=== PATIENT | female | born 1960 | race Caucasian/White ===

== ENCOUNTER 2017-06-19 22:16 | Emergency (ER) | payer BC, SELFPAY ==
[2017-06-19 22:18] VITALS: BP 140/75; PULSE 77; RESP 20; TEMP 36.8; O2SAT 96; BMI 37.8
--- NOTE | 2017-06-19 23:02 | RAD_ITS ---
XR Spine Lumbar 2 or 3 Views INDICATION: NKIC/O LBP STARTING TONIGHTRECENT BACK SURGERY COMPARISON: December 2016 TECHNIQUE: Frontal and lateral views of the lumbar spine and coned down lateral view of the lumbosacral junction FINDINGS: There are postsurgical changes from laminectomies and posterior fusion from L4-S1, new compared to December 2016. Hardware appears properly positioned. There is no evidence of scoliosis. Height of the vertebral bodies is preserved. RAD/Lumbar Spine 2 or 3 Views IMPRESSION: Postsurgical changes from L4-S1. Height of the vertebral bodies is preserved. Consider further evaluation with MRI if clinical symptoms persist. at [id number] Reported and signed by: Gwen Alegria MD Electronically Signed: Gwen Alegira MD at 22:55 EDT Tel , Service support ,
--- NOTE | 2017-06-19 23:03 | ED.VISSUMM ---
- ER Visit Summary Date of Service: 06/19/17 Chief Complaint: Back pain History of Present Illness: The patient is a 56 F postop day 29 L4-S1 fusion by Dr. Briseno, at [facility]. States sudden nontraumatic pain lower back approximately 2034 while standing in front and stove. She was not bending. States has pain down the leg when she moves. No loss of bowel or bladder control. Previously had pain down left leg, states initial surgery was May 21, however came out of surgery pain on the right leg, revision surgery with reversal screw on the with improved symptoms. Is doing doing well since surgery. Has not required any pain medicines, however with pain did take an oxycodone in her Flexeril at 9 PM this evening. Had a follow-up appointment 8 days ago an additional appointment on July 09. No fever, chills, sweats. Physical Examination: General: Alert and oriented ?3, uncomfortable HEENT: Normocephalic, atraumatic. Moist mucosa membranes Neck: supple, nontender. Cardiovascular: Regular rate and rhythm, no murmurs Respiratory: Normal breath sounds, symmetric, no distress Back: Healing lower lumbar incision, scabbing at L4, no erythema, no drainage. Clean, dry, intact. Straight leg test negative. 1+ patellar reflex bilaterally. Abdomen: Soft, nontender, nondistended Extremities: Nontender, no edema, pulses intact ?4 Neuro: no focal neurological deficits. Test Results: LS spine x-ray: Hardware intact Emergency Department Course and Treatment: Patient with no cauda equina symptoms. No signs of infection. Declined any additional pain medicines. X-ray obtained noting hardware to be intact and in appropriate position per radiologist. Patient continue her home medication she will call her surgeon tomorrow for outpatient reevaluation. Patient did state her surgeon did not want her on any NSAIDs due to wanting bone healing and formation. Return if any worsening symptoms. All questions were answered. Treatment Plan: [] Disposition: Discharge Impression: 1. Acute back pain 2. Post laminectomy with spinal fusion This note was generated with [employer] dictation software. It may contain incorrect words, spelling, and punctuation that were not noted in review of the chart prior to signing ED Disposition - Plan for ED Patient: Disposition: Home or Assisted Living Chief Complaint: Back Diagnosis: Acute back pain Referrals: [facility] Doctor,Out of [Primary Care Provider] - Additional Instructions: X-ray with hardware in appropriate position. Continue home medications. Call Dr. Briseno tomorrow for follow-up.
--- NOTE | 2017-06-19 23:06 | ED.DCSUM_ITS ---
- ER Visit Summary Date of Service: 06/19/17 Chief Complaint: Back pain History of Present Illness: The patient is a 56 F postop day 29 L4-S1 fusion by Dr. Briseno, at [facility]. States sudden nontraumatic pain lower back approximately 2034 while standing in front and stove. She was not bending. States has pain down the leg when she moves. No loss of bowel or bladder control. Previously had pain down left leg, states initial surgery was May 21, however came out of surgery pain on the right leg, revision surgery with reversal screw on the with improved symptoms. Is doing doing well since surgery. Has not required any pain medicines, however with pain did take an oxycodone in her Flexeril at 9 PM this evening. Had a follow-up appointment 8 days ago an additional appointment on July 09. No fever, chills, sweats. Physical Examination: General: Alert and oriented ?3, uncomfortable HEENT: Normocephalic, atraumatic. Moist mucosa membranes Neck: supple, nontender. Cardiovascular: Regular rate and rhythm, no murmurs Respiratory: Normal breath sounds, symmetric, no distress Back: Healing lower lumbar incision, scabbing at L4, no erythema, no drainage. Clean, dry, intact. Straight leg test negative. 1+ patellar reflex bilaterally. Abdomen: Soft, nontender, nondistended Extremities: Nontender, no edema, pulses intact ?4 Neuro: no focal neurological deficits. Test Results: LS spine x-ray: Hardware intact Emergency Department Course and Treatment: Patient with no cauda equina symptoms. No signs of infection. Declined any additional pain medicines. X- ray obtained noting hardware to be intact and in appropriate position per radiologist. Patient continue her home medication she will call her surgeon tomorrow for outpatient reevaluation. Patient did state her surgeon did not want her on any NSAIDs due to wanting bone healing and formation. Return if any worsening symptoms. All questions were answered. Treatment Plan: [] Disposition: Discharge Impression: 1. Acute back pain 2. Post laminectomy with spinal fusion This note was generated with [employer] dictation software. It may contain incorrect words, spelling, and punctuation that were not noted in review of the chart prior to signing ED Disposition - Plan for ED Patient: Disposition: Home or Assisted Living Chief Complaint: Back Diagnosis: Acute back pain Referrals: [facility] Doctor,Out of [Primary Care Provider] - Additional Instructions: X-ray with hardware in appropriate position. Continue home medications. Call Dr. Briseno tomorrow for follow-up.
[2017-06-20 00:44] VITALS: RESP 18
== END 2017-06-20 00:44 | disposition home or self-care (01) ==
PROVIDERS: Emergency Provider Emergency Medicine
DX: M54.9 Dorsalgia, unspecified (principal); Z98.890 Other specified postprocedural states; Z79.899 Other long term (current) drug therapy
CPT/HCPCS: 72100; 99282

== ENCOUNTER → 2017-07-09 12:44 | Outpatient (CLI) | payer BC, SELFPAY ==
--- NOTE | 2017-07-09 12:45 | RAD_ITS ---
STUDY: X-RAY - LUMBAR SPINE REASON FOR EXAM: Female, 56 years old. Low back pain TECHNIQUE: 2 view(s) of the lumbar spine were obtained. COMPARISON: Prior study of 06/19/2017 FINDINGS: Normal lumbar lordosis. There is no substantial scoliosis. There is a normal alignment of the vertebrae. There are status post posterior spinal fusion changes with interpeduncular screws from L4 to S1. Status post laminectomy changes are seen at L4 and L5. Normal disc space heights. The soft tissue structures are unremarkable. RAD/Lumbar Spine 2 or 3 Views IMPRESSION: Status post posterior spinal fusion changes with interpeduncular screws from L4 to S1. Status post L4 and L5 laminectomy. There is no evidence of fracture or spondylolisthesis. Findings are stable in the interval. Electronically Signed: Sin Jansen MD at 23:32 EDT , Service support ,
[2017-07-09 16:06] LABS: Erythrocyte Sedimentation Rate 24 mm/hr (0-30)
== END ==
PROVIDERS: Visit Provider Orthopaedic Surgery
DX: Z98.1 Arthrodesis status (principal)
CPT/HCPCS: 36415; 72100; 85652; 86140

== ENCOUNTER → 2017-08-20 14:04 | Outpatient (CLI) | payer BC, SELFPAY ==
--- NOTE | 2017-08-20 14:05 | RAD_ITS ---
STUDY: X-RAY - LUMBAR SPINE REASON FOR EXAM: Female, 56 years old. Follow-up after surgery TECHNIQUE: 2 view(s) of the lumbar spine were obtained. COMPARISON: None FINDINGS: Mild scoliosis. Generalized mild osteopenia. No acute intra-abdominal process. Lower ribs, upper medial pelvis intact. Mild SI joint degenerative changes. Posterior roger and pedicle screw fixation between L4 and S1, surgical construct intact, vertebral bodies aligned. Only minimal disc degenerative features of the low thoracic and upper lumbar spine otherwise. RAD/Lumbar Spine 2 or 3 Views IMPRESSION: Surgical construct intact. Mild scoliosis and mild spondylosis. Electronically Signed: Tyson Cummings, at 16:21 EDT Tel , Service support ,
== END ==
PROVIDERS: Visit Provider Orthopaedic Surgery
DX: Z98.1 Arthrodesis status (principal)
CPT/HCPCS: 72100

== ENCOUNTER 2017-08-21 17:30 | Outpatient (RCR) | payer BC, SELFPAY ==
--- NOTE | 2017-07-24 19:31 | HP.PTEVAL_ITS ---
Patient's Visit Information NATO GUERRIER is a 56 year old F referred to Physical Therapy by Terese Briseno with a diagnosis of s/p L4-S1 Fusion- R ankle weakness. Date of Evaluation: 07/24/17 Physical Therapist: Jessica Stark - Visit Plan Frequency: 2x /Week Duration: 4 Weeks Plan: 2X/ week for 4weeks for desensitization of the R foot and ankle and ankle strengthening of the R foot. NO BACK EXERCISES - Subjective Subjective: Pt had first surgery fusion may 23. Pt had back surgery again ( next day) (she went in twice cause they had to pull a screw out bw that was causing pain in her foot and they had to cut part of the bone). Before surgery she had no problems with R foot. Now after surgery now she has a burning sensation along the arch and acorss the top of the toes and anterior ankle. Her 3 toes went blue the other day and they are not blue any more. She has no control over the 3 smallest toes (she can now feel but she is very hyper- sensitive). She cant stand the sheet over her at night. Pt sees a new pain management Dr on the and will try and find new meds for her. Pt is tripping on her foot at times. Pt can not LAY ON HER BACK.....because she feels the rods are coming out of her spine. She sees Dr Gonzales August 23. She has been on gabapetin for years and can not take it and insurance co will not cover Lyrica and tylenol does not cover it. Dr does not want pt to sit or stand longer than 30 min. Pt reports that hurting taking a shower...ice packs make it hurt. - Pain R foot Pain Intensity (Out of 10): 3 Pain Intensity Range: 10 Comment: walking without a shoe on 10 - Objective Gait: walks with decrease stance time on the R and increase wobble with gait. R foot ARM: flex to neutral, PF 35 degrees, Inv 21 degrees and EV 9 degrees. Pt is extremely hypersensitive to touch along the top of the foot, medial arch of the R foot and anterior ankle on the R. She could not handle light touch so we started with using a tissue to lightly brush over the foot including lateral arch. Pt was able to tolerate gastroc towel stretchm sitting DF AROM, and towel scrunch although her big toe does not move enough to scrunch the towel. - Goals Goal 1:: I HEP Goal Time Frame: 4-6 Weeks Goal 2:: Increase gait to be able to walk with a normal gait pattern. Goal Time Frame: 4-6 Weeks Goal 3:: Decrease sensitivity so that pt is able to put on shoe and sock without screaming in pain Goal Time Frame: 4-6 Weeks - Rehabilitation Potential Rehabilitation Potential: Fair - Anticipated Interventions Patient/Client Instruction: Educate patient on: Condition, Plan of Care For the Purpose of:: To decrease pain, To decrease swelling/inflammation, To increase ROM, To improve nutrient delivery to tissue, To improve muscle performance and motor function, To improve ability to perform ADL's, To increase tolerance to activity/condition/position, To improve gait and locomotor functions, To improve health of tissue, To decrease soft tissue restriction, To increase flexibility/ROM Therapeutic Exercise to Include: Strength training, Balance training, Flexibilty training, Gait and locomotor training, Neuromotor development, Passive ROM, Active ROM For the Purpose of:: To decrease pain, To decrease swelling/inflammation, To increase ROM, To improve nutrient delivery to tissue, To improve muscle performance and motor function, To improve ability to perform ADL's, To increase tolerance to activity/condition/position, To improve health of tissue, To decrease soft tissue restriction, To increase flexibility/ROM, To improve balance Manual Therapy Techniques to Include: Massage, Passive ROM, Other Comment: desensitization For the Purpose of:: To decrease pain, To increase ROM, To improve muscle performance and motor function, To improve ability to perform ADL's, To increase tolerance to activity/condition/position, To improve gait and locomotor functions, To improve health of tissue, To decrease soft tissue restriction, To increase flexibility/ROM Thank you for the opportunity to evaluate your patient. For Medicare and Medicare HMO plans, please review the plan of care and approve it. It will need to be FAXED BACK to us at [phone] for Medicare purposes. Please let me know if there are questions or concerns regarding this plan of care. Physician Signature: Date:
--- NOTE | 2017-08-21 19:09 | HP.PTREVAL_ITS ---
Terese Briseno, It has been my pleasure to treat NATO GUERRIER over the last 6 visits for s/p L4-S1 Fusion- R ankle weakness. Please see the progress note below for an update on the physical therapy plan of care! Subjective: Tomm she has a new PCP appointment cause Dr does not think that the surgery is causing he leg swelling cause it is now in both legs and just the R foot. The Dr wants her to see a hemodialysis technician. said go ahead and start strengthening but to quit when she knows that she has done enough. No difference with the compression sleeve given last session. Objective/Function: Trunk flexion 25% with knees bent, SB B 50%, Ext to neutral , Rot B 75%. Pt is unable to heel or toe raise on the R. Plan Plan: Start with gentle core strengthening, gait training, light LE strength geared toward HEP. Goals Goal 1:: I HEP Goal Time Frame: 4-6 Weeks Goal 2:: Increase gait to be able to walk with a normal gait pattern. Goal Time Frame: 4-6 Weeks Goal 3:: Decrease sensitivity so that pt is able to put on shoe and sock without screaming in pain Goal Time Frame: 4-6 Weeks Goal Progress: Goal Met Goal 4:: Be able to complete I HEP core stability (light) program per order Goal Time Frame: 4-6 Weeks Anticipated Interventions Patient/Client Instruction: Educate patient on: Condition, Plan of Care For the Purpose of:: To decrease pain, To decrease swelling/inflammation, To increase ROM, To improve nutrient delivery to tissue, To improve muscle performance and motor function, To improve ability to perform ADL's, To increase tolerance to activity/condition/position, To improve gait and locomotor functions, To improve health of tissue, To decrease soft tissue restriction, To increase flexibility/ROM Therapeutic Exercise to Include: Strength training, Balance training, Flexibilty training, Gait and locomotor training, Neuromotor development, Passive ROM, Active ROM For the Purpose of:: To decrease pain, To decrease swelling/inflammation, To increase ROM, To improve nutrient delivery to tissue, To improve muscle performance and motor function, To improve ability to perform ADL's, To increase tolerance to activity/condition/position, To improve health of tissue, To decrease soft tissue restriction, To increase flexibility/ROM, To improve balance Manual Therapy Techniques to Include: Massage, Passive ROM, Other Comment: desensitization For the Purpose of:: To decrease pain, To increase ROM, To improve muscle performance and motor function, To improve ability to perform ADL's, To increase tolerance to activity/condition/position, To improve gait and locomotor functions, To improve health of tissue, To decrease soft tissue restriction, To increase flexibility/ROM Please do not hesitate to contact me at [phone] by phone or Fax: if you have questions or concerns regarding this new plan of care! Sincerely, Jessica Stark
--- NOTE | 2018-01-17 08:06 | HP.PT.NRP ---
HP - Discharge Summary (1) - Patient Information NATO GUERRIER was seen in my office for initial evaluation on 07/24/17. The following Plan of Care was established for this patient: Initial Frequency: 2x /Week Initial Duration: 4 Weeks - Anticipated Interventions Patient/Client Instruction: Educate patient on: Condition, Plan of Care For the Purpose of:: To decrease pain, To decrease swelling/inflammation, To increase ROM, To improve nutrient delivery to tissue, To improve muscle performance and motor function, To improve ability to perform ADL's, To increase tolerance to activity/condition/position, To improve gait and locomotor functions, To improve health of tissue, To decrease soft tissue restriction, To increase flexibility/ROM Therapeutic Exercise to Include: Strength training, Balance training, Flexibilty training, Gait and locomotor training, Neuromotor development, Passive ROM, Active ROM For the Purpose of:: To decrease pain, To decrease swelling/inflammation, To increase ROM, To improve nutrient delivery to tissue, To improve muscle performance and motor function, To improve ability to perform ADL's, To increase tolerance to activity/condition/position, To improve health of tissue, To decrease soft tissue restriction, To increase flexibility/ROM, To improve balance Manual Therapy Techniques to Include: Massage, Passive ROM, Other Comment: desensitization For the Purpose of:: To decrease pain, To increase ROM, To improve muscle performance and motor function, To improve ability to perform ADL's, To increase tolerance to activity/condition/position, To improve gait and locomotor functions, To improve health of tissue, To decrease soft tissue restriction, To increase flexibility/ROM This patient was last seen in our office 08/21/17. Pertinent comments regarding their Physical therapy will appear below: [facility] PT At this point I will be discontinuing this patient from physical therapy. I would be happy to see this patient again in the future if found appropriate by the physician. Thank you! Jessica Stark
== END 2017-08-21 19:00 | disposition home or self-care (01) ==
LOC: PT 17:30
PROVIDERS: Visit Provider Orthopaedic Surgery
DX: Z98.890 Other specified postprocedural states (principal); R29.898 Other symptoms and signs involving the musculoskeletal system
CPT/HCPCS: 97110; 97140; 97162

== ENCOUNTER → 2017-09-12 10:55 | Outpatient (CLI) | payer BC, SELFPAY ==
--- NOTE | 2017-09-12 10:56 | RAD_ITS ---
STUDY: X-RAY - RIGHT KNEE REASON FOR EXAM: Bilateral knee pain. TECHNIQUE: 4 view(s) of the knee. COMPARISON: None. FINDINGS: Normal visualized distal femur. Normal visualized proximal tibia and fibula. Normal proximal tibiofibular articulation. There are small marginal osteophytes and joint space narrowing of the medial femorotibial compartment. Normal lateral femorotibial compartment. There are small marginal osteophytes and joint space narrowing of the patellofemoral articulation. There is a small calcification in the proximal medial collateral ligament. RAD/Knee 4 or More Views IMPRESSION: Arthrosis of the medial femorotibial and patellofemoral compartments. Electronically Signed: Darius Ramos MD at 16:26 EDT Tel , Service support ,
--- NOTE | 2017-09-12 10:56 | RAD_ITS ---
STUDY: X-RAY - LEFT KNEE REASON FOR EXAM: Bilateral knee pain. TECHNIQUE: 4 view(s) of the knee. COMPARISON: None. FINDINGS: Normal visualized distal femur. Normal visualized proximal tibia and fibula. Normal proximal tibiofibular articulation. There are small marginal osteophytes and joint space loss of the medial femorotibial compartment. There is a small osteophyte of the lateral tibial plateau without joint space narrowing of the lateral femorotibial compartment. There are small marginal osteophytes and joint space narrowing of the patellofemoral articulation. There is a very small soft tissue calcification medial to the medial tibial plateau. RAD/Knee 4 or More Views IMPRESSION: Arthrosis of the medial femorotibial and patellofemoral compartments. Electronically Signed: Darius Ramos MD at 16:30 EDT Tel , Service support ,
== END ==
PROVIDERS: Visit Provider Orthopaedic Surgery
DX: M25.561 Pain in right knee (principal); M25.562 Pain in left knee
CPT/HCPCS: 73564

== ENCOUNTER → 2017-09-12 14:26 | Outpatient (CLI) | payer BC, SELFPAY ==
[2017-09-12 14:28] LABS: Pathologist Comment May follow
[2017-09-12 15:05] LABS: Source- Body Fluid SYNOVIAL
[2017-09-12 15:06] LABS: Appearance /Synovial Fluid Clear (CLEAR); Color / Synovial Fluid Yellow (Pale Yellow); Source / Synovial Fluid LEFT KNEE
[2017-09-12 15:13] LABS: Synovial Fld Polynuclear WBC # 0.098 10^3/ul
[2017-09-12 15:26] LABS: AUTO B FLUID DILUENT BKGD CT WBC <0.1 RBC <0.01 (W<.1,R<.01)
[2017-09-12 15:38] LABS: RBC /Synovial Fluid 31 /mm3 (0)
[2017-09-12 16:21] LABS: Lymph 15 %; Monocyte /Synovial Fluid 13 %; Neutrophil 7 % (0-25); Synovial Fld Mononuclear WBC # 0.153 10^3/ul
[2017-09-12 16:22] LABS: Body Fluid QC Type(s) BF1Q,BF2Q,BF3Q; Other Cell /Synovial Fluid 65 %
[2017-09-13 10:02] LABS: Pathologist Review Reviewed
== END ==
PROVIDERS: Visit Provider Orthopaedic Surgery
DX: M17.0 Bilateral primary osteoarthritis of knee (principal)
CPT/HCPCS: 87070; 87075; 87205; 89050; 89051; 89060

== ENCOUNTER 2017-11-05 15:04 | Outpatient (RCR) | payer BC, SELFPAY ==
--- NOTE | 2017-11-05 17:20 | HP.PTEVAL_ITS ---
Patient's Visit Information NATO GUERRIER is a 57 year old F referred to Physical Therapy by Selena Butler DO with a diagnosis of B Knee OA. Date of Evaluation: 11/05/17 Physical Therapist: Jessica Stark - Visit Plan Frequency: 2x /Week Duration: 4 Weeks Plan: 2X/ week for 4 weeks for L knee and hip strengthening being careful of R foot nerve damage from previous back surgery and back from back surgery, gait training, knee ROM, with HEP and modalities PRN. May try a trial of AT if pt can not handle land based thereapy. - Subjective Subjective: Pt saw Dr Gibson on 10-24-2017 injections in B knees and fluid was taken out of the L knee (that lasted a week). Had some brace fitting and no braces are working for her kene. It hurts when she moves or turns walking or any type of weight bearing on it. Cocks into a valgus position....she has to get up a certain way because of back surgery ( restrictions from surgery...can do almost everything she wants unless it reminds her not to). R foot still has swelling/nerve damage and just recent wearing a bunion protector/brace which helps with her R foot pain. Pt reports that the fluid has come back on the knee and doesnt see elan for 4-6 months. - Pain L knee pain Pain Intensity (Out of 10): 0 Pain Intensity Range: 8 Comment: Standing 8/10 pain back pain Pain Intensity (Out of 10): 0 R foot pain Pain Intensity (Out of 10): 0 - Objective 0 degrees knee extension and -133 R and 130 degrees L degrees knee flexion AROM. 38 cm, 41.5 cm , 43cm Left girth measurements. 37 cm , 40cm , 42.4cm Right girth measurements. LE MMT: R hip flex 4-/5 and L hip flex 4/5, R hip abd 4/5 and L 4-/5, R knee flex 4-/5 ( increase HS cramp) and L knee flex 4/5, B knee ext 4/5, able to do full ROM bridge. Gait: walks with straight L leg with increase hip hike. Trouble with stance time on the R at time due to swelling from damage from previous back surgery. - Goals Goal 1:: I HEP Goal Time Frame: 4-6 Weeks Goal 2:: Decrease L knee pain to 2/10 with ADL's Goal Time Frame: 4-6 Weeks Goal 3:: Increase L hip and knee strength by 1/2 muscle grade (at time of eval: LE MMT: R hip flex 4-/5 and L hip flex 4/5, R hip abd 4/5 and L 4-/5, R knee flex 4-/5 ( increase HS cramp) and L knee flex 4/5, B knee ext 4/5, able to do full ROM bridge). Goal Time Frame: 4-6 Weeks Goal 4:: Walk with a normal gait pattern Goal Time Frame: 4-6 Weeks - Rehabilitation Potential Rehabilitation Potential: Good - Anticipated Interventions Patient/Client Instruction: Educate patient on: Condition, Plan of Care For the Purpose of:: To decrease pain, To decrease swelling/inflammation, To increase ROM, To improve nutrient delivery to tissue, To improve muscle performance and motor function, To improve ability to perform ADL's, To increase tolerance to activity/condition/position, To improve performance and independence with ADL's, To improve ability of physical actions for home/ community/work/leisure, To improve gait and locomotor functions, To improve health of tissue, To decrease soft tissue restriction, To increase flexibility/ ROM Therapeutic Exercise to Include: Strength training, Balance training, Flexibilty training, Gait and locomotor training, Neuromotor development, In an aquatic setting, Active ROM For the Purpose of:: To decrease pain, To decrease swelling/inflammation, To increase ROM, To improve nutrient delivery to tissue, To improve muscle performance and motor function, To improve ability to perform ADL's, To increase tolerance to activity/condition/position, To improve performance and independence with ADL's, To decrease level of supervision to perform tasks, To improve ability of physical actions for home/community/work/leisure, To improve gait and locomotor functions, To improve health of tissue, To decrease soft tissue restriction, To increase flexibility/ROM Functional Training to Include: Gait training For the Purpose of:: To improve gait and locomotor functions IF ES: Yes Cryotherapy (ice pack, ice massage): Yes Ultrasound (thermal/non thermal): Yes For the Purpose of:: To decrease pain, To decrease swelling/inflammation, To increase ROM, To improve nutrient delivery to tissue Thank you for the opportunity to evaluate your patient. For Medicare and Medicare HMO plans, please review the plan of care and approve it. It will need to be FAXED BACK to us at [phone] for Medicare purposes. Please let me know if there are questions or concerns regarding this plan of care. Physician Signature: Date:
--- NOTE | 2018-05-02 08:36 | HP.PT.NRP ---
HP - Discharge Summary (1) - Patient Information NATO GUERRIER was seen in my office for initial evaluation on 11/05/17. The following Plan of Care was established for this patient: Initial Frequency: 2x /Week Initial Duration: 4 Weeks - Anticipated Interventions Patient/Client Instruction: Educate patient on: Condition, Plan of Care For the Purpose of:: To decrease pain, To decrease swelling/inflammation, To increase ROM, To improve nutrient delivery to tissue, To improve muscle performance and motor function, To improve ability to perform ADL's, To increase tolerance to activity/condition/position, To improve performance and independence with ADL's, To improve ability of physical actions for home/community/work/leisure, To improve gait and locomotor functions, To improve health of tissue, To decrease soft tissue restriction, To increase flexibility/ROM Therapeutic Exercise to Include: Strength training, Balance training, Flexibilty training, Gait and locomotor training, Neuromotor development, In an aquatic setting, Active ROM For the Purpose of:: To decrease pain, To decrease swelling/inflammation, To increase ROM, To improve nutrient delivery to tissue, To improve muscle performance and motor function, To improve ability to perform ADL's, To increase tolerance to activity/condition/position, To improve performance and independence with ADL's, To decrease level of supervision to perform tasks, To improve ability of physical actions for home/community/work/leisure, To improve gait and locomotor functions, To improve health of tissue, To decrease soft tissue restriction, To increase flexibility/ROM Functional Training to Include: Gait training For the Purpose of:: To improve gait and locomotor functions IF ES: Yes Cryotherapy (ice pack, ice massage): Yes Ultrasound (thermal/non thermal): Yes For the Purpose of:: To decrease pain, To decrease swelling/inflammation, To increase ROM, To improve nutrient delivery to tissue This patient was last seen in our office 11/19/17. Pertinent comments regarding their Physical therapy will appear below: DC PT At this point I will be discontinuing this patient from physical therapy. I would be happy to see this patient again in the future if found appropriate by the physician. Thank you! Jessica Stark, MPT
== END 2017-11-05 19:00 | disposition home or self-care (01) ==
LOC: PT 15:04
PROVIDERS: Visit Provider Orthopaedic Surgery
DX: M17.0 Bilateral primary osteoarthritis of knee (principal)
CPT/HCPCS: 97162

== ENCOUNTER → 2017-11-12 15:00 | Outpatient (CLI) | payer BC, SELFPAY | PROVIDERS: Visit Provider Orthopaedic Surgery | DX: M54.5 Low back pain (principal) | CPT/HCPCS: 72100 ==

== ENCOUNTER 2018-01-17 09:58 | Day surgery (SDC) | payer BC, SELFPAY ==
[2018-01-17] VITALS (8 sets, daily range): BP systolic 80–114; BP diastolic 57–76; PULSE 68–80; RESP 16–32; TEMP 36.2–37.1; O2SAT 90–98; BMI 36.3
--- NOTE | 2018-01-17 | BUN_PTH ---
PATIENT: NATO GUERRIER LOC: [facility] [place] U#:[id number] AGE/SX: 57/F ROOM: RE01/17/[address]: Dr. Deny Platt DPM : 1960 BED: DIS: 01/17/2018 SPEC #: [id number] RECD: 01/20/18 13:41 STATUS: YULIYA REQ #: [id number] DESTIN: 01/17/18 00:[address]: Deny Paltt DEPT: SURGICAL PATHOLOGY RECD BY: Pablo Birmingham ENTERED: 01/20/18 13:41 SP TYPE: BUNION OTHR DR: Dr. Deny Sauer MD Tissues: Bony tissue, NOS Procedures: Decalcification bone/plaque Surgery Specimen Level III HEADER OPERATION: First metatarsal osteotomy, bunionectomy with poss Ethan great toe PRE-OP DIAGNOSIS: Hallus valgus right great toe, hammertoe TISSUE SUBMITTED: Bunion first metatarsal right foot MICROSCOPIC DIAGNOSIS Bunion first metatarsal right foot: Pieces of bone with reactive changes, clinically bunion. MICHELLE:crispin 01/23/18 MICROSCOPIC DESCRIPTION Slides are reviewed. GROSS DESCRIPTION Received in fixative is one container labeled with the patient's name and designated bunion first metatarsal right foot. The specimen consists of multiple pieces of bone that in aggregate measure 3 x 3 x 0.1 cm. The entire specimen is submitted in one cassette after decalcification. / MICHELLE:crispin 01/20/18 TC:5 CPT: 29220, 13946
--- NOTE | 2018-01-17 10:30 | RAD_ITS ---
STUDY: Fluoroscopic RIGHT FOOT CLINICAL: Female, 57 years old. Osteotomy first TECHNIQUE: 2 view(s) of the foot. COMPARISON: None. FINDINGS: 2 fluoroscopic views of the distal foot are provided showing 2 cortical screws in the first metatarsal. Fluoroscopy time is recorded as 0.37 seconds RAD/Foot min 3 Views IMPRESSION: 2 views fluoroscopy of the right foot. Electronically Signed: Irma Patton MD at 16:03 EDT Tel , Service support ,
[2018-01-17 10:51] LABS: Prothrombin Time (Protime)PT. 13.1 SECONDS (11.7-14.9)
[2018-01-17 10:52] LABS: Partial Thromboplast Time 31.1 Seconds (24.1-36.2)
[2018-01-17] MEDS: MethylPREDNISolone Acetate 80 MG/ML Vial (12:47)
[2018-01-17] MEDS: Bupivacaine Mpf 0.5% 30 ML VIAL (12:50)
--- NOTE | 2018-01-17 12:52 | RAD_ITS ---
STUDY: X-RAY - RIGHT FOOT CLINICAL: Female, 57 years old. Postop right foot TECHNIQUE: 3 view(s) of the foot. COMPARISON: January 17, 2018 fluoroscopic imaging FINDINGS: There is an enthesophyte involving the posterior superior calcaneus at the site of insertion of the Achilles tendon. There is a plantar spur. The bones are osteopenic. There is degenerative change at the tarsotarsal joints. There is an os navicularis. There are cortical screws within the right first metatarsal. There is postoperative change. There is gas in the soft tissues. Normal metatarsophalangeal joint of the great toe. Normal tibial and fibular sesamoid bones. Normal interphalangeal joint of the great toe. Normal phalanges of the great toe. Normal second through fifth metatarsophalangeal joints. Normal interphalangeal joints and phalanges of the lesser toes. RAD/Foot min 3 Views IMPRESSION: Operative changes right foot first metatarsal. Plantar and Achilles spur. Bony osteopenia. Os naviculare. Electronically Signed: Irma Patton MD at 15:07 EDT Tel , Service support ,
--- NOTE | 2018-01-17 12:55 | DCINST_ITS ---
Discharge Diet: Light diet - advance as tolerated Discharge Activity: May Not Drive Weight Bearing Status: No weight bearing - No weightbearing right forefoot (ball of foot and toes) Keep extremity elevated above heart level: Right Leg - Keep right foot elevated for at least 50 minutes of every hour Call your doctor if your incision/area has: Continuous Slow Oozing, Sudden Increased Bleeding, Foul Smelling Discharge Call your doctor if you observe: Fever of 101 or Higher, Shortness of breath, Chest pain, Increased palpitations (irregular heartbeat), Calf discomfort, Uncontrolled pain Cleanse incision/area with: Do not get Incision Wet, Keep Dressing Clean & Dry Allergies/Adverse Reactions: Allergies atorvastatin [From Lipitor] Allergy (Verified 01/14/18 13:29) Upset Stomach cephalexin [From Keflex] Allergy (Verified 01/14/18 13:29) Swelling latex Allergy (Verified 01/14/18 13:30) Rash morphine Allergy (Verified 01/14/18 13:29) Vomiting nickel Allergy (Verified 01/14/18 13:30) Rash pork derived (porcine) Allergy (Verified 01/14/18 13:30) Food Allergy tramadol Allergy (Verified 01/14/18 13:29) Rash zinc Allergy (Verified 01/14/18 13:29) Rash gabapentin Adverse Reaction (Verified 01/14/18 13:59) Swelling Medications to take at Discharge Amlodipine [Norvasc] 10 mg PO DAILY 03/15/16 Diclofenac Potassium 50 mg PO DAILY 03/15/16 Propranolol HCl 60 mg PO BID 03/15/16 Betamethasone Sod Phosph-Water [Betamethasone 12 mg/2 ml-Water] 1 applic TOPICAL DAILY 06/19/17 Loteprednol Etabonate [Lotemax] 3.5 gm OP QHS 06/19/17 Omeprazole Magnesium [Prilosec Otc] 20 mg PO DAILY 06/19/17 Albuterol Sulfate [Proventil Hfa] 2 puff IH Q4H PRN PRN 01/14/18 Doxepin HCl [Sinequan] 10 mg PO QHS 01/14/18 Tizanidine HCl [Zanaflex] 2 mg PO Q8H PRN 01/14/18 Oxycodone HCl/Acetaminophen [Percocet 5/325] 1 - 2 tab PO Q6H PRN PRN 4 Days #30 tab 01/17/18 The following prescriptions were given: Oxycodone HCl/Acetaminophen [Percocet 5/325] 1 - 2 tab PO Q6H PRN PRN 4 Days #30 tab PRN Reason: Pain Primary Care Physician: Deny Sauer MD [Primary Care Provider] - Test Results: Test results from this visit will be discussed in further detail at your follow- up appointment, if applicable. Please Follow Up With: Deny Platt DPM When: within 1 week, sooner if needed
--- NOTE | 2018-01-17 12:55 | PCM.OPRPT ---
Report of Operation Date of Procedure: 01/17/18 Pre-Operative Diagnosis: Hallux valgus bunion, right foot. 2nd digit hammer toe, right foot Post-Operative Diagnosis: Same Surgery/Procedure Performed:: 1st metatarsal osteotomy bunionectomy, right. arthroplasty right 2nd toe Description of Surgical Findings:: Hallux valgus bunion, hallux limitus, 2nd digit hammer toe - right foot community organization director: Dr. Bose Type of Anesthesia:: General Specimen's removed: Bunion and bone from 2nd digit hammer toe all right foot- sent to pathology Estimated Blood Loss (mL): 5mL Description of Procedure: Indications: This is a 57 year-old female who has chronic right foot bunion pain and painful 2nd digit hammer toe deformity. She has a significant bunion and 2nd digit hammer toe deformity present. She also has chronic osteoarthritis to the tarsometatarsal midfoot joints which are painful as well. She has trouble with shoes and with activities. he bunion and hammer toe is bothering her the most for which she has tried nonsurgical care however her symptoms persist and are only getting worse. She was asking about surgical options. We discussed all of the options, and she elected to proceed with first metatarsal osteotomy bunionectomy with a possible great toe osteotomy, along with arthroplasty correction of 2nd digit hammer toe on the right foot, as well as corticosteroid injection to the tarsometatarsal/midfoot joints.This was discussed with her in great detail. We reviewed all the possible benefits, risks, goals and expectations. She expressed understanding and agreement. We also reviewed the typical postoperative and expected postoperative course. She expressed understanding and agreement and wanted to proceed forward with surgical intervention. All alternative options were discussed with her and all the possible benefits, risks of the alternative options were discussed with her as well in detail. She expressed understanding and agreement and again want to proceed for surgical intervention. The consent form was reviewed with her and she freely signed them. No guarantees were given or implied. She was cleared from a medical standpoint by her PCP. Operative Procedure: The patient was brought back into the operating room and was placed onto the operative table in the supine position. She was carefully secured to the operating room table with safety belt around her waist. The patient did receive 900 milligrams of intravenous Clindamycin for antibiotic prophylaxis. The patient received general LMA anesthesia per the anesthesiologist. A well-padded pneumatic tourniquet was applied around her right ankle. The right foot was scrubbed, prepped and draped in the usual aseptic fashion. Further attention was directed to the right foot, there was significant hallux valgus bunion and 2nd digit hammer toe deformity. There was a large medial eminence of the 1st metatarsal head, and prominent proximal phalanx head of the 2nd toe. There was significant limitation of the 1st metatarsal phalangeal joint range of motion, particularly significantly decreased dorsiflexion, resulting in significant hallux limitus. The foot was elevated for 3 minutes and the right ankle pneumatic tourniquet was inflated to 250 mmHg. Using a #15 scalpel blade, an incision was made just medial to the extensor hallucis longus tendon overlying the dorsal aspect of the first metatarsal and over the first metatarsophalangeal joint. Careful dissection was completed down to the first metatarsal and first metatarsophalangeal joint. The capsule of the first metatarsophalangeal joint was incised dorsally as well as the periosteum of the first metatarsal was incised dorsally using a #15 scalpel blade and these were carefully partially reflected exposing the distal first metatarsal and the first metatarsal. The first metatarsal head was visualized, there was noted to be chronic degenerative changes with thinning of the cartilage present. There was a large medial eminence of the first metatarsal head and using a powered sagittal saw, this was gently resected preserving the sagittal groove, this was sent to pathology. A scarf osteotomy was completed using a powered sagittal saw to the first metatarsal. This was done in standard fashion with a longitudinal arm, a dorsal distal arm and a plantar proximal arm. The capital fragment was gently and carefully shifted laterally reducing the first intermetatarsal angle to normal and making the 1st metatarsal phalangeal joint congruent. The osteotomy site was fixated using rigid open reduction and internal fixation technique using two 2.5 mm Arthrex Titanium Richie screws 14mm in length (Initially two Arthrex Titanium Richie screws measuring 12mm length screws were used but there was poor purchase of the screws to the plantar surface - so these were removed). It was also noted that the adductor hallucis longus tendon was very tight as well as the lateral capsule and the sesamoidal ligament of the fibular sesamoid. Careful dissection was completed to the distal 1st intermetatarsal space, and the adductor hallucis longus tendon, lateral capsule of the first metatarsal phalangeal joint, and the sesamoidal ligament of the fibular sesamoid were identified, these were gently released using a #15 scalpel blade. There was also noted to be a dorsal bunion to the 1st metatarsal head which was causing hallux limitus, there were degenerative changes to the dorsal 1st metatarsal head as well. The dorsal 1/3 of the 1st metatarsal head was resected, resecting the degenerative cartilage. There were noted to be adhesions of the sesamoid apparatus which were released using a McGlamry metatarsal elevator. At this time there was smooth range of motion to the 1st metatarsal phalangeal joint. The osteotomy was stable with good bone to bone contact and good alignment present, screws intact in good position. There was good compression across the osteotomy site. Intraoperative fluoroscopy confirmed this as well. The site was flushed out with copious amounts of normal saline solution. The periosteum and the first metatarsophalangeal joint capsule were carefully reapproximated using 3-0 Vicryl. The subcutaneous tissue layer was carefully reapproximated using 3-0 Vicryl. The skin was carefully reapproximated using 4-0 Monocryl. Attention was directed to the 2nd toe which was contracted consistent with hammer toe deformity. A longitudinal incision was made overlying the dorsal aspect of the proximal interphalangeal joint. Dissection was completed down to the extensor digitorum longus tendon and proximal interphalangeal joint capsule which were released using a 15 blade. The collateral ligaments of the proximal interphalangeal joint were released. The head of the proximal phalanx was resected and sent to pathology with the above specimen. A kwire was not placed due to her Nickel allergy. The site was flushed out with copious amounts of normal saline solution. The two toe was placed in rectus position and the extensor tendon was repaired using 3-0 Vicryl. The skin was reapproximated using 4-0 Monocryl. There was noted to be dorsal contracture of the 2nd metatarsal phalangeal joint. A small stab incision was made overlying the dorsal lateral 2nd metatarsal phalangeal joint. Dissection was completed down to the dorsal 2nd metatarsal phalangeal joint capsule and overlying extensor tendon which were significantly contracted at this level. They were released using a 15 blade. Now the 2nd digit was completely rectus, in good position, with the hammer toe corrected. Attention was directed to the tarsometatarsal midfoot joints. A total of 40mg Depo Medrol with 2mL of 0.5% Bupivacaine plain was given as a corticosteroid injection to the tarsometatarsal midfoot joints. The pneumatic tourniquet was deflated at 90 minutes. There was immediate return of warmth and perfusion to the foot and all five toes. CFT was less than 2 seconds to all toes. Temperature was normal. A total of 20mL of 0.5% Bupivacaine plain was given as a local nerve block around the surgical site. Cavilon was painted to the edges of the suture skin incisions and steristrips were applied across the sutured skin incisions. A dressing was applied which consisted of Betadine soaked adaptic, 4x4 gauze, Kerlix and tommy bandage. The patient tolerated the above procedure well and anesthesia well with no complications. The patient was transported from the operative room to the recovery room with vital signs stable and in good condition. Post operative orders were placed, and post operative instructions were reviewed with the patient and her who was with her today (verbal and written). No weightbearing right forefoot, keep the dressing clean, dry and intact. Keep foot elevated for at least 50 minutes of every hour. Post operative prescriptions for Percocet for pain control was dispensed. Patient to follow up this Saturday in office, sooner if needed. Also of note post operative xrays were obtained of the right foot in the recovery room, which were reviewed. These confirmed 1st metatarsal osteotomy bunionectomy and hallux osteotomy (karen) with good position present, congruent 1st metatarsal phalangeal joint, normal 1st IM angle and normal hallux abductus angle, screws intact and in good position. Also s/p arthroplasty of the 2nd digit with the 2nd digit in rectus position. Grafts/Implants Used: 2 x 2.5mm Arthrex screws (titanium) - Complications None
[2018-01-17] MEDS: Ipratropium/Albuterol Sulfate 3 ML AMPUL.NEB INHALATION (13:16)
== END 2018-01-17 14:45 | disposition home or self-care (01) ==
LOC: SDC 09:59 → AC 10:00
PROVIDERS: Family Provider Family Medicine; PCP Family Medicine; Referring Provider Podiatrist; Visit Provider Podiatrist
PROC: (CPT 28298; principal; 2018-01-17 11:15)
DX: M20.11 Hallux valgus (acquired), right foot (principal); M21.611 Bunion of right foot; M20.41 Other hammer toe(s) (acquired), right foot; M20.5X1 Other deformities of toe(s) (acquired), right foot; M19.071 Primary osteoarthritis, right ankle and foot; G89.4 Chronic pain syndrome; J43.9 Emphysema, unspecified; I10 Essential (primary) hypertension; E78.2 Mixed hyperlipidemia; G43.909 Migraine, unspecified, not intractable, without status migrainosus; K21.9 Gastro-esophageal reflux disease without esophagitis; Z78.0 Asymptomatic menopausal state; Z79.899 Other long term (current) drug therapy; Z87.891 Personal history of nicotine dependence
CPT/HCPCS: 01480; 20600; 28285; 28296; 64450; 36415; 73630; 76000; 85610; 85730; 88304; 88311; 94640; C1713; J7120; J2405

== ENCOUNTER 2018-01-27 18:10 | Emergency (ER) | payer BC, SELFPAY ==
[2018-01-27 18:11] VITALS: BP 145/93; PULSE 74; RESP 18; TEMP 36.7; O2SAT 99; BMI 36.3
--- NOTE | 2018-01-27 18:47 | ED.VISSUMM ---
- ER Visit Summary Date of Service: 01/27/18 Chief Complaint: Right foot pain and swelling History of Present Illness: The patient is a 57 F who presents with right foot pain and swelling, concern for infection, 10 days after foot surgery. Patient states she had surgery for a bunionectomy on her right foot 10 days ago. For the last 3 days she has noted redness and swelling of the foot. Pain is throbbing and severe. She had leftover amoxicillin from a prior procedure and has been taking it for the last 3 days. She states she has had a fever, but she is not measured her temperature. She states she would feel better after ibuprofen, and that is how she knew she had a fever. She denies any cough, congestion, abdominal pain, nausea or vomiting, urinary symptoms, or any other complaints other than the foot pain and swelling. Patient is not on any blood thinners. She is a former smoker. Physical Examination: Vital signs: afebrile, hemodynamically stable, no hypoxia on room air General: well nourished, well developed, in no distress Skin: warm, dry, no rash, no pallor HEENT: normocephalic and atraumatic; PERRL, EOMI, moist mucous membranes Cardiovascular: regular rate and rhythm, no peripheral edema, 2+ pulses all distal extremities Respiratory: No increased work of breathing MSK: Moves all extremities, no deformities, normal strength, right foot has a large well-healing surgical incision on the dorsum of the foot extending from the base of the first inter-webspace to the proximal foot dorsum. Steri-Strips in place, no induration, exudate. Patient has ecchymosis involving the toes and along the medial and lateral aspects of the foot. Mild diffuse swelling. No induration noted to the soft tissues of the foot. Diffuse tenderness. Neuro: Awake and alert, oriented ?4. No facial droop, sensation and motor function intact and symmetric Test Results: Abnormal Lab Results 01/27/18 01/27/18 01/27/18 18:43 18:43 18:43 WBC 12.4 H RBC 5.48 H Hgb 16.6 H Hct 47.5 H MCV 86.7 MCH 30.3 MCHC 34.9 RDW 13.2 RDW Differential 41.8 Plt Count 311 MPV 9.8 Immature Gran % (Auto) 0.200 Neut % (Auto) 60.4 Lymph % (Auto) 26.0 Wilkinson % (Auto) 10.5 H Eos % (Auto) 2.3 Baso % (Auto) 0.6 Absolute Neuts (auto) 7.5 Absolute Lymphs (auto) 3.23 Total Counted Not Reportable PT 12.5 INR 0.9 APTT 28.7 Sodium 138 Potassium 4.0 Chloride 106 Carbon Dioxide 27.0 Anion Gap 5 BUN 13 Creatinine 0.56 Estim Creat Clear Calc 79.61 Est GFR (MDRD) Af Amer 142 Est GFR (MDRD) Non-Af 118 BUN/Creatinine Ratio 23.1 H Glucose 85 Lactic Acid Calcium 8.9 Total Bilirubin 0.30 AST 9 L ALT 25 Alkaline Phosphatase 96 Total Protein 8.0 Albumin 3.9 Globulin 4.1 Albumin/Globulin Ratio 1.0 01/27/18 18:43 WBC RBC Hgb Hct MCV MCH MCHC RDW RDW Differential Plt Count MPV Immature Gran % (Auto) Neut % (Auto) Lymph % (Auto) Wilkinson % (Auto) Eos % (Auto) Baso % (Auto) Absolute Neuts (auto) Absolute Lymphs (auto) Total Counted PT INR APTT Sodium Potassium Chloride Carbon Dioxide Anion Gap BUN Creatinine Estim Creat Clear Calc Est GFR (MDRD) Af Amer Est GFR (MDRD) Non-Af BUN/Creatinine Ratio Glucose Lactic Acid 1.2 Calcium Total Bilirubin AST ALT Alkaline Phosphatase Total Protein Albumin Globulin Albumin/Globulin Ratio Clinical Impression(s) from Imaging Studies Foot X-Ray 01/27/18 18:53 IMPRESSION: Stable postsurgical changes of the first digit compatible bunionectomy surgery. Interval healing is noted. Increased disuse osteopenia. Medial soft tissue swelling. Electronically Signed: Mando Lynn DO at 19:08 EDT Tel , Service support , Medications Given Discontinued Medications Fentanyl Citrate (Sublimaze (100mcg Ampule)) 50 mcg IV X1 ONE Stop: 01/27/18 18:44 Last Admin: 01/27/18 19:12 Dose: Not Given Sodium Chloride () 1,000 mls @ 250 mls/hr IV .Q4H [facility] Last Admin: 01/27/18 19:13 Dose: Not Given Ondansetron HCl (Zofran) 4 mg IV X1 ONE Stop: 01/27/18 18:45 Last Admin: 01/27/18 19:13 Dose: Not Given Emergency Department Course and Treatment: Patient presents with 3 days of concern for infection of her right foot after noting swelling, increased pain and redness to the foot. Today the foot looks ecchymotic rather than erythematous and has no findings that overtly appear cellulitic. An x-ray was performed to look for any deep space gas that might indicate deep infection. X-ray showed no acute findings and showed the postop changes. Labs showed minimal leukocytosis. Otherwise no abnormalities. Patient received fentanyl and Zofran for symptomatic control. Patient was discussed with Dr. Brantley, evaluated the patient in the emergency department. She placed a compression dressing on the foot to help with the swelling but also did not think it looked cellulitic. Patient will take her pain medication at home as she was prescribed after surgery, and she was advised to stop taking antibiotics. She is to follow-up with Dr. Platt in 1 week. She was discharged home very well-appearing. Treatment Plan: [] Disposition: [] Impression: Postoperative pain in the right foot This note was generated with [employer] dictation software. It may contain incorrect words, spelling, and punctuation that were not noted in review of the chart prior to signing ED Disposition - Plan for ED Patient: Disposition: Home or Assisted Living Chief Complaint: Cellulitis Instructions: ED Post Op Pain Referrals: Deny Sauer MD [Primary Care Provider] - Deny Platt DPM [STAFF PHYSICIAN] - 1 Week Additional Instructions: Please continue taking pain medications as you were prescribed after your surgery. Do not take any further antibiotics unless they are prescribed to you by your doctor. Wear the compression wrap on your foot as you were shown by Dr. Brantley. Follow-up with Dr. Platt in one week. If you have any worsening of your condition or any new concerning symptoms, please return immediately to the emergency department for another evaluation.
--- NOTE | 2018-01-27 18:51 | ED.DCSUM_ITS ---
- ER Visit Summary Date of Service: 01/27/18 Chief Complaint: Right foot pain and swelling History of Present Illness: The patient is a 57 F who presents with right foot pain and swelling, concern for infection, 10 days after foot surgery. Patient states she had surgery for a bunionectomy on her right foot 10 days ago. For the last 3 days she has noted redness and swelling of the foot. Pain is throbbing and severe. She had leftover amoxicillin from a prior procedure and has been taking it for the last 3 days. She states she has had a fever, but she is not measured her temperature. She states she would feel better after ibuprofen, and that is how she knew she had a fever. She denies any cough, congestion, abdominal pain, nausea or vomiting, urinary symptoms, or any other complaints other than the foot pain and swelling. Patient is not on any blood thinners. She is a former smoker. Physical Examination: Vital signs: afebrile, hemodynamically stable, no hypoxia on room air General: well nourished, well developed, in no distress Skin: warm, dry, no rash, no pallor HEENT: normocephalic and atraumatic; PERRL, EOMI, moist mucous membranes Cardiovascular: regular rate and rhythm, no peripheral edema, 2+ pulses all distal extremities Respiratory: No increased work of breathing MSK: Moves all extremities, no deformities, normal strength, right foot has a large well-healing surgical incision on the dorsum of the foot extending from the base of the first inter-webspace to the proximal foot dorsum. Steri-Strips in place, no induration, exudate. Patient has ecchymosis involving the toes and along the medial and lateral aspects of the foot. Mild diffuse swelling. No induration noted to the soft tissues of the foot. Diffuse tenderness. Neuro: Awake and alert, oriented ?4. No facial droop, sensation and motor function intact and symmetric Test Results: Abnormal Lab Results 01/27/18 01/27/18 01/27/18 18:43 18:43 18:43 WBC 12.4 H RBC 5.48 H Hgb 16.6 H Hct 47.5 H MCV 86.7 MCH 30.3 MCHC 34.9 RDW 13.2 RDW Differential 41.8 Plt Count 311 MPV 9.8 Immature Gran % (Auto) 0.200 Neut % (Auto) 60.4 Lymph % (Auto) 26.0 [place] % (Auto) 10.5 H Eos % (Auto) 2.3 Baso % (Auto) 0.6 Absolute Neuts (auto) 7.5 Absolute Lymphs (auto) 3.23 Total Counted Not Reportable PT 12.5 INR 0.9 APTT 28.7 Sodium 138 Potassium 4.0 Chloride 106 Carbon Dioxide 27.0 Anion Gap 5 BUN 13 Creatinine 0.56 Estim Creat Clear Calc 79.61 Est GFR (MDRD) Af Amer 142 Est GFR (MDRD) Non-Af 118 BUN/Creatinine Ratio 23.1 H Glucose 85 Lactic Acid Calcium 8.9 Total Bilirubin 0.30 AST 9 L ALT 25 Alkaline Phosphatase 96 Total Protein 8.0 Albumin 3.9 Globulin 4.1 Albumin/Globulin Ratio 1.0 01/27/18 18:43 WBC RBC Hgb Hct MCV MCH MCHC RDW RDW Differential Plt Count MPV Immature Gran % (Auto) Neut % (Auto) Lymph % (Auto) [place] % (Auto) Eos % (Auto) Baso % (Auto) Absolute Neuts (auto) Absolute Lymphs (auto) Total Counted PT INR APTT Sodium Potassium Chloride Carbon Dioxide Anion Gap BUN Creatinine Estim Creat Clear Calc Est GFR (MDRD) Af Amer Est GFR (MDRD) Non-Af BUN/Creatinine Ratio Glucose Lactic Acid 1.2 Calcium Total Bilirubin AST ALT Alkaline Phosphatase Total Protein Albumin Globulin Albumin/Globulin Ratio Clinical Impression(s) from Imaging Studies Foot X-Ray 01/27/18 18:53 IMPRESSION: Stable postsurgical changes of the first digit compatible bunionectomy surgery. Interval healing is noted. Increased disuse osteopenia. Medial soft tissue swelling. Electronically Signed: Mando Lynn DO at 19:08 EDT Tel , Service support , Medications Given Discontinued Medications Fentanyl Citrate (Sublimaze (100mcg Ampule)) 50 mcg IV X1 ONE Stop: 01/27/18 18:44 Last Admin: 01/27/18 19:12 Dose: Not Given Sodium Chloride () 1,000 mls @ 250 mls/hr IV .Q4H [facility] Last Admin: 01/27/18 19:13 Dose: Not Given Ondansetron HCl (Zofran) 4 mg IV X1 ONE Stop: 01/27/18 18:45 Last Admin: 01/27/18 19:13 Dose: Not Given Emergency Department Course and Treatment: Patient presents with 3 days of concern for infection of her right foot after noting swelling, increased pain and redness to the foot. Today the foot looks ecchymotic rather than erythematous and has no findings that overtly appear cellulitic. An x-ray was performed to look for any deep space gas that might indicate deep infection. X- ray showed no acute findings and showed the postop changes. Labs showed minimal leukocytosis. Otherwise no abnormalities. Patient received fentanyl and Zofran for symptomatic control. Patient was discussed with Dr. Brantley, evaluated the patient in the emergency department. She placed a compression dressing on the foot to help with the swelling but also did not think it looked cellulitic. Patient will take her pain medication at home as she was prescribed after surgery, and she was advised to stop taking antibiotics. She is to follow-up with Dr. Platt in 1 week. She was discharged home very well-appearing. Treatment Plan: [] Disposition: [] Impression: Postoperative pain in the right foot This note was generated with [employer] dictation software. It may contain incorrect words, spelling, and punctuation that were not noted in review of the chart prior to signing ED Disposition - Plan for ED Patient: Disposition: Home or Assisted Living Chief Complaint: Cellulitis Instructions: ED Post Op Pain Referrals: Deny Sauer MD [Primary Care Provider] - Deny Platt DPM [STAFF PHYSICIAN] - 1 Week Additional Instructions: Please continue taking pain medications as you were prescribed after your surgery. Do not take any further antibiotics unless they are prescribed to you by your doctor. Wear the compression wrap on your foot as you were shown by Dr. Brantley. Follow-up with Dr. Platt in one week. If you have any worsening of your condition or any new concerning symptoms, please return immediately to the emergency department for another evaluation.
--- NOTE | 2018-01-27 18:53 | RAD_ITS ---
STUDY: X-RAY - RIGHT FOOT CLINICAL: Female, 57 years old. Right foot bunion surgery one week ago, redness TECHNIQUE: 3 view(s) of the foot. COMPARISON: 01/17/2018 FINDINGS: Stable postsurgical changes compatible with first digit bunionectomy surgery. Interval healing is noted. There is been development of increased diffuse disuse osteopenia of the right foot. Stable postsurgical change of the head of the proximal talus of the second digit. All soft tissue swelling and edema is noted. Stable degenerative change of the midfoot. RAD/Foot min 3 Views IMPRESSION: Stable postsurgical changes of the first digit compatible bunionectomy surgery. Interval healing is noted. Increased disuse osteopenia. Medial soft tissue swelling. Electronically Signed: Mando Lynn DO at 19:08 EDT Tel , Service support ,
[2018-01-27 19:03] LABS: Absolute Lymphocyte Count 3.23 X10^3/ul (0.83-4.51); Absolute Neutrophil Count 7.5 X10^3/uL (2.0-7.7); Basophil# 0.07 X10^3/uL; Basophil% 0.6 % (0-1); Eosinophil# 0.28 X10^3/uL; Eosinophils% 2.3 % (0-5); Hematocrit 47.5 % (37-47); Hemoglobin 16.6 g/dl (12.0-15.0); Lymphocyte # 3.23 X10^3/ul (4.0); Mean Corp Hgb Conc 34.9 g/gl (32-36); Mean Corpuscular Hgb 30.3 pg (27.0-32.0); Mean Corpuscular Volume 86.7 fL (81-99); Mean Platelet Vol. 9.8 fl (6.2-12.0); Monocyte% 10.5 % (0-10); Neutrophil # 7.51 X10^3/uL (2.7-7.7); Neutrophil % 60.4 % (47-70); Platelet Count 311 K/mm3 (150-450); RBC Distribution Width CV 13.2 % (11.6-14.6); RBC Distribution Width SD 41.8 fl (35.1-43.9); Red Blood Count 5.48 M/mm3 (4.2-5.4); White Blood Count 12.4 K/mm3 (4.4-11.0)
[2018-01-27 19:05] LABS: International Normalized Ratio 0.9; POSITIVE COUNT NO; POSITIVE DIFFERENTIAL NO; POSITIVE MORPHOLOGY NO; Prothrombin Time (Protime)PT. 12.5 SECONDS (11.7-14.9)
[2018-01-27 19:06] LABS: Partial Thromboplast Time 28.7 Seconds (24.1-36.2)
--- NOTE | 2018-01-27 19:21 | CON.PCM_ITS ---
Problem List (1) Right foot pain Status: Acute (2) Hallux valgus Status: Acute Reason for Consult Date of Consultation: 01/27/18 Reason for Consultation: Cellulitis right foot concern History of Present Illness: The patient is a 57 year old F had bunionectomy and hammertoe correction performed by Dr. Platt on January 17, 2018 and she presents to the emergency room today due to concern of infection. She reports increased swelling, discoloration including redness, and subjective fever with an onset of 3-1/2 days ago. She denies trauma or increased activity. She has been remaining nonweightbearing. She has been changing the dressing every other day and cleans it with Hibiclens as advised by her surgeon. She otherwise denies chills, nausea, vomiting. She took amoxicillin that she had left over at home for Saturday and this was not advised by any healthcare provider. She was not able to make it to clinic during daily hours. Past Medical History Medical History: Medical History (Last Updated 06/12/17 @ 08:45 by Sujatha Tomas) Hypertension I10 Allergies atorvastatin [From Lipitor] Allergy (Verified 01/27/18 18:12) Upset Stomach cephalexin [From Keflex] Allergy (Verified 01/27/18 18:12) Swelling latex Allergy (Verified 01/27/18 18:12) Rash morphine Allergy (Verified 01/27/18 18:12) Vomiting nickel Allergy (Verified 01/27/18 18:12) Rash pork derived (porcine) Allergy (Verified 01/27/18 18:12) Food Allergy tramadol Allergy (Verified 01/27/18 18:12) Rash zinc Allergy (Verified 01/27/18 18:12) Rash gabapentin Adverse Reaction (Verified 01/27/18 18:12) Swelling Home Medications: Ambulatory Orders Medication Instructions Recorded Amlodipine [Norvasc] 10 mg PO DAILY 03/15/16 Diclofenac Potassium 50 mg PO DAILY 03/15/16 Propranolol HCl 60 mg PO BID 03/15/16 Betamethasone Sod Phosph-Water 1 applic TOPICAL DAILY 06/19/17 [Betamethasone 12 mg/2 ml-Water] Loteprednol Etabonate [Lotemax] 3.5 gm OP QHS 06/19/17 Omeprazole Magnesium [Prilosec Otc] 20 mg PO DAILY 06/19/17 Albuterol Sulfate [Proventil Hfa] 2 puff IH Q4H PRN PRN 01/14/18 Doxepin HCl [Sinequan] 10 mg PO QHS 01/14/18 Tizanidine HCl [Zanaflex] 2 mg PO Q8H PRN 01/14/18 Surgical History: Surgical History (Last Updated 06/12/17 @ 08:45 by Sujatha Tomas) H/O: Z98.891 Smoking Status: Former smoker Review of Systems Constitutional: Reports: Fever. Denies: Chills, Fatigue Cardiovascular: Denies: Chest Pain, Claudication Respiratory: Denies: Shortness of Breath Gastrointestinal: Denies: Nausea, Vomiting Musculoskeletal: Reports: Back Pain, Foot Pain - Right foot, Leg Pain - Left knee Skin: Reports: Skin Changes, Wounds Neurological: Reports: Balance problems, Tingling - Chronic Hematologic/ Lymphatic: Reports: Easy Bruising - Physical Exam General: Alert, Oriented x3, Cooperative HEENT: Atraumatic Extremities: No cyanosis, Capillary Refill Less than 3 Seconds - All toes right foot, No Calf Tenderness - Negative Chelle and Mendez, Peripheral Pulses Normal - Palpable PT and DP pulse right foot, Tenderness - Tenderness on palpation to both surgical sites including the first metatarsal and the second toe of the right foot. Rectus hallux and second toe right foot. No crepitus on palpation to the right foot. Active range of motion of all toes right foot Skin: Incision - Well aligned and coapted with Steri-Strips intact. There is no purulence, erythema, streaking, odor, or necrosis or maceration. There is some faint ecchymosis adjacent to the surgical site and also to the plantar foot which seems consistent in a recent postoperative timeframe. There is no open wound or drainage available to culture. Musculoskeletal: No Tenderness to Palpation of Joints or Extremities, Muscle Wasting Neurological: Sensory exam intact to light touch and pain Psych/Mental Status: Normal Affect, Appropriate, Anxious Vital Signs Temp Pulse Resp BP Pulse Ox 98.0 F 74 18 145/93 H 99 01/27/18 18:11 01/27/18 18:11 01/27/18 18:11 01/27/18 18:11 01/27/18 18:11 Oxygen Delivery Method Room Air Weight: 84.368 kg Body Mass Index (BMI) 36.3 Laboratory Tests Past 24 Hrs 01/27/18 01/27/18 01/27/18 18:43 18:43 18:43 WBC 12.4 H RBC 5.48 H Hgb 16.6 H Hct 47.5 H MCV 86.7 MCH 30.3 MCHC 34.9 RDW 13.2 RDW Differential 41.8 Plt Count 311 MPV 9.8 Immature Gran % (Auto) 0.200 Neut % (Auto) 60.4 Lymph % (Auto) 26.0 [place] % (Auto) 10.5 H Eos % (Auto) 2.3 Baso % (Auto) 0.6 Absolute Neuts (auto) 7.5 Absolute Lymphs (auto) 3.23 Total Counted Not Reportable PT 12.5 INR 0.9 APTT 28.7 Sodium Pending Potassium Pending Chloride Pending Carbon Dioxide Pending Anion Gap Pending BUN Pending Creatinine Pending Est GFR (MDRD) Af Amer Pending Est GFR (MDRD) Non-Af Pending BUN/Creatinine Ratio Pending Glucose Pending Lactic Acid Calcium Pending Total Bilirubin Pending AST Pending ALT Pending Alkaline Phosphatase Pending Total Protein Pending Albumin Pending 01/27/18 18:43 WBC RBC Hgb Hct MCV MCH MCHC RDW RDW Differential Plt Count MPV Immature Gran % (Auto) Neut % (Auto) Lymph % (Auto) [place] % (Auto) Eos % (Auto) Baso % (Auto) Absolute Neuts (auto) Absolute Lymphs (auto) Total Counted PT INR APTT Sodium Potassium Chloride Carbon Dioxide Anion Gap BUN Creatinine Est GFR (MDRD) Af Amer Est GFR (MDRD) Non-Af BUN/Creatinine Ratio Glucose Lactic Acid Pending Calcium Total Bilirubin AST ALT Alkaline Phosphatase Total Protein Albumin Assessment/Plan All Active Problems (Last Updated 06/12/17 @ 08:45 by Sujatha Tomas) Right foot pain (Acute) Hallux valgus (Acute) Cellulitis (Resolved) Right foot status post scarf bunionectomy and hammertoe correction, date of surgery 01/17/2018 Right foot pain within normal range and postoperative. No cellulitis I reviewed and discussed her case including her x-ray results and labs. The x- rays demonstrate maintained surgical correction without soft tissue emphysema, foreign body, or acute fracture dislocation. The first and second toes remain in a rectus position. The hardware remains in the desired position and trajectory. She does have some mild leukocytosis and this consistent with her previous laboratory values; 12.4. I do not recommend additional antibiotics. She was educated on how to apply a compression dressing. To continue non weightbearing to surgical foot; follow up with Dr. Platt within a week. It is ok to change the dressing every other day as previously advised. She still has pain medication from her immediate post operative period and was advised to only take as needed in a safe manner. This case was discussed with Dr. Tilley. Please not hesitate to call if you have any questions. Barbie Brantley DPM, F[facility] [phone]
[2018-01-27 19:27] LABS: Lactic Acid 1.2 mmol/L (0.4-2.0)
[2018-01-27 19:46] LABS: AST(SGOT) 9 U/L (15-37); Alanine Aminotransfer ALT/SGPT 25 U/L (13-56); Albumin, Serum 3.9 g/dL (3.2-5.0); Alkaline Phosphatase 96 U/L (45-117); Anion Gap 5 (5-15); BUN 13 mg/dL (7-18); BUN/Creat Ratio 23.1 RATIO (10-20); Calcium,Total 8.9 mg/dL (8.5-10.1); Chloride 106 mmol/L (98-107); Creatinine, Serum 0.56 mg/dL (0.55-1.02); EST Glomerular Filtration Rate 118 mL/min (>60); Est Glom Filt Rate - Afr Amer 142 mL/min (>60); Estimated Creatinine Clearance 79.61 ml/min; Globulin 4.1 g/dL (2.2-4.2); Glucose 85 mg/dL (74-106); Sodium Level 138 mmol/L (136-145)
[2018-01-27 20:07] VITALS: BP 129/72; PULSE 72; RESP 14; O2SAT 97
--- NOTE | 2018-01-27 20:08 | ED.DEP ---
ED Disposition - Plan for ED Patient: Disposition: Home or Assisted Living Chief Complaint: Cellulitis Instructions: ED Post Op Pain Referrals: Deny Sauer MD [Primary Care Provider] - Deny Platt DPM [STAFF PHYSICIAN] - 1 Week Additional Instructions: Please continue taking pain medications as you were prescribed after your surgery. Do not take any further antibiotics unless they are prescribed to you by your doctor. Wear the compression wrap on your foot as you were shown by Dr. Brantley. Follow-up with Dr. Platt in one week. If you have any worsening of your condition or any new concerning symptoms, please return immediately to the emergency department for another evaluation.
--- NOTE | 2018-01-27 20:19 | ED.RN ---
PT GIVEN WRITTEN AND VERBAL DISCHARGE INSTRUCTIONS AND HOME GOING PRESCRIPTIONS. PT VERBALIZES UNDERSTANDING. IV D/C AND COVERED WITH 2X2 GAUZE DRESSING AND PAPER TAPE. PT WHEELS PT OUT OF DEPT IN WHEEL CHAIR FROM HOME.
== END 2018-01-27 20:23 | disposition home or self-care (01) ==
PROVIDERS: Emergency Provider Emergency Medicine; Family Provider Family Medicine; PCP Family Medicine
DX: G89.18 Other acute postprocedural pain (principal); M79.671 Pain in right foot; M79.89 Other specified soft tissue disorders; I10 Essential (primary) hypertension; Z98.890 Other specified postprocedural states; Z87.891 Personal history of nicotine dependence; Z79.899 Other long term (current) drug therapy
CPT/HCPCS: 73630; 80053; 83605; 85025; 85610; 85730; 99283; A4216; J2405

== ENCOUNTER → 2018-04-17 17:26 | Outpatient (CLI) | payer BC, SELFPAY ==
--- NOTE | 2018-04-17 17:33 | CT_ITS ---
HISTORY: PT STATED SWELLING OF RT FOOT, SUSPECTED 2ND METATARSAL FX EXAM/TECHNIQUE: CT right foot without contrast. COMPARISON: Radiographs 01/17 and 01/27/2018. FINDINGS: # of images incl. paperwork: 278 There is nonunion of the fracture of the shaft and neck of the first metatarsal. The fracture has somewhat sclerotic borders and a small amount of fragmentation. The patient is status post bunionectomy. 2 orthopedic screws extend through the distal shaft of the first metatarsal, traversing the fracture line. The fracture line extends through the base of the first metatarsal. There is only minimal displacement. There is underlying diffuse osteopenia. Marked degenerative changes of the second, third, fourth and fifth tarsal metatarsal articulations. Bidirectional calcaneal spurs. No other fracture is evident. There is moderate soft tissue swelling most prominent along the dorsum of the foot. No soft tissue air or drainable fluid collection is evident. 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 Individualized dose optimization techniques were used for this CT. at 0012 Reported and signed by: Sin Luna MD Electronically Signed: Sin Luna, at 0:11 EST Tel , Service support ,
--- OUTSIDE RECORDS SUMMARY | 2018-06-22 12:22 | XMS RPT_ITS ---
:1960 Author Organization [facility] Support Name Relationship Address Phone R Unavailable Unavailable Unavailable RUPANOVIC, DON Unavailable [address] + [place] [address] R Unavailable Unavailable Unavailable RUPANOVIC, DON Unavailable [address] + [place] [address] R Unavailable Unavailable Unavailable RUPANOVIC, DON Unavailable [address] + [place] [address] R Unavailable Unavailable Unavailable RUPANOVIC, DON Unavailable [address] + [place] [address] R Unavailable Unavailable Unavailable RUPANOVIC, DON Unavailable [address] + [place] [address] R Unavailable Unavailable Unavailable RUPANOVIC, DON Unavailable [address] + [place] [address] R Unavailable Unavailable Unavailable RUPANOVIC, DON Unavailable [address] + [place] [address] R Unavailable Unavailable Unavailable RUPANOVIC, DON Unavailable [address] + [place] [address] R Unavailable Unavailable Unavailable RUPANOVIC, DON Unavailable [address] + [place] [address] RUPANOVIC, DON Unavailable [address] + [place] [address] R Unavailable Unavailable Unavailable RUPANOVIC, DON Unavailable [address] + [place] [address] R Unavailable Unavailable Unavailable RUPANOVIC, DON Unavailable [address] + [place] [address] R Unavailable Unavailable Unavailable RUPANOVIC, DON Unavailable [address] + [place] [address] R Unavailable Unavailable Unavailable RUPANOVIC, DON Unavailable [address] [facility] + [place] [address] R Unavailable Unavailable Unavailable RUPANOVIC, DON Unavailable [address] [facility] + [place] [address] R Unavailable Unavailable Unavailable RUPANOVIC, DON Unavailable [address] [facility] + [place] [address] R Unavailable Unavailable Unavailable RUPANOVIC, DON Unavailable [address] [facility] + [place] [address] R Unavailable Unavailable Unavailable RUPANOVIC, DON Unavailable [address] [facility] + [place] [address] RUPANOVIC, DON Unavailable Unavailable Unavailable RUPANOVIC, NATO Unavailable Unavailable Unavailable RUPANOVIC, DON Unavailable Unavailable Unavailable RUPANOVIC, NATO Unavailable Unavailable Unavailable RUPANOVIC, DON Unavailable Unavailable Unavailable RUPANOVIC, NATO Unavailable Unavailable Unavailable RUPANOVIC, DON Unavailable Unavailable Unavailable RUPANOVIC, NATO Unavailable Unavailable Unavailable RUPANOVIC, DON Unavailable Unavailable Unavailable RUPANOVIC, NTAO Unavailable Unavailable Unavailable RUPANOVIC, DON Unavailable Unavailable Unavailable RUPANOVIC, NATO Unavailable Unavailable Unavailable RUPANOVIC, DON Unavailable Unavailable Unavailable RUPANOVIC, NATO Unavailable Unavailable Unavailable Care Team Providers Name Role Phone DENY RENTERIA Attending Unavailable DENY RENTERIA Referring Unavailable DENY RENTERIA Attending Unavailable DENY RENTERIA Referring Unavailable DENY RENTERIA Attending Unavailable DENY RENTERIA Referring Unavailable YELENA RIVERA (ROSALIO) Attending Unavailable DENY PLATT Referring Unavailable YELENA RIVERA (ROSALIO) Referring Unavailable DENY RENTERIA Referring Unavailable TERESE BRISENO Admitting Unavailable TERESE BRISENO Attending Unavailable TERESE BRISENO Referring Unavailable GAVIN HOPPER Attending Unavailable DAPHNEY MEYERS Referring Unavailable GISELLE CONNER Primary Care Unavailable DAPHNEY MEYERS Attending Unavailable DAPHNEY MEYERS Referring Unavailable GISELLE CONNER Primary Care Unavailable DAPHNEY MEYERS Attending Unavailable DAPHNEY MEYERS Referring Unavailable GISELLE CONNER Primary Care Unavailable TERESE BRISENO Attending Unavailable [facility] Referring Unavailable GISELLE CONNER Primary Care Unavailable DAPHNEY MEYERS Attending Unavailable DAPHNEY MEYERS Referring Unavailable GISELLE CONNER Primary Care Unavailable BRISENO, TERESE Attending Unavailable BRISENO, TERESE Referring Unavailable GISELLE CONNER Primary Care Unavailable PROVIDER, UNKNOWN Admitting Unavailable PROVIDER, UNKNOWN Attending Unavailable GISELLE CONNER. Referring Unavailable GISELLE CONNER. Primary Care Unavailable Deny Platt Attending Unavailable Wunning, Deny Referring Unavailable Myra, Deny Primary Care Unavailable Briseno, Terese Attending Unavailable DOCTOR, OUT OF TOWN Referring Unavailable SUJATHA BHAKTA Primary Care Unavailable SUJATHA BHAKTA Primary Care Unavailable August Garza Attending Unavailable Briseno, Terese Attending Unavailable Briseno, Terese Referring Unavailable SUJATHA BHAKTA Primary Care Unavailable Briseno, Terese Attending Unavailable DOCTOR, OUT OF TOWN Referring Unavailable SUJATHA BHAKTA Primary Care Unavailable Briseno, Terese Attending Unavailable Briseno, Terese Referring Unavailable SUJATHA BHAKTA Primary Care Unavailable Chicoliverio, Selena Attending Unavailable DOCTOR, OUT OF TOWN Referring Unavailable Briseno, Terese Attending Unavailable DOCTOR, OUT OF TOWN Referring Unavailable SUJATHA BHAKTA Primary Care Unavailable Briseno, Terese Attending Unavailable Briseno, Terese Referring Unavailable SUJATHA BHAKTA Primary Care Unavailable Chicoliverio, Selena Attending Unavailable DOCTOR, OUT OF TOWN Referring Unavailable SUJATHA BHAKTA Primary Care Unavailable ChicSelena duron Attending Unavailable Chicorelli, Selena Referring Unavailable SUJATHA BHAKTA Primary Care Unavailable Chicorelgrant, Selena Attending Unavailable SUJATHA BHAKTA Primary Care Unavailable Selena Butler Attending Unavailable SUJATHA BHAKTA Primary Care Unavailable Chicorelgrant, Selena Referring Unavailable Briseno, Terese Attending Unavailable DOCTOR, OUT OF TOWN Referring Unavailable SUJATHA BHAKTA Primary Care Unavailable Briseno, Terese Attending Unavailable Briseno, Terese Referring Unavailable SUJATHA BHAKTA Primary Care Unavailable Deny Platt Attending Unavailable Deny Platt Referring Unavailable Myra, Deny Primary Care Unavailable Myra, Deny Primary Care Unavailable Evelyn Tilley Attending Unavailable PROBLEMS PROBLEMS DATE TYPE CONDITION / CODE ATTENDING STATUS SOURCE 01/17/2018 Unknown M20.11 - [facility], Active [place] valgus (acquired), [facility] right foot / Hospital M20.11(ICD-10) Repository 01/13/2018 Active Elevated white blood NA Active [facility] cell count, Clinic Main unspecified / [place] D72.829(ICD-10) Repository 01/07/2018 Active Encounter for other NA Active [place] preprocedural Clinic Main examination / [place] Z01.818(ICD-10) Repository 11/22/2017 Unknown M54.5 - Low back Terese Briseno Active [place] pain / M54.5(ICD-10) [facility] Repository 11/12/2017 Unknown 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, Active [place]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 Counts Include [facility] osteoarthritis of Hospital knee / M17.0(ICD-10) Repository 10/15/2017 Active Unknown / MYRA, Active [facility] UNK(Unknown) DENY A Clinic Main [place] Repository 09/12/2017 Unknown M25.561 - Pain in [place], [facility] 09/12/2017 Unknown M25.562 - Pain in [place], Active [place] left knee / Counts Include [facility] M25.562(ICD-10) Hospital Repository 08/22/2017 Active Encounter for NA Active [place] screening for Clinic Main diabetes mellitus / [place] Z13.1(ICD-10) Repository 08/22/2017 Active Encounter for NA Active [place] general adult [facility] Main medical examination [place] without abnormal Repository findings / Z00.00(ICD-10) 08/22/2017 Active Mixed hyperlipidemia NA Active [place] / E78.2(ICD-10) Clinic Main [place] Repository 08/22/2017 Active Essential (primary) NA Active [place] hypertension / Clinic Main I10(ICD-10) [place] Repository 08/22/2017 Active Other forms of NA Active [place] dyspnea / Clinic Main R06.09(ICD-10) [place] Repository 08/22/2017 Active Other specified soft NA Active [place] tissue disorders / Clinic Main M79.89(ICD-10) [place] Repository 08/22/2017 Active Other injury of NA Active [place] unspecified body Clinic Main region, initial [place] encounter / Repository T14.8XXA(ICD-10) 01/20/2018 Unknown Z98.890 - Other Terese Briseno Active [facility] specified Community postprocedural Hospital states / Repository Z98.890(ICD-10) 08/20/2017 Unknown Z98.1 - Arthrodesis Terese Briseon Active [place] status / Community Z98.1(ICD-10) Hospital Repository 05/22/2017 Admitting Radiculopathy, site TERESE BRISENO Active [facility] diagnosis unspecified / University M54.10(ICD-10) [facility] Repository 05/21/2017 Admitting Other specified TERESE BRISENO Active [facility] diagnosis postprocedural University states / [facility] Z98.890(ICD-10) Center Repository 05/21/2017 Admitting Spinal stenosis, ERICK BRISENOBETH Active [facility] diagnosis lumbar region [facility] without neurogenic [facility] claudication / Center M48.061(ICD-10) Repository 05/14/2017 Admitting Cervical disc ERICK BRISENOBETH Active [facility] diagnosis disorder, University unspecified, [facility] unspecified cervical Center region / Repository M50.90(ICD-10) 05/09/2017 Admitting Personal history of TERESE BRISENO [facility] diagnosis nicotine dependence [place] / Z87.891(ICD-10) [facility] Repository 05/09/2017 Admitting Encounter for other DAPHNEY MEYERS Active [facility] diagnosis preprocedural University examination / [facility] Z01.818(ICD-10) Center Repository 05/09/2017 Admitting Spinal stenosis, DAPHNEY MEYERS Active [facility] diagnosis lumbar region with University neurogenic [facility] claudication / Center M48.062(ICD-10) Repository 05/09/2017 Admitting Spondylolisthesis, DAPHNEY MEYERS Active [facility] diagnosis lumbar region / University M43.16(ICD-10) [facility] Rep[facility] 05/09/2017 Admitting Essential (primary) HOPPERGAVIN HUSSEIN Active [facility] diagnosis hypertension / University I10(ICD-10) [facility] Repository 05/09/2017 Admitting Hyperlipidemia, HOPPERSHARDA HUSSEINUTI Active [facility] diagnosis unspecified / University E78.5(ICD-10) [facility] Repository 05/09/2017 Admitting Gastro-esophageal HOPPERGAVIN HUSSEIN Active [facility] diagnosis reflux disease [place] without esophagitis [facility] / K21.9(ICD-10) Center Repository PROCEDURES PROCEDURES No Procedure Records FoundRESULTS RESULTS EXTREMITY LOWER Observed: 04/17/2018 Status: F Source: [place] WITHOUT CONTRA 5:33 PM [facility] Imaging Services [address] [place] [address] Extremity Lower without Contra MR#: [id number] Acct: [id number] Name: NATO GUERRIER Rep #: [id number] : 1960 F 57 From: Sin Luna MD PCP: Deny Renteria MD Status: REG CLI Study: Extremity Lower without Contra Date of Exam: 04/17/18 Exam# [id number] Ordering Dr: Deny Platt DPM HISTORY: PT STATED SWELLING OF RT FOOT, SUSPECTED 2ND METATARSAL FX EXAM/TECHNIQUE: CT right foot without contrast. COMPARISON: Radiographs 01/17 and 01/27/2018. FINDINGS: # of images incl. paperwork: 278 There is nonunion of the fracture of the shaft and neck of the first metatarsal. The fracture has somewhat sclerotic borders and a small amount of fragmentation. The patient is status post bunionectomy. 2 orthopedic screws extend through the distal shaft of the first metatarsal, traversing the fracture line. The fracture line extends through the base of the first metatarsal. There is only minimal displacement. There is underlying diffuse osteopenia. Marked degenerative changes of the second, third, fourth and fifth tarsal metatarsal articulations. Bidirectional calcaneal spurs. No other fracture is evident. There is moderate soft tissue swelling most prominent along the dorsum of the foot. No soft tissue air or drainable fluid collection is evident. 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 Individualized dose optimization techniques were used for this CT. at 0012 Reported and signed by: Sin Luna MD Electronically Signed: Sin Luna, at 0:11 EST Tel , Service support , CC: Deny Renteria MD; Deny Platt DPM Animal Care Worker: Signed CNPN Observed: 02/03/2018 Status: COMPLETED Source: [place] 12:00 AM CLINIC [facility]IN [facility] REPOSITORY Telephone (ASWSTR) FAREEDNATO ([id number]) 1960 F Date Time Provider Department 02/03/18 DENY RENTERIA ASWSTR During your visit today, we recorded the following information about you: Dahiana Allen RN, RN 02/03/2018 7:56 AM Signed Patient is overdue for screening colonoscopy. Patient may proceed as open access. Please offer and schedule. WALTER Mendez 02/03/2018 10:47 AM Signed 1st failed attempt to contact patient, left voice message Mikaela Doherty Psr 02/03/2018 3:45 PM Signed Spoke with patient, just had foot surgery and does not want to schedule at this time, will call us back when she is ready to schedule. Rosalee Doherty Psr Mikaela Clemente 02/04/2018 8:43 AM Signed Sending patient a reminder letter for when she is ready to call to schedule Mikaela Clemente Allergies As of Date: 02/03/2018 Noted Allergy Reaction CHANTIX (VARENICLINE) 08/22/2017 2 - Rash CYMBALTA (DULOXETINE) 10/15/2017 14 - Other: See Comments Comments: Bad headache's and nausea LATEX 08/22/2017 2 - Rash ULTRAM (TRAMADOL HCL) 08/22/2017 2 - Rash CEPHALEXIN 08/22/2017 7 - Swelling CEPHALOSPORINS 06/19/2000 7 - Swelling COLYTE (PEG 3350-ELECTROLYTES) 08/22/2017 11 - Vomiting GABAPENTIN 08/22/2017 7 - Swelling LIPITOR (ATORVASTATIN CALCIUM) 08/22/2017 14 - Other: See Comments Comments: Flu like symptoms MORPHINE 08/22/2017 11 - Vomiting NORTRIPTYLINE 10/25/2017 14 - Other: See Comments Comments: insomnia ZINC OXIDE 06/19/2000 16 - Unknown Date Reviewed: 01/07/2018 Reviewed by: Shanice Brown Ma - Fully Assessed Reason for Visit: OA Outpatient Colonoscopy [Other] Prescriptions as of 02/03/2018 Sig: AMLODIPINE 10 MG TABLET Take 1 tablet by mouth once d* DOXEPIN 10 MG CAPSULE Take 1 capsule by mouth daily* PROPRANOLOL 60 MG TABLET Take 1 tablet by mouth twice * TIZANIDINE 2 MG CAPSULE Take 1 capsule by mouth three* BETAMETHASONE, AUGMENTED 0.05* Apply to affected area twice * LOTEPREDNOL ETABONATE 0.5 % E* 1 Drop four times daily. OMEGA-3 2100 ORAL Take by mouth. OMEPRAZOLE 20 MG CAPSULE,KRISTYN* Take 20 mg by mouth once aurelio* ALBUTEROL SULFATE HFA 90 MCG/* Inhale 2 Puffs as instructed. CHOLECALCIFEROL (VITAMIN D3) * Take by mouth. CALCIUM ORAL Take by mouth. Problem List As Of Date 02/03/2018 Noted Resolved Essential hypertension [I10] INVALID FOR* Priority: A Hyperlipidemia, mixed [E78.2] INVALID FOR* Priority: A Eczema [L30.9] INVALID FOR* Priority: D More... Seasonal allergies [J30.2] INVALID FOR* Priority: B Dry eyes [H04.123] INVALID FOR* Priority: G GERD without esophagitis [K21.9] INVALID FOR* Priority: A Generalized OA [M15.9] INVALID FOR* Priority: M More... Arthritis of lumbar spine (HCC) [M47.816] INVALID FOR* Priority: M More... Arthritis of both knees [M17.0] INVALID FOR* Priority: M Chronic pain syndrome [G89.4] INVALID FOR* Priority: M More... Ex-smoker [Z87.891] INVALID FOR* Priority: B More... Migraine without aura and without status migrai*INVALID FOR* Priority: A Well adult exam [Z00.00] INVALID FOR* Priority: E More... Encounter for screening for diabetes mellitus [*INVALID FOR* Nerve damage [T14.8XXA] INVALID FOR* Priority: B More... Lower extremity pain, right [M79.604] INVALID FOR* Priority: M Situational depression [F43.21] INVALID FOR* Priority: A More... Primary insomnia [F51.01] INVALID FOR* Priority: B Muscle spasm [M62.838] INVALID FOR* Priority: M More... Smoker [F17.200] INVALID FOR* More... Letter Text [address] [place] [address] 02/04/2018 Nato Guerrier [id number] Dear Nato , As your healthcare provider, our records indicate that you are due for colorectal cancer screening. This is extremely important if you have any family history of colon cancer as well as to the general population over the age of 50. A colonoscopy is a preventative test that we offer to complete this screening. Most insurances will pay for this test without any out of pocket expense to the patient. We have been unsuccessful in reaching you by phone to discuss this procedure. Please contact our schedulers at [phone] schedule an appointment or contact your primary care physician if you have any questions regarding colon cancer screening. As always, your health is of primary concern to our practice. We look forward to hearing from you. Sincerely, [facility] Encounter Status:Closed by ROSALEE MOROCHO on 02/03/18 CONSULTATION Observed: 01/27/2018 Status: F Source: [place] 10:23 PM [facility] REPOSITORY [facility] Medical Records Department [address] [place] [address] Consultation 01/27/181918 MR#: [id number] Acct: [id number] Name: NATO GUERRIER Rep #: [id number] : 1960 57 From: Barbie Brantley DPM PCP: Deny Renteria MD Status: DEP ER Y Location: ED Problem List (1) Right foot pain Status: Acute (2) Hallux valgus Status: Acute Reason for Consult Date of Consultation: 01/27/18 Reason for Consultation: Cellulitis right foot concern History of Present Illness: The patient is a 57 year old F had bunionectomy and hammertoe correction performed by Dr. Platt on January 17, 2018 and she presents to the emergency room today due to concern of infection. She reports increased swelling, discoloration including redness, and subjective fever with an onset of 3-1/2 days ago. She denies trauma or increased activity. She has been remaining nonweightbearing. She has been changing the dressing every other day and cleans it with Hibiclens as advised by her surgeon. She otherwise denies chills, nausea, vomiting. She took amoxicillin that she had left over at home for Saturday and this was not advised by any healthcare provider. She was not able to make it to clinic during daily hours. Past Medical History Medical History: Medical History (Last Updated 06/12/17 @ 08:45 by Sujatha Tomas) Hypertension I10 Allergies atorvastatin [From Lipitor] Allergy (Verified 01/27/18 18:12) Upset Stomach cephalexin [From Keflex] Allergy (Verified 01/27/18 18:12) Swelling latex Allergy (Verified 01/27/18 18:12) Rash morphine Allergy (Verified 01/27/18 18:12) Vomiting nickel Allergy (Verified 01/27/18 18:12) Rash pork derived (porcine) Allergy (Verified 01/27/18 18:12) Food Allergy tramadol Allergy (Verified 01/27/18 18:12) Rash zinc Allergy (Verified 01/27/18 18:12) Rash gabapentin Adverse Reaction (Verified 01/27/18 18:12) Swelling Home Medications: Ambulatory Orders Medication Instructions Recorded Amlodipine [Norvasc] 10 mg PO DAILY 03/15/16 Diclofenac Potassium 50 mg PO DAILY 03/15/16 Propranolol HCl 60 mg PO BID 03/15/16 Surgical History: Surgical History (Last Updated 06/12/17 @ 08:45 by Sujatha Tomas) H/O: Z98.891 Smoking Status: Former smoker Review of Systems Constitutional: Reports: Fever. Denies: Chills, Fatigue Cardiovascular: Denies: Chest Pain, Claudication Respiratory: Denies: Shortness of Breath Gastrointestinal: Denies: Nausea, Vomiting Musculoskeletal: Reports: Back Pain, Foot Pain - Right foot, Leg Pain - Left knee Skin: Reports: Skin Changes, Wounds Neurological: Reports: Balance problems, Tingling - Chronic Hematologic/ Lymphatic: Reports: Easy Bruising - Physical Exam General: Alert, Oriented x3, Cooperative HEENT: Atraumatic Extremities: No cyanosis, Capillary Refill Less than 3 Seconds - All toes right foot, No Calf Tenderness - Negative Chelle and Mendez, Peripheral Pulses Normal - Palpable PT and DP pulse right foot, Tenderness - Tenderness on palpation to both surgical sites including the first metatarsal and the second toe of the right foot. Rectus hallux and second toe right foot. No crepitus on palpation to the right foot. Active range of motion of all toes right foot Skin: Incision - Well aligned and coapted with Steri-Strips intact. There is no purulence, erythema, streaking, odor, or necrosis or maceration. There is some faint ecchymosis adjacent to the surgical site and also to the plantar foot which seems consistent in a recent postoperative timeframe. There is no open wound or drainage available to culture. Musculoskeletal: No Tenderness to Palpation of Joints or Extremities, Muscle Wasting Neurological: Sensory exam intact to light touch and pain Psych/Mental Status: Normal Affect, Appropriate, Anxious Vital Signs Temp Pulse Resp BP Pulse Ox 98.0 F 74 18 145/93 H 99 01/27/18 18:11 01/27/18 18:11 01/27/18 18:11 01/27/18 18:11 01/27/18 18:11 Oxygen Delivery Method Room Air Weight: 84.368 kg Body Mass Index (BMI) 36.3 Laboratory Tests Past 24 Hrs WBC 12.4 H RBC 5.48 H Hgb 16.6 H Hct 47.5 H MCV 86.7 MCH 30.3 MCHC 34.9 RDW 13.2 RDW Differential 41.8 Assessment/Plan All Active Problems (Last Updated 06/12/17 @ 08:45 by Sujatha Tomas) Right foot pain (Acute) Hallux valgus (Acute) Cellulitis (Resolved) Right foot status post scarf bunionectomy and hammertoe correction, date of surgery 01/17/2018 Right foot pain within normal range and postoperative. No cellulitis I reviewed and discussed her case including her x-ray results and labs. The x-rays demonstrate maintained surgical correction without soft tissue emphysema, foreign body, or acute fracture dislocation. The first and second toes remain in a rectus position. The hardware remains in the desired position and trajectory. She does have some mild leukocytosis and this consistent with her previous laboratory values; 12.4. I do not recommend additional antibiotics. She was educated on how to apply a compression dressing. To continue non weightbearing to surgical foot; follow up with Dr. Platt within a week. It is ok to change the dressing every other day as previously advised. She still has pain medication from her immediate post operative period and was advised to only take as needed in a safe manner. This case was discussed with Dr. Tilley. Please not hesitate to call if you have any questions. Barbie Brantley DPM, [facility] [phone] 01/27/18 2223 <Electronically signed by Barbie Brantley DPM> Date Barbie Brantley DPM Cosigner Signature (if applicable): Date CC: Deny Renteria MD Signed EMERGENCY DEPARTMENT Observed: 01/27/2018 Status: F Source: [place] SUMMARY 9:57 PM [facility] REPOSITORY [facility] Medical Records Department [address] [place] [address] Emergency Department Summary 01/27/18 1847 MR#: [id number] Acct: [id number] Name: NATO GUERRIER Rep #: [id number] : 1960 57 From: Evelyn Tilley MD PCP: Deny Renteria MD Status: DEP ER - ER Visit Summary Date of Service: 01/27/18 Chief Complaint: Right foot pain and swelling History of Present Illness: The patient is a 57 F who presents with right foot pain and swelling, concern for infection, 10 days after foot surgery. Patient states she had surgery for a bunionectomy on her right foot 10 days ago. For the last 3 days she has noted redness and swelling of the foot. Pain is throbbing and severe. She had leftover amoxicillin from a prior procedure and has been taking it for the last 3 days. She states she has had a fever, but she is not measured her temperature. She states she would feel better after ibuprofen, and that is how she knew she had a fever. She denies any cough, congestion, abdominal pain, nausea or vomiting, urinary symptoms, or any other complaints other than the foot pain and swelling. Patient is not on any blood thinners. She is a former smoker. Physical Examination: Vital signs: afebrile, hemodynamically stable, no hypoxia on room air General: well nourished, well developed, in no distress Skin: warm, dry, no rash, no pallor HEENT: normocephalic and atraumatic; PERRL, EOMI, moist mucous membranes Cardiovascular: regular rate and rhythm, no peripheral edema, 2+ pulses all distal extremities Respiratory: No increased work of breathing MSK: Moves all extremities, no deformities, normal strength, right foot has a large well-healing surgical incision on the dorsum of the foot extending from the base of the first inter-webspace to the proximal foot dorsum. Steri-Strips in place, no induration, exudate. Patient has ecchymosis involving the toes and along the medial and lateral aspects of the foot. Mild diffuse swelling. No induration noted to the soft tissues of the foot. Diffuse tenderness. Neuro: Awake and alert, oriented 4. No facial droop, sensation and motor function intact and symmetric Test Results: Abnormal Lab Results WBC RBC Hgb Hct MCV MCH MCHC Clinical Impression(s) from Imaging Studies Foot X-Ray 01/27/18 18:53 IMPRESSION: Stable postsurgical changes of the first digit compatible bunionectomy surgery. Interval healing is noted. Increased disuse osteopenia. Medial soft tissue swelling. Electronically Signed: Mando Lynn DO at 19:08 EDT Tel , Service support , Medications Given Discontinued Medications Fentanyl Citrate (Sublimaze (100mcg Ampule)) 50 mcg IV X1 ONE Stop: 01/27/18 18:44 Last Admin: 01/27/18 19:12 Dose: Not Given Sodium Chloride () 1,000 mls @ 250 mls/hr IV .Q4H JANESSA Last Admin: 01/27/18 19:13 Dose: Not Given Ondansetron HCl (Zofran) 4 mg IV X1 ONE Stop: 01/27/18 18:45 Last Admin: 01/27/18 19:13 Dose: Not Given Emergency Department Course and Treatment: Patient presents with 3 days of concern for infection of her right foot after noting swelling, increased pain and redness to the foot. Today the foot looks ecchymotic rather than erythematous and has no findings that overtly appear cellulitic. An x-ray was performed to look for any deep space gas that might indicate deep infection. X-ray showed no acute findings and showed the postop changes. Labs showed minimal leukocytosis. Otherwise no abnormalities. Patient received fentanyl and Zofran for symptomatic control. Patient was discussed with Dr. Brantley, evaluated the patient in the emergency department. She placed a compression dressing on the foot to help with the swelling but also did not think it looked cellulitic. Patient will take her pain medication at home as she was prescribed after surgery, and she was advised to stop taking antibiotics. She is to follow-up with Dr. Platt in 1 week. She was discharged home very well-appearing. Treatment Plan: [] Disposition: [] Impression: Postoperative pain in the right foot This note was generated with [employer] dictation software. It may contain incorrect words, spelling, and punctuation that were not noted in review of the chart prior to signing ED Disposition - Plan for ED Patient: Disposition: Home or Assisted Living Chief Complaint: Cellulitis Instructions: ED Post Op Pain Referrals: Deny Renteria MD [Primary Care Provider] - Deny Platt DPM [STAFF PHYSICIAN] - 1 Week Additional Instructions: Please continue taking pain medications as you were prescribed after your surgery. Do not take any further antibiotics unless they are prescribed to you by your doctor. Wear the compression wrap on your foot as you were shown by Dr. Brantley. Follow- up with Dr. Platt in one week. If you have any worsening of your condition or any new concerning symptoms, please return immediately to the emergency department for another evaluation. What to do if you have Problems For any increased pain, shortness of breath, bleeding, nausea or vomiting, chest pain, or any unexpected problems, contact your Primary Care Provider. Call [facility] ([phone]) or report to the closest Emergency Room. Call 911 if necessary. 01/27/18 1719 <Electronically signed by Evelyn Tilley MD> Date Evelyn Tilley MD Cosigner Signature (If Indicated): Date CC: Deny Renteria MD DISCHARGE INSTRUCTION Observed: 01/27/2018 Status: F Source: ROSAL[place]DA 9:42 PM [facility] REPOSITORY [facility] Medical Records Department [address] [place] [address] Discharge Instruction 01/27/182007 MR#: [id number] Acct: [id number] Name: NATO GUERRIER Rep #: [id number] : 1960 57 From: Evelyn Tilley MD PCP: Deny Renteria MD Status: DEP ER ED Disposition - Plan for ED Patient: Disposition: Home or Assisted Living Chief Complaint: Cellulitis Instructions: ED Post Op Pain Referrals: Deny Renteria MD [Primary Care Provider] - Deny Platt DPM [STAFF PHYSICIAN] - 1 Week Additional Instructions: Please continue taking pain medications as you were prescribed after your surgery. Do not take any further antibiotics unless they are prescribed to you by your doctor. Wear the compression wrap on your foot as you were shown by Dr. Brantley. Follow- up with Dr. Platt in one week. If you have any worsening of your condition or any new concerning symptoms, please return immediately to the emergency department for another evaluation. What to do if you have Problems For any increased pain, shortness of breath, bleeding, nausea or vomiting, chest pain, or any unexpected problems, contact your Primary Care Provider. Call [facility] ([phone]) or report to the closest Emergency Room. Call 911 if necessary. 01/27/182141 <Electronically signed by Evelyn Tilley MD> Date Evelyn Tilley MD Cosigner Signature (If Indicated): Date CC: Deny Renteria MD FOOT MIN 3 VIEWS Observed: 01/27/2018 Status: F Source: MELVIN 6:44 PM [facility] REPOSITORY [facility] [place] [address] Foot min 3 Views MR#: [id number] Acct: [id number] Name: NATO GUERRIER Rep #: [id number] : 1960 F 57 From: Mando Lynn DO PCP: Deny Renteria MD Status: REG ER Study: Foot min 3 Views Date of Exam: 01/27/18 Exam# [id number] Ordering Dr: Evelyn Tilley MD STUDY: X-RAY - RIGHT FOOT CLINICAL: Female, 57 years old. Right foot bunion surgery one week ago, redness TECHNIQUE: 3 view(s) of the foot. COMPARISON: 01/17/2018 FINDINGS: Stable postsurgical changes compatible with first digit bunionectomy surgery. Interval healing is noted. There is been development of increased diffuse disuse osteopenia of the right foot. Stable postsurgical change of the head of the proximal talus of the second digit. All soft tissue swelling and edema is noted. Stable degenerative change of the midfoot. RAD/Foot min 3 Views IMPRESSION: Stable postsurgical changes of the first digit compatible bunionectomy surgery. Interval healing is noted. Increased disuse osteopenia. Medial soft tissue swelling. Electronically Signed: Mando Lynn DO at 19:08 EDT Tel , Service support , CC: Deny Renteria MD; Evelyn Tilley MD Animal Care Worker: Signed CBC W/DIFF, AUTOMATED Collected: 01/27/2018 Status: F Source: MELVIN 6:43 PM [facility] REPOSITORY TYPE CODE TESTS RESULT OUT OF RANGE REFERENCE UNITS LAB L100.1000 4.4-11.0 K/mm3 High WBC 12.4 LAB L100.1200 4.2-5.4 M/mm3 High RBC 5.48 LAB L100.1300 12.0-15.0 g/dl High HGB 16.6 LAB L100.1400 37-47 % High HCT 47.5 LAB L100.1500 81-99 fL Normal MCV 86.7 LAB L100.1600 27.0-32.0 pg Normal MCH 30.3 LAB L100.1700 32-36 g/gl Normal MCHC 34.9 LAB L100.1810 11.6-14.6 % Normal RDW CV 13.2 LAB L100.1820 35.1-43.9 fl Normal RDW SD 41.8 LAB L100.1900 150-450 K/mm3 Normal PLT 311 LAB L100.2000 6.2-12.0 fl Normal MPV 9.8 LAB L100.2100 47-70 % Normal NEUT% 60.4 LAB L100.2200 19-41 % Normal LY% 26.0 LAB L100.2300 0-10 % High MONO% 10.5 LAB L100.2400 0-5 % Normal EO% 2.3 LAB L100.2500 0-1 % Normal BASO% 0.6 LAB L100.2550 0.0-0.9 % Normal IM GRAN % 0.200 Result Comment: IG% - Immature Granulocytes (promyelocytes, myelocytes and metamyelocytes) > 1% indicates that a LEFT SHIFT is Present. LAB L100.2620 2.0-7.7 X10 3/uL Normal Absolute Neut 7.5 LAB L100.2720 0.83-4.51 X10 3/ul Normal Absolute Lymph 3.23 Performed By: #### L100.0100 #### [facility] [address] [facility] [place], [address] PROTHROMBIN TIME W/INR Collected: 01/27/2018 Status: F Source: MELVIN 6:43 PM [facility] REPOSITORY TYPE CODE TESTS RESULT OUT OF RANGE REFERENCE UNITS LAB L300.4150 11.7-14.9 SECONDS Normal PROTIME 12.5 LAB L300.4200 Normal INR 0.9 Performed By: #### L300.3900, L300.4310 #### [facility] [address] [place], [place], [address] PARTIAL THROMBOPLAST Collected: 01/27/2018 Status: F Source: [facility] 6:43 PM [facility] REPOSITORY TYPE CODE TESTS RESULT OUT OF RANGE REFERENCE UNITS LAB L300.4310 24.1-36.2 Seconds Normal PTT 28.7 Performed By: #### L300.3900, L300.4310 #### [facility] [address] [place], [address] LACTIC ACID Collected: 01/27/2018 Status: F Source: MELV[place] 6:43 PM [facility] REPOSITORY Order Comment: Yes/No query for Sepsis Lactate Rule Y TYPE CODE TESTS RESULT OUT OF RANGE REFERENCE UNITS LAB L503.6005 0.4-2.0 mmol/L Normal LACTIC ACID 1.2 Performed By: #### L503.6005 #### [facility] [address] [place], [place], [address] COMPREHENSIVE METABOLIC Collected: 01/27/2018 Status: F Source: MELV[place] PROFIL 6:43 PM [facility] REPOSITORY TYPE CODE TESTS RESULT OUT OF RANGE REFERENCE UNITS LAB L501.0100 74-106 mg/dL Normal GLU 85 Result Comment: Please note revised GLUCOSE reference range effective 2017. LAB L501.1000 7-18 mg/dL Normal BUN 13 LAB L501.1100 0.55-1.02 mg/dL Normal CREAT,SERUM 0.56 Result Comment: The validity of the calculated GFR AND GFRAA in patients over 70 years has not been determined. Clinical correlation is essential. LAB L501.1110 >60 mL/min Normal EST GFR 118 Result Comment: Non- GFR Calc LAB L501.1115 >60 mL/min Normal EST GFR - AA 142 Result Comment: GFR Calc LAB L501.1255 ml/min Normal Estimated CRCL 79.61 LAB L501.1300 10-20 RATIO High BUN/CRE 23.1 LAB L501.1500 6.4-8. g/dL Normal 2 T PROT 8.0 LAB L501.1800 3.2-5. g/dL Normal 0 ALB 3.9 LAB L501.1950 2.2-4. g/dL Normal 2 GLOB 4.1 LAB L501.2000 0.9-2. RATIO Normal 4 A/G 1.0 LAB L501.2200 8.5-10 mg/dL Normal .1 CA 8.9 LAB L501.4100 15-37 U/L Low AST 9 LAB L501.4305 45-117 U/L Normal ALK P 96 LAB L501.4405 13-56 U/L Normal ALT 25 LAB L501.4600 0.20-1 mg/dL Normal .00 T BILI 0.30 LAB L501.5300 136-14 mmol/L Normal 5 NA 138 LAB L501.5600 3.5-5. mmol/L Normal 1 K 4.0 LAB L501.5900 98-107 mmol/L Normal CL 106 LAB L501.6100 21.0-3 mmol/L Normal 2.0 CO2 27.0 LAB L501.6200 5-15 Normal GAP 5 Performed By: #### L500.4050 #### [facility] [address] [facility] [place], [address] OPERATIVE REPORT Observed: 01/18/2018 Status: F Source: MELV[place] 6:30 AM [facility] REPOSITORY [facility] Medical Records Department [address] [place] [address] Operative Report 01/17/18 1255 MR#: [id number] Acct: [id number] Name: NATO GUERRIER Rep #: [id number] : 1960 57 From: Deny Platt DPM PCP: Deny Renteria MD Status: [facility] Location: [facility] [place] Report of Operation Date of Procedure: 01/17/18 Pre-Operative Diagnosis: Hallux valgus bunion, right foot. 2nd digit hammer toe, right foot Post-Operative Diagnosis: Same Surgery/Procedure Performed:: 1st metatarsal osteotomy bunionectomy, right. arthroplasty right 2nd toe Description of Surgical Findings:: Hallux valgus bunion, hallux limitus, 2nd digit hammer toe - right foot bed and breakfast operator: Dr. Bose Type of Anesthesia:: General Specimen's removed: Bunion and bone from 2nd digit hammer toe all right foot- sent to pathology Estimated Blood Loss (mL): 5mL Description of Procedure: Indications: This is a 57 year-old female who has chronic right foot bunion pain and painful 2nd digit hammer toe deformity. She has a significant bunion and 2nd digit hammer toe deformity present. She also has chronic osteoarthritis to the tarsometatarsal midfoot joints which are painful as well. She has trouble with shoes and with activities. he bunion and hammer toe is bothering her the most for which she has tried nonsurgical care however her symptoms persist and are only getting worse. She was asking about surgical options. We discussed all of the options, and she elected to proceed with first metatarsal osteotomy bunionectomy with a possible great toe osteotomy, along with arthroplasty correction of 2nd digit hammer toe on the right foot, as well as corticosteroid injection to the tarsometatarsal/midfoot joints.This was discussed with her in great detail. We reviewed all the possible benefits, risks, goals and expectations. She expressed understanding and agreement. We also reviewed the typical postoperative and expected postoperative course. She expressed understanding and agreement and wanted to proceed forward with surgical intervention. All alternative options were discussed with her and all the possible benefits, risks of the alternative options were discussed with her as well in detail. She expressed understanding and agreement and again want to proceed for surgical intervention. The consent form was reviewed with her and she freely signed them. No guarantees were given or implied. She was cleared from a medical standpoint by her PCP. Operative Procedure: The patient was brought back into the operating room and was placed onto the operative table in the supine position. She was carefully secured to the operating room table with safety belt around her waist. The patient did receive 900 milligrams of intravenous Clindamycin for antibiotic prophylaxis. The patient received general LMA anesthesia per the anesthesiologist. A well-padded pneumatic tourniquet was applied around her right ankle. The right foot was scrubbed, prepped and draped in the usual aseptic fashion. Further attention was directed to the right foot, there was significant hallux valgus bunion and 2nd digit hammer toe deformity. There was a large medial eminence of the 1st metatarsal head, and prominent proximal phalanx head of the 2nd toe. There was significant limitation of the 1st metatarsal phalangeal joint range of motion, particularly significantly decreased dorsiflexion, resulting in significant hallux limitus. The foot was elevated for 3 minutes and the right ankle pneumatic tourniquet was inflated to 250 mmHg. Using a #15 scalpel blade, an incision was made just medial to the extensor hallucis longus tendon overlying the dorsal aspect of the first metatarsal and over the first metatarsophalangeal joint. Careful dissection was completed down to the first metatarsal and first metatarsophalangeal joint. The capsule of the first metatarsophalangeal joint was incised dorsally as well as the periosteum of the first metatarsal was incised dorsally using a #15 scalpel blade and these were carefully partially reflected exposing the distal first metatarsal and the first metatarsal. The first metatarsal head was visualized, there was noted to be chronic degenerative changes with thinning of the cartilage present. There was a large medial eminence of the first metatarsal head and using a powered sagittal saw, this was gently resected preserving the sagittal groove, this was sent to pathology. A scarf osteotomy was completed using a powered sagittal saw to the first metatarsal. This was done in standard fashion with a longitudinal arm, a dorsal distal arm and a plantar proximal arm. The capital fragment was gently and carefully shifted laterally reducing the first intermetatarsal angle to normal and making the 1st metatarsal phalangeal joint congruent. The osteotomy site was fixated using rigid open reduction and internal fixation technique using two 2.5 mm Arthrex Titanium Richie screws 14mm in length (Initially two Arthrex Titanium Richie screws measuring 12mm length screws were used but there was poor purchase of the screws to the plantar surface - so these were removed). It was also noted that the adductor hallucis longus tendon was very tight as well as the lateral capsule and the sesamoidal ligament of the fibular sesamoid. Careful dissection was completed to the distal 1st intermetatarsal space, and the adductor hallucis longus tendon, lateral capsule of the first metatarsal phalangeal joint, and the sesamoidal ligament of the fibular sesamoid were identified, these were gently released using a #15 scalpel blade. There was also noted to be a dorsal bunion to the 1st metatarsal head which was causing hallux limitus, there were degenerative changes to the dorsal 1st metatarsal head as well. The dorsal 1/3 of the 1st metatarsal head was resected, resecting the degenerative cartilage. There were noted to be adhesions of the sesamoid apparatus which were released using a McGlamry metatarsal elevator. At this time there was smooth range of motion to the 1st metatarsal phalangeal joint. The osteotomy was stable with good bone to bone contact and good alignment present, screws intact in good position. There was good compression across the osteotomy site. Intraoperative fluoroscopy confirmed this as well. The site was flushed out with copious amounts of normal saline solution. The periosteum and the first metatarsophalangeal joint capsule were carefully reapproximated using 3-0 Vicryl. The subcutaneous tissue layer was carefully reapproximated using 3-0 Vicryl. The skin was carefully reapproximated using 4-0 Monocryl. Attention was directed to the 2nd toe which was contracted consistent with hammer toe deformity. A longitudinal incision was made overlying the dorsal aspect of the proximal interphalangeal joint. Dissection was completed down to the extensor digitorum longus tendon and proximal interphalangeal joint capsule which were released using a 15 blade. The collateral ligaments of the proximal interphalangeal joint were released. The head of the proximal phalanx was resected and sent to pathology with the above specimen. A kwire was not placed due to her Nickel allergy. The site was flushed out with copious amounts of normal saline solution. The two toe was placed in rectus position and the extensor tendon was repaired using 3-0 Vicryl. The skin was reapproximated using 4-0 Monocryl. There was noted to be dorsal contracture of the 2nd metatarsal phalangeal joint. A small stab incision was made overlying the dorsal lateral 2nd metatarsal phalangeal joint. Dissection was completed down to the dorsal 2nd metatarsal phalangeal joint capsule and overlying extensor tendon which were significantly contracted at this level. They were released using a 15 blade. Now the 2nd digit was completely rectus, in good position, with the hammer toe corrected. Attention was directed to the tarsometatarsal midfoot joints. A total of 40mg Depo Medrol with 2mL of 0.5% Bupivacaine plain was given as a corticosteroid injection to the tarsometatarsal midfoot joints. The pneumatic tourniquet was deflated at 90 minutes. There was immediate return of warmth and perfusion to the foot and all five toes. CFT was less than 2 seconds to all toes. Temperature was normal. A total of 20mL of 0.5% Bupivacaine plain was given as a local nerve block around the surgical site. Cavilon was painted to the edges of the suture skin incisions and steristrips were applied across the sutured skin incisions. A dressing was applied which consisted of Betadine soaked adaptic, 4x4 gauze, Kerlix and tommy bandage. The patient tolerated the above procedure well and anesthesia well with no complications. The patient was transported from the operative room to the recovery room with vital signs stable and in good condition. Post operative orders were placed, and post operative instructions were reviewed with the patient and her who was with her today (verbal and written). No weightbearing right forefoot, keep the dressing clean, dry and intact. Keep foot elevated for at least 50 minutes of every hour. Post operative prescriptions for Percocet for pain control was dispensed. Patient to follow up this Saturday in office, sooner if needed. Also of note post operative xrays were obtained of the right foot in the recovery room, which were reviewed. These confirmed 1st metatarsal osteotomy bunionectomy and hallux osteotomy (ethan) with good position present, congruent 1st metatarsal phalangeal joint, normal 1st IM angle and normal hallux abductus angle, screws intact and in good position. Also s/p arthroplasty of the 2nd digit with the 2nd digit in rectus position. Grafts/Implants Used: 2 x 2.5mm Arthrex screws (titanium) - Complications None 01/18/18 0630 <Electronically signed by Deny Platt DPM> Date Deny Platt DPM CC: Deny Renteria MD; Deny Platt DPM Signed DISCHARGE INSTRUCTION Observed: 01/17/2018 Status: F Source: [place]DA 12:55 PM [facility] REPOSITORY [facility] Medical Records Department [address] [place] [address] Instructions for Home/Discharge Instructions 01/17/18 1253 MR#: [id number] Acct: [id number] Name: NATO GUERRIER Rep #: [id number] : 1960 57 From: Deny Platt DPM PCP: Deny Renteria MD Status: REG SDC Discharge Diet: Light diet - advance as tolerated Discharge Activity: May Not Drive Weight Bearing Status: No weight bearing - No weightbearing right forefoot (ball of foot and toes) Keep extremity elevated above heart level: Right Leg - Keep right foot elevated for at least 50 minutes of every hour Call your doctor if your incision/area has: Continuous Slow Oozing, Sudden Increased Bleeding, Foul Smelling Discharge Call your doctor if you observe: Fever of 101 or Higher, Shortness of breath, Chest pain, Increased palpitations (irregular heartbeat), Calf discomfort, Uncontrolled pain Cleanse incision/area with: Do not get Incision Wet, Keep Dressing Clean AND Dry Allergies/Adverse Reactions: Allergies atorvastatin [From Lipitor] Allergy (Verified 01/14/18 13:29) Upset Stomach cephalexin [From Keflex] Allergy (Verified 01/14/18 13:29) Swelling latex Allergy (Verified 01/14/18 13:30) Rash morphine Allergy (Verified 01/14/18 13:29) Vomiting nickel Allergy (Verified 01/14/18 13:30) Rash pork derived (porcine) Allergy (Verified 01/14/18 13:30) Food Allergy tramadol Allergy (Verified 01/14/18 13:29) Rash zinc Allergy (Verified 01/14/18 13:29) Rash gabapentin Adverse Reaction (Verified 01/14/18 13:59) Swelling Medications to take at Discharge Amlodipine [Norvasc] 10 mg PO DAILY 03/15/16 Diclofenac Potassium 50 mg PO DAILY 03/15/16 Propranolol HCl 60 mg PO BID 03/15/16 Betamethasone Sod Phosph-Water [Betamethasone 12 mg/2 ml-Water] 1 applic TOPICAL DAILY 06/19/17 Loteprednol Etabonate [Lotemax] 3.5 gm OP QHS 06/19/17 Omeprazole Magnesium [Prilosec Otc] 20 mg PO DAILY 06/19/17 Albuterol Sulfate [Proventil Hfa] 2 puff IH Q4H PRN PRN 01/14/18 Doxepin HCl [Sinequan] 10 mg PO QHS 01/14/18 Tizanidine HCl [Zanaflex] 2 mg PO Q8H PRN 01/14/18 Oxycodone HCl/Acetaminophen [Percocet 5/325] 1 - 2 tab PO Q6H PRN PRN 4 Days #30 tab 01/17/18 The following prescriptions were given: Oxycodone HCl/Acetaminophen [Percocet 5/325] 1 - 2 tab PO Q6H PRN PRN 4 Days #30 tab PRN Reason: Pain Primary Care Physician: Deny Renteria MD [Primary Care Provider] - Test Results: Test results from this visit will be discussed in further detail at your follow-up appointment, if applicable. Please Follow Up With: Deny Platt DPM When: within 1 week, sooner if needed 01/17/18 1255 <Electronically signed by Deny Platt DPM> Date Deny Platt DPM CC: Deny Renteria MD FOOT MIN 3 VIEWS Observed: 01/17/2018 Status: F Source: MELVIN 12:52 PM [facility] REPOSITORY [facility] Imaging Services [address] [place] [address] Foot min 3 Views MR#: [id number] Acct: [id number] Name: NATO GUERRIER Rep #: [id number] : 1960 F 57 From: Irma Patton MD PCP: Deny Renteria MD Status: [facility] Study: Foot min 3 Views Date of Exam: 01/17/18 Exam# [id number] Ordering Dr: Deny Platt DPM STUDY: X-RAY - RIGHT FOOT CLINICAL: Female, 57 years old. Postop right foot TECHNIQUE: 3 view(s) of the foot. COMPARISON: January 17, 2018 fluoroscopic imaging FINDINGS: There is an enthesophyte involving the posterior superior calcaneus at the site of insertion of the Achilles tendon. There is a plantar spur. The bones are osteopenic. There is degenerative change at the tarsotarsal joints. There is an os navicularis. There are cortical screws within the right first metatarsal. There is postoperative change. There is gas in the soft tissues. Normal metatarsophalangeal joint of the great toe. Normal tibial and fibular sesamoid bones. Normal interphalangeal joint of the great toe. Normal phalanges of the great toe. Normal second through fifth metatarsophalangeal joints. Normal interphalangeal joints and phalanges of the lesser toes. RAD/Foot min 3 Views IMPRESSION: Operative changes right foot first metatarsal. Plantar and Achilles spur. Bony osteopenia. Os naviculare. Electronically Signed: Irma Patton MD at 15:07 EDT Tel , Service support , CC: Deny Renteria MD; Deny Platt DPM Animal Care Worker: Signed PROTHROMBIN TIME W/INR Collected: 01/17/2018 Status: F Source: ROSALINDA 10:23 AM [facility] REPOSITORY TYPE CODE TESTS RESULT OUT OF RANGE REFERENCE UNITS LAB L300.4150 11.7-14.9 SECONDS Normal PROTIME 13.1 LAB L300.4200 Normal INR 1.0 Performed By: #### L300.3900, L300.4310 #### [facility] [address] [place], [address] PARTIAL THROMBOPLAST Collected: 01/17/2018 Status: F Source: ROSALINDA TIME 10:23 AM [facility] REPOSITORY TYPE CODE TESTS RESULT OUT OF RANGE REFERENCE UNITS LAB L300.4310 24.1-36.2 Seconds Normal PTT 31.1 Performed By: #### L300.3900, L300.4310 #### [facility] [address] [place], [address] FOOT MIN 3 VIEWS Observed: 01/17/2018 Status: F Source: ROSALINDA 12:14 AM [facility] REPOSITORY [facility] Imaging Services [address] [place] [address] Foot min 3 Views MR#: [id number] Acct: [id number] Name: NATO GUERRIER Rep #: [id number] : 1960 F 57 From: Irma Patton MD PCP: Deny Renteria MD Status: [facility] Study: Foot min 3 Views Date of Exam: 01/17/18 Exam# [id number] Ordering Dr: Deny Platt DPM STUDY: Fluoroscopic RIGHT FOOT CLINICAL: Female, 57 years old. Osteotomy first TECHNIQUE: 2 view(s) of the foot. COMPARISON: None. FINDINGS: 2 fluoroscopic views of the distal foot are provided showing 2 cortical screws in the first metatarsal. Fluoroscopy time is recorded as 0.37 seconds RAD/Foot min 3 Views IMPRESSION: 2 views fluoroscopy of the right foot. Electronically Signed: Irma Patton MD at 16:03 EDT Tel , Service support , CC: Deny Renteria MD; Deny Platt DPM Animal Care Worker: Diego TONEYOZ Observed: 01/17/2018 Status: F Source: MELVIN 12:00 AM [facility] REPOSITORY Patient: NATO GUERRIER : 1960 (57/F) Acct Num: [id number] Phys: Deny Platt DPM Unit Num: [id number] Loc: [facility] Specimen: [id number] Received: 01/20/181340 Spec Type: BUNION TISSUES 1 TISSUES: Bony tissue, NOS GROSS DESCRIPTION Received in fixative is one container labeled with the patient's name and designated bunion first metatarsal right foot. The specimen consists of multiple pieces of bone that in aggregate measure 3 x 3 x 0.1 cm. The entire specimen is submitted in one cassette after decalcification. / SJ:crispin 01/20/18 TC:5 CPT: 22606, 28657 HEADER OPERATION: First metatarsal osteotomy, bunionectomy with poss Ethan great toe PRE-OP DIAGNOSIS: Hallus valgus right great toe, hammertoe TISSUE SUBMITTED: Bunion first metatarsal right foot MICROSCOPIC DESCRIPTION Slides are reviewed. MICROSCOPIC DIAGNOSIS Bunion first metatarsal right foot: Pieces of bone with reactive changes, clinically bunion. SJ:crispin 01/23/18 Signed Ronald Monk 01/23/18 <signature on file> Performed By: #### PBUN #### [facility] [address] [place], [address] CBC AND DIFFERENTIAL Collected: 01/13/2018 Status: F Source: EGAN 10:18 AM [facility] REPOSITORY TYPE CODE TESTS RESULT OUT OF REFERENCE UNITS RANGE LAB WBC 3.70-11.00 k/uL WBC High 11.27 LAB RBC 3.90-5.20 m/uL RBC High 5.26 LAB HGB 11.5-15.5 g/dL High Hemoglobin 15.7 LAB HCT 36.0-46.0 % High Hematocrit 47.6 LAB MCV 80.0-100.0 fL MCV 90.5 LAB MCH 26.0-34.0 pG MCH 29.8 LAB MCHC 30.5-36.0 g/dL MCHC 33.0 LAB RDWCV 11.5-15.0 % RDW-CV 13.0 LAB PLTCT 150-400 k/uL Platelet Count 272 LAB MPV 9.0-12.7 fL MPV 10.2 LAB ANEUT % Neut% 56.9 LAB AANEUT 1.45-7.50 k/uL Abs Neut 6.42 LAB ALYMP % Lymph% 30.1 LAB AALYMP 1.00-4.00 k/uL Abs Lymph 3.39 LAB AMONO % Zapata% 7.3 LAB AAMONO <0.87 k/uL Abs Zapata 0.82 LAB AEOS % Eosin% 4.8 LAB AAEOS <0.46 k/uL Abs High Eosin 0.54 LAB ABASO % Baso% 0.9 LAB AABASO <0.11 k/uL Abs Baso 0.10 LAB AUNRBC 0 /100 WBC NRBCs 0.0 LAB ABNRBC <0.01 k/uL Absolute nRBC <0.01 LAB DTYP DTYPE Auto Diff Performed By: #### CBCDIF, LIPB #### [facility] [address] [place], [place] [address] LIPID PANEL, BASIC Collected: 01/13/2018 Status: F Source: EGAN 10:18 AM [facility] REPOSITORY TYPE CODE TESTS RESULT OUT OF REFERENCE UNITS RANGE LAB CHOL <200 mg/dL Cholesterol High 218 Result Comment: <200 mg/dL, Desirable 200-239 mg/dL, Borderline high >239 mg/dL, High LAB TRIGLY <150 mg/dL Triglyceride High 217 Result Comment: <150 mg/dL, Normal 150-199 mg/dL, Borderline high 200-499 mg/dL, High >499 mg/dL, Very high LAB HDL >39 mg/dL HDL-Cholesterol Low 36 Result Comment: 40-59 mg/dL, Acceptable >59 mg/dL, High: Negative risk factor for coronary heart disease <40 mg/dL, Low: Positive risk factor for coronary heart disease LAB LDL <100 mg/dL LDL-Cholesterol High 139 Result Comment: <100 mg/dL, Optimal 100-129 mg/dL, Near optimal/above optimal 130-159 mg/dL, Borderline high 160-189 mg/dL, High >189 mg/dL, Very high Secondary prevention optimal LDL Cholesterol levels are recommended to be < 70 mg/dL LAB NONHDL <130 mg/dL Non HDL High Cholesterol 182 Result Comment: <130 mg/dL, Optimal 130-159 mg/dL, Near optimal/above optimal 160-189 mg/dL, Borderline high 190-219 mg/dL, High >219 mg/dL, Very high Secondary prevention optimal non HDL Cholesterol levels are recommended to be < 100 mg/dL LAB FT hrs Fasting Time 12 LAB VLDL <30 mg/dL High VLDL Cholesterol 43 LAB TCHDL <5.10 High TC:HDL Ratio 6.06 LAB LDLHDL <2.54 High LDL:HDL Ratio 3.86 Result Comment: Reference: 1. National Cholesterol Education Program ATP III Guideline At-A-Glance Quick Desk Reference: National Heart, Lung, and Blood [place]. National Institutes of Health. 2001: NIH Publication No. 01-3305. 2. An International Atherosclerosis Society position paper: global recommendations for the management of dyslipidemia: executive summary, Atherosclerosis. 2014: 232(2):410-413. Performed By: #### CBCDIF, LIPB #### [facility] [address] [place] [id number] CBC AND DIFFERENTIAL Collected: 01/07/2018 Status: F Source: EGAN 11:08 AM [facility] REPOSITORY TYPE CODE TESTS RESULT OUT OF REFERENCE UNITS RANGE LAB WBC 3.70-11.00 k/uL WBC High 13.39 LAB RBC 3.90-5.20 m/uL RBC High 5.24 LAB HGB 11.5-15.5 g/dL Hemoglobin 15.4 LAB HCT 36.0-46.0 % High Hematocrit 47.7 LAB MCV 80.0-100.0 fL MCV 91.0 LAB MCH 26.0-34.0 pG MCH 29.4 LAB MCHC 30.5-36.0 g/dL MCHC 32.3 LAB RDWCV 11.5-15.0 % RDW-CV 13.4 LAB PLTCT 150-400 k/uL Platelet Count 270 LAB MPV 9.0-12.7 fL MPV 9.9 LAB ANEUT % Neut% 64.8 LAB AANEUT 1.45-7.50 k/uL Abs Neut High 8.67 LAB ALYMP % Lymph% 21.9 LAB AALYMP 1.00-4.00 k/uL Abs Lymph 2.93 LAB AMONO % Zapata% 8.4 LAB AAMONO <0.87 k/uL Abs Zapata High 1.13 LAB AEOS % Eosin% 4.0 LAB AAEOS <0.46 k/uL Abs High Eosin 0.54 LAB ABASO % Baso% 0.9 LAB AABASO <0.11 k/uL Abs Baso High 0.12 LAB AUNRBC 0 /100 WBC NRBCs 0.0 LAB ABNRBC <0.01 k/uL Absolute nRBC <0.01 LAB DTYP DTYPE Auto Diff Performed By: #### CBCDIF, CMP #### [facility] [address] [place] [id number] COMP METABOLIC PANEL Collected: 01/07/2018 Status: F Source: EGAN 11:08 AM [facility] REPOSITORY TYPE CODE TESTS RESULT OUT OF REFERENCE UNITS RANGE LAB TP 6.3-8.0 g/dL Protein, Total 6.9 LAB ALB 3.9-4.9 g/dL Albumin 4.4 LAB CA 8.5-10.2 mg/dL Calcium, Total 9.6 LAB TBIL 0.2-1.3 mg/dL Bilirubin, Total 0.3 LAB ALKP 34-123 U/L Alkaline Phosphatase 87 LAB AST 13-35 U/L AST 18 LAB GLU 74-99 mg/dL Glucose 84 Result Comment: The [place] Diabetes Association (ADA) provides guidance for cutoff values for fasting glucose and random glucose. The ADA defines fasting as no caloric intake for at least 8 hours. Fas ting plasma glucose results between 100 to 125 mg/dL indicate increased risk for diabetes (prediabetes). Fasting plasma glucose results greater than or equal to 126 mg/dL meet the criteria for diagnosis of diabetes. In the absence of unequivocal hyperglycemia, results should be confirmed by repeat testing. In a patient with classic symptoms of hyperglycemia or hyperglycemic crisis, random plasma glucose results greater than or equal to 200 mg/dL meet the criteria for diagnosis of diabetes. Reference: Standards of Medical Care in Diabetes 2016, [place] Diabetes Association. Diabetes Care. 2016.39(Suppl 1). LAB BUN 7-21 mg/dL BUN 8 LAB CRET 0.58-0.96 mg/dL Creatinine 0.63 LAB NA 136-144 mmol/L Sodium 139 LAB K 3.7-5.1 mmol/L Potassium 4.2 LAB CL 97-105 mmol/L Chloride 102 LAB CO2 22-30 mmol/L CO2 Low 20 LAB AGAP 9-18 mmol/L Anion Gap 17 LAB ALT 7-38 U/L ALT 18 LAB GFRAA eGFR- Amer. >60 LAB GFRNAA . eGFR-All Other Races >60 Result Comment: eGFR (Estimated GFR) Units of measure: mL/min/1.73 meters squared eGFR is derived from the reexpressed MDRD Study equation using the following parameters: serum creatinine, age, gender and race. The creatinine assay has been calibrated to be traceable to IDMS. An eGFR <60 mL/min/1.73m2 for >3 months is consistent with chronic kidney disease. Refer to KDOQI guidelines for clinical interpretation. In patients with unstable renal function, e.g. those with acute kidney injury, the eGFR may not accurately reflect actual GFR. Performed By: #### CBCDIF, CMP #### [facility] [address] [place], [place] [address] PROGRESS Observed: 01/07/2018 Status: COMPLETED Source: EGAN 10:27 AM [facility] REPOSITORY HNO ID: [id number] Author: Rafi Rivera Service: (none) Author Type: Physician Dispatcher Maintenance Service Type: Progress Notes Filed: 01/14/2018 7:18 AM Note Text: Chief Complaint Patient presents with: Pre-Op Exam Imm/Inj: Flu Vaccine HPI Nato Guerrier is a 57 year old female who presents here today for Surgical clearance. Patient has surgery scheduled for Jan 17 for 1st metatarsal osteotomy bunionectomy with hammer toe (of 2nd toe) correction. This is [facility] No complications with previous surgeries. EKG earlier this year- normal No personal hx of CAD, ND, CVA or TIA. Denies chest pain, shortness of breath, h/a Smoking about 1/2 ppd- is trying to quit. At last appointment was to try decreasing norvasc to 5mg. Patient states that when she did this bp increased so she is back on 10mg daily. Past medical history, appointments, medications, allergies reviewed. Previous Medical History PAST MEDICAL HISTORY Diagnosis Date - Arthritis of both knees 08/22/2017 - Arthritis of lumbar spine 08/22/2017 - Chronic pain syndrome 08/22/[address] Gray at [facility] - Dry eyes 08/22/2017 - Eczema 08/22/2017 hands - Essential hypertension 08/22/2017 - Ex-smoker 08/22/2017 - GERD without esophagitis 08/22/2017 - Hyperlipidemia, mixed 08/22/2017 - Migraine without aura and without status migrainosus, not intractable 08/22/2017 - Muscle spasm 12/25/2017 thigh region from knee arthritis. - Primary insomnia 12/25/2017 - Seasonal allergies 08/22/2017 Previous Surgical History PAST SURGICAL HISTORY Procedure Laterality Date - PAST SURGICAL HISTORY OF 05/2017 lumbar spinal fussion, Dr. BRISENO, decompression and fusion L4-S1 - PAST SURGICAL HISTORY OF C-sections x 3 Family History FAMILY HISTORY Problem Relation Age of Onset - Heart disease Father - Hypertension Father - other (skin CA) Maternal Grandmother - other (bone cancer) Maternal Grandfather - Colon Cancer Maternal Aunt Patient Allergies ALLERGIES Allergen Reactions - Chantix [Vareniclin* Rash - Cymbalta [Duloxetin* Other: See Comments Bad headache's and nausea - Latex Rash - Ultram [Tramadol Hc* Rash - Cephalexin Swelling - Cephalosporins Swelling - Colyte [Peg 3350-El* Vomiting - Gabapentin Swelling - Lipitor [Atorvastat* Other: See Comments Flu like symptoms - Morphine Vomiting - Nortriptyline Other: See Comments insomnia - Zinc Oxide Unknown Current Medications Current Outpatient Prescriptions on File Prior to Visit: doxepin capsule 10 mg Take 1 capsule by mouth daily at bedtime. propranolol (INDERAL) 60 mg tablet Take 1 tablet by mouth twice daily. tiZANidine HCl 2 mg capsule Take 1 capsule by mouth three times daily. amLODIPine (NORVASC) 10 mg tablet Take 10 mg by mouth once daily. augmented betamethasone 0.05 % lotion Apply to affected area twice daily. loteprednol etabonate (LOTEMAX) 0.5 % ophthalmic suspension 1 Drop four times daily. omega-3/dha/epa/dpa/fish oil (OMEGA-3 2100 ORAL) Take by mouth. omeprazole (PRILOSEC) 20 mg capsule Take 20 mg by mouth once daily. albuterol HFA (PROVENTIL HFA) 90 mcg/actuation inhaler Inhale 2 Puffs as instructed. Cholecalciferol, Vitamin D3, (VITAMIN D-3) 2,000 unit cap Take by mouth. CALCIUM ORAL Take by mouth. No current facility-administered medications on file prior to visit. Social History Social History Marital status: Spouse name: Years of education: Number of children: Social History Main Topics Smoking status: Former Smoker Packs/day: 0.00 Years: 0.00 Smokeless tobacco: Never Used Alcohol use: Yes Comment: on rare occasions Drug use: No Review of Symptoms REVIEW OF SYSTEMS GENERAL: No weight loss, malaise or fevers HEENT: Negative for frequent or significant headaches, No changes in hearing or vision, no nose bleeds or other nasal problems NECK: Negative for lumps, goiter, pain and significant neck swelling RESPIRATORY: Negative for cough, hemoptysis, wheezing, COPD, dyspnea or shortness of breath CARDIOVASCULAR: Negative for chest pain, leg swelling, hypertension, CHF or palpitations GI: No nausea, vomiting, or diarrhea : No history of dysuria, frequency or incontinence WARDROBE CONSULTANT: Negative for abnormal vaginal bleeding, abnormal vaginal discharge MUSCULOSKELETAL: Negative for joint pain or swelling, back pain or muscle pain PSYCH: Negative for sleep disturbance, mood disorder and recent psychosocial stressors HEMATOLOGY/LYMPHOLOGY: Negative for prolonged bleeding, bruising easily or swollen nodes ENDOCRINE: Negative for cold or heat intolerance, polyuria, polydipsia and goiter NEURO: No history of headaches, syncope, paralysis, seizures or tremors EXAM: BP 122/74 (BP Site: Left Arm, BP Position: Sitting, BP Cuff Size: Regular Adult) Pulse 64 Temp 36.4 ?C (97.6 ?F) (Tympanic) Resp 14 Wt 84.4 kg (186 lb) BMI 36.33 kg/m? General Appearance: Well appearing, alert, in no acute distress, well-hydrated, well nourished. and Obese. Head: Normocephalic, no masses, lesions, tenderness or abnormalities. Eyes: Anicteric sclera. Pupils are equally round and reactive to light. Extraocular movements are intact. . Ears: External ears normal, canals clear, TMs retracted b/l no erythema or fluid noted Nose/Sinuses: Nares normal, septum midline, mucosa normal, no drainage or sinus tenderness. Oropharynx: Lips, mucosa, and tongue normal, teeth and gums normal, oropharynx normal. Neck: Supple, no adenopathy; thyroid symmetric, normal size, no bruits. Lungs: Lungs clear to auscultation. No wheezing, rhonchi, rales. Heart: RRR without murmur, gallop, or rubs. No ectopy. Abdomen: Normal abdominal exam, Abdomen soft, non-tender. Bowel sounds normal. No masses, organomegaly, Negative CVA tenderness. Extremities: mild peripheral edema b/l. r foot deformities. No skin discoloration. Capillary refill <3sec Peripheral Pulses: Normal. Neurologic: Gait normal. Reflexes normal and symmetric. Sensation intact. CN 2-12 grossly intact Health Maintenance List PAP EVERY 5 YEARS due on 1990 HPV EVERY 5 YEARS due on 1990 HEPATITIS C SCREENING due on 2004 COLORECTAL CANCER SCREENING,SEE MODIFIER due on 2010 INFLUENZA(1) due on 11/30/2017 MAMMOGRAM due on 12/25/2018 ANNUAL PCP TEAM CHRONIC DISEASE VISIT due on 12/25/2018 BP CONTROLLED (<130/80) due on 12/25/2018 DIABETES SCREEN due on 08/22/2020 LIPID SCREEN due on 08/22/2022 DTAP,TDAP,TD(2 - Td) due on 07/11/2025 Data reviewed ECG Procedure Date : Aug 22 2017 09:42:08 Edit Date : Aug 24 2017 08:38:42 Diagnosis:NORMAL SINUS RHYTHM NORMAL ECG Confirmed by PHILLIP BAXTER D.O. ([id number]) on 08/24/2017 8:38:35 AM Labs Component Latest Ref Rng AND Units 01/07/2018 WBC 3.70 - 11.00 k/uL 13.39 (H) RBC 3.90 - 5.20 m/uL 5.24 (H) Hemoglobin 11.5 - 15.5 g/dL 15.4 Hematocrit 36.0 - 46.0 % 47.7 (H) MCV 80.0 - 100.0 fL 91.0 MCH 26.0 - 34.0 pG 29.4 MCHC 30.5 - 36.0 g/dL 32.3 RDW-CV 11.5 - 15.0 % 13.4 Platelet Count 150 - 400 k/uL 270 MPV 9.0 - 12.7 fL 9.9 Neut% % 64.8 Abs Neut (ANC) 1.45 - 7.50 k/uL 8.67 (H) Lymph% % 21.9 Abs Lymph 1.00 - 4.00 k/uL 2.93 Zapata% % 8.4 Abs Zapata <0.87 k/uL 1.13 (H) Eosin% % 4.0 Abs Eosin <0.46 k/uL 0.54 (H) Baso% % 0.9 Abs Baso <0.11 k/uL 0.12 (H) Nucleated Reds 0 /100 WBC 0.0 Absolute nRBC <0.01 k/uL <0.01 Diff Type Auto Diff Protein, Total 6.3 - 8.0 g/dL 6.9 Albumin 3.9 - 4.9 g/dL 4.4 Calcium 8.5 - 10.2 mg/dL 9.6 Bilirubin, Total 0.2 - 1.3 mg/dL 0.3 Alkaline Phosphatase 34 - 123 U/L 87 AST 13 - 35 U/L 18 Glucose 74 - 99 mg/dL 84 BUN 7 - 21 mg/dL 8 Creatinine 0.58 - 0.96 mg/dL 0.63 Sodium 136 - 144 mmol/L 139 Potassium 3.7 - 5.1 mmol/L 4.2 Chloride 97 - 105 mmol/L 102 CO2 22 - 30 mmol/L 20 (L) Anion Gap 9 - 18 mmol/L 17 ALT 7 - 38 U/L 18 eGFR- >60 eGFR-All Other Races . >60 ASSESSMENT/PLAN: 1. Preop examination - ICD9: V72.84, ICD10: Z01.818 (primary diagnosis) Cleared for surgery pending repeat CBC Low cardiac risk Monitor blood pressure. - CBC + DIFF - COMP METABOLIC PANEL 2. Bunion of great toe of right foot - ICD9: 727.1, ICD10: M21.611 As above 3. Hammer toe of right foot - ICD9: 735.4, ICD10: M20.41 As above 4. Smoker - ICD9: 305.1, ICD10: F17.200 - Cessation encouraged. - Physiologic and physical aspects of tobacco addiction as well as strategies for quitting were discussed. - Counseling was given focusing on the harmful effects of this addiction especially given the patient's medical condition(s) which will be worsened because of the chemicals in tobacco. 5. Need for vaccination - ICD9: V05.9, ICD10: Z23 - INFLUENZA VACCINE QUADRIVALENT AGE 3 YRS PLUS + IM 6. Chronic pain syndrome - ICD9: 338.4, ICD10: G89.4 Continue with pain specialist - TRAMADOL 50 MG TABLET 7. Essential hypertension - ICD9: 401.9, ICD10: I10 - good control - Continue current medication(s) - Recommended regular aerobic exercise. - Goal of BP <130/80 YELENA RIVERA PA-C Addendum: Cleared for Surgery. Yelena Rivera PA-C 01/14/18 CNOV Observed: 01/07/2018 Status: COMPLETED Source: EGAN 10:20 AM [facility] REPOSITORY Office Visit (FAMPWS) NATO GUERRIER ([id number]) 1960 F Date Time Provider Department 01/07/18 10:20 AM RAFI RIVERA During your visit today, we recorded the following information about you: Temperature Pulse Respiration Blood pressure 97.6 degrees 64/minute 14/minute 122/74 Weight 84.4 kg Shanice Brown Ma 01/08/2018 7:21 AM Signed 57 year old female here for INACTIVATED INFLUENZA VACCINE. 0638-7349 Season Patient is identified by name and date of : Yes [] CONTRAINDICATIONS color enhanced section Age less than 6 months? No Allergy to eggs, chicken, chicken feathers, or chicken dander? No Allergy to thimerosal (a preservative) or formaldehyde, gelatin? No History of severe reaction to any vaccine component or a previous dose of influenza vaccination? No History of Guillain-[place] Syndrome within 6 weeks after a previous influenza vaccine? No Patient is not moderately or severely ill? No Current temperature greater or equal to 100.4F? No History of Bone Marrow Transplant prior 6 months or solid organ transplant in the past 3 months ? No History of fainting after a prior injection or medical procedure? No- ? If patient has fainted in the past, the CDC recommends sitting or lying down for 15 minutes after the vaccination. [] VERIFICATION color enhanced section Was the answer Yes for any of the above contraindications? No contraindications present. Acceptable to proceed with vaccine. Patient/guardian agrees the above answers are true to the best of their knowledge? Yes Flu vaccine information sheet given? Yes See immunization activity in [facility] for details of immunizations adminstered today. Patient age: [age] year old For The 1256-9404 Flu Season 6-35 months old: Fluzone 0.25 ml - IM (Preservative Free) 3 years of age: Fluzone 0.5 ml - IM (Preservative Free) 3 years and older: Fluzone 0.5 ml- IM-(with Preservatives) 65+ years old: 2-49 years old Fluzone High-Dose 0.5 ml - IM (Preservative Free) FLUMIST- intranasal REMEMBER: If patient is less than 9 years of age and this is the first vaccine of Influenza to be received in any flu season, they should receive a second dose in one months time. YELENA RIVERA PA-C 01/14/2018 7:18 AM Addendum Chief Complaint Patient presents with: Pre-Op Exam Imm/Inj: Flu Vaccine HPI Nato Guerrier is a 57 year old female who presents here today for Surgical clearance. Patient has surgery scheduled for Jan 17 for 1st metatarsal osteotomy bunionectomy with hammer toe (of 2nd toe) correction. This is scheduled with [facility]. No complications with previous surgeries. EKG earlier this year- normal No personal hx of CAD, ND, CVA or TIA. Denies chest pain, shortness of breath, h/a Smoking about 1/2 ppd- is trying to quit. At last appointment was to try decreasing norvasc to 5mg. Patient states that when she did this bp increased so she is back on 10mg daily. Past medical history, appointments, medications, allergies reviewed. Previous Medical History PAST MEDICAL HISTORY Diagnosis Date - Arthritis of both knees 08/22/2017 - Arthritis of lumbar spine 08/22/2017 - Chronic pain syndrome 08/22/[address] Gray at [facility] - Dry eyes 08/22/2017 - Eczema 08/22/2017 hands - Essential hypertension 08/22/2017 - Ex-smoker 08/22/2017 - GERD without esophagitis 08/22/2017 - Hyperlipidemia, mixed 08/22/2017 - Migraine without aura and without status migrainosus, not intractable 08/22/2017 - Muscle spasm 12/25/2017 thigh region from knee arthritis. - Primary insomnia 12/25/2017 - Seasonal allergies 08/22/2017 Previous Surgical History PAST SURGICAL HISTORY Procedure Laterality Date - PAST SURGICAL HISTORY OF 05/2017 lumbar spinal fussion, Dr. BRISENO, decompression and fusion L4-S1 - PAST SURGICAL HISTORY OF C-sections x 3 Family History FAMILY HISTORY Problem Relation Age of Onset - Heart disease Father - Hypertension Father - other (skin CA) Maternal Grandmother - other (bone cancer) Maternal Grandfather - Colon Cancer Maternal Aunt Patient Allergies ALLERGIES Allergen Reactions - Chantix [Vareniclin* Rash - Cymbalta [Duloxetin* Other: See Comments Bad headache's and nausea - Latex Rash - Ultram [Tramadol Hc* Rash - Cephalexin Swelling - Cephalosporins Swelling - Colyte [Peg 3350-El* Vomiting - Gabapentin Swelling - Lipitor [Atorvastat* Other: See Comments Flu like symptoms - Morphine Vomiting - Nortriptyline Other: See Comments insomnia - Zinc Oxide Unknown Current Medications Current Outpatient Prescriptions on File Prior to Visit: doxepin capsule 10 mg Take 1 capsule by mouth daily at bedtime. propranolol (INDERAL) 60 mg tablet Take 1 tablet by mouth twice daily. tiZANidine HCl 2 mg capsule Take 1 capsule by mouth three times daily. amLODIPine (NORVASC) 10 mg tablet Take 10 mg by mouth once daily. augmented betamethasone 0.05 % lotion Apply to affected area twice daily. loteprednol etabonate (LOTEMAX) 0.5 % ophthalmic suspension 1 Drop four times daily. omega-3/dha/epa/dpa/fish oil (OMEGA-3 2100 ORAL) Take by mouth. omeprazole (PRILOSEC) 20 mg capsule Take 20 mg by mouth once daily. albuterol HFA (PROVENTIL HFA) 90 mcg/actuation inhaler Inhale 2 Puffs as instructed. Cholecalciferol, Vitamin D3, (VITAMIN D-3) 2,000 unit cap Take by mouth. CALCIUM ORAL Take by mouth. No current facility-administered medications on file prior to visit. Social History Social History Marital status: Spouse name: Years of education: Number of children: Social History Main Topics Smoking status: Former Smoker Packs/day: 0.00 Years: 0.00 Smokeless tobacco: Never Used Alcohol use: Yes Comment: on rare occasions Drug use: No Review of Symptoms REVIEW OF SYSTEMS GENERAL: No weight loss, malaise or fevers HEENT: Negative for frequent or significant headaches, No changes in hearing or vision, no nose bleeds or other nasal problems NECK: Negative for lumps, goiter, pain and significant neck swelling RESPIRATORY: Negative for cough, hemoptysis, wheezing, COPD, dyspnea or shortness of breath CARDIOVASCULAR: Negative for chest pain, leg swelling, hypertension, CHF or palpitations GI: No nausea, vomiting, or diarrhea : No history of dysuria, frequency or incontinence WARDROBE CONSULTANT: Negative for abnormal vaginal bleeding, abnormal vaginal discharge MUSCULOSKELETAL: Negative for joint pain or swelling, back pain or muscle pain PSYCH: Negative for sleep disturbance, mood disorder and recent psychosocial stressors HEMATOLOGY/LYMPHOLOGY: Negative for prolonged bleeding, bruising easily or swollen nodes ENDOCRINE: Negative for cold or heat intolerance, polyuria, polydipsia and goiter NEURO: No history of headaches, syncope, paralysis, seizures or tremors EXAM: BP 122/74 (BP Site: Left Arm, BP Position: Sitting, BP Cuff Size: Regular Adult) Pulse 64 Temp 36.4 ?C (97.6 ?F) (Tympanic) Resp 14 Wt 84.4 kg (186 lb) BMI 36.33 kg/m? General Appearance: Well appearing, alert, in no acute distress, well-hydrated, well nourished. and Obese. Head: Normocephalic, no masses, lesions, tenderness or abnormalities. Eyes: Anicteric sclera. Pupils are equally round and reactive to light. Extraocular movements are intact. . Ears: External ears normal, canals clear, TMs retracted b/l no erythema or fluid noted Nose/Sinuses: Nares normal, septum midline, mucosa normal, no drainage or sinus tenderness. Oropharynx: Lips, mucosa, and tongue normal, teeth and gums normal, oropharynx normal. Neck: Supple, no adenopathy; thyroid symmetric, normal size, no bruits. Lungs: Lungs clear to auscultation. No wheezing, rhonchi, rales. Heart: RRR without murmur, gallop, or rubs. No ectopy. Abdomen: Normal abdominal exam, Abdomen soft, non-tender. Bowel sounds normal. No masses, organomegaly, Negative CVA tenderness. Extremities: mild peripheral edema b/l. r foot deformities. No skin discoloration. Capillary refill <3sec Peripheral Pulses: Normal. Neurologic: Gait normal. Reflexes normal and symmetric. Sensation intact. CN 2-12 grossly intact Health Maintenance List PAP EVERY 5 YEARS due on 1990 HPV EVERY 5 YEARS due on 1990 HEPATITIS C SCREENING due on 2004 COLORECTAL CANCER SCREENING,SEE MODIFIER due on 2010 INFLUENZA(1) due on 11/30/2017 MAMMOGRAM due on 12/25/2018 ANNUAL PCP TEAM CHRONIC DISEASE VISIT due on 12/25/2018 BP CONTROLLED (<130/80) due on 12/25/2018 DIABETES SCREEN due on 08/22/2020 LIPID SCREEN due on 08/22/2022 DTAP,TDAP,TD(2 - Td) due on 07/11/2025 Data reviewed ECG Procedure Date : Aug 22 2017 09:42:08 Edit Date : Aug 24 2017 08:38:42 Diagnosis:NORMAL SINUS RHYTHM NORMAL ECG Confirmed by PHILLIP BAXTER D.O. ([id number]) on 08/24/2017 8:38:35 AM Labs Component Latest Ref Rng AND Units 01/07/2018 WBC 3.70 - 11.00 k/uL 13.39 (H) RBC 3.90 - 5.20 m/uL 5.24 (H) Hemoglobin 11.5 - 15.5 g/dL 15.4 Hematocrit 36.0 - 46.0 % 47.7 (H) MCV 80.0 - 100.0 fL 91.0 MCH 26.0 - 34.0 pG 29.4 MCHC 30.5 - 36.0 g/dL 32.3 RDW-CV 11.5 - 15.0 % 13.4 Platelet Count 150 - 400 k/uL 270 MPV 9.0 - 12.7 fL 9.9 Neut% % 64.8 Abs Neut (ANC) 1.45 - 7.50 k/uL 8.67 (H) Lymph% % 21.9 Abs Lymph 1.00 - 4.00 k/uL 2.93 Z[place]ata% % 8.4 Abs [place]ata <0.87 k/uL 1.13 (H) Eosin% % 4.0 Abs Eosin <0.46 k/uL 0.54 (H) Baso% % 0.9 Abs Baso <0.11 k/uL 0.12 (H) Nucleated Reds 0 /100 WBC 0.0 Absolute nRBC <0.01 k/uL <0.01 Diff Type Auto Diff Protein, Total 6.3 - 8.0 g/dL 6.9 Albumin 3.9 - 4.9 g/dL 4.4 Calcium 8.5 - 10.2 mg/dL 9.6 Bilirubin, Total 0.2 - 1.3 mg/dL 0.3 Alkaline Phosphatase 34 - 123 U/L 87 AST 13 - 35 U/L 18 Glucose 74 - 99 mg/dL 84 BUN 7 - 21 mg/dL 8 Creatinine 0.58 - 0.96 mg/dL 0.63 Sodium 136 - 144 mmol/L 139 Potassium 3.7 - 5.1 mmol/L 4.2 Chloride 97 - 105 mmol/L 102 CO2 22 - 30 mmol/L 20 (L) Anion Gap 9 - 18 mmol/L 17 ALT 7 - 38 U/L 18 eGFR- >60 eGFR-All Other Races . >60 ASSESSMENT/PLAN: 1. Preop examination - ICD9: V72.84, ICD10: Z01.818 (primary diagnosis) Cleared for surgery pending repeat CBC Low cardiac risk Monitor blood pressure. - CBC + DIFF - COMP METABOLIC PANEL 2. Bunion of great toe of right foot - ICD9: 727.1, ICD10: M21.611 As above 3. Hammer toe of right foot - ICD9: 735.4, ICD10: M20.41 As above 4. Smoker - ICD9: 305.1, ICD10: F17.200 - Cessation encouraged. - Physiologic and physical aspects of tobacco addiction as well as strategies for quitting were discussed. - Counseling was given focusing on the harmful effects of this addiction especially given the patient's medical condition(s) which will be worsened because of the chemicals in tobacco. 5. Need for vaccination - ICD9: V05.9, ICD10: Z23 - INFLUENZA VACCINE QUADRIVALENT AGE 3 YRS PLUS + IM 6. Chronic pain syndrome - ICD9: 338.4, ICD10: G89.4 Continue with pain specialist - TRAMADOL 50 MG TABLET 7. Essential hypertension - ICD9: 401.9, ICD10: I10 - good control - Continue current medication(s) - Recommended regular aerobic exercise. - Goal of BP <130/80 YELENA RIVERA,PA-C Addendum: Cleared for Surgery. Yelena Rivera PA-C 01/14/18 Referring Provider: DENY PLATT [[id number]] Allergies As of Date: 01/07/2018 Noted Allergy Reaction CHANTIX (VARENICLINE) 08/22/2017 2 - Rash CYMBALTA (DULOXETINE) 10/15/2017 14 - Other: See Comments Comments: Bad headache's and nausea LATEX 08/22/2017 2 - Rash ULTRAM (TRAMADOL HCL) 08/22/2017 2 - Rash CEPHALEXIN 08/22/2017 7 - Swelling CEPHALOSPORINS 06/19/2000 7 - Swelling COLYTE (PEG 3350-ELECTROLYTES) 08/22/2017 11 - Vomiting GABAPENTIN 08/22/2017 7 - Swelling LIPITOR (ATORVASTATIN CALCIUM) 08/22/2017 14 - Other: See Comments Comments: Flu like symptoms MORPHINE 08/22/2017 11 - Vomiting NORTRIPTYLINE 10/25/2017 14 - Other: See Comments Comments: insomnia ZINC OXIDE 06/19/2000 16 - Unknown Date Reviewed: 01/07/2018 Reviewed by: Shanice Brown Ma - Fully Assessed Reason for Visit: Pre-Op Exam [87] Imm/Inj [58] Cmt: Flu Vaccine Reason For Visit History Recorded Primary Visit Diagnosis:Preop examination [Z01.818] Other Visit Diagnoses:Bunion of great toe of right foot [M21.611] Hammer toe of right foot [M20.41] Smoker [F17.200] Need for vaccination [Z23] Chronic pain syndrome [G89.4] Essential hypertension [I10] Order(s):INFLUENZA VACCINE QUADRIVALENT AGE 3 YRS PLUS + IM [[id number]] Order #: [id number] [] traMADol (ULTRAM) 50 mg tabletTake 1 tablet by mouth twice daily for [address] Lopezp: Rfl: CBC + DIFF [SQCBCDIF] Order #: [id number] FUTURE COMP METABOLIC PANEL [SQCMP] Order #: [id number] FUTURE amLODIPine (NORVASC) 10 mg tabletTake 1 tablet by mouth once daily.Disp: 90 tabletRfl: 1 Prescriptions as of 01/07/2018 Sig: AMLODIPINE 10 MG TABLET Take 1 tablet by mouth once d* DOXEPIN 10 MG CAPSULE Take 1 capsule by mouth daily* PROPRANOLOL 60 MG TABLET Take 1 tablet by mouth twice * TIZANIDINE 2 MG CAPSULE Take 1 capsule by mouth three* BETAMETHASONE, AUGMENTED 0.05* Apply to affected area twice * LOTEPREDNOL ETABONATE 0.5 % E* 1 Drop four times daily. OMEGA-3 2100 ORAL Take by mouth. OMEPRAZOLE 20 MG CAPSULE,KRISTYN* Take 20 mg by mouth once aurelio* ALBUTEROL SULFATE HFA 90 MCG/* Inhale 2 Puffs as instructed. CHOLECALCIFEROL (VITAMIN D3) * Take by mouth. CALCIUM ORAL Take by mouth. TRAMADOL 50 MG TABLET Take 1 tablet by mouth twice * Problem List As Of Date 01/07/2018 Noted Resolved Essential hypertension [I10] INVALID FOR* Priority: A Hyperlipidemia, mixed [E78.2] INVALID FOR* Priority: A Eczema [L30.9] INVALID FOR* Priority: D More... Seasonal allergies [J30.2] INVALID FOR* Priority: B Dry eyes [H04.123] INVALID FOR* Priority: G GERD without esophagitis [K21.9] INVALID FOR* Priority: A Generalized OA [M15.9] INVALID FOR* Priority: M More... Arthritis of lumbar spine (HCC) [M47.816] INVALID FOR* Priority: M More... Arthritis of both knees [M17.0] INVALID FOR* Priority: M Chronic pain syndrome [G89.4] INVALID FOR* Priority: M More... Ex-smoker [Z87.891] INVALID FOR* Priority: B More... Migraine without aura and without status migrai*INVALID FOR* Priority: A Well adult exam [Z00.00] INVALID FOR* Priority: E More... Encounter for screening for diabetes mellitus [*INVALID FOR* Nerve damage [T14.8XXA] INVALID FOR* Priority: B More... Lower extremity pain, right [M79.604] INVALID FOR* Priority: M Situational depression [F43.21] INVALID FOR* Priority: A More... Primary insomnia [F51.01] INVALID FOR* Priority: B Muscle spasm [M62.838] INVALID FOR* Priority: M More... Smoker [F17.200] INVALID FOR* More... Prescriptions ordered this encounter Disp Refills Start End TRAMADOL 50 MG TABLET 01/07/2018 01/10/2018 Class: Med Update Route: ORAL Sig: Take 1 tablet by mouth twice daily for [address] cherry AMLODIPINE 10 MG TABLET 90 t* 1 01/07/2018 Route: ORAL Sig: Take 1 tablet by mouth once daily. Medications Discontinued During This Encounter amLODIPine (NORVASC) 10 mg tablet 01/07/2018 Class: Historical Med Route: ORAL Sig: Take 10 mg by mouth once daily. Disc: Reason for discontinue is not on file. Encounter Status:Closed by YELENA GAN on 01/08/18 PROGRESS Observed: 01/07/2018 Status: COMPLETED Source: [place] 10:16 AM [facility] REPOSITORY O ID: [id number] Author: Shanice Brown Ma Service: (none) Author Type: (none) Type: Progress Notes Filed: 01/08/2018 7:21 AM Note Text: 57 year old female here for INACTIVATED INFLUENZA VACCINE. [id number] Season Patient is identified by name and date of : Yes [] CONTRAINDICATIONS color enhanced section Age less than 6 months? No Allergy to eggs, chicken, chicken feathers, or chicken dander? No Allergy to thimerosal (a preservative) or formaldehyde, gelatin? No History of severe reaction to any vaccine component or a previous dose of influenza vaccination? No History of Guillain-[place] Syndrome within 6 weeks after a previous influenza vaccine? No Patient is not moderately or severely ill? No Current temperature greater or equal to 100.4F? No History of Bone Marrow Transplant prior 6 months or solid organ transplant in the past 3 months ? No History of fainting after a prior injection or medical procedure? No- ? If patient has fainted in the past, the CDC recommends sitting or lying down for 15 minutes after the vaccination. [] VERIFICATION color enhanced section Was the answer Yes for any of the above contraindications? No contraindications present. Acceptable to proceed with vaccine. Patient/guardian agrees the above answers are true to the best of their knowledge? Yes Flu vaccine information sheet given? Yes See immunization activity in [facility] for details of immunizations adminstered today. Patient age: [age] year old For The 3244-4877 Flu Season 6-35 months old: Fluzone 0.25 ml - IM (Preservative Free) 3 years of age: Fluzone 0.5 ml - IM (Preservative Free) 3 years and older: Fluzone 0.5 ml- IM-(with Preservatives) 65+ years old: 2-49 years old Fluzone High-Dose 0.5 ml - IM (Preservative Free) FLUMIST- intranasal REMEMBER: If patient is less than 9 years of age and this is the first vaccine of Influenza to be received in any flu season, they should receive a second dose in one months time. PROGRESS Observed: 12/25/2017 Status: COMPLETED Source: [place] 7:26 PM [facility] [place] REPOSITORY O ID: [id number] Author: Deny Renteria Service: (none) Author Type: Physician Type: Progress Notes Filed: 12/25/2017 9:37 PM Note Text: Chief Complaint Patient presents with: Recheck HPI Nato Guerrier is a 57 year old female who presents here today for f/u on the right foot pain and insomnia, needs refill on propranolol for HTN and migraines which works well for her and wants to see if her Norvasc dose can be decreased.. - Patient tried to take the amitriptyline but saw no benefit and was not helping her sleep so she discontinued it. She saw Dr. Briseno the back surgeon and felt the pain in the right foot maybe related to a bunion. Patient did go see a senior tax specialist Dr. Briseno recommended and he agreed that she needs the bunion corrected and hammer toe in the 2nd digit but also needs the proximal part of the foot fused and this is what's causing the pain across the top of the foot. The nerve pain from the back surgery has diminished a lot to where it's no longer a bother. senior tax specialist wants to do the hammer toe and bunion then have her get the left knee addressed and after that fuse the bones in the right proximal foot. The biggest issue is trying to get the pain controlled. She is now seeing Dr. Cherry and he keeps running into denial for meds he wants to try to get approved. Gets muscle spasms on the inner side of the left thigh from the knee pain she has been getting. Has used Zanaflex with good results in the past. Still having problems falling asleep. Since now she knows whats going on with the foot the emotional issues she was having are no longer a problem. Past medical history, appointments, medications, allergies reviewed. Previous Medical History PAST MEDICAL HISTORY Diagnosis Date - Arthritis of both knees 08/22/2017 - Arthritis of lumbar spine 08/22/2017 - Chronic pain syndrome 08/22/[address] Gray at [facility] - Dry eyes 08/22/2017 - Eczema 08/22/2017 hands - Essential hypertension 08/22/2017 - Ex-smoker 08/22/2017 - GERD without esophagitis 08/22/2017 - Hyperlipidemia, mixed 08/22/2017 - Migraine without aura and without status migrainosus, not intractable 08/22/2017 - Seasonal allergies 08/22/2017 Previous Surgical History PAST SURGICAL HISTORY Procedure Laterality Date - PAST SURGICAL HISTORY OF 05/2017 lumbar spinal fussion, Dr. BRISENO, decompression and fusion L4-S1 - PAST SURGICAL HISTORY OF C-sections x 3 Family History FAMILY HISTORY Problem Relation Age of Onset - Heart disease Father - Hypertension Father - other (skin CA) Maternal Grandmother - other (bone cancer) Maternal Grandfather - Colon Cancer Maternal Aunt Patient Allergies ALLERGIES Allergen Reactions - Chantix [Vareniclin* Rash - Cymbalta [Duloxetin* Other: See Comments Bad headache's and nausea - Latex Rash - Ultram [Tramadol Hc* Rash - Cephalexin Swelling - Cephalosporins Swelling - Colyte [Peg 3350-El* Vomiting - Gabapentin Swelling - Lipitor [Atorvastat* Other: See Comments Flu like symptoms - Morphine Vomiting - Nortriptyline Other: See Comments insomnia - Zinc Oxide Unknown Current Medications Current Outpatient Prescriptions on File Prior to Visit: amLODIPine (NORVASC) 10 mg tablet Take 10 mg by mouth once daily. augmented betamethasone 0.05 % lotion Apply to affected area twice daily. loteprednol etabonate (LOTEMAX) 0.5 % ophthalmic suspension 1 Drop four times daily. omega-3/dha/epa/dpa/fish oil (OMEGA-3 2100 ORAL) Take by mouth. omeprazole (PRILOSEC) 20 mg capsule Take 20 mg by mouth once daily. albuterol HFA (PROVENTIL HFA) 90 mcg/actuation inhaler Inhale 2 Puffs as instructed. Cholecalciferol, Vitamin D3, (VITAMIN D-3) 2,000 unit cap Take by mouth. CALCIUM ORAL Take by mouth. propranolol (INDERAL) 60 mg tablet Take 1 tablet by mouth twice daily. No current facility-administered medications on file prior to visit. Social History Social History Marital status: Spouse name: Years of education: Number of children: Social History Main Topics Smoking status: Former Smoker Packs/day: 0.00 Years: 0.00 Smokeless tobacco: Never Used Alcohol use: Yes Comment: on rare occasions Drug use: No Review of Symptoms REVIEW OF SYSTEMS See HPI EXAM: BP 122/68 Pulse 74 Resp 14 Wt 84.8 kg (187 lb) BMI 36.52 kg/m? General Appearance: Well appearing, alert, in no acute distress, well-hydrated, well nourished.. Lungs: Lungs clear to auscultation. No wheezing, rhonchi, rales. Heart: RRR without murmur, gallop, or rubs. No ectopy. Health Maintenance List PAP EVERY 5 YEARS due on 1990 HPV EVERY 5 YEARS due on 1990 HEPATITIS C SCREENING due on 2004 COLORECTAL CANCER SCREENING,SEE MODIFIER due on 2010 INFLUENZA(1) due on 11/30/2017 ANNUAL PCP TEAM CHRONIC DISEASE VISIT due on 10/15/2018 MAMMOGRAM due on 12/25/2018 BP CONTROLLED (<130/80) due on 12/25/2018 DIABETES SCREEN due on 08/22/2020 LIPID SCREEN due on 08/22/2022 DTAP,TDAP,TD(2 - Td) due on 07/11/2025 Data reviewed A/p ASSESSMENT/PLAN: 1. Primary insomnia - ICD9: 307.42, ICD10: F51.01 (primary diagnosis) WILL TRY - DOXEPIN 10 MG CAPSULE 2. Muscle spasm - ICD9: 728.85, ICD10: M62.838 - TIZANIDINE 2 MG CAPSULE up to TID prn 3. Migraine without aura and without status migrainosus, not intractable - ICD9: 346.10, ICD10: G43.009 cont - PROPRANOLOL 60 MG TABLET twice a day. 4. Essential hypertension - ICD9: 401.9, ICD10: I10 - good control - Decrease amlodipine (Norvasc) down to 5 mg a day with office f/u with Yelena on 01/07/2018 and can see if ok. Is still ok will see if can be stopped. Patient will check BP at home and if goes up will go back to 10 mg a day. - Recommended regular aerobic exercise. - Recommend home blood pressure monitoring, to bring results in on next visit - Goal of BP <130/80 Signed Prescriptions Disp Refills propranolol (INDERAL) 60 mg tablet 180 tablet 1 Sig: Take 1 tablet by mouth twice daily. MAX: No tiZANidine HCl 2 mg capsule 90 capsule 2 Sig: Take 1 capsule by mouth three times daily. doxepin capsule 10 mg 3 capsule 5 Sig: Take 1 capsule by mouth daily at bedtime. Time entering room was 7:24 PM and time leaving was 7:53 PM (total face to face time was 29 min) Deny Renteria MD CNOV Observed: 12/25/2017 Status: COMPLETED Source: [place] 6:40 PM [facility] REPOSITORY Office Visit (FAMPWS) NATO GUERRIER ([id number]) 1960 F Date Time Provider Department 12/25/17 6:40 PM [facility] During your visit today, we recorded the following information about you: Pulse Respiration Blood pressure Weight 74/minute 14/minute 122/68 84.8 kg Deny Renteria MD 12/25/2017 9:37 PM Signed Chief Complaint Patient presents with: Recheck HPI Natodeena Guerrier is a 57 year old female who presents here today for f/u on the right foot pain and insomnia, needs refill on propranolol for HTN and migraines which works well for her and wants to see if her Norvasc dose can be decreased.. - Patient tried to take the amitriptyline but saw no benefit and was not helping her sleep so she discontinued it. She saw Dr. Briseno the back surgeon and felt the pain in the right foot maybe related to a bunion. Patient did go see a senior tax specialist Dr. Briseno recommended and he agreed that she needs the bunion corrected and hammer toe in the 2nd digit but also needs the proximal part of the foot fused and this is what's causing the pain across the top of the foot. The nerve pain from the back surgery has diminished a lot to where it's no longer a bother. senior tax specialist wants to do the hammer toe and bunion then have her get the left knee addressed and after that fuse the bones in the right proximal foot. The biggest issue is trying to get the pain controlled. She is now seeing Dr. Cherry and he keeps running into denial for meds he wants to try to get approved. Gets muscle spasms on the inner side of the left thigh from the knee pain she has been getting. Has used Zanaflex with good results in the past. Still having problems falling asleep. Since now she knows whats going on with the foot the emotional issues she was having are no longer a problem. Past medical history, appointments, medications, allergies reviewed. Previous Medical History PAST MEDICAL HISTORY Diagnosis Date - Arthritis of both knees 08/22/2017 - Arthritis of lumbar spine 08/22/2017 - Chronic pain syndrome 08/22/[address] Gray at [facility] - Dry eyes 08/22/2017 - Eczema 08/22/2017 hands - Essential hypertension 08/22/2017 - Ex-smoker 08/22/2017 - GERD without esophagitis 08/22/2017 - Hyperlipidemia, mixed 08/22/2017 - Migraine without aura and without status migrainosus, not intractable 08/22/2017 - Seasonal allergies 08/22/2017 Previous Surgical History PAST SURGICAL HISTORY Procedure Laterality Date - PAST SURGICAL HISTORY OF 05/2017 lumbar spinal fussion, Dr. BRISENO, decompression and fusion L4-S1 - PAST SURGICAL HISTORY OF C-sections x 3 Family History FAMILY HISTORY Problem Relation Age of Onset - Heart disease Father - Hypertension Father - other (skin CA) Maternal Grandmother - other (bone cancer) Maternal Grandfather - Colon Cancer Maternal Aunt Patient Allergies ALLERGIES Allergen Reactions - Chantix [Vareniclin* Rash - Cymbalta [Duloxetin* Other: See Comments Bad headache's and nausea - Latex Rash - Ultram [Tramadol Hc* Rash - Cephalexin Swelling - Cephalosporins Swelling - Colyte [Peg 3350-El* Vomiting - Gabapentin Swelling - Lipitor [Atorvastat* Other: See Comments Flu like symptoms - Morphine Vomiting - Nortriptyline Other: See Comments insomnia - Zinc Oxide Unknown Current Medications Current Outpatient Prescriptions on File Prior to Visit: amLODIPine (NORVASC) 10 mg tablet Take 10 mg by mouth once daily. augmented betamethasone 0.05 % lotion Apply to affected area twice daily. loteprednol etabonate (LOTEMAX) 0.5 % ophthalmic suspension 1 Drop four times daily. omega-3/dha/epa/dpa/fish oil (OMEGA-3 2100 ORAL) Take by mouth. omeprazole (PRILOSEC) 20 mg capsule Take 20 mg by mouth once daily. albuterol HFA (PROVENTIL HFA) 90 mcg/actuation inhaler Inhale 2 Puffs as instructed. Cholecalciferol, Vitamin D3, (VITAMIN D-3) 2,000 unit cap Take by mouth. CALCIUM ORAL Take by mouth. propranolol (INDERAL) 60 mg tablet Take 1 tablet by mouth twice daily. No current facility-administered medications on file prior to visit. Social History Social History Marital status: Spouse name: Years of education: Number of children: Social History Main Topics Smoking status: Former Smoker Packs/day: 0.00 Years: 0.00 Smokeless tobacco: Never Used Alcohol use: Yes Comment: on rare occasions Drug use: No Review of Symptoms REVIEW OF SYSTEMS See HPI EXAM: BP 122/68 Pulse 74 Resp 14 Wt 84.8 kg (187 lb) BMI 36.52 kg/m? General Appearance: Well appearing, alert, in no acute distress, well-hydrated, well nourished.. Lungs: Lungs clear to auscultation. No wheezing, rhonchi, rales. Heart: RRR without murmur, gallop, or rubs. No ectopy. Health Maintenance List PAP EVERY 5 YEARS due on 1990 HPV EVERY 5 YEARS due on 1990 HEPATITIS C SCREENING due on 2004 COLORECTAL CANCER SCREENING,SEE MODIFIER due on 2010 INFLUENZA(1) due on 11/30/2017 ANNUAL PCP TEAM CHRONIC DISEASE VISIT due on 10/15/2018 MAMMOGRAM due on 12/25/2018 BP CONTROLLED (<130/80) due on 12/25/2018 DIABETES SCREEN due on 08/22/2020 LIPID SCREEN due on 08/22/2022 DTAP,TDAP,TD(2 - Td) due on 07/11/2025 Data reviewed A/p ASSESSMENT/PLAN: 1. Primary insomnia - ICD9: 307.42, ICD10: F51.01 (primary diagnosis) WILL TRY - DOXEPIN 10 MG CAPSULE 2. Muscle spasm - ICD9: 728.85, ICD10: M62.838 - TIZANIDINE 2 MG CAPSULE up to TID prn 3. Migraine without aura and without status migrainosus, not intractable - ICD9: 346.10, ICD10: G43.009 cont - PROPRANOLOL 60 MG TABLET twice a day. 4. Essential hypertension - ICD9: 401.9, ICD10: I10 - good control - Decrease amlodipine (Norvasc) down to 5 mg a day with office f/u with Yelena on 01/07/2018 and can see if ok. Is still ok will see if can be stopped. Patient will check BP at home and if goes up will go back to 10 mg a day. - Recommended regular aerobic exercise. - Recommend home blood pressure monitoring, to bring results in on next visit - Goal of BP <130/80 Signed Prescriptions Disp Refills propranolol (INDERAL) 60 mg tablet 180 tablet 1 Sig: Take 1 tablet by mouth twice daily. MAX: No tiZANidine HCl 2 mg capsule 90 capsule 2 Sig: Take 1 capsule by mouth three times daily. doxepin capsule 10 mg 3 capsule 5 Sig: Take 1 capsule by mouth daily at bedtime. Time entering room was 7:24 PM and time leaving was 7:53 PM (total face to face time was 29 min) Deny Renteria MD Referring Provider: DENY RENTERIA [[id number]] Allergies As of Date: 12/25/2017 Noted Allergy Reaction CHANTIX (VARENICLINE) 08/22/2017 2 - Rash CYMBALTA (DULOXETINE) 10/15/2017 14 - Other: See Comments Comments: Bad headache's and nausea LATEX 08/22/2017 2 - Rash ULTRAM (TRAMADOL HCL) 08/22/2017 2 - Rash CEPHALEXIN 08/22/2017 7 - Swelling CEPHALOSPORINS 06/19/2000 7 - Swelling COLYTE (PEG 3350-ELECTROLYTES) 08/22/2017 11 - Vomiting GABAPENTIN 08/22/2017 7 - Swelling LIPITOR (ATORVASTATIN CALCIUM) 08/22/2017 14 - Other: See Comments Comments: Flu like symptoms MORPHINE 08/22/2017 11 - Vomiting NORTRIPTYLINE 10/25/2017 14 - Other: See Comments Comments: insomnia ZINC OXIDE 06/19/2000 16 - Unknown Date Reviewed: 12/25/2017 Reviewed by: Deny Renteria - Fully Assessed Reason for Visit: Recheck [92] Primary Visit Diagnosis:Primary insomnia [F51.01] Other Visit Diagnoses:Muscle spasm [M62.838] Comment:thigh region from knee arthritis. Migraine without aura and without status migrainosus, not intractable [G43.009] Essential hypertension [I10] Order(s):propranolol (INDERAL) 60 mg tabletTake 1 tablet by mouth twice daily.Disp: 180 tabletRfl: 1 tiZANidine HCl 2 mg capsuleTake 1 capsule by mouth three times daily.Disp: 90 capsuleRfl: 2 doxepin capsule 10 mgTake 1 capsule by mouth daily at bedtime.Disp: 3 capsuleRfl: 5 Prescriptions as of 12/25/2017 Sig: PROPRANOLOL 60 MG TABLET Take 1 tablet by mouth twice * AMLODIPINE 10 MG TABLET Take 10 mg by mouth once aurelio* BETAMETHASONE, AUGMENTED 0.05* Apply to affected area twice * LOTEPREDNOL ETABONATE 0.5 % E* 1 Drop four times daily. OMEGA-3 2100 ORAL Take by mouth. OMEPRAZOLE 20 MG CAPSULE,KRISTYN* Take 20 mg by mouth once aurelio* ALBUTEROL SULFATE HFA 90 MCG/* Inhale 2 Puffs as instructed. CHOLECALCIFEROL (VITAMIN D3) * Take by mouth. CALCIUM ORAL Take by mouth. TIZANIDINE 2 MG CAPSULE Take 1 capsule by mouth three* DOXEPIN 10 MG CAPSULE Take 1 capsule by mouth daily* Medication notes this encounter AMITRIPTYLINE 25 MG TABLET >> Terese Renee Ma 12/25/2017 6:57 PM doesnt help Problem List As Of Date 12/25/2017 Noted Resolved Essential hypertension [I10] INVALID FOR* Priority: A Hyperlipidemia, mixed [E78.2] INVALID FOR* Priority: A Eczema [L30.9] INVALID FOR* Priority: D More... Seasonal allergies [J30.2] INVALID FOR* Priority: B Dry eyes [H04.123] INVALID FOR* Priority: G GERD without esophagitis [K21.9] INVALID FOR* Priority: A Generalized OA [M15.9] INVALID FOR* Priority: M More... Arthritis of lumbar spine (HCC) [M47.816] INVALID FOR* Priority: M More... Arthritis of both knees [M17.0] INVALID FOR* Priority: M Chronic pain syndrome [G89.4] INVALID FOR* Priority: M More... Ex-smoker [Z87.891] INVALID FOR* Priority: B More... Migraine without aura and without status migrai*INVALID FOR* Priority: A Well adult exam [Z00.00] INVALID FOR* Priority: E More... Encounter for screening for diabetes mellitus [*INVALID FOR* Nerve damage [T14.8XXA] INVALID FOR* Priority: B More... Lower extremity pain, right [M79.604] INVALID FOR* Priority: M Situational depression [F43.21] INVALID FOR* Priority: A More... Primary insomnia [F51.01] INVALID FOR* Priority: B Muscle spasm [M62.838] INVALID FOR* Priority: M More... Prescriptions ordered this encounter Disp Refills Start End PROPRANOLOL 60 MG TABLET 180 * 1 12/25/2017 Class: [facility] Route: ORAL Sig: Take 1 tablet by mouth twice daily. TIZANIDINE 2 MG CAPSULE 90 c* 2 12/25/2017 Route: ORAL Sig: Take 1 capsule by mouth three times daily. DOXEPIN 10 MG CAPSULE 3 ca* 5 12/25/2017 Route: ORAL Sig: Take 1 capsule by mouth daily at bedtime. Medications Discontinued During This Encounter fluticasone (FLONASE) 50 mcg/actuati* 12/25/2017 Class: Historical Med Route: EACH NOSTRIL Sig: Use 1 [place] in each nostril once daily. Disc: Discontinued by Patient amitriptyline (ELAVIL) 25 mg tablet 30 t* 5 10/25/2017 12/25/2017 Route: ORAL Sig: Take 1 tablet by mouth daily at bedtime. Disc: Discontinued by Patient propranolol (INDERAL) 60 mg tablet 60 t* 5 08/22/2017 12/25/2017 Route: ORAL Sig: Take 1 tablet by mouth twice daily. Disc: Reason for discontinue is not on file. Disposition: Return if symptoms worsen or fail to improve. Follow-up and Disposition History Recorded Encounter Status:Closed by DENY RENTERIA on 12/25/17 ORTHOPEDIC VISIT Observed: 11/16/2017 Status: F Source: MELVIN REPORT 8:40 PM [facility] REPOSITORY [facility] Orthopaedics AND Sports Medicine [facility] [place] [address] OFFICE VISIT Date of Service: 11/12/17 MR#: [id number] Acct: [id number] Name: NATO GUERRIER Rep #: [id number] : 1960 Provider: Terese Briseno MD Age/Sex: 57/F Location: [facility] [place].S[facility] Status: Signed Intake Intake Visit Reasons: LOW BACK Is patient in pain?: Yes Pain scale (1-10): 1 Allergies atorvastatin [From Lipitor] Allergy (Verified 09/12/17 10:55) Upset Stomach cephalexin [From Keflex] Allergy (Verified 09/12/17 10:55) Swelling morphine Allergy (Verified 09/12/17 10:55) Vomiting tramadol Allergy (Verified 09/12/17 10:55) Rash zinc Allergy (Verified 09/12/17 10:55) Rash Medications Amlodipine [Norvasc] 10 mg PO DAILY 03/15/16 [History Confirmed 09/12/17] Diclofenac Potassium 50 mg PO DAILY 03/15/16 [History Confirmed 09/12/17] Propranolol HCl 60 mg PO BID 03/15/16 [History Confirmed 09/12/17] buPROPion SR [Wellbutrin Sr] 150 mg PO BID 03/15/16 [History Confirmed 09/12/17] Betamethasone Sod Phosph-Water [Betamethasone 12 mg/2 ml-Water] 1 applic TOPICAL DAILY 06/19/17 [History Confirmed 09/12/17] Loteprednol Etabonate [Lotemax] 3.5 gm OP QHS 06/19/17 [History Confirmed 09/12/17] Omeprazole Magnesium [Prilosec Otc] 20 mg PO DAILY 06/19/17 [History Confirmed 09/12/17] Propranolol HCl [Propranolol HCl ER] 60 mg PO BID 06/19/17 [History Confirmed 09/12/17] PFSH Medical History Hypertension (Chronic) Surgical History H/O: (Acute) Social History Smoking Status: Former smoker HPI LOW BACK: Details: NATO GUERRIER returns today in follow up 6 months status post L4-S1 laminectomy with instrumented fusion with revision decompression on 05/21/2017. She is overall doing well with improvement of her hyperesthesia of her right dorsal foot. pain. She does have a right bunion and this causes her significant pain. A bunion brace helps her pain. She has baseline left knee pain. She had bilateral knee injections by Dr. Butler. She is on antidepressants, which helps. This was started recently. She continues to smoke. She denies fevers or chills or bowel or bladder issues. She did not see a vascular medicine physician for the complaints of the swelling in her right leg. She no longer sees Dr. Potts and did not see him in 07/2017 as she had indicated in her last visit. Ortho Exam Spine Neuro: Yes Straight Leg Raise (negative bilaterally) General: alert, oriented x3 Skin: Yes healed Capillary Refill <2sec: Yes Gait: normal gait, other (able to stand on her heels and toes) Motor: other (sensation improved in her right dorsal foot, decreased hyperesthesia ) DTR's: Rt Patellar: 2+, Lt Patellar: 2+, Rt Ankle: 2+, Lt Ankle: 2+ Coordination: Romberg test normal Details: right great toe hallux valgus with tenderness over the MTP joint SPINE TESTING CERVICAL THORACIC LUMBAR SLR: Negative Musculoskeletal General: Yes normal posture Thoracic/Lumbar Spine: straight leg raise negative bilaterally, thoraco-lumbar ROM limited (due to fusion) Strength 0=absent - 5=normal R Hip Flexor (L1-3): 5, L Hip Flexor (L1-3): 5, R Quadriceps (L2-4): 5, L Quadriceps (L2-4): 5, R Anterior Tibialis (L4-5): 5, L Anterior Tibialis (L4-5): 5, R Hamstrings (L5-S1): 5, L Hamstrings (L5-S1): 5, GS (S1): 5, L GS (S1): 5, R Peroneals (S1): 5, L Peroneals (S1): 5 Assessment AND Plan Problems 1. S/P spinal fusion Z98.1 Plan Imaging XR lumbar spine 11/12/2017 stable instrumentation I/R/P: 1. s/p L4-S1 laminectomy with instrumented fusion with revision right L5-S1 facetectomy on 05/22/2017 2. right hallux valgus 3. bilateral gonarthrosis 4. nicotine use Ms. Guerrier's examination has improved significantly since her last visit. She is more so debilitated by her bilateral knee arthropathy and right hallux valgus. She does have residual right dorsal foot pain/subjective swelling. Recommend referral to Dr. Cherry, pain management, for consideration of SCS for residual nerve pain. Recommend evaluation for her right hallux valgus. She wishes to seek a foot and ankle surgeon. Counseled on nicotine cessation. Follow up in 6 months with lumbar radiographs or sooner if issues arise. Plan of care discussed. All questions answered. She and her are in understanding. Orders Orders: Coding Level of Care Code Off vis,est,level 4 Diagnoses S/P spinal fusion Z98.1 11/16/172039 <Electronically signed by Terese Briseno MD> Date Terese Briseno MD Cosigner Signature: Date (if applicable) CC: Rich Cherry MD LUMBAR SPINE 2 OR 3 Observed: 11/12/2017 Status: F Source: ROSALINDA VIEWS 3:09 PM [facility] REPOSITORY [facility] Imaging Services [address] [place] [address] [place] [address] Lumbar Spine 2 or 3 Views MR#: [id number] Acct: [id number] Name: NATO GUERRIER Rep #: [id number] : 1960 F 57 From: Flaco Teixeira MD PCP: OUT OF TOWN DOCTOR Status: PRE CLI Study: Lumbar Spine 2 or 3 Views Date of Exam: 11/12/17 Exam# [id number] Ordering Dr: Terese Briseno MD STUDY: X-RAY - LUMBAR SPINE REASON FOR EXAM: Female, 57 years old. Low back pain TECHNIQUE: 2 view(s) of the lumbar spine were obtained. COMPARISON: 08/20/2017 FINDINGS: Stable surgical hardware at L4-L5 and S1. Normal lumbar lordosis. There is no substantial scoliosis. There is a normal alignment of the vertebrae. There is multilevel endplate spondylosis of the lumbar vertebrae. There is multi-level degenerative disc disease with multi-level disc space narrowing. There is atherosclerotic calcification of the abdominal aorta without a demonstrated aneurysm. RAD/Lumbar Spine 2 or 3 Views IMPRESSION: Degenerative and postsurgical changes of the spine, as detailed above. No demonstrated fracture or suspicious osseous lesion Electronically Signed: William Teixeira MD at 15:26 EDT , Service support , CC: Terese Briseno MD; OUT OF TOWN DOCTOR Animal Care Worker: Signed INITAL EVALUATION (1) Observed: 11/06/2017 Status: F Source: MELVIN - PT 10:00 AM [facility] REPOSITORY [facility] [address] [place] [address]. [address] [place], [place] [id number] Fax REHABILITATION SERVICES INITIAL EVALUATION MR#: [id number] Acct: [id number] Name: NATO GUERRIER Rep #: [id number] : 1960 57 From: Jessica ROONEY Referring Dr.: Selena Butler DO Status: REG RCR Insurance: [employer] SELF PAY INSURANCE Patient's Visit Information NATO GUERRIER is a 57 year old F referred to Physical Therapy by Selena Butler DO with a diagnosis of B Knee OA. Date of Evaluation: 11/05/17 Physical Therapist: Jessica Stark - Visit Plan Frequency: 2x /Week Duration: 4 Weeks Plan: 2X/ week for 4 weeks for L knee and hip strengthening being careful of R foot nerve damage from previous back surgery and back from back surgery, gait training, knee ROM, with HEP and modalities PRN. May try a trial of AT if pt can not handle land based thereapy. - Subjective Subjective: Pt saw Dr Gibson on 10-24-2017 injections in B knees and fluid was taken out of the L knee (that lasted a week). Had some brace fitting and no braces are working for her kene. It hurts when she moves or turns walking or any type of weight bearing on it. Cocks into a valgus position....she has to get up a certain way because of back surgery ( restrictions from surgery...can do almost everything she wants unless it reminds her not to). R foot still has swelling/nerve damage and just recent wearing a bunion protector/brace which helps with her R foot pain. Pt reports that the fluid has come back on the knee and doesnt see elan for 4-6 months. - Pain L knee pain Pain Intensity (Out of 10): 0 Pain Intensity Range: 8 Comment: Standing 8/10 pain back pain Pain Intensity (Out of 10): 0 R foot pain Pain Intensity (Out of 10): 0 - Objective 0 degrees knee extension and -133 R and 130 degrees L degrees knee flexion AROM. 38 cm, 41.5 cm , 43cm Left girth measurements. 37 cm , 40cm , 42.4cm Right girth measurements. LE MMT: R hip flex 4-/5 and L hip flex 4/5, R hip abd 4/5 and L 4-/5, R knee flex 4-/5 ( increase HS cramp) and L knee flex 4/5, B knee ext 4/5, able to do full ROM bridge. Gait: walks with straight L leg with increase hip hike. Trouble with stance time on the R at time due to swelling from damage from previous back surgery. - Goals Goal 1:: I HEP Goal Time Frame: 4-6 Weeks Goal 2:: Decrease L knee pain to 2/10 with ADL's Goal Time Frame: 4-6 Weeks Goal 3:: Increase L hip and knee strength by 1/2 muscle grade (at time of eval: LE MMT: R hip flex 4-/5 and L hip flex 4/5, R hip abd 4/5 and L 4-/5, R knee flex 4-/5 ( increase HS cramp) and L knee flex 4/5, B knee ext 4/5, able to do full ROM bridge). Goal Time Frame: 4-6 Weeks Goal 4:: Walk with a normal gait pattern Goal Time Frame: 4-6 Weeks - Rehabilitation Potential Rehabilitation Potential: Good - Anticipated Interventions Patient/Client Instruction: Educate patient on: Condition, Plan of Care For the Purpose of:: To decrease pain, To decrease swelling/inflammation, To increase ROM, To improve nutrient delivery to tissue, To improve muscle performance and motor function, To improve ability to perform ADL's, To increase tolerance to activity/condition/position, To improve performance and independence with ADL's, To improve ability of physical actions for home/community/work/leisure, To improve gait and locomotor functions, To improve health of tissue, To decrease soft tissue restriction, To increase flexibility/ROM Therapeutic Exercise to Include: Strength training, Balance training, Flexibilty training, Gait and locomotor training, Neuromotor development, In an aquatic setting, Active ROM For the Purpose of:: To decrease pain, To decrease swelling/inflammation, To increase ROM, To improve nutrient delivery to tissue, To improve muscle performance and motor function, To improve ability to perform ADL's, To increase tolerance to activity/condition/position, To improve performance and independence with ADL's, To decrease level of supervision to perform tasks, To improve ability of physical actions for home/community/work/leisure, To improve gait and locomotor functions, To improve health of tissue, To decrease soft tissue restriction, To increase flexibility/ROM Functional Training to Include: Gait training For the Purpose of:: To improve gait and locomotor functions IF ES: Yes Cryotherapy (ice pack, ice massage): Yes Ultrasound (thermal/non thermal): Yes For the Purpose of:: To decrease pain, To decrease swelling/inflammation, To increase ROM, To improve nutrient delivery to tissue Thank you for the opportunity to evaluate your patient. For Medicare and Medicare HMO plans, please review the plan of care and approve it. It will need to be FAXED BACK to us at [phone] for Medicare purposes. Please let me know if there are questions or concerns regarding this plan of care. Physician Signature: Date: <Electronically signed by Jessica Stark MPT> 11/06/17 1000 CC: Selena Butler DO; OUT OF TOWN DOCTOR Signed For Medicare only, by signing this I certify the plan of care. Physicians Signature Date PROGRESS Observed: 10/15/2017 Status: COMPLETED Source: EGAN 4:32 PM [facility] [place] REPOSITORY O ID: [id number] Author: Deny Renteria Service: (none) Author Type: Physician Type: Progress Notes Filed: 10/15/2017 6:02 PM Note Text: Chief Complaint Patient presents with: Recheck: patient is here for follow up on right foot; has seen foot doctor nothing resolved HPI Nato Guerrier is a 57 year old female who presents here today for Above Complaints.. Since last being in there has been no improvement in her right foot. Still with the swelling and pain on the top and sides of the right foot. 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 Has been tried with support socks but could not tolerate. Made the swelling worse and pain increase. Patient can no tolerate gabapentin due to increased bilateral leg swelling. Was put on cymbalta by her foot doctor and did help her pain but could not tolerate due to headaches and nausea. Was not sure if the swelling improved. This has depressed her significantly to were she has restarted to smoke and drinks three beers on the weekend to help. Migraines have been controlled with being back on the propranolol. Past medical history, appointments, medications, allergies reviewed. Previous Medical History PAST MEDICAL HISTORY Diagnosis Date - Arthritis of both knees 08/22/2017 - Arthritis of lumbar spine (HCC) 08/22/2017 - Chronic pain syndrome 08/22/[address] Gray at [facility] - Dry eyes 08/22/2017 - Eczema 08/22/2017 hands - Essential hypertension 08/22/2017 - Ex-smoker 08/22/2017 - GERD without esophagitis 08/22/2017 - Hyperlipidemia, mixed 08/22/2017 - Migraine without aura and without status migrainosus, not intractable 08/22/2017 - Seasonal allergies 08/22/2017 Previous Surgical History PAST SURGICAL HISTORY Procedure Laterality Date - PAST SURGICAL HISTORY OF 05/2017 lumbar spinal fussion, Dr. BRISENO, decompression and fusion L4-S1 - PAST SURGICAL HISTORY OF C-sections x 3 Family History FAMILY HISTORY Problem Relation Age of Onset - Heart disease Father - Hypertension Father - skin CA [OTHER] Maternal Grandmother - bone cancer [OTHER] Maternal Grandfather - Colon Cancer Maternal Aunt Patient Allergies ALLERGIES Allergen Reactions - Chantix [Vareniclin* Rash - Latex Rash - Ultram [Tramadol Hc* Rash - Cephalexin Swelling - Cephalosporins Swelling - Colyte [Peg 3350-El* Vomiting - Gabapentin Swelling - Lipitor [Atorvastat* Other: See Comments Flu like symptoms - Morphine Vomiting - Zinc Oxide Unknown Current Medications Current Outpatient Prescriptions on File Prior to Visit: amLODIPine (NORVASC) 10 mg tablet Take 10 mg by mouth once daily. augmented betamethasone 0.05 % lotion Apply to affected area twice daily. fluticasone (FLONASE) 50 mcg/actuation nasal spray Use 1 [place] in each nostril once daily. loteprednol etabonate (LOTEMAX) 0.5 % ophthalmic suspension 1 Drop four times daily. omega-3/dha/epa/dpa/fish oil (OMEGA-3 2100 ORAL) Take by mouth. omeprazole (PRILOSEC) 20 mg capsule Take 20 mg by mouth once daily. albuterol HFA (PROVENTIL HFA) 90 mcg/actuation inhaler Inhale 2 Puffs as instructed. Cholecalciferol, Vitamin D3, (VITAMIN D-3) 2,000 unit cap Take by mouth. CALCIUM ORAL Take by mouth. propranolol (INDERAL) 60 mg tablet Take 1 tablet by mouth twice daily. No current facility-administered medications on file prior to visit. Social History Social History Marital status: Spouse name: Years of education: Number of children: Social History Main Topics Smoking status: Former Smoker Packs/day: 0.00 Years: 0.00 Smokeless tobacco: Never Used Alcohol use: Yes Comment: on rare occasions Drug use: No Review of Symptoms REVIEW OF SYSTEMS See HPI EXAM: BP 138/88 (BP Site: Left Arm, BP Position: Sitting, BP Cuff Size: Regular Adult) Pulse 84 Resp 14 Wt 85.7 kg (189 lb) BMI 36.91 kg/m? General Appearance: Well appearing, alert, in no acute distress, well-hydrated, well nourished.. Lungs: Lungs clear to auscultation. No wheezing, rhonchi, rales. Heart: RRR without murmur, gallop, or rubs. No ectopy. Extremities: No deformities or skin discoloration, has 1+ pitting edema in the right lower leg in the lower 1/3. Health Maintenance List BLOOD PRESSURE CONTROLLED due on 1978 PAP EVERY 5 YEARS due on 1990 HPV EVERY 5 YEARS due on 1990 MAMMOGRAM due on 2000 HEPATITIS C SCREENING due on 2004 COLORECTAL CANCER SCREENING,SEE MODIFIER due on 2010 INFLUENZA(1) due on 11/30/2017 ANNUAL PCP TEAM CHRONIC DISEASE VISIT due on 08/22/2018 DIABETES SCREEN due on 08/22/2020 LIPID SCREEN due on 08/22/2022 DTAP,TDAP,TD(2 - Td) due on 07/11/2025 Data reviewed Component Latest Ref Rng AND Units 08/22/2017 WBC 3.70 - 11.00 k/uL 11.15 (H) RBC 3.90 - 5.20 m/uL 4.96 Hemoglobin 11.5 - 15.5 g/dL 14.3 Hematocrit 36.0 - 46.0 % 45.5 MCV 80.0 - 100.0 fL 91.7 MCH 26.0 - 34.0 pG 28.8 MCHC 30.5 - 36.0 g/dL 31.4 RDW-CV 11.5 - 15.0 % 13.4 Platelet Count 150 - 400 k/uL 302 MPV 9.0 - 12.7 fL 10.7 Neut% % 61.6 Abs Neut (ANC) 1.45 - 7.50 k/uL 6.87 Lymph% % 26.0 Abs Lymph 1.00 - 4.00 k/uL 2.90 Zapata% % 8.1 Abs [place] <0.87 k/uL 0.90 (H) Eosin% % 3.7 Abs Eosin <0.46 k/uL 0.41 Baso% % 0.6 Abs Baso <0.11 k/uL 0.07 Nucleated Reds 0 /100 WBC 0.0 Absolute nRBC <0.01 k/uL <0.01 Diff Type Auto Diff Protein, Total 6.3 - 8.0 g/dL 7.4 Albumin 3.9 - 4.9 g/dL 4.2 Calcium 8.5 - 10.2 mg/dL 9.5 Bilirubin, Total 0.2 - 1.3 mg/dL 0.2 Alkaline Phosphatase 32 - 117 U/L 89 AST 13 - 35 U/L 22 Glucose 74 - 99 mg/dL 91 BUN 7 - 21 mg/dL 11 Creatinine 0.58 - 0.96 mg/dL 0.60 Sodium 136 - 144 mmol/L 141 Potassium 3.7 - 5.1 mmol/L 4.4 Chloride 97 - 105 mmol/L 102 CO2 22 - 30 mmol/L 22 Anion Gap 9 - 18 mmol/L 17 ALT 7 - 38 U/L 24 eGFR- >60 eGFR-All Other Races . >60 Color Yellow Yellow Clarity Clear Cloudy (A) Glucose, Urine Negative mg/dL Negative Bilirubin, Urine Negative Negative Ketones, Urine Negative Negative Specific [place], Ur 1.005 - 1.030 1.009 Hemoglobin/Blood,Ur Negative Negative pH, Urine 4.5 - 8.0 5.0 Protein, Urine Negative mg/dL Negative Urobilinogen Normal Normal Nitrites Negative Negative Leukest Negative Negative Comments SEE COMMENT Urine Ian Comment SEE COMMENT WBC, Urine 0 - 5 /HPF 0-5 RBC, Urine 0 - 3 /HPF 0-3 Epithelial Cells /HPF SEE COMMENT Cholesterol, Total <200 mg/dL 216 (H) Triglyceride <150 mg/dL 177 (H) HDL Cholesterol >39 mg/dL 45 LDL Cholesterol <100 mg/dL 136 (H) Non HDL Cholesterol <130 mg/dL 171 (H) Fasting Time hrs 12 VLDL Cholesterol <30 mg/dL 35 (H) TC:HDL Ratio <5.10 4.80 LDL:HDL Ratio <2.54 3.02 (H) Hemoglobin A1C 4.3 - 5.6 % 5.3 Estimated Average Glucose mg/dL 105 PT Sec 9.7 - 13.0 sec 9.8 PT INR 0.9 - 1.3 0.9 TSH 0.400 - 5.500 uU/mL 1.120 Free T4 0.9 - 1.7 ng/dL 1.4 APTT 23.0 - 32.4 sec 26.9 A/P ASSESSMENT/PLAN: 1. Lower extremity pain, right - ICD9: 729.5, ICD10: M79.604 (primary diagnosis) Her pain management tried to get lyrica approved but needs tried on a TCA first. - Will start NORTRIPTYLINE 10 MG CAPSULE. Patient to give me an update in 2 weeks and can titrate up. 2. Nerve damage - ICD9: 957.9, ICD10: T14.8XXA - As above - NORTRIPTYLINE 10 MG CAPSULE 3. Migraine without aura and without status migrainosus, not intractable - ICD9: 346.10, ICD10: G43.009 - Stable with propranolol 4. Encounter for gynecological examination - ICD9: V72.31, ICD10: Z01.419 - CONSULT TO SCALLOPER 5. Situational depression - ICD9: 309.0, ICD10: F43.21 Will treat nerve pain and if can get resolved this should resolve also. - NORTRIPTYLINE 10 MG CAPSULE Signed Prescriptions Disp Refills nortriptyline (PAMELOR) 10 mg capsule 30 capsule 2 Sig: Take 1 capsule by mouth daily at bedtime. f/u with me in 2 months Routine f/u in Nov check lipid panel prior. Time into room was 4:39 PM and time leaving room was 5:06 PM (total time face to face with patient was 27 min) Deny Renteria MD CNOV Observed: 10/15/2017 Status: COMPLETED Source: EGAN 4:00 PM [facility] REPOSITORY Office Visit (FAMPWS) NATO GUERRIER ([id number]) 1960 F Date Time Provider Department 10/15/17 4:00 PM DENY RENTERIA During your visit today, we recorded the following information about you: Pulse Respiration Blood pressure Weight 84/minute 14/minute 138/88 85.7 kg Deny Renteria MD 10/15/2017 6:02 PM Signed Chief Complaint Patient presents with: Recheck: patient is here for follow up on right foot; has seen foot doctor nothing resolved HPI Nato Guerrier is a 57 year old female who presents here today for Above Complaints.. Since last being in there has been no improvement in her right foot. Still with the swelling and pain on the top and sides of the right foot. 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 Has been tried with support socks but could not tolerate. Made the swelling worse and pain increase. Patient can no tolerate gabapentin due to increased bilateral leg swelling. Was put on cymbalta by her foot doctor and did help her pain but could not tolerate due to headaches and nausea. Was not sure if the swelling improved. This has depressed her significantly to were she has restarted to smoke and drinks three beers on the weekend to help. Migraines have been controlled with being back on the propranolol. Past medical history, appointments, medications, allergies reviewed. Previous Medical History PAST MEDICAL HISTORY Diagnosis Date - Arthritis of both knees 08/22/2017 - Arthritis of lumbar spine (HCC) 08/22/2017 - Chronic pain syndrome 08/22/[address] Gray at [facility] - Dry eyes 08/22/2017 - Eczema 08/22/2017 hands - Essential hypertension 08/22/2017 - Ex-smoker 08/22/2017 - GERD without esophagitis 08/22/2017 - Hyperlipidemia, mixed 08/22/2017 - Migraine without aura and without status migrainosus, not intractable 08/22/2017 - Seasonal allergies 08/22/2017 Previous Surgical History PAST SURGICAL HISTORY Procedure Laterality Date - PAST SURGICAL HISTORY OF 05/2017 lumbar spinal fussion, Dr. BRISENO, decompression and fusion L4-S1 - PAST SURGICAL HISTORY OF C-sections x 3 Family History FAMILY HISTORY Problem Relation Age of Onset - Heart disease Father - Hypertension Father - skin CA [OTHER] Maternal Grandmother - bone cancer [OTHER] Maternal Grandfather - Colon Cancer Maternal Aunt Patient Allergies ALLERGIES Allergen Reactions - Chantix [Vareniclin* Rash - Latex Rash - Ultram [Tramadol Hc* Rash - Cephalexin Swelling - Cephalosporins Swelling - Colyte [Peg 3350-El* Vomiting - Gabapentin Swelling - Lipitor [Atorvastat* Other: See Comments Flu like symptoms - Morphine Vomiting - Zinc Oxide Unknown Current Medications Current Outpatient Prescriptions on File Prior to Visit: amLODIPine (NORVASC) 10 mg tablet Take 10 mg by mouth once daily. augmented betamethasone 0.05 % lotion Apply to affected area twice daily. fluticasone (FLONASE) 50 mcg/actuation nasal spray Use 1 [place] in each nostril once daily. loteprednol etabonate (LOTEMAX) 0.5 % ophthalmic suspension 1 Drop four times daily. omega-3/dha/epa/dpa/fish oil (OMEGA-3 2100 ORAL) Take by mouth. omeprazole (PRILOSEC) 20 mg capsule Take 20 mg by mouth once daily. albuterol HFA (PROVENTIL HFA) 90 mcg/actuation inhaler Inhale 2 Puffs as instructed. Cholecalciferol, Vitamin D3, (VITAMIN D-3) 2,000 unit cap Take by mouth. CALCIUM ORAL Take by mouth. propranolol (INDERAL) 60 mg tablet Take 1 tablet by mouth twice daily. No current facility-administered medications on file prior to visit. Social History Social History Marital status: Spouse name: Years of education: Number of children: Social History Main Topics Smoking status: Former Smoker Packs/day: 0.00 Years: 0.00 Smokeless tobacco: Never Used Alcohol use: Yes Comment: on rare occasions Drug use: No Review of Symptoms REVIEW OF SYSTEMS See HPI EXAM: BP 138/88 (BP Site: Left Arm, BP Position: Sitting, BP Cuff Size: Regular Adult) Pulse 84 Resp 14 Wt 85.7 kg (189 lb) BMI 36.91 kg/m? General Appearance: Well appearing, alert, in no acute distress, well-hydrated, well nourished.. Lungs: Lungs clear to auscultation. No wheezing, rhonchi, rales. Heart: RRR without murmur, gallop, or rubs. No ectopy. Extremities: No deformities or skin discoloration, has 1+ pitting edema in the right lower leg in the lower 1/3. Health Maintenance List BLOOD PRESSURE CONTROLLED due on 1978 PAP EVERY 5 YEARS due on 1990 HPV EVERY 5 YEARS due on 1990 MAMMOGRAM due on 2000 HEPATITIS C SCREENING due on 2004 COLORECTAL CANCER SCREENING,SEE MODIFIER due on 2010 INFLUENZA(1) due on 11/30/2017 ANNUAL PCP TEAM CHRONIC DISEASE VISIT due on 08/22/2018 DIABETES SCREEN due on 08/22/2020 LIPID SCREEN due on 08/22/2022 DTAP,TDAP,TD(2 - Td) due on 07/11/2025 Data reviewed Component Latest Ref Rng AND Units 08/22/2017 WBC 3.70 - 11.00 k/uL 11.15 (H) RBC 3.90 - 5.20 m/uL 4.96 Hemoglobin 11.5 - 15.5 g/dL 14.3 Hematocrit 36.0 - 46.0 % 45.5 MCV 80.0 - 100.0 fL 91.7 MCH 26.0 - 34.0 pG 28.8 MCHC 30.5 - 36.0 g/dL 31.4 RDW-CV 11.5 - 15.0 % 13.4 Platelet Count 150 - 400 k/uL 302 MPV 9.0 - 12.7 fL 10.7 Neut% % 61.6 Abs Neut (ANC) 1.45 - 7.50 k/uL 6.87 Lymph% % 26.0 Abs Lymph 1.00 - 4.00 k/uL 2.90 Zapata% % 8.1 Abs [place]ata <0.87 k/uL 0.90 (H) Eosin% % 3.7 Abs Eosin <0.46 k/uL 0.41 Baso% % 0.6 Abs Baso <0.11 k/uL 0.07 Nucleated Reds 0 /100 WBC 0.0 Absolute nRBC <0.01 k/uL <0.01 Diff Type Auto Diff Protein, Total 6.3 - 8.0 g/dL 7.4 Albumin 3.9 - 4.9 g/dL 4.2 Calcium 8.5 - 10.2 mg/dL 9.5 Bilirubin, Total 0.2 - 1.3 mg/dL 0.2 Alkaline Phosphatase 32 - 117 U/L 89 AST 13 - 35 U/L 22 Glucose 74 - 99 mg/dL 91 BUN 7 - 21 mg/dL 11 Creatinine 0.58 - 0.96 mg/dL 0.60 Sodium 136 - 144 mmol/L 141 Potassium 3.7 - 5.1 mmol/L 4.4 Chloride 97 - 105 mmol/L 102 CO2 22 - 30 mmol/L 22 Anion Gap 9 - 18 mmol/L 17 ALT 7 - 38 U/L 24 eGFR- >60 eGFR-All Other Races . >60 Color Yellow Yellow Clarity Clear Cloudy (A) Glucose, Urine Negative mg/dL Negative Bilirubin, Urine Negative Negative Ketones, Urine Negative Negative Specific [place], Ur 1.005 - 1.030 1.009 Hemoglobin/Blood,Ur Negative Negative pH, Urine 4.5 - 8.0 5.0 Protein, Urine Negative mg/dL Negative Urobilinogen Normal Normal Nitrites Negative Negative Leukest Negative Negative Comments SEE COMMENT Urine Ian Comment SEE COMMENT WBC, Urine 0 - 5 /HPF 0-5 RBC, Urine 0 - 3 /HPF 0-3 Epithelial Cells /HPF SEE COMMENT Cholesterol, Total <200 mg/dL 216 (H) Triglyceride <150 mg/dL 177 (H) HDL Cholesterol >39 mg/dL 45 LDL Cholesterol <100 mg/dL 136 (H) Non HDL Cholesterol <130 mg/dL 171 (H) Fasting Time hrs 12 VLDL Cholesterol <30 mg/dL 35 (H) TC:HDL Ratio <5.10 4.80 LDL:HDL Ratio <2.54 3.02 (H) Hemoglobin A1C 4.3 - 5.6 % 5.3 Estimated Average Glucose mg/dL 105 PT Sec 9.7 - 13.0 sec 9.8 PT INR 0.9 - 1.3 0.9 TSH 0.400 - 5.500 uU/mL 1.120 Free T4 0.9 - 1.7 ng/dL 1.4 APTT 23.0 - 32.4 sec 26.9 A/P ASSESSMENT/PLAN: 1. Lower extremity pain, right - ICD9: 729.5, ICD10: M79.604 (primary diagnosis) Her pain management tried to get lyrica approved but needs tried on a TCA first. - Will start NORTRIPTYLINE 10 MG CAPSULE. Patient to give me an update in 2 weeks and can titrate up. 2. Nerve damage - ICD9: 957.9, ICD10: T14.8XXA - As above - NORTRIPTYLINE 10 MG CAPSULE 3. Migraine without aura and without status migrainosus, not intractable - ICD9: 346.10, ICD10: G43.009 - Stable with propranolol 4. Encounter for gynecological examination - ICD9: V72.31, ICD10: Z01.419 - CONSULT TO SCALLOPER 5. Situational depression - ICD9: 309.0, ICD10: F43.21 Will treat nerve pain and if can get resolved this should resolve also. - NORTRIPTYLINE 10 MG CAPSULE Signed Prescriptions Disp Refills nortriptyline (PAMELOR) 10 mg capsule 30 capsule 2 Sig: Take 1 capsule by mouth daily at bedtime. f/u with me in 2 months Routine f/u in Nov check lipid panel prior. Time into room was 4:39 PM and time leaving room was 5:06 PM (total time face to face with patient was 27 min) Deny Renteria MD Referring Provider: DENY RENTERIA [[id number]] Allergies As of Date: 10/15/2017 Noted Allergy Reaction CHANTIX (VARENICLINE) 08/22/2017 2 - Rash CYMBALTA (DULOXETINE) 10/15/2017 14 - Other: See Comments Comments: Bad headache's and nausea LATEX 08/22/2017 2 - Rash ULTRAM (TRAMADOL HCL) 08/22/2017 2 - Rash CEPHALEXIN 08/22/2017 7 - Swelling CEPHALOSPORINS 06/19/2000 7 - Swelling COLYTE (PEG 3350-ELECTROLYTES) 08/22/2017 11 - Vomiting GABAPENTIN 08/22/2017 7 - Swelling LIPITOR (ATORVASTATIN CALCIUM) 08/22/2017 14 - Other: See Comments Comments: Flu like symptoms MORPHINE 08/22/2017 11 - Vomiting ZINC OXIDE 06/19/2000 16 - Unknown Date Reviewed: 10/15/2017 Reviewed by: Deny Renteria - Fully Assessed Reason for Visit: Recheck [92] Cmt: patient is here for follow up on right foot; has seen foot doctor nothing resolved Primary Visit Diagnosis:Lower extremity pain, right [M79.604] Other Visit Diagnoses:Nerve damage [T14.8XXA] Comment:L4-L5 after low back surgery Migraine without aura and without status migrainosus, not intractable [G43.009] Encounter for gynecological examination [Z01.419] Situational depression [F43.21] Hyperlipidemia, mixed [E78.2] Essential hypertension [I10] Order(s):nortriptyline (PAMELOR) 10 mg capsuleTake 1 capsule by mouth daily at bedtime.Disp: 30 capsuleRfl: 2 CONSULT TO SCALLOPER [3219] Order #: [id number]: 1 LIPID PANEL BASIC [SQLIPB] Order #: [id number] FUTURE Prescriptions as of 10/15/2017 Sig: AMLODIPINE 10 MG TABLET Take 10 mg by mouth once aurelio* BETAMETHASONE, AUGMENTED 0.05* Apply to affected area twice * FLUTICASONE 50 MCG/ACTUATION * Use 1 [place] in each nostril o* LOTEPREDNOL ETABONATE 0.5 % E* 1 Drop four times daily. OMEGA-3 2100 ORAL Take by mouth. OMEPRAZOLE 20 MG CAPSULE,KRISTYN* Take 20 mg by mouth once aurelio* ALBUTEROL SULFATE HFA 90 MCG/* Inhale 2 Puffs as instructed. CHOLECALCIFEROL (VITAMIN D3) * Take by mouth. CALCIUM ORAL Take by mouth. PROPRANOLOL 60 MG TABLET Take 1 tablet by mouth twice * NORTRIPTYLINE 10 MG CAPSULE Take 1 capsule by mouth daily* Problem List As Of Date 10/15/2017 Noted Resolved Essential hypertension [I10] INVALID FOR* Priority: A Hyperlipidemia, mixed [E78.2] INVALID FOR* Priority: A Eczema [L30.9] INVALID FOR* Priority: D More... Seasonal allergies [J30.2] INVALID FOR* Priority: B Dry eyes [H04.123] INVALID FOR* Priority: G GERD without esophagitis [K21.9] INVALID FOR* Priority: A Generalized OA [M15.9] INVALID FOR* Priority: M More... 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 Arthritis of both knees [M17.0] INVALID FOR* Priority: M Chronic pain syndrome [G89.4] INVALID FOR* Priority: M More... Ex-smoker [Z87.891] INVALID FOR* Priority: B More... Migraine without aura and without status migrai*INVALID FOR* Priority: A Well adult exam [Z00.00] INVALID FOR* Priority: E More... Encounter for screening for diabetes mellitus [*INVALID FOR* Nerve damage [T14.8XXA] INVALID FOR* Priority: B More... Lower extremity pain, right [M79.604] INVALID FOR* Priority: M Situational depression [F43.21] INVALID FOR* Priority: A More... Prescriptions ordered this encounter Disp Refills Start End NORTRIPTYLINE 10 MG CAPSULE 30 c* 2 10/15/2017 Route: ORAL Sig: Take 1 capsule by mouth daily at bedtime. Disposition: Return in about 2 months (around 12/16/2017) for f/u depression and nerve pain. Follow-up and Disposition History Recorded Letter Text Dear Nato Guerrier: How to activate your [facility] [employer] Account 1. Visit the [employer] Signup page at [email or web address] 2. Identify yourself using your one-time use activation code: [email or web address] 3. Follow the on-screen prompts to choose your own secure username and password The following information will be necessary to access your account for the first time: Information needed for sign-up: Your custom activation code used one-time only for the initial account set-up. Your date of The last 4 digits of your social security number What to do next: Fill in the requested information on the Identify Yourself Form at [email or web address] , click Next. Create your login and password, choose a [employer] ID and password that will be easy for you to use, but impossible for anyone else to guess. Pick a security question that will assist you in the event you forget your password the next time you log-on. If you have difficulty activating your account, please call our [employer] helpline at [phone] or toll free at . We hope you enjoy using [employer]! Kindest Regards, [facility] [employer] Team Encounter Status:Closed by DENY RENTERIA on 10/15/17 ORTHOPEDIC VISIT Observed: 09/17/2017 Status: F Source: ROSALINDA REPORT 11:18 AM [facility] REPOSITORY [facility] Orthopaedics AND Sports Medicine [address] [place] [address] [address] [place] [address] OFFICE VISIT Date of Service: 09/12/17 MR#: [id number] Acct: [id number] Name: NATO GUERRIER Rep #: [id number] : 1960 Provider: Selena Butler DO Age/Sex: 57/F Location: [facility] [place].SMO Status: Signed Intake Intake Visit Reasons: LEFT KNEE Is patient in pain?: Yes Pain scale (1-10): 8 Allergies atorvastatin [From Lipitor] Allergy (Verified 09/12/17 10:55) Upset Stomach cephalexin [From Keflex] Allergy (Verified 09/12/17 10:55) Swelling morphine Allergy (Verified 09/12/17 10:55) Vomiting tramadol Allergy (Verified 09/12/17 10:55) Rash zinc Allergy (Verified 09/12/17 10:55) Rash Medications Amlodipine [Norvasc] 10 mg PO DAILY 03/15/16 [History Confirmed 09/12/17] Diclofenac Potassium 50 mg PO DAILY 03/15/16 [History Confirmed 09/12/17] Propranolol HCl 60 mg PO BID 03/15/16 [History Confirmed 09/12/17] buPROPion SR [Wellbutrin Sr] 150 mg PO BID 03/15/16 [History Confirmed 09/12/17] Betamethasone Sod Phosph-Water [Betamethasone 12 mg/2 ml-Water] 1 applic TOPICAL DAILY 06/19/17 [History Confirmed 09/12/17] Loteprednol Etabonate [Lotemax] 3.5 gm OP QHS 06/19/17 [History Confirmed 09/12/17] Omeprazole Magnesium [Prilosec Otc] 20 mg PO DAILY 06/19/17 [History Confirmed 09/12/17] Propranolol HCl [Propranolol HCl ER] 60 mg PO BID 06/19/17 [History Confirmed 09/12/17] PFSH Medical History Hypertension (Chronic) Surgical History H/O: (Acute) Social History Smoking Status: Former smoker HPI LEFT KNEE: Details: NATO GUERRIER is a 57 year old F here today referred by Dr Briseno for bilateral knee pain, left greater than right. Patient notes that she has had knee pain for many years with her pain progressively worsening. Her pain is over her anterior knee. Patient has swelling. She used to have popping but no longer has that symptom. She notes that she has increased pain with stairs and ambulation. Patient feels like she has knee instability. Patient is unable to have anti-inflammatories. She denies any physical therapy due to limited visits approved with insurance. She denies any steroid injections. Patient denies any recent xrays or MRI. She notes that she sees Dr Briseno and had L3-S1 laminectomy with instrumented fusion. ROS Const Reports system reviewed and no additional complaints, except as docu Eyes Reports system reviewed and no additional complaints, except as docu ENT Reports system reviewed and no additional complaints, except as docu Card Reports system reviewed and no additional complaints, except as docu Resp Reports system reviewed and no additional complaints, except as docu GI Reports system reviewed and no additional complaints, except as docu Reports system reviewed and no additional complaints, except as docu Musc Reports joint pain, Reports joint swelling, Reports stiffness Skin/Breast Reports system reviewed and no additional complaints, except as docu Neuro Yes system reviewed and no additional complaints, except as docu Psych Reports system reviewed and no additional complaints, except as docu Endo Reports system reviewed and no additional complaints, except as docu Office Procedures Ortho Injections Injections Yes Knee Bilateral Details: Obtained consent for injection. Under sterile conditions, aspirated 12cc from the left and injected the patients right and left knee with a 10cc cocktail of 8cc bupivacaine and 2cc kenalog. The patient tolerated the injection well without any noted complication. Patient should call our office if redness develops, pain worsens or if they have any concerns. Office Meds Kenalog Performing Provider: Selena Butler DO Administered by: Selena Butler DO on 09/12/17 11:22 Dose Route Admin Location Lot Number Expiration DateNDC [place] 4 mg Intra-Articularbilat knees [id number] 07/30/18 1290-2595-20 [employer] Assessment AND Plan 1. Primary osteoarthritis of both knees M17.0 Plan Personally reviewed the patient's medical history, medications, surgeries and recent exams if available. X-rays were reviewed. There is no obvious fracture, dislocation, or lucency noted, but bone on bone OA in left and OA in the right not as far progressed as the left. Educated on the anatomy of the knees and osteoarthritis. Her treatment options are do nothing, injections, PT or bracing. If conservative treatment fails refer for consult for TKA. Follow up in 3-4 months or sooner if pain, swelling, numbness or associated symptoms, or concerns develop. All questions answered. Patient in agreement of plan. Orders Orders: Medications Discontinued: Kenalog (triamcinolone acetonide) Disc4 mg (0.4 mL) Intra- Articular ONCE NS Sonu Dennis ontinued Reason: Office Medication has b een Documented as given Plan Detail Other Orders Orders: Coding Level of Care Code Off vis,est,level 4 Diagnoses Primary osteoarthritis of both knees M17.0 Osteoarthritis type: primary Additional Codes aviation neuropsychologist.knee ([id number]) 09/17/17 1118 <Electronically signed by Selena Butler DO> Date Selena Butler DO Cosigner Signature: Date (if applicable) CC: SYNOVIAL FLUID RBC, Collected: 09/12/2017 Status: F Source: ROSALINDA WBC AND DIFF 2:28 PM [facility] REPOSITORY TYPE CODE TESTS RESULT OUT OF RANGE REFERENCE UNITS LAB L200.4600 Normal SYNOVIAL LEFT KNEE SOURCE LAB L200.4900 Pale Yellow Normal SYNOVIAL COLOR Yellow LAB L200.5000 CLEAR Normal SYNOVIAL BARI. Clear LAB L200.5050 0.000-0.000 10 3 uL High SYN Tot Cell 0.2690 Ct Result Comment: This is the Total Number of Nucleated Cell Types in the Body Fluid. LAB L200.5200 0.000-0.002 10 3uL High SYNOVIAL WBC 0.2510 LAB L200.5260 % SYBF Normal PMN WBC% 39.0 LAB L200.5270 10 3/ul SYBF Normal PMN WBC# 0.098 LAB L200.5280 % SYBF Normal MN WBC% 61.0 LAB L200.5800 PATH Normal COM/SYFL May follow LAB L200.5100 0 /mm3 High SYNOVIAL RBC 31 LAB L200.5290 10 3/ul SYBF Normal MN WBC# 0.153 LAB L200.5300 0-25 % Normal NEUTROPHIL 7 LAB L200.5400 % LYMPH Normal 15 LAB L200.5500 % MONO Normal 13 LAB L200.5700 % OTHER Normal CELL /SYN 65 Result Comment: SYNOVIAL CELLS Performed By: #### L200.0400, L200.4175, M100.1300 #### [facility] [address] [place], [address] CRYSTALS, BODY FLUID Collected: 09/12/2017 Status: C Source: MELVIN 2:28 PM [facility] REPOSITORY TYPE CODE TESTS RESULT OUT OF RANGE REFERENCE UNITS LAB L200.4200 Normal SEE PATH REV CRYSTALS/BF LAB L200.4225 Normal SYNOVIAL SOURCE/BF LAB L200.6020 Normal PATH Reviewed REV Result Comment: Negative for malignant cells and crystals. Ronald Monk M.D. 09/13/17 AMENDED REPORT 09/13/17 1001 PATH REV previously reported as: Will follow Performed By: #### L200.0400, L200.4175, M100.1300 #### [facility] [address] [place], [address] Observed: 09/12/2017 Status: F Source: ROSALINDA CULTURE, BODY FLUID 2:28 PM [facility] REPOSITORY List Antibiotics Last 48 Hours? . List Antibiotics to be Started? . Gram Stain Centrifuged Specimen? Culture performed on centrifuged specimen Gram Stain No organisms seen No cells seen Body Fluid Cult NO GROWTH IN 14 DAYS Cult, Anaerobic No growth in 5 days. Performed By: #### L200.0400, L200.4175, M100.1300 #### [facility] [address] [place], [address] KNEE 4 OR MORE Observed: 09/12/2017 Status: F Source: ROSALINDA VIEWS 10:56 AM [facility] REPOSITORY [facility] Imaging Services [address] [place] [address] Knee 4 or More Views MR#: [id number] Acct: [id number] Name: NATO GUERRIER Rep #: [id number] : 1960 F 57 From: Darius Ramos MD PCP: OUT OF TOWN DOCTOR Status: REG CLI Study: Knee 4 or More Views Date of Exam: 09/12/17 Exam# [id number] Ordering Dr: Selena Butler DO STUDY: X-RAY - RIGHT KNEE REASON FOR EXAM: Bilateral knee pain. TECHNIQUE: 4 view(s) of the knee. COMPARISON: None. FINDINGS: Normal visualized distal femur. Normal visualized proximal tibia and fibula. Normal proximal tibiofibular articulation. There are small marginal osteophytes and joint space narrowing of the medial femorotibial compartment. Normal lateral femorotibial compartment. There are small marginal osteophytes and joint space narrowing of the patellofemoral articulation. There is a small calcification in the proximal medial collateral ligament. RAD/Knee 4 or More Views IMPRESSION: Arthrosis of the medial femorotibial and patellofemoral compartments. Electronically Signed: Darius Ramos MD at 16:26 EDT Tel , Service support , CC: Selena Butler DO; OUT OF TOWN DOCTOR Animal Care Worker: Signed KNEE 4 OR MORE Observed: 09/12/2017 Status: F Source: ROSALINDA VIEWS 10:56 AM [facility] REPOSITORY [facility] Imaging Services [address] [place] [id number] Knee 4 or More Views MR#: [id number] Acct: [id number] Name: NATO GUERRIER Rep #: [id number] : 1960 F 57 From: Darius Ramos MD PCP: OUT OF TOWN DOCTOR Status: REG CLI Study: Knee 4 or More Views Date of Exam: 09/12/17 Exam# [id number] Ordering Dr: Selena Butler DO STUDY: X-RAY - LEFT KNEE REASON FOR EXAM: Bilateral knee pain. TECHNIQUE: 4 view(s) of the knee. COMPARISON: None. FINDINGS: Normal visualized distal femur. Normal visualized proximal tibia and fibula. Normal proximal tibiofibular articulation. There are small marginal osteophytes and joint space loss of the medial femorotibial compartment. There is a small osteophyte of the lateral tibial plateau without joint space narrowing of the lateral femorotibial compartment. There are small marginal osteophytes and joint space narrowing of the patellofemoral articulation. There is a very small soft tissue calcification medial to the medial tibial plateau. RAD/Knee 4 or More Views IMPRESSION: Arthrosis of the medial femorotibial and patellofemoral compartments. Electronically Signed: Darius Ramos MD at 16:30 EDT Tel , Service support , CC: Selena Butler DO; OUT OF TOWN DOCTOR Animal Care Worker: Signed PROTIME Collected: 08/22/2017 Status: F Source: EGAN 10:51 AM [facility] REPOSITORY TYPE CODE TESTS RESULT OUT OF RANGE REFERENCE UNITS LAB PSEC 9.7-13.0 sec PT Sec 9.8 LAB INR 0.9-1.3 PT INR 0.9 Result Comment: Vitamin K Antagonist (VKA) Therapeutic Range: INR 2 to 3 (Target INR of 2.5) Note: For patients treated with VKA drugs, such as warfarin, the [place] [employer] 2012 Guideline recommends a therapeutic INR range of 2 to 3 (target INR of 2.5). This recommendation includes high-risk patients with antiphospholipid syndrome with previous arterial or venous thromboembolism, current-generation mechanical or bioprosthetic aortic heart valve replacement. Note: Patients with mechanical aortic valve replacement and additional risk factors for thromboembolic events (atrial fibrillation, previous thromboembolism, LV dysfunction, hypercoagulable conditions) or an older generation mechanical AVR (i.e., ball in-Cage) or any mechanical MVR should have a INR therapeutic range of 2.5 to 3.5 (target INR of 3). Jaun NORIEGA, et al. Chest 2012, 141:7S-47S Clark BROWN, et al. [facility] 2017, 70: 252-289 Performed By: #### PT, PTT, CBCDIF, CMP, LIPB, FT4, TSH, HBA1C #### [facility] [address], [place] [address] APTT Collected: 08/22/2017 Status: F Source: EGAN 10:51 AM [facility] REPOSITORY TYPE CODE TESTS RESULT OUT OF RANGE REFERENCE UNITS LAB APTT 23.0-32.4 sec APTT 26.9 Result Comment: Unfractionated Heparin Therapeutic Ranges: Standard Heparin Nomogram: 53 to 78 seconds (anti-Xa level of 0.3 to 0.7 U/ml) Low Dose/ACS Nomogram: 49 to 67 seconds (anti-Xa level of 0.2 to 0.5 U/ml) Stroke Treatment Nomogram: 49 to 67 seconds (anti-Xa level of 0.2 to 0.5 U/ml) Note: The APTT therapeutic range has been determined for the current lot of laboratory APTT reagent in use throughout the [facility]. Performed By: #### PT, PTT, CBCDIF, CMP, LIPB, FT4, TSH, HBA1C #### [facility] [address], [place] [address] CBC AND DIFFERENTIAL Collected: 08/22/2017 Status: F Source: EGAN 10:51 [facility] REPOSITORY TYPE CODE TESTS RESULT OUT OF REFERENCE UNITS RANGE LAB WBC 3.70-11.00 k/uL WBC High 11.15 LAB RBC 3.90-5.20 m/uL RBC 4.96 LAB HGB 11.5-15.5 g/dL Hemoglobin 14.3 LAB HCT 36.0-46.0 % Hematocrit 45.5 LAB MCV 80.0-100.0 fL MCV 91.7 LAB MCH 26.0-34.0 pG MCH 28.8 LAB MCHC 30.5-36.0 g/dL MCHC 31.4 LAB RDWCV 11.5-15.0 % RDW-CV 13.4 LAB PLTCT 150-400 k/uL Platelet Count 302 LAB MPV 9.0-12.7 fL MPV 10.7 LAB ANEUT % Neut% 61.6 LAB AANEUT 1.45-7.50 k/uL Abs Neut 6.87 LAB ALYMP % Lymph% 26.0 LAB AALYMP 1.00-4.00 k/uL Abs Lymph 2.90 LAB AMONO % Zapata% 8.1 LAB AAMONO <0.87 k/uL Abs [place] High 0.90 LAB AEOS % Eosin% 3.7 LAB AAEOS <0.46 k/uL Abs Eosin 0.41 LAB ABASO % Baso% 0.6 LAB AABASO <0.11 k/uL Abs Baso 0.07 LAB AUNRBC 0 /100 WBC NRBCs 0.0 LAB ABNRBC <0.01 k/uL Absolute nRBC <0.01 LAB DTYP DTYPE Auto Diff Performed By: #### PT, PTT, CBCDIF, CMP, LIPB, FT4, TSH, HBA1C #### [facility] [address] [place] [address] COMP METABOLIC PANEL Collected: 08/22/2017 Status: F Source: EGAN 10:51 AM [facility] REPOSITORY TYPE CODE TESTS RESULT OUT OF REFERENCE UNITS RANGE LAB TP 6.3-8.0 g/dL Protein, Total 7.4 LAB ALB 3.9-4.9 g/dL Albumin 4.2 LAB CA 8.5-10.2 mg/dL Calcium, Total 9.5 LAB TBIL 0.2-1.3 mg/dL Bilirubin, Total 0.2 LAB ALKP 32-117 U/L Alkaline Phosphatase 89 LAB AST 13-35 U/L AST 22 LAB GLU 74-99 mg/dL Glucose 91 Result Comment: The [place] Diabetes Association (ADA) provides guidance for cutoff values for fasting glucose and random glucose. The ADA defines fasting as no caloric intake for at least 8 hours. Fas ting plasma glucose results between 100 to 125 mg/dL indicate increased risk for diabetes (prediabetes). Fasting plasma glucose results greater than or equal to 126 mg/dL meet the criteria for diagnosis of diabetes. In the absence of unequivocal hyperglycemia, results should be confirmed by repeat testing. In a patient with classic symptoms of hyperglycemia or hyperglycemic crisis, random plasma glucose results greater than or equal to 200 mg/dL meet the criteria for diagnosis of diabetes. Reference: Standards of Medical Care in Diabetes 2016, [place] Diabetes Association. Diabetes Care. 2016.39(Suppl 1). LAB BUN 7-21 mg/dL BUN 11 LAB CRET 0.58-0.96 mg/dL Creatinine 0.60 LAB NA 136-144 mmol/L Sodium 141 LAB K 3.7-5.1 mmol/L Potassium 4.4 LAB CL 97-105 mmol/L Chloride 102 LAB CO2 22-30 mmol/L CO2 22 LAB AGAP 9-18 mmol/L Anion Gap 17 LAB ALT 7-38 U/L ALT 24 LAB GFRAA eGFR- Amer. >60 LAB GFRNAA . eGFR-All Other Races >60 Result Comment: eGFR (Estimated GFR) Units of measure: mL/min/1.73 meters squared eGFR is derived from the reexpressed MDRD Study equation using the following parameters: serum creatinine, age, gender and race. The creatinine assay has been calibrated to be traceable to IDMS. An eGFR <60 mL/min/1.73m2 for >3 months is consistent with chronic kidney disease. Refer to KDOQI guidelines for clinical interpretation. In patients with unstable renal function, e.g. those with acute kidney injury, the eGFR may not accurately reflect actual GFR. Performed By: #### PT, PTT, CBCDIF, CMP, LIPB, FT4, TSH, HBA1C #### [facility] [address] [place], [place] [address] LIPID PANEL, BASIC Collected: 08/22/2017 Status: F Source: EGAN 10:51 AM [facility] REPOSITORY TYPE CODE TESTS RESULT OUT OF REFERENCE UNITS RANGE LAB CHOL <200 mg/dL Cholesterol High 216 Result Comment: <200 mg/dL, Desirable 200-239 mg/dL, Borderline high >239 mg/dL, High LAB TRIGLY <150 mg/dL Triglyceride High 177 Result Comment: <150 mg/dL, Normal 150-199 mg/dL, Borderline high 200-499 mg/dL, High >499 mg/dL, Very high LAB HDL >39 mg/dL HDL-Cholesterol 45 Result Comment: 40-59 mg/dL, Acceptable >59 mg/dL, High: Negative risk factor for coronary heart disease <40 mg/dL, Low: Positive risk factor for coronary heart disease LAB LDL <100 mg/dL LDL-Cholesterol High 136 Result Comment: <100 mg/dL, Optimal 100-129 mg/dL, Near optimal/above optimal 130-159 mg/dL, Borderline high 160-189 mg/dL, High >189 mg/dL, Very high Secondary prevention optimal LDL Cholesterol levels are recommended to be < 70 mg/dL LAB NONHDL <130 mg/dL Non HDL High Cholesterol 171 Result Comment: <130 mg/dL, Optimal 130-159 mg/dL, Near optimal/above optimal 160-189 mg/dL, Borderline high 190-219 mg/dL, High >219 mg/dL, Very high Secondary prevention optimal non HDL Cholesterol levels are recommended to be < 100 mg/dL LAB FT hrs Fasting Time 12 LAB VLDL <30 mg/dL High VLDL Cholesterol 35 LAB TCHDL <5.10 TC:HDL Ratio 4.80 LAB LDLHDL <2.54 High LDL:HDL Ratio 3.02 Result Comment: Reference: 1. National Cholesterol Education Program ATP III Guideline At-A-Glance Quick Desk Reference: National Heart, Lung, and Blood [place]. National Institutes of Health. 2001: NIH Publication No. 01-3305. 2. An International Atherosclerosis Society position paper: global recommendations for the management of dyslipidemia: executive summary, Atherosclerosis. 2014: 232(2):410-413. Performed By: #### PT, PTT, CBCDIF, CMP, LIPB, FT4, TSH, HBA1C #### [facility] [address] [place], [place] [address] FREE T4 Collected: 08/22/2017 Status: F Source: EGAN 10:51 AM [facility] REPOSITORY TYPE CODE TESTS RESULT OUT OF RANGE REFERENCE UNITS LAB FT4 0.9-1.7 ng/dL Free T4 1.4 Performed By: #### PT, PTT, CBCDIF, CMP, LIPB, FT4, TSH, HBA1C #### [facility] [address], [place] [address] TSH Collected: 08/22/2017 Status: F Source: EGAN 10:51 AM [facility] REPOSITORY TYPE CODE TESTS RESULT OUT OF RANGE REFERENCE UNITS LAB TSH 0.400-5.500 uU/mL TSH 1.120 Performed By: #### PT, PTT, CBCDIF, CMP, LIPB, FT4, TSH, HBA1C #### [facility] [address] [place] [id number] HEMOGLOBIN A1C Collected: 08/22/2017 Status: F Source: EGAN 10:51 AM [facility] REPOSITORY TYPE CODE TESTS RESULT OUT OF REFERENCE UNITS RANGE LAB HGBA1C 4.3-5.6 % Hemoglobin A1c 5.3 LAB HBA0 mg/dL Est. Average Glucose 105 Result Comment: eAG: (Estimated average glucose) is a calculated value from HgbA1c and is uniforms sales representative of the average blood glucose level in the last 2-3 month period. Performed By: #### PT, PTT, CBCDIF, CMP, LIPB, FT4, TSH, HBA1C #### [place] [address] URINALYSIS WITH Collected: 08/22/2017 Status: F Source: [facility] 10:51 AM [facility] REPOSITORY TYPE CODE TESTS RESULT OUT OF RANGE REFERENCE UNITS LAB UCOL Yellow Color Yellow LAB [facility] Clear Clarity Abnormal Cloudy Alert LAB UGLUC Negative mg/dL Glucose, Urine Negative LAB UBIL Negative Bilirubin, Urine Negative LAB UKET Negative Ketones, Urine Negative LAB USPG 1.005-1.030 Specific [place], Ur 1.009 LAB UHGB Negative Hemoglobin/Blood, Negative Ur LAB UPH 4.5-8.0 pH 5.0 LAB UPROT Negative mg/dL Protein, Urine Negative LAB UUROB Normal Urobilinogen Normal LAB UNITR Negative Nitrites Negative LAB ULKEST Negative Leukest Negative LAB UCOM Comments SEE COMMENT Result Comment: N/A LAB UMCOM Urine SEE Ian Comment COMMENT Result Comment: N/A LAB UWBC 0-5 /HPF WBC 0-5 LAB URBC 0-3 /HPF RBC 0-3 LAB UEPI /HPF Epithelial SEE Cells COMMENT Result Comment: Few Squamous Epithelial Cells Performed By: #### UAWMIC #### [place] [address] PROGRESS Observed: 08/22/2017 Status: COMPLETED Source: EGAN 8:59 AM [facility] [place] REPOSITORY HNO ID: [id number] Author: Deny Renteria Service: (none) Author Type: Physician Type: Progress Notes Filed: 08/22/2017 11:45 AM Note Text: Chief Complaint Patient presents with: Physical HPI Nato Guerrier is a 56 year old female who presents here today for establishment of care. patient with Hx as reviewed, updated and documented below. Went through Lumbar spinal fusion in May 2017 and on the next day due to not being able to move the right leg and having no sensation to pin prick in the anterior lower right leg she was taken back to the OR and a screw was moved back and was able to move the leg and had return of sensation. Since this time has been having swelling in her right foot up to the ankle. When the foot is not swollen will not have numbness but has increased nerve pain especial light touch. When the foot is swollen the pain decreases except for some occasional sharp pains on the top of the foot but the foot and lower 1/3 of right leg will be numb, but only on the top of the foot and front lower 1/3 of the leg. Past medical history, appointments, medications, allergies reviewed. Previous Medical History PAST MEDICAL HISTORY Diagnosis Date - Arthritis of both knees 08/22/2017 - Arthritis of lumbar spine (HCC) 08/22/2017 - Chronic pain syndrome 08/22/[address] Gray at [facility] - Dry eyes 08/22/2017 - Eczema 08/22/2017 hands - Essential hypertension 08/22/2017 - Ex-smoker 08/22/2017 - GERD without esophagitis 08/22/2017 - Hyperlipidemia, mixed 08/22/2017 - Migraine without aura and without status migrainosus, not intractable 08/22/2017 - Seasonal allergies 08/22/2017 Previous Surgical History PAST SURGICAL HISTORY Procedure Laterality Date - PAST SURGICAL HISTORY OF 05/2017 lumbar spinal fussion, Dr. BRISENO - PAST SURGICAL HISTORY OF C-sections x 3 Family History FAMILY HISTORY Problem Relation Age of Onset - Heart disease Father - Hypertension Father - skin CA [OTHER] Maternal Grandmother - bone cancer [OTHER] Maternal Grandfather - Colon Cancer Maternal Aunt Patient Allergies ALLERGIES Allergen Reactions - Chantix [Vareniclin* Rash - Latex Rash - Ultram [Tramadol Hc* Rash - Cephalexin Swelling - Cephalosporins Swelling - Colyte [Peg 3350-El* Vomiting - Gabapentin Swelling - Lipitor [Atorvastat* Other: See Comments Flu like symptoms - Morphine Vomiting - Zinc Oxide Unknown Current Medications No current outpatient prescriptions on file prior to visit. No current facility-administered medications on file prior to visit. Social History Social History Marital status: Spouse name: Years of education: Number of children: Social History Main Topics Smoking status: Former Smoker Packs/day: 0.00 Years: 0.00 Smokeless tobacco: Never Used Alcohol use: Yes Comment: on rare occasions Drug use: No Review of Symptoms REVIEW OF SYSTEMS GENERAL: No weight loss, malaise or fevers HEENT: No changes in hearing or vision, no nose bleeds or other nasal problems NECK: Negative for lumps, goiter, pain and significant neck swelling RESPIRATORY: Negative for cough, hemoptysis. Has been having FIGUERAO but no wheezing. Will have to stop walking to catch her breath. CARDIOVASCULAR: Negative for chest pain,hypertension, CHF or palpitations. See HPI for swelling GI: No nausea, vomiting, or diarrhea, No heartburn or reflux symptoms and no blood : No history of dysuria or blood MUSCULOSKELETAL: has the pain in the right lower leg and foot. SKIN: Negative for lesions, rash, and itching PSYCH: has anxiety from time to time. Most of the time controlled HEMATOLOGY/LYMPHOLOGY: has been noting easier bruising. ENDOCRINE: Negative for cold or heat intolerance, polyuria, polydipsia and goiter NEURO: No history of syncope, paralysis, seizures or tremors. without being able to get her propranolol refilled her migraines have increased. EXAM: BP 122/86 Pulse 82 Temp 36.4 ?C (97.5 ?F) (Left Tympanic) Resp 12 Ht 152.4 cm (5') Wt 88.4 kg (194 lb 12.8 oz) BMI 38.04 kg/m? General Appearance: Well appearing, alert, in no acute distress, well-hydrated, well nourished., Obese. Skin: deferred. Patient was not able to get into a gown Head: Normocephalic, no masses, lesions, tenderness or abnormalities. Eyes: Anicteric sclera. Pupils are equally round and reactive to light. Extraocular movements are intact. . Ears: External ears normal, canals clear. Nose/Sinuses: Nares normal, septum midline, mucosa normal, no drainage or sinus tenderness. Oropharynx: Lips, mucosa, and tongue normal, teeth and gums normal, oropharynx normal. Neck: Supple, no adenopathy; thyroid symmetric, normal size, no bruits. Lungs: Lungs clear to auscultation. No wheezing, rhonchi, rales. Heart: RRR without murmur, gallop, or rubs. No ectopy. Abdomen: Normal abdominal exam, Abdomen soft, non-tender. Bowel sounds normal. No masses, organomegaly. Extremities: No deformities or skin discoloration. Has mild pitting edema in the right foot up into lower 1/3 of leg. Musculoskeletal: Muscular strength intact. Peripheral Pulses: Normal. Neurologic: Gait normal. Reflexes normal and symmetric. Sensation to light touch and crainal nerves 2-12 intact.. Health Maintenance List PAP EVERY 5 YEARS due on 1990 HPV EVERY 5 YEARS due on 1990 MAMMOGRAM due on 2000 HEPATITIS C SCREENING due on 2004 LIPID SCREEN due on 2005 DIABETES SCREEN due on 2005 COLORECTAL CANCER SCREENING,SEE MODIFIER due on 2010 INFLUENZA(Season Ended) due on 11/30/2017 DTAP,TDAP,TD(2 - Td) due on 07/11/2025 Data reviewed In Office EKG: NSR with non-specific T wave inversion lead III. No other acute changes and no old EKG to compare with. A/P ASSESSMENT/PLAN: 1. Encounter to establish care - ICD9: V65.8, ICD10: Z76.89 (primary diagnosis) - Encouraged monthly Breast Self Exam - Follow up for annual exam in one year. - HGB A1C 2. FIGUEROA (dyspnea on exertion) - ICD9: 786.09, ICD10: R06.09 Check - ECHO - ECG COMPLETE W INTERPRETATION - TSH BLD - URINALYSIS WITH MICROSCOPIC - T4 FREE/FREE THYROX - NM CARDIAC PERF STRESS/PHARM 3. Right leg swelling - ICD9: 729.81, ICD10: M79.89 Check - TSH BLD - T4 FREE/FREE THYROX 4. Bruising - ICD9: 924.9, ICD10: T14.8XXA Check - ACTIVATED PTT - PROTHROMBIN TIME/PT - CBC + DIFF 5. Essential hypertension - ICD9: 401.9, ICD10: I10 - good control - Continue current medication(s) - Recommended regular aerobic exercise. - Recommend home blood pressure monitoring, to bring results in on next visit - Goal of BP <140/90 - ECG COMPLETE W INTERPRETATION - COMP METABOLIC PANEL - LIPID PANEL BASIC - UA 6. Hyperlipidemia, mixed - ICD9: 272.2, ICD10: E78.2 - to be determined upon return of lab results - Encouraged following a low fat, low cholesterol diet. - Discussed the benefits of regular aerobic exercise and weight loss. - Encouraged following a low carbohydrate, healthy oil intake diet. - COMP METABOLIC PANEL - LIPID PANEL BASIC - UA 7. Eczema, unspecified type - ICD9: 692.9, ICD10: L30.9 - Cont topical steroid lotion prn. 8. Seasonal allergic rhinitis, unspecified trigger - ICD9: 477.9, ICD10: J30.2 - Clinically stable with Tx. 9. GERD without esophagitis - ICD9: 530.81, ICD10: K21.9 - Continue treatment with Prilosec 20 mg QD 10. Migraine without aura and without status migrainosus, not intractable - ICD9: 346.10, ICD10: G43.009 - Stable when on the propranolol. Will restart. 11. Generalized OA - ICD9: 715.00, ICD10: M15.9 - Cont f/u with other physicians. 12. Arthritis of lumbar spine (HCC) - ICD9: 721.3, ICD10: M46.96 - Cont f/u with spine and pain management 13. Arthritis of both knees - ICD9: 716.96, ICD10: M17.0 - Stable 14. Chronic pain syndrome - ICD9: 338.4, ICD10: G89.4 - Cont f/u with pain management 15. Encounter for screening for diabetes mellitus - ICD9: V77.1, ICD10: Z13.1 Check - HGB A1C 16. Abnormal finding on EKG - ICD9: 794.31, ICD10: R94.31 - With pre-existing EKG changes will need nuclear stress test to be diagnostic. - NM CARDIAC PERF STRESS/PHARM - REGADENOSON 0.4 MG/5 ML INTRAVENOUS SYRINGE - IV START - SPECIFY - IV DISCONTINUE Signed Prescriptions Disp Refills regadenoson (LEXISCAN) 0.4 mg/5 mL syrg 5 mL 0 Sig: Inject 5 mL intravenously one time only for 1 dose. Give IV push over 10 seconds and follow with 5 ml of normal saline propranolol (INDERAL) 60 mg tablet 60 tablet 5 Sig: Take 1 tablet by mouth twice daily. MAX: No f/u in 6-8 weeks Time with patient face to face was 90 min Deny Renteria MD CNOV Observed: 08/22/2017 Status: COMPLETED Source: EGAN 8:20 AM [facility] REPOSITORY Office Visit (FAMPWS) FAREEDNATO ([id number]) 1960 F Date Time Provider Department 08/22/17 8:20 [facility] During your visit today, we recorded the following information about you: Temperature Pulse Respiration Blood pressure 97.5 degrees 82/minute 12/minute 122/86 Weight Height 88.4 kg 1.524 m Deny Renteria MD 08/22/2017 11:45 AM Signed Chief Complaint Patient presents with: Physical HPI Natodeena Guerrier is a 56 year old female who presents here today for establishment of care. patient with Hx as reviewed, updated and documented below. Went through Lumbar spinal fusion in May 2017 and on the next day due to not being able to move the right leg and having no sensation to pin prick in the anterior lower right leg she was taken back to the OR and a screw was moved back and was able to move the leg and had return of sensation. Since this time has been having swelling in her right foot up to the ankle. When the foot is not swollen will not have numbness but has increased nerve pain especial light touch. When the foot is swollen the pain decreases except for some occasional sharp pains on the top of the foot but the foot and lower 1/3 of right leg will be numb, but only on the top of the foot and front lower 1/3 of the leg. Past medical history, appointments, medications, allergies reviewed. Previous Medical History PAST MEDICAL HISTORY Diagnosis Date - Arthritis of both knees 08/22/2017 - Arthritis of lumbar spine (HCC) 08/22/2017 - Chronic pain syndrome 08/22/[address] Gray at [facility] - Dry eyes 08/22/2017 - Eczema 08/22/2017 hands - Essential hypertension 08/22/2017 - Ex-smoker 08/22/2017 - GERD without esophagitis 08/22/2017 - Hyperlipidemia, mixed 08/22/2017 - Migraine without aura and without status migrainosus, not intractable 08/22/2017 - Seasonal allergies 08/22/2017 Previous Surgical History PAST SURGICAL HISTORY Procedure Laterality Date - PAST SURGICAL HISTORY OF 05/2017 lumbar spinal fussion, Dr. BRISENO - PAST SURGICAL HISTORY OF C-sections x 3 Family History FAMILY HISTORY Problem Relation Age of Onset - Heart disease Father - Hypertension Father - skin CA [OTHER] Maternal Grandmother - bone cancer [OTHER] Maternal Grandfather - Colon Cancer Maternal Aunt Patient Allergies ALLERGIES Allergen Reactions - Chantix [Vareniclin* Rash - Latex Rash - Ultram [Tramadol Hc* Rash - Cephalexin Swelling - Cephalosporins Swelling - Colyte [Peg 3350-El* Vomiting - Gabapentin Swelling - Lipitor [Atorvastat* Other: See Comments Flu like symptoms - Morphine Vomiting - Zinc Oxide Unknown Current Medications No current outpatient prescriptions on file prior to visit. No current facility-administered medications on file prior to visit. Social History Social History Marital status: Spouse name: Years of education: Number of children: Social History Main Topics Smoking status: Former Smoker Packs/day: 0.00 Years: 0.00 Smokeless tobacco: Never Used Alcohol use: Yes Comment: on rare occasions Drug use: No Review of Symptoms REVIEW OF SYSTEMS GENERAL: No weight loss, malaise or fevers HEENT: No changes in hearing or vision, no nose bleeds or other nasal problems NECK: Negative for lumps, goiter, pain and significant neck swelling RESPIRATORY: Negative for cough, hemoptysis. Has been having FIGUEROA but no wheezing. Will have to stop walking to catch her breath. CARDIOVASCULAR: Negative for chest pain,hypertension, CHF or palpitations. See HPI for swelling GI: No nausea, vomiting, or diarrhea, No heartburn or reflux symptoms and no blood : No history of dysuria or blood MUSCULOSKELETAL: has the pain in the right lower leg and foot. SKIN: Negative for lesions, rash, and itching PSYCH: has anxiety from time to time. Most of the time controlled HEMATOLOGY/LYMPHOLOGY: has been noting easier bruising. ENDOCRINE: Negative for cold or heat intolerance, polyuria, polydipsia and goiter NEURO: No history of syncope, paralysis, seizures or tremors. without being able to get her propranolol refilled her migraines have increased. EXAM: BP 122/86 Pulse 82 Temp 36.4 ?C (97.5 ?F) (Left Tympanic) Resp 12 Ht 152.4 cm (5') Wt 88.4 kg (194 lb 12.8 oz) BMI 38.04 kg/m? General Appearance: Well appearing, alert, in no acute distress, well-hydrated, well nourished., Obese. Skin: deferred. Patient was not able to get into a gown Head: Normocephalic, no masses, lesions, tenderness or abnormalities. Eyes: Anicteric sclera. Pupils are equally round and reactive to light. Extraocular movements are intact. . Ears: External ears normal, canals clear. Nose/Sinuses: Nares normal, septum midline, mucosa normal, no drainage or sinus tenderness. Oropharynx: Lips, mucosa, and tongue normal, teeth and gums normal, oropharynx normal. Neck: Supple, no adenopathy; thyroid symmetric, normal size, no bruits. Lungs: Lungs clear to auscultation. No wheezing, rhonchi, rales. Heart: RRR without murmur, gallop, or rubs. No ectopy. Abdomen: Normal abdominal exam, Abdomen soft, non-tender. Bowel sounds normal. No masses, organomegaly. Extremities: No deformities or skin discoloration. Has mild pitting edema in the right foot up into lower 1/3 of leg. Musculoskeletal: Muscular strength intact. Peripheral Pulses: Normal. Neurologic: Gait normal. Reflexes normal and symmetric. Sensation to light touch and crainal nerves 2-12 intact.. Health Maintenance List PAP EVERY 5 YEARS due on 1990 HPV EVERY 5 YEARS due on 1990 MAMMOGRAM due on 2000 HEPATITIS C SCREENING due on 2004 LIPID SCREEN due on 2005 DIABETES SCREEN due on 2005 COLORECTAL CANCER SCREENING,SEE MODIFIER due on 2010 INFLUENZA(Season Ended) due on 11/30/2017 DTAP,TDAP,TD(2 - Td) due on 07/11/2025 Data reviewed In Office EKG: NSR with non-specific T wave inversion lead III. No other acute changes and no old EKG to compare with. A/P ASSESSMENT/PLAN: 1. Encounter to establish care - ICD9: V65.8, ICD10: Z76.89 (primary diagnosis) - Encouraged monthly Breast Self Exam - Follow up for annual exam in one year. - HGB A1C 2. FIGUEROA (dyspnea on exertion) - ICD9: 786.09, ICD10: R06.09 Check - ECHO - ECG COMPLETE W INTERPRETATION - TSH BLD - URINALYSIS WITH MICROSCOPIC - T4 FREE/FREE THYROX - NM CARDIAC PERF STRESS/PHARM 3. Right leg swelling - ICD9: 729.81, ICD10: M79.89 Check - TSH BLD - T4 FREE/FREE THYROX 4. Bruising - ICD9: 924.9, ICD10: T14.8XXA Check - ACTIVATED PTT - PROTHROMBIN TIME/PT - CBC + DIFF 5. Essential hypertension - ICD9: 401.9, ICD10: I10 - good control - Continue current medication(s) - Recommended regular aerobic exercise. - Recommend home blood pressure monitoring, to bring results in on next visit - Goal of BP <140/90 - ECG COMPLETE W INTERPRETATION - COMP METABOLIC PANEL - LIPID PANEL BASIC - UA 6. Hyperlipidemia, mixed - ICD9: 272.2, ICD10: E78.2 - to be determined upon return of lab results - Encouraged following a low fat, low cholesterol diet. - Discussed the benefits of regular aerobic exercise and weight loss. - Encouraged following a low carbohydrate, healthy oil intake diet. - COMP METABOLIC PANEL - LIPID PANEL BASIC - UA 7. Eczema, unspecified type - ICD9: 692.9, ICD10: L30.9 - Cont topical steroid lotion prn. 8. Seasonal allergic rhinitis, unspecified trigger - ICD9: 477.9, ICD10: J30.2 - Clinically stable with Tx. 9. GERD without esophagitis - ICD9: 530.81, ICD10: K21.9 - Continue treatment with Prilosec 20 mg QD 10. Migraine without aura and without status migrainosus, not intractable - ICD9: 346.10, ICD10: G43.009 - Stable when on the propranolol. Will restart. 11. Generalized OA - ICD9: 715.00, ICD10: M15.9 - Cont f/u with other physicians. 12. Arthritis of lumbar spine (HCC) - ICD9: 721.3, ICD10: M46.96 - Cont f/u with spine and pain management 13. Arthritis of both knees - ICD9: 716.96, ICD10: M17.0 - Stable 14. Chronic pain syndrome - ICD9: 338.4, ICD10: G89.4 - Cont f/u with pain management 15. Encounter for screening for diabetes mellitus - ICD9: V77.1, ICD10: Z13.1 Check - HGB A1C 16. Abnormal finding on EKG - ICD9: 794.31, ICD10: R94.31 - With pre-existing EKG changes will need nuclear stress test to be diagnostic. - NM CARDIAC PERF STRESS/PHARM - REGADENOSON 0.4 MG/5 ML INTRAVENOUS SYRINGE - IV START - SPECIFY - IV DISCONTINUE Signed Prescriptions Disp Refills regadenoson (LEXISCAN) 0.4 mg/5 mL syrg 5 mL 0 Sig: Inject 5 mL intravenously one time only for 1 dose. Give IV push over 10 seconds and follow with 5 ml of normal saline propranolol (INDERAL) 60 mg tablet 60 tablet 5 Sig: Take 1 tablet by mouth twice daily. MAX: No f/u in 6-8 weeks Time with patient face to face was 90 min Deny Renteria MD Referring Provider: SELF [200] Allergies As of Date: 08/22/2017 Noted Allergy Reaction CHANTIX (VARENICLINE) 08/22/2017 2 - Rash LATEX 08/22/2017 2 - Rash ULTRAM (TRAMADOL HCL) 08/22/2017 2 - Rash CEPHALEXIN 08/22/2017 7 - Swelling CEPHALOSPORINS 06/19/2000 7 - Swelling COLYTE (PEG 3350-ELECTROLYTES) 08/22/2017 11 - Vomiting GABAPENTIN 08/22/2017 7 - Swelling LIPITOR (ATORVASTATIN CALCIUM) 08/22/2017 14 - Other: See Comments Comments: Flu like symptoms MORPHINE 08/22/2017 11 - Vomiting ZINC OXIDE 06/19/2000 16 - Unknown Date Reviewed: 08/22/2017 Reviewed by: Deny Renteria - Fully Assessed Reason for Visit: Physical [83] Primary Visit Diagnosis:Encounter to establish care [Z76.89] Other Visit Diagnoses:FIGUEROA (dyspnea on exertion) [R06.09] Right leg swelling [M79.89] Bruising [T14.8XXA] Essential hypertension [I10] Hyperlipidemia, mixed [E78.2] Eczema, unspecified type [L30.9] Seasonal allergic rhinitis, unspecified trigger [J30.2] GERD without esophagitis [K21.9] Migraine without aura and without status migrainosus, not intractable [G43.009] Generalized OA [M15.9] Arthritis of lumbar spine (HCC) [M46.96] Arthritis of both knees [M17.0] Chronic pain syndrome [G89.4] Encounter for screening for diabetes mellitus [Z13.1] Abnormal finding on EKG [R94.31] Order(s):ECHO [772763] Order #: [id number]: 1 FUTURE ECG COMPLETE W INTERPRETATION [ECG01] Order #: [id number] FUTURE COMP METABOLIC PANEL [SQCMP] Order #: [id number] FUTURE LIPID PANEL BASIC [SQLIPB] Order #: [id number] FUTURE TSH BLD [SQTSH] Order #: [id number] FUTURE URINALYSIS WITH MICROSCOPIC [SQUAWMIC] Order #: [id number] FUTURE T4 FREE/FREE THYROX [SQFT4] Order #: [id number] FUTURE HGB A1C [DBROA1A] Order #: [id number] FUTURE NM CARDIAC PERF STRESS/PHARM [8189005] Order #: [id number] FUTURE regadenoson (LEXISCAN) 0.4 mg/5 mL syrgInject 5 mL intravenously one time only for 1 dose. Give IV push over 10 seconds and follow with 5 ml of normal salineDisp: 5 mLRfl: 0 IV START - SPECIFY [1488800] Order #: [id number]: 1 IV DISCONTINUE [4528881] Order #: [id number]: 1 ACTIVATED PTT [SQPTT] Order #: [id number] FUTURE PROTHROMBIN TIME/PT [SQPT] Order #: [id number] FUTURE CBC + DIFF [SQCBCDIF] Order #: [id number] FUTURE propranolol (INDERAL) 60 mg tabletTake 1 tablet by mouth twice daily.Disp: 60 tabletRfl: 5 Prescriptions as of 08/22/2017 Sig: AMLODIPINE 10 MG TABLET Take 10 mg by mouth once aurelio* BETAMETHASONE, AUGMENTED 0.05* Apply to affected area twice * FLUTICASONE 50 MCG/ACTUATION * Use 1 [place] in each nostril o* LOTEPREDNOL ETABONATE 0.5 % E* 1 Drop four times daily. OMEGA-3 2100 ORAL Take by mouth. OMEPRAZOLE 20 MG CAPSULE,KRISTYN* Take 20 mg by mouth once aurelio* ALBUTEROL SULFATE HFA 90 MCG/* Inhale 2 Puffs as instructed. CHOLECALCIFEROL (VITAMIN D3) * Take by mouth. CALCIUM ORAL Take by mouth. PROPRANOLOL 60 MG TABLET Take 1 tablet by mouth twice * REGADENOSON 0.4 MG/5 ML INTRA* Inject 5 mL intravenously one* Problem List As Of Date 08/22/2017 Noted Resolved Essential hypertension [I10] INVALID FOR* Priority: A Hyperlipidemia, mixed [E78.2] INVALID FOR* Priority: A Eczema [L30.9] INVALID FOR* Priority: D More... Seasonal allergies [J30.2] INVALID FOR* Priority: B Dry eyes [H04.123] INVALID FOR* Priority: G GERD without esophagitis [K21.9] INVALID FOR* Priority: A Generalized OA [M15.9] INVALID FOR* Priority: M More... 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 Arthritis of both knees [M17.0] INVALID FOR* Priority: M Chronic pain syndrome [G89.4] INVALID FOR* Priority: M More... Ex-smoker [Z87.891] INVALID FOR* Priority: B More... Migraine without aura and without status migrai*INVALID FOR* Priority: A Well adult exam [Z00.00] INVALID FOR* Priority: E More... Encounter for screening for diabetes mellitus [*INVALID FOR* Prescriptions ordered this encounter Disp Refills Start End REGADENOSON 0.4 MG/5 ML INTRAVENOUS * 5 mL 0 08/22/2017 08/22/2017 Class: In Office Route: INTRAVENOUS Sig: Inject 5 mL intravenously one time only for 1 dose. Give IV push over 10 seconds and follow with 5 ml of normal saline PROPRANOLOL 60 MG TABLET 60 t* 5 08/22/2017 Route: ORAL Sig: Take 1 tablet by mouth twice daily. Medications Discontinued During This Encounter ZOLOFT TABLET 100MG PO 0 07/30/2000 08/22/2017 Class: Historical Med Sig: Take one(1) tablet daily. Patient not taking: Reported on 08/22/2017 Disc: Course of therapy completed DARVOCET-N 100 TABLET 100-650MG PO 90 0 06/28/2000 08/22/2017 Class: Print RX Sig: take one T.I.D./Prn Patient not taking: Reported on 08/22/2017 Disc: Course of therapy completed SINEQUAN CAPSULE 10MG PO 0 06/19/2000 08/22/2017 Class: Historical Med Sig: take 23 at hs. Patient not taking: Reported on 08/22/2017 Disc: Course of therapy completed PRILOSEC CAPSULE DR 20MG PO 0 06/19/2000 08/22/2017 Class: Historical Med Sig: Take one(1) capsule twice daily. Patient not taking: Reported on 08/22/2017 Disc: Reason for discontinue is not on file. CLARITIN-D 24 HOUR TAB.SR 24H 240-10* 0 06/19/2000 08/22/2017 Class: Historical Med Sig: Take one(1) tablet daily. Patient not taking: Reported on 08/22/2017 Disc: Reason for discontinue is not on file. propranolol (INDERAL) 20 mg tablet 08/22/2017 Class: Historical Med Route: ORAL Sig: Take 20 mg by mouth three times daily. Disc: Reason for discontinue is not on file. Disposition: Return 6-8 weeks, for f/u FIGUEROA and right leg edema. Follow-up and Disposition History Recorded Encounter Status:Closed by DENY RENTERIA on 08/22/17 RE-EVALUATION - PT (1) Observed: 08/21/2017 Status: F Source: ROSALINDA 7:13 PM [facility] REPOSITORY [facility] [address] [place] [address]. [address] [place] [address] Fax REEVALUATION / MEDICARE RECERTIFICATION PHYSICAL THERAPY MR#: [id number] Acct: [id number] Name: NATO GUERRIER Rep #: [id number] : 1960 56 From: Jessica Stark MPT Referring DrSd: Terese Briseno MD Status: REG RCR Insurance: [employer] SELF PAY INSURANCE Terese Briseno, It has been my pleasure to treat NATO GUERRIER over the last 6 visits for s/p L4-S1 Fusion- R ankle weakness. Please see the progress note below for an update on the physical therapy plan of care! Subjective: Tomm she has a new PCP appointment cause Dr does not think that the surgery is causing he leg swelling cause it is now in both legs and just the R foot. The Dr wants her to see a organisation and methods analyst. Dr said go ahead and start strengthening but to quit when she knows that she has done enough. No difference with the compression sleeve given last session. Objective/Function: Trunk flexion 25% with knees bent, SB B 50%, Ext to neutral, Rot B 75%. Pt is unable to heel or toe raise on the R. Plan Plan: Start with gentle core strengthening, gait training, light LE strength geared toward HEP. Goals Goal 1:: I HEP Goal Time Frame: 4-6 Weeks Goal 2:: Increase gait to be able to walk with a normal gait pattern. Goal Time Frame: 4-6 Weeks Goal 3:: Decrease sensitivity so that pt is able to put on shoe and sock without screaming in pain Goal Time Frame: 4-6 Weeks Goal Progress: Goal Met Goal 4:: Be able to complete I HEP core stability (light) program per order Goal Time Frame: 4-6 Weeks Anticipated Interventions Patient/Client Instruction: Educate patient on: Condition, Plan of Care For the Purpose of:: To decrease pain, To decrease swelling/inflammation, To increase ROM, To improve nutrient delivery to tissue, To improve muscle performance and motor function, To improve ability to perform ADL's, To increase tolerance to activity/condition/position, To improve gait and locomotor functions, To improve health of tissue, To decrease soft tissue restriction, To increase flexibility/ROM Therapeutic Exercise to Include: Strength training, Balance training, Flexibilty training, Gait and locomotor training, Neuromotor development, Passive ROM, Active ROM For the Purpose of:: To decrease pain, To decrease swelling/inflammation, To increase ROM, To improve nutrient delivery to tissue, To improve muscle performance and motor function, To improve ability to perform ADL's, To increase tolerance to activity/condition/position, To improve health of tissue, To decrease soft tissue restriction, To increase flexibility/ROM, To improve balance Manual Therapy Techniques to Include: Massage, Passive ROM, Other Comment: desensitization For the Purpose of:: To decrease pain, To increase ROM, To improve muscle performance and motor function, To improve ability to perform ADL's, To increase tolerance to activity/condition/position, To improve gait and locomotor functions, To improve health of tissue, To decrease soft tissue restriction, To increase flexibility/ROM Please do not hesitate to contact me at [phone] by phone or if you have questions or concerns regarding this new plan of care! Sincerely, Jessica Stark <Electronically signed by Jessica Stark MPT> 08/21/17 719 CC: Terese Briseno MD; OUT OF TOWN DOCTOR Signed For Medicare only, by signing this I certify the plan of care. Physicians Signature Date ORTHOPEDIC VISIT Observed: 08/20/2017 Status: F Source: ROSALINDA REPORT 4:04 PM [facility] REPOSITORY [facility] Orthopaedics AND Sports Medicine [address] [place] [id number] OFFICE VISIT Date of Service: 08/20/17 MR#: [id number] Acct: [id number] Name: NATO GUERRIER Rep #: [id number] : 1960 Provider: Terese Briseno MD Age/Sex: 56/F Location: [facility] Status: Signed Intake Intake Visit Reasons: LOW BACK Is patient in pain?: Yes Allergies atorvastatin [From Lipitor] Allergy (Verified 07/09/17 13:45) Upset Stomach cephalexin [From Keflex] Allergy (Verified 07/09/17 13:45) Swelling morphine Allergy (Verified 07/09/17 13:45) Vomiting tramadol Allergy (Verified 07/09/17 13:45) Rash zinc Allergy (Verified 07/09/17 13:45) Rash Medications Amlodipine [Norvasc] 10 mg PO DAILY 03/15/16 [History Confirmed 06/19/17] Diclofenac Potassium 50 mg PO DAILY 03/15/16 [History Confirmed 06/19/17] Propranolol HCl 60 mg PO BID 03/15/16 [History Confirmed 06/19/17] buPROPion SR [Wellbutrin Sr] 150 mg PO BID 03/15/16 [History Confirmed 06/19/17] Betamethasone Sod Phosph-Water [Betamethasone 12 mg/2 ml-Water] 1 applic TOPICAL DAILY 06/19/17 [History Confirmed 06/19/17] Loteprednol Etabonate [Lotemax] 3.5 gm OP QHS 06/19/17 [History Confirmed 06/19/17] Omeprazole Magnesium [Prilosec Otc] 20 mg PO DAILY 06/19/17 [History Confirmed 06/19/17] Propranolol HCl [Propranolol HCl ER] 60 mg PO BID 06/19/17 [History Confirmed 06/19/17] PFSH Medical History Hypertension (Chronic) Surgical History H/O: (Acute) Social History Smoking Status: Former smoker HPI LOW BACK: Details: NATO GUERRIER returns today in follow up s/p L4-S1 laminectomy with instrumented fusion dos 05/21/17. Patient is doing well overall and not having any back pain or preoperative left leg pain. She complains of swelling into her right foot and numbness of her right foot. Her hyperesthesia and strength have improved. She has been doing physical therapy. She states her swelling is worse with standing. She sees her pain management doctor, Dr. Potts, on 08/27/17. She has stable left knee pain. ROS Const Reports system reviewed and no additional complaints, except as docu Eyes Reports system reviewed and no additional complaints, except as docu ENT Reports system reviewed and no additional complaints, except as docu Card Reports system reviewed and no additional complaints, except as docu Resp Reports system reviewed and no additional complaints, except as docu GI Reports system reviewed and no additional complaints, except as docu Reports system reviewed and no additional complaints, except as docu Musc Reports joint swelling, Reports numbness Skin/Breast Reports system reviewed and no additional complaints, except as docu Neuro Yes system reviewed and no additional complaints, except as docu, Yes numbness Psych Reports system reviewed and no additional complaints, except as docu Endo Reports system reviewed and no additional complaints, except as docu Ortho Exam Spine Neuro: Yes Straight Leg Raise (negative bilaterally) General: alert, oriented x3 Skin: Yes healed Capillary Refill <2sec: Yes Gait: normal gait, other (able to stand on heels and toes) Sensory Exam: other (hyperesthesia in right foot improved) DTR's: Rt Patellar: 2+, Lt Patellar: 2+, Rt Ankle: 2+, Lt Ankle: 2+ Coordination: Romberg test normal, tandem gait normal SPINE TESTING CERVICAL THORACIC LUMBAR SLR: Negative Musculoskeletal General: Yes normal gait (improved gait) Thoracic/Lumbar Spine: surgical scar(s) present, straight leg raise negative bilaterally, thoraco-lumbar ROM limited, other (no significant tenderness to palpation) Strength 0=absent - 5=normal R Hip Flexor (L1-3): 5, L Hip Flexor (L1-3): 5, R Quadriceps (L2-4): 5, L Quadriceps (L2-4): 5, R Anterior Tibialis (L4-5): 4, L Anterior Tibialis (L4-5): 5, R Hamstrings (L5-S1): 5, L Hamstrings (L5-S1): 5, GS (S1): 5, L GS (S1): 5, R Peroneals (S1): 5, L Peroneals (S1): 5 Assessment AND Plan Problems 1. S/P lumbar fusion Z98.1 Plan Imaging: XR lumbar spine reveals stable instrumentation I/R/P: 1. s/p L4-S1 laminectomy with instrumented fusion with revision right L5-S1 facetectomy 05/22/2017 2. right foot swelling Ms. Guerrier is much improved since her last visit. Recommend initiation of physical therapy for core strengthening. She will gradually increase her activities as tolerated. She will see her pain physician, Dr. Potts, and referral placed to vascular medicine for her right foot swelling. Follow up in 3 months with Xrays lumbar spine or sooner if issues arise. Plan of care discussed. All questions answered. She is in understanding. Orders Orders: Coding Level of Care Code Off vis,est,level 4 Diagnoses S/P lumbar fusion Z98.1 08/20/17 1604 <Electronically signed by Terese Briseno MD> Date Terese Briseno MD Cosigner Signature: Date (if applicable) CC: LUMBAR SPINE 2 OR 3 Observed: 08/20/2017 Status: F Source: MELVIN VIEWS 2:05 PM [facility] REPOSITORY [facility] Imaging Services [address] [place] [address] Lumbar Spine 2 or 3 Views MR#: [id number] Acct: [id number] Name: NATO GUERRIER Rep #: [id number] : 1960 F 56 From: Tyson Cummings MD PCP: OUT OF TOWN DOCTOR Status: REG CLI Study: Lumbar Spine 2 or 3 Views Date of Exam: 08/20/17 Exam# [id number] Ordering Dr: Terese Briseno MD STUDY: X-RAY - LUMBAR SPINE REASON FOR EXAM: Female, 56 years old. Follow-up after surgery TECHNIQUE: 2 view(s) of the lumbar spine were obtained. COMPARISON: None FINDINGS: Mild scoliosis. Generalized mild osteopenia. No acute intra-abdominal process. Lower ribs, upper medial pelvis intact. Mild SI joint degenerative changes. Posterior roger and pedicle screw fixation between L4 and S1, surgical construct intact, vertebral bodies aligned. Only minimal disc degenerative features of the low thoracic and upper lumbar spine otherwise. RAD/Lumbar Spine 2 or 3 Views IMPRESSION: Surgical construct intact. Mild scoliosis and mild spondylosis. Electronically Signed: Tyson Cummings, at 16:21 EDT Tel , Service support , CC: Terese Briseno MD; OUT OF TOWN DOCTOR Animal Care Worker: Signed INITAL EVALUATION (1) Observed: 07/26/2017 Status: F Source: ROSALINDA - PT 12:09 PM [facility] REPOSITORY [facility] Physical Therapy [facility] [address] [place], [place] [address] Fax REHABILITATION SERVICES INITIAL EVALUATION MR#: [id number] Acct: [id number] Name: NATO GUERRIER Rep #: [id number] : 1960 56 From: Jessica Stark MPT Referring Dr.: Terese Briseno MD Status: REG RCR Insurance: [employer] SELF PAY INSURANCE Patient's Visit Information NATO GUERRIER is a 56 year old F referred to Physical Therapy by Terese Briseno with a diagnosis of s/p L4-S1 Fusion- R ankle weakness. Date of Evaluation: 07/24/17 Physical Therapist: Jessica Stark - Visit Plan Frequency: 2x /Week Duration: 4 Weeks Plan: 2X/ week for 4weeks for desensitization of the R foot and ankle and ankle strengthening of the R foot. NO BACK EXERCISES - Subjective Subjective: Pt had first surgery fusion may 23. Pt had back surgery again (next day) (she went in twice cause they had to pull a screw out bw that was causing pain in her foot and they had to cut part of the bone). Before surgery she had no problems with R foot. Now after surgery now she has a burning sensation along the arch and acorss the top of the toes and anterior ankle. Her 3 toes went blue the other day and they are not blue any more. She has no control over the 3 smallest toes (she can now feel but she is very hyper-sensitive). She cant stand the sheet over her at night. Pt sees a new pain management Dr on the and will try and find new meds for her. Pt is tripping on her foot at times. Pt can not LAY ON HER BACK.....because she feels the rods are coming out of her spine. She sees Dr Gonzales August 23. She has been on gabapetin for years and can not take it and insurance co will not cover Lyrica and tylenol does not cover it. does not want pt to sit or stand longer than 30 min. Pt reports that hurting taking a shower...ice packs make it hurt. - Pain R foot Pain Intensity (Out of 10): 3 Pain Intensity Range: 10 Comment: walking without a shoe on 10 - Objective Gait: walks with decrease stance time on the R and increase wobble with gait. R foot ARM: flex to neutral, PF 35 degrees, Inv 21 degrees and EV 9 degrees. Pt is extremely hypersensitive to touch along the top of the foot, medial arch of the R foot and anterior ankle on the R. She could not handle light touch so we started with using a tissue to lightly brush over the foot including lateral arch. Pt was able to tolerate gastroc towel stretchm sitting DF AROM, and towel scrunch although her big toe does not move enough to scrunch the towel. - Goals Goal 1:: I HEP Goal Time Frame: 4-6 Weeks Goal 2:: Increase gait to be able to walk with a normal gait pattern. Goal Time Frame: 4-6 Weeks Goal 3:: Decrease sensitivity so that pt is able to put on shoe and sock without screaming in pain Goal Time Frame: 4-6 Weeks - Rehabilitation Potential Rehabilitation Potential: Fair - Anticipated Interventions Patient/Client Instruction: Educate patient on: Condition, Plan of Care For the Purpose of:: To decrease pain, To decrease swelling/inflammation, To increase ROM, To improve nutrient delivery to tissue, To improve muscle performance and motor function, To improve ability to perform ADL's, To increase tolerance to activity/condition/position, To improve gait and locomotor functions, To improve health of tissue, To decrease soft tissue restriction, To increase flexibility/ROM Therapeutic Exercise to Include: Strength training, Balance training, Flexibilty training, Gait and locomotor training, Neuromotor development, Passive ROM, Active ROM For the Purpose of:: To decrease pain, To decrease swelling/inflammation, To increase ROM, To improve nutrient delivery to tissue, To improve muscle performance and motor function, To improve ability to perform ADL's, To increase tolerance to activity/condition/position, To improve health of tissue, To decrease soft tissue restriction, To increase flexibility/ROM, To improve balance Manual Therapy Techniques to Include: Massage, Passive ROM, Other Comment: desensitization For the Purpose of:: To decrease pain, To increase ROM, To improve muscle performance and motor function, To improve ability to perform ADL's, To increase tolerance to activity/condition/position, To improve gait and locomotor functions, To improve health of tissue, To decrease soft tissue restriction, To increase flexibility/ROM Thank you for the opportunity to evaluate your patient. For Medicare and Medicare HMO plans, please review the plan of care and approve it. It will need to be FAXED BACK to us at [phone] for Medicare purposes. Please let me know if there are questions or concerns regarding this plan of care. Physician Signature: Date: <Electronically signed by Jessica Stark MPT> 07/26/17 1203 CC: Terese Briseno MD; OUT OF TOWN DOCTOR Signed For Medicare only, by signing this I certify the plan of care. Physicians Signature Date ORTHOPEDIC VISIT Observed: 07/14/2017 Status: F Source: ROSALINDA REPORT 12:21 PM [facility] REPOSITORY [facility] Orthopaedics AND Sports Medicine [address] [place] [address] OFFICE VISIT Date of Service: 07/09/17 MR#: [id number] Acct: [id number] Name: NATO GUERRIER Rep #: [id number] : 1960 Provider: Terese Briseno MD Age/Sex: 56/F [place] [facility] [place] [place]: Signed Intake Intake Visit Reasons: LOW BACK Is patient in pain?: Yes Allergies atorvastatin [From Lipitor] Allergy (Verified 07/09/17 13:45) Upset Stomach cephalexin [From Keflex] Allergy (Verified 07/09/17 13:45) Swelling morphine Allergy (Verified 07/09/17 13:45) Vomiting tramadol Allergy (Verified 07/09/17 13:45) Rash zinc Allergy (Verified 07/09/17 13:45) Rash Medications Amlodipine [Norvasc] 10 mg PO DAILY 03/15/16 [History Confirmed 06/19/17] Diclofenac Potassium 50 mg PO DAILY 03/15/16 [History Confirmed 06/19/17] Propranolol HCl 60 mg PO BID 03/15/16 [History Confirmed 06/19/17] buPROPion SR [Wellbutrin Sr] 150 mg PO BID 03/15/16 [History Confirmed 06/19/17] Betamethasone Sod Phosph-Water [Betamethasone 12 mg/2 ml-Water] 1 applic TOPICAL DAILY 06/19/17 [History Confirmed 06/19/17] Loteprednol Etabonate [Lotemax] 3.5 gm OP QHS 06/19/17 [History Confirmed 06/19/17] Omeprazole Magnesium [Prilosec Otc] 20 mg PO DAILY 06/19/17 [History Confirmed 06/19/17] Propranolol HCl [Propranolol HCl ER] 60 mg PO BID 06/19/17 [History Confirmed 06/19/17] PFSH Medical History Hypertension (Chronic) Surgical History H/O: (Acute) Social History Smoking Status: Former smoker HPI LOW BACK: Details: NATO GUERRIER returns today 7 weeks s/p L4- S1 laminectomy with instrumented fusion dos 05/21/17 and a revision decompression on 05/22/17. Patient notes that she was recently in the ED due to increased low back pain. She was cooking when her pain increased with no known injury and no popping. Patient notes that her pain is improving since her visit. She has back pain. Patient denies any radiating pain in her legs. She complains of right foot numbness and burning over her dorsal foot. She is taking tylenol for pain. She was denied lyrica by her insurance company and does not tolerate gabapentin. She has chronic left knee pain and requests a referral. She denies fevers or chills or bowel or bladder issues. ROS Const Reports system reviewed and no additional complaints, except as docu Eyes Reports system reviewed and no additional complaints, except as docu ENT Reports system reviewed and no additional complaints, except as docu Card Reports system reviewed and no additional complaints, except as docu Resp Reports system reviewed and no additional complaints, except as docu GI Reports system reviewed and no additional complaints, except as docu Reports system reviewed and no additional complaints, except as docu Musc Reports back pain, Reports numbness, Reports radiating pain into limb Skin/Breast Reports system reviewed and no additional complaints, except as docu Neuro Yes system reviewed and no additional complaints, except as docu, Yes numbness Psych Reports system reviewed and no additional complaints, except as docu Endo Reports system reviewed and no additional complaints, except as docu Ortho Exam Spine Neuro: Yes Straight Leg Raise (negative bilaterally) and Light Touch Sensation (hyperesthesia right foot) General: alert, oriented x3 Skin: Yes healing Capillary Refill <2sec: Yes Gait: normal gait Motor: muscle tone normal throughout Sensory Exam: other (hyperesthesia right foot) DTR's: Rt Patellar: 2+, Lt Patellar: 2+, Rt Ankle: 2+, Lt Ankle: 2+ Plantar Reflexes: Downgoing: bilateral Coordination: Romberg test normal SPINE TESTING CERVICAL THORACIC LUMBAR Musculoskeletal Thoracic/Lumbar Spine: surgical scar(s) present (dry eschar at proximal portion of the wound), paraspinal tenderness, straight leg raise negative bilaterally Strength 0=absent - 5=normal R Hip Flexor (L1-3): 5, L Hip Flexor (L1-3): 5, R Quadriceps (L2-4): 5, L Quadriceps (L2-4): 5, R Anterior Tibialis (L4-5): 4, L Anterior Tibialis (L4-5): 5, R Hamstrings (L5-S1): 5, L Hamstrings (L5-S1): 5, GS (S1): 5, L GS (S1): 5, R Peroneals (S1): 5, L Peroneals (S1): 5 Assessment AND Plan Problems 1. S/P spinal fusion Z98.1 Plan Imaging: Radiographs of the lumbar spine - stable instrumentation I/R/P: 1. status post L4-S1 decompression and fusion 05/21/2017 2. status post revision decompression and fusion 05/22/2017 Ms. Guerrier has improvement of her preoperative symptoms, but has right foot hyperesthesia and weakness. Recommend physical therapy for desensitization. No core strengthening. Recommend ESR and CRP. She states she is getting over a cold. She will continue restrictions and follow up in 6 weeks with standing ap and lateral Xrs or sooner if issues arise. Referral to ortho for right knee pain. Plan of care discussed. All questions answered. She is in understanding. She does have a pain physician, Dr. Kermit Gray at [facility]. Recommend she follow up with her pain physician as well. Orders Orders: Coding Level of Care Code Global Post Op Diagnoses S/P spinal fusion Z98.1 07/14/17 1221 <Electronically signed by Terese Briseno MD> Date Terese Briseno MD Cosigner Signature: Date (if applicable) CC: CRP Collected: 07/09/2017 Status: F Source: MELVIN 1:53 PM [facility] REPOSITORY TYPE CODE TESTS RESULT OUT OF RANGE REFERENCE UNITS LAB L501.6710 0.0-3.0 mg/L High 28.80 C-REACTIVE PROT Result Comment: C-Reactive Protein (CRP) provides useful information for the diagnosis, therapy and monitoring of inflammatory processes and associated diseases. For the evaluation of Relative Risk for Cardiovascular Disease, a High Sensitivity CRP (HSCRP) should be ordered. Performed By: #### L501.6710, L101.9900 #### [facility] [address] [place], [place], [address] ERYTHROCYTE SED RATE Collected: 07/09/2017 Status: F Source: [place] 1:53 PM [facility] REPOSITORY TYPE CODE TESTS RESULT OUT OF RANGE REFERENCE UNITS LAB L102.0000 0-30 mm/hr Normal SED RATE 24 Performed By: #### L501.6710, L101.9900 #### [facility] [address] [place], [address] LUMBAR SPINE 2 OR 3 Observed: 07/09/2017 Status: F Source: ROSALINDA VIEWS 12:45 PM [facility] REPOSITORY [facility] Imaging Services [address] [place] [address] Lumbar Spine 2 or 3 Views MR#: [id number] Acct: [id number] Name: NATO GUERRIER Rep #: [id number] : 1960 F 56 From: Sin Jansen MD PCP: OUT OF TOWN DOCTOR Status: REG CLI Study: Lumbar Spine 2 or 3 Views Date of Exam: 07/09/17 Exam# [id number] Ordering Dr: Terese Briseno MD STUDY: X-RAY - LUMBAR SPINE REASON FOR EXAM: Female, 56 years old. Low back pain TECHNIQUE: 2 view(s) of the lumbar spine were obtained. COMPARISON: Prior study of 06/19/2017 FINDINGS: Normal lumbar lordosis. There is no substantial scoliosis. There is a normal alignment of the vertebrae. There are status post posterior spinal fusion changes with interpeduncular screws from L4 to S1. Status post laminectomy changes are seen at L4 and L5. Normal disc space heights. The soft tissue structures are unremarkable. RAD/Lumbar Spine 2 or 3 Views IMPRESSION: Status post posterior spinal fusion changes with interpeduncular screws from L4 to S1. Status post L4 and L5 laminectomy. There is no evidence of fracture or spondylolisthesis. Findings are stable in the interval. Electronically Signed: Sin Jansen MD at 23:32 EDT , Service support , CC: Terese Briseno MD; OUT OF TOWN DOCTOR Animal Care Worker: Signed EMERGENCY DEPARTMENT Observed: 06/20/2017 Status: F Source: ROSALINDA SUMMARY 12:33 AM [facility] REPOSITORY [facility] Medical Records Department [address] [place] [address] Emergency Department Summary 06/19/17 2303 MR#: [id number] Acct: [id number] Name: NATO GUERRIER Rep #: [id number] : 1960 56 From: August Estrella PCP: OUT OF TOWN DOCTOR Status: REG ER - ER Visit Summary Date of Service: 06/19/17 Chief Complaint: Back pain History of Present Illness: The patient is a 56 F postop day 29 L4-S1 fusion by Dr. rBiseno, at [facility]. States sudden nontraumatic pain lower back approximately 2034 while standing in front and stove. She was not bending. States has pain down the leg when she moves. No loss of bowel or bladder control. Previously had pain down left leg, states initial surgery was May 21, however came out of surgery pain on the right leg, revision surgery with reversal screw on the with improved symptoms. Is doing doing well since surgery. Has not required any pain medicines, however with pain did take an oxycodone in her Flexeril at 9 PM this evening. Had a follow-up appointment 8 days ago an additional appointment on July 09. No fever, chills, sweats. Physical Examination: General: Alert and oriented 3, uncomfortable HEENT: Normocephalic, atraumatic. Moist mucosa membranes Neck: supple, nontender. Cardiovascular: Regular rate and rhythm, no murmurs Respiratory: Normal breath sounds, symmetric, no distress Back: Healing lower lumbar incision, scabbing at L4, no erythema, no drainage. Clean, dry, intact. Straight leg test negative. 1+ patellar reflex bilaterally. Abdomen: Soft, nontender, nondistended Extremities: Nontender, no edema, pulses intact 4 Neuro: no focal neurological deficits. Test Results: LS spine x-ray: Hardware intact Emergency Department Course and Treatment: Patient with no cauda equina symptoms. No signs of infection. Declined any additional pain medicines. X-ray obtained noting hardware to be intact and in appropriate position per radiologist. Patient continue her home medication she will call her surgeon tomorrow for outpatient reevaluation. Patient did state her surgeon did not want her on any NSAIDs due to wanting bone healing and formation. Return if any worsening symptoms. All questions were answered. Treatment Plan: [] Disposition: Discharge Impression: 1. Acute back pain 2. Post laminectomy with spinal fusion This note was generated with Physihome dictation software. It may contain incorrect words, spelling, and punctuation that were not noted in review of the chart prior to signing ED Disposition - Plan for ED Patient: Disposition: Home or Assisted Living Chief Complaint: Back Diagnosis: Acute back pain Referrals: [facility] Doctor,Out of [Primary Care Provider] - Additional Instructions: X-ray with hardware in appropriate position. Continue home medications. Call Dr. Briseno tomorrow for follow-up. What to do if you have Problems For any increased pain, shortness of breath, bleeding, nausea or vomiting, chest pain, or any unexpected problems, contact your Primary Care Provider. Call [facility] ([phone]) or report to the closest Emergency Room. Call 911 if necessary. 06/20/17 0033 <Electronically signed by August Estrella> Date August Estrella Cosigner Signature (If Indicated): Date CC: OUT OF TOWN DOCTOR LUMBAR SPINE 2 OR 3 Observed: 06/19/2017 Status: F Source: [facility] 11:03 PM [facility] REPOSITORY [facility] Imaging Services [address] [place] [address] Lumbar Spine 2 or 3 Views MR#: [id number] Acct: [id number] Name: NATO GUERRIER Rep #: [id number] : 1960 F 56 From: Gwen Alegria MD PCP: OUT OF [facility] DOCTOR Status: REG ER Study: Lumbar Spine 2 or 3 Views Date of Exam: 06/19/17 Exam# [id number] Ordering Dr: August Garza DO XR Spine Lumbar 2 or 3 Views INDICATION: NKIC/O LBP STARTING TONIGHTRECENT BACK SURGERY COMPARISON: December 2016 TECHNIQUE: Frontal and lateral views of the lumbar spine and coned down lateral view of the lumbosacral junction FINDINGS: There are postsurgical changes from laminectomies and posterior fusion from L4-S1, new compared to December 2016. Hardware appears properly positioned. There is no evidence of scoliosis. Height of the vertebral bodies is preserved. RAD/Lumbar Spine 2 or 3 Views IMPRESSION: Postsurgical changes from L4-S1. Height of the vertebral bodies is preserved. Consider further evaluation with MRI if clinical symptoms persist. at 2357 Reported and signed by: Gwen Alegria MD Electronically Signed: Gwen Alegria MD at 22:55 EDT Tel , Service support , CC: OUT OF TOWN DOCTOR; August Garza Animal Care Worker: Signed ORTHOPEDIC VISIT Observed: 06/15/2017 Status: F Source: MELVIN REPORT 9:03 PM [facility] REPOSITORY [facility] Orthopaedics AND Sports Medicine [address] [place] [address] OFFICE VISIT Date of Service: 06/11/17 MR#: [id number] Acct: [id number] Name: NATO GUERRIER Rep #: [id number] : 1960 Provider: Terese Briseno MD Age/Sex: 56/F [place] [facility] [place] [place] Signed Intake Intake Visit Reasons: Lumbar pain Is patient in pain?: Yes Allergies atorvastatin [From Lipitor] Allergy (Verified 06/12/17 08:44) Upset Stomach cephalexin [From Keflex] Allergy (Verified 06/12/17 08:44) Swelling morphine Allergy (Verified 06/12/17 08:44) Vomiting tramadol Allergy (Verified 06/12/17 08:44) Rash zinc Allergy (Verified 06/12/17 08:44) Rash Medications Albuterol Inhaler [Ventolin Hfa (SP)] 2 puff INHALATION Q6H PRN PRN 03/15/16 [History Confirmed 06/12/17] Amlodipine [Norvasc] 10 mg PO DAILY 03/15/16 [History Confirmed 06/12/17] Buprenorphine [Butrans 15 Mcg/Hr Patch] 10 mcg TD QWEEK 03/15/16 [History Confirmed 06/12/17] Clindamycin HCl [Cleocin] 300 mg PO Q6H #40 cap 03/15/16 [Rx Confirmed 06/12/17] Diclofenac Potassium 50 mg PO DAILY 03/15/16 [History Confirmed 06/12/17] Gabapentin [Neurontin] 100 mg PO TIDCM 03/15/16 [History Confirmed 06/12/17] Nicotine [Nicotine Patch] 1 ea TD DAILY 03/15/16 [History Confirmed 06/12/17] Propranolol HCl 60 mg PO BID 03/15/16 [History Confirmed 06/12/17] buPROPion SR [Wellbutrin Sr] 150 mg PO BID 03/15/16 [History Confirmed 06/12/17] PFSH Medical History Hypertension (Chronic) Surgical History H/O: (Acute) Social History Smoking Status: Former smoker HPI Low back pain: Details: NATO GUERRIER returns today s/p L4-S1 laminectomy with instrumented fusion on dos 05/21/17 and revision decompression on 05/22/17. Patient notes that she is doing okay. She feels her strength continues to improve in the right ankle. She has paresthesias that remain. She was unable to resume lyrica due to insurance denial. She also complains of facial swelling. She denies difficulty breathing. She has not seen her PCP for this. She denies fevers or chills. She restarted her diclofenac pills and gel. She has had no falls. She complains of back pain. She is using her walker. ROS Const Reports system reviewed and no additional complaints, except as docu Eyes Reports system reviewed and no additional complaints, except as docu ENT Reports system reviewed and no additional complaints, except as docu Card Reports system reviewed and no additional complaints, except as docu Resp Reports system reviewed and no additional complaints, except as docu GI Reports system reviewed and no additional complaints, except as docu Reports system reviewed and no additional complaints, except as docu Musc Reports back pain, Reports numbness, Reports stiffness, Reports muscle weakness Skin/Breast Reports system reviewed and no additional complaints, except as docu Neuro Yes system reviewed and no additional complaints, except as docu, Yes numbness Psych Reports system reviewed and no additional complaints, except as docu Endo Reports system reviewed and no additional complaints, except as docu Ortho Exam Spine Neuro: Yes Straight Leg Raise (negative bilaterally), Weiss's (negative bilaterally) and Light Touch Sensation (decreased on right) General: alert, oriented x3 Skin: Yes healing Capillary Refill <2sec: Yes Gait: normal gait (slow with walker) Sensory Exam: other (decreased in the right dorsal foot and lateral calf) DTR's: Rt Patellar: 1+, Lt Patellar: 1+, Rt Ankle: 1+, Lt Ankle: 1+ SPINE TESTING CERVICAL THORACIC LUMBAR SLR: Negative Musculoskeletal General: Yes normal posture Thoracic/Lumbar Spine: paraspinal tenderness Strength 0=absent - 5=normal R Hip Flexor (L1-3): 5, L Hip Flexor (L1-3): 5, R Quadriceps (L2-4): 5, L Quadriceps (L2-4): 5, R Anterior Tibialis (L4-5): 4, L Anterior Tibialis (L4-5): 5, R Hamstrings (L5-S1): 5, L Hamstrings (L5-S1): 5, GS (S1): 5, L GS (S1): 5, R Peroneals (S1): 5, L Peroneals (S1): 5 Assessment AND Plan 1. S/P spinal fusion Z98.1 Plan I/R/P: 1. status post L4-S1 laminectomy with instrumented fusion, DOS 05/21/2017 with revision laminectomy on 05/22/2017 2. back pain 3. history of nicotine use Ms. Guerrier returns today in follow up. She has back pain. Discussed risks of NSAIDs use and recommend discontinuation for a total of 3 months postop. Counseled on restrictions. Recommend physical therapy to aid with gait training and continued right lower extremity strengthening. The patient declined. She received her bone stimulator today. Follow up in 4 weeks with upright XRs of the lumbar spine or sooner if issues arise. Plan of care discussed. All questions answered. She is in understanding. Coding Level of Care Code Global Post Op Diagnoses S/P spinal fusion Z98.1 06/15/17 2926 <Electronically signed by Terese Briseno MD> Date Terese Briseno MD Cosigner Signature: Date (if applicable) CC: HEMOGRAM (CBC AND Collected: 05/25/2017 Status: F Source: [facility] PLATE[facility]) 2:00 AM [facility] REPOSITORY TYPE CODE TESTS RESULT OUT OF REFERENCE UNITS RANGE LAB WBC 3.98-10.04 K/uL WBC Count High 18.23 LAB RBC 3.93-5.22 M/uL RBC Count 4.02 LAB HGB 11.2-15.7 g/dL Hemoglobin 12.0 LAB HCT 34.1-44.9 % Hematocrit 34.3 LAB MCV 79.4-94.8 fL Mean Cell Volume 85.3 LAB MCH 25.6-32.2 pg Mean Cell Hgb 29.9 LAB MCHC 32.2-35.5 g/dL Mean Cell Hgb Conc 35.0 LAB RDW 11.7-14.4 % RBC Distribution 12.9 LAB PLT 182-369 K/uL Platelet Count 273 LAB MPV 9.4-12.3 fL Mean Platelet Volume 9.9 LAB NRBC 0.0-0.2 /100 WBC NUCLEATED RBC 0.0 Performed By: #### HEMOGC, C7C, IPB, MGO #### [facility] [address] [place] [address] [address] [place] [address] CHM7,CA Collected: 05/25/2017 Status: F Source: [facility] 2:00 AM [facility] REPOSITORY TYPE CODE TESTS RESULT OUT OF REFERENCE UNITS RANGE LAB BUN 7-22 mg/dL BUN 17 LAB NA 133-143 mmol/L Sodium 136 LAB K 3.5-5.0 mmol/L Potassium 4.3 LAB CL 98-108 mmol/L Chloride 105 LAB CO2 22-30 mmol/L Low Carbon Dioxide 21 LAB GLUC 70-99 mg/dL Glucose High 181 LAB CREA 0.50-1.20 mg/dL Low Creatinine 0.49 LAB GAP 7-17 mmol/L Anion Gap 14 LAB BC BUN/CREA Ratio 35 LAB CA 8.6-10.5 mg/dL Calcium 8.7 LAB [facility] 278-305 mOsm/kg Osmolality 293 (Calc) LAB GFR >60 mL/min/1.73 sqM Est GFR,non >60 Malian LAB GFRA >60 mL/min/1.73 sqM Est GFR, >60 Performed By: #### HEMOGC, C7C, IPB, MGO #### [facility] [address] [place] [address] [place] [address] INORGANIC PHOSPHATE Collected: 05/25/2017 Status: F Source: [facility] 2:00 AM [facility] REPOSITORY TYPE CODE TESTS RESULT OUT OF REFERENCE UNITS RANGE LAB IP 2.2-4.6 mg/dL Inorg Phosphate 2.9 Performed By: #### HEMOGC, C7C, IPB, MGO #### [facility] [address] [place] [address] [place] [address] MAGNESIUM Collected: 05/25/2017 Status: F Source: [facility] 2:00 AM [facility] REPOSITORY TYPE CODE TESTS RESULT OUT OF REFERENCE UNITS RANGE LAB MG 1.6-2.6 mg/dL Magnesium 2.2 Performed By: #### HEMOGC, C7C, IPB, MGO #### [facility] [address] [place] [address] [place] [address] HEMOGRAM (CBC AND Collected: 05/24/2017 Status: F Source: [facility]) 2:06 AM [facility] REPOSITORY TYPE CODE TESTS RESULT OUT OF REFERENCE UNITS RANGE LAB WBC 3.98-10.04 K/uL WBC Count High 19.47 LAB RBC 3.93-5.22 M/uL RBC Count 4.09 LAB HGB 11.2-15.7 g/dL Hemoglobin 12.1 LAB HCT 34.1-44.9 % Hematocrit 35.4 LAB MCV 79.4-94.8 fL Mean Cell Volume 86.6 LAB MCH 25.6-32.2 pg Mean Cell Hgb 29.6 LAB MCHC 32.2-35.5 g/dL Mean Cell Hgb Conc 34.2 LAB RDW 11.7-14.4 % RBC Distribution 13.0 LAB PLT 182-369 K/uL Platelet Count 252 LAB MPV 9.4-12.3 fL Mean Platelet Volume 9.6 LAB NRBC 0.0-0.2 /100 WBC NUCLEATED RBC 0.0 Performed By: #### HEMOGC, C7C, IPB, MGO #### [facility] [address] [place] [id number] [facility] [address] [place] [address] CHM7,CA Collected: 05/24/2017 Status: F Source: [facility] 2:06 AM [facility] REPOSITORY TYPE CODE TESTS RESULT OUT OF REFERENCE UNITS RANGE LAB BUN 7-22 mg/dL BUN 16 LAB NA 133-143 mmol/L Sodium 139 LAB K 3.5-5.0 mmol/L Potassium 3.9 LAB CL 98-108 mmol/L Chloride 104 LAB CO2 22-30 mmol/L Carbon Dioxide 26 LAB GLUC 70-99 mg/dL Glucose High 135 LAB CREA 0.50-1.20 mg/dL Creatinine 0.56 LAB GAP 7-17 mmol/L Anion Gap 13 LAB BC BUN/CREA Ratio 29 LAB CA 8.6-10.5 mg/dL Calcium 9.0 LAB [facility] 278-305 mOsm/kg Osmolality 294 (Calc) LAB GFR >60 mL/min/1.73 sqM Est GFR,non >60 Malian LAB GFRA >60 mL/min/1.73 sqM Est GFR, >60 Performed By: #### HEMOGC, C7C, IPB, MGO #### [facility] [address] [place] [address] [facility] [address] [place] [address] INORGANIC PHOSPHATE Collected: 05/24/2017 Status: F Source: [facility] 2:06 AM [facility] REPOSITORY TYPE CODE TESTS RESULT OUT OF REFERENCE UNITS RANGE LAB IP 2.2-4.6 mg/dL Inorg Phosphate 3.2 Performed By: #### HEMOGC, C7C, IPB, MGO #### [facility] [address] [place] [address] [facility] [address] [place], [place] [address] MAGNESIUM Collected: 05/24/2017 Status: F Source: [facility] 2:06 AM [facility] REPOSITORY TYPE CODE TESTS RESULT OUT OF REFERENCE UNITS RANGE LAB MG 1.6-2.6 mg/dL Magnesium 2.2 Performed By: #### HEMOGC, C7C, IPB, MGO #### [facility] [address] [place] [address] [facility] [address] [place], [place] [address] XR SPINE LUMBOSACRAL AP Observed: 05/23/2017 Status: F Source: [facility] AND LATERAL 5:35 PM [facility] REPOSITORY EXAM: XR SPINE LUMBOSACRAL AP AND LATERAL, 05/23/2017 17:24 PM COMPARISON: Compared to prior study dated January 22, 2017. CLINICAL INDICATIONS: standing ap and lateral FINDINGS: 2 images obtained. Vertebral: Interval postsurgical changes with posterior fusion hardware extending from L4 through S1. Hardware intact without surrounding lucency. Levoconvex curvature improved measuring approximately 6 degrees from the superior endplate of L2 to the inferior endplate of L5 compared to 13 degrees previously. Grade 1 anterolisthesis L4 on L5 measuring approximately 4 mm is stable. No compression fracture. Disc: Mild degenerative disc changes are stable. Joint: Facet joints are anatomically aligned. Postsurgical soft tissue swelling posteriorly with surgical drain in place. IMPRESSION: Interval posterior fusion surgery L4-S1. No acute complication evident. GRAM (CBC AND Collected: 05/23/2017 Status: F Source: [facility]) 1:52 AM [facility] REPOSITORY TYPE CODE TESTS RESULT OUT OF REFERENCE UNITS RANGE LAB WBC 3.98-10.04 K/uL WBC Count High 20.81 LAB RBC 3.93-5.22 M/uL RBC Count 4.03 LAB HGB 11.2-15.7 g/dL Hemoglobin 11.9 LAB HCT 34.1-44.9 % Hematocrit 34.6 LAB MCV 79.4-94.8 fL Mean Cell Volume 85.9 LAB MCH 25.6-32.2 pg Mean Cell Hgb 29.5 LAB MCHC 32.2-35.5 g/dL Mean Cell Hgb Conc 34.4 LAB RDW 11.7-14.4 % RBC Distribution 13.0 LAB PLT 182-369 K/uL Platelet Count 250 LAB MPV 9.4-12.3 fL Mean Platelet Volume 9.8 LAB NRBC 0.0-0.2 /100 WBC NUCLEATED RBC 0.0 Performed By: #### HEMOGC, C7C, IPB, MGO #### [facility] [address] [place] [address] [address] [place] [address] CHM7,CA Collected: 05/23/2017 Status: F Source: [facility] 1:52 AM [facility] REPOSITORY TYPE CODE TESTS RESULT OUT OF REFERENCE UNITS RANGE LAB BUN 7-22 mg/dL BUN 13 LAB NA 133-143 mmol/L Sodium 137 LAB K 3.5-5.0 mmol/L Potassium 4.0 LAB CL 98-108 mmol/L Chloride 103 LAB CO2 22-30 mmol/L Carbon Dioxide 26 LAB GLUC 70-99 mg/dL Glucose High 131 LAB CREA 0.50-1.20 mg/dL Creatinine 0.50 LAB GAP 7-17 mmol/L Anion Gap 12 LAB BC BUN/CREA Ratio 26 LAB CA 8.6-10.5 mg/dL Calcium 8.8 LAB [facility] 278-305 mOsm/kg Osmolality 289 (Calc) LAB GFR >60 mL/min/1.73 sqM Est GFR,non >60 Malian LAB GFRA >60 mL/min/1.73 sqM Est GFR, >60 Performed By: #### HEMOGC, C7C, IPB, MGO #### [facility] [address] [place] [address] [address] [place] [address] INORGANIC PHOSPHATE Collected: 05/23/2017 Status: F Source: [facility] 1:52 AM [facility] REPOSITORY TYPE CODE TESTS RESULT OUT OF REFERENCE UNITS RANGE LAB IP 2.2-4.6 mg/dL Inorg Phosphate 3.1 Performed By: #### HEMOGC, C7C, IPB, MGO #### [facility] [address] [place] [address] [address] [place], [place] [address] MAGNESIUM Collected: 05/23/2017 Status: F Source: [facility] 1:52 AM [facility] REPOSITORY TYPE CODE TESTS RESULT OUT OF REFERENCE UNITS RANGE LAB MG 1.6-2.6 mg/dL Magnesium 2.2 Performed By: #### HEMOGC, C7C, IPB, MGO #### [facility] [address] [place] [address] [facility] [address] [place], [place] [address] CT SPINE LUMBAR Observed: 05/22/2017 Status: F Source: [facility] WITHOUT CONTRAST 7:46 AM [facility] REPOSITORY EXAM: CT SPINE LUMBAR WITHOUT CONTRAST, 05/21/2017 21:32 PM COMPARISON: MRI of the lumbar spine on May 09, 2017. CLINICAL INDICATIONS:56 years Female Follow up lumbar spine fusion; TECHNIQUE: A series of transaxial multislice computerized tomographic thin section source images of the lumbar spine are obtained with helical technique without contrast. Reformats: Axial, sagittal, coronal. This patient underwent a CT examination using radiation exposure as low as reasonably achievable. CTDIvol and DLP radiation exposure values for each series were: Exposure: 1; Series: 4; Anatomy: L Spine; Phantom: 32 cm; CTDIvol: 20; DLP: [address] are the volume Computed Tomography (CT) Dose Index (CTDIvol) and the Dose Length Product (DLP), and are measured in units of mGy and mGy-cm, respectively. These indicators are not patient dose, but values generated from the CT scanner acquisition factors and may substantially underestimate or overestimate the absorbed dose based on patient size and other factors. FINDINGS: Postoperative changes are noted from posterior fusion at L4- S1, with-S1 and partial L4 laminectomy. Bilateral pedicle screws and parallel fixation rods are noted. No evidence of hardware fracture or loosening. The left S1 pedicle screw extends 8 mm beyond the anterior cortex of S1. Small amount of gas is noted within the operative bed, with more focal gas collection in the posterior paraspinal soft tissues at the midline. A drain extending into the laminectomy defect. Small amount of gas is noted within the operative bed. The adjacent soft tissues at the L4-S1 levels, including the spinal canal, are secured by streak artifact. Stable mild anterolisthesis of L4 on L5. Vertebral body heights are preserved. Intervertebral disc heights are generally preserved, with mild gas within the L5-S1 disc space. Stable mild disc bulge with ligamentum flavum thickening at L2-3, contributing to mild-moderate canal narrowing. IMPRESSION: Postoperative changes from L4-S1 fusion and L4-5 laminectomy. No evidence of hardware fracture or loosening. Adjacent soft tissues, including the spinal canal is obscured by streak artifact. Degenerative changes at adjacent levels are stable from MRI on May 09, 2017. GRAM (CBC AND Collected: 05/22/2017 Status: F Source: [facility] PLATELET) 3:09 AM [facility] REPOSITORY TYPE CODE TESTS RESULT OUT OF REFERENCE UNITS RANGE LAB WBC 3.98-10.04 K/uL WBC Count High 20.35 LAB RBC 3.93-5.22 M/uL RBC Count 4.45 LAB HGB 11.2-15.7 g/dL Hemoglobin 13.3 LAB HCT 34.1-44.9 % Hematocrit 39.1 LAB MCV 79.4-94.8 fL Mean Cell Volume 87.9 LAB MCH 25.6-32.2 pg Mean Cell Hgb 29.9 LAB MCHC 32.2-35.5 g/dL Mean Cell Hgb Conc 34.0 LAB RDW 11.7-14.4 % RBC Distribution 12.9 LAB PLT 182-369 K/uL Platelet Count 252 LAB MPV 9.4-12.3 fL Mean Platelet Volume 9.7 LAB NRBC 0.0-0.2 /100 WBC NUCLEATED RBC 0.0 Performed By: #### HEMOGC, C7C, IPB, MGO #### [facility] [address] [place] [address] [facility] [address] [place] [address] CHM7,CA Collected: 05/22/2017 Status: F Source: [facility] 3:09 AM [facility] REPOSITORY TYPE CODE TESTS RESULT OUT OF REFERENCE UNITS RANGE LAB BUN 7-22 mg/dL BUN 15 LAB NA 133-143 mmol/L Sodium 135 LAB K 3.5-5.0 mmol/L Potassium 4.2 LAB CL 98-108 mmol/L Chloride 101 LAB CO2 22-30 mmol/L Carbon Dioxide 22 LAB GLUC 70-99 mg/dL Glucose High 155 LAB CREA 0.50-1.20 mg/dL Creatinine 0.64 LAB GAP 7-17 mmol/L Anion Gap 16 LAB BC BUN/CREA Ratio 23 LAB CA 8.6-10.5 mg/dL Calcium 8.9 LAB OSMC 278-305 mOsm/kg Osmolality 288 (Calc) LAB GFR >60 mL/min/1.73 sqM Est GFR,non >60 Malian LAB GFRA >60 mL/min/1.73 sqM Est GFR, >60 Performed By: #### HEMOGC, C7C, IPB, MGO #### [facility] [address] [place] [address] INORGANIC PHOSPHATE Collected: 05/22/2017 Status: F Source: [facility] 3:09 AM [facility] REPOSITORY TYPE CODE TESTS RESULT OUT OF REFERENCE UNITS RANGE LAB IP 2.2-4.6 mg/dL Inorg Phosphate 4.1 Performed By: #### HEMOGC, C7C, IPB, MGO #### [facility] [address] 410 [place] [address] MAGNESIUM Collected: 05/22/2017 Status: F Source: [facility] 3:09 AM [facility] REPOSITORY TYPE CODE TESTS RESULT OUT OF REFERENCE UNITS RANGE LAB MG 1.6-2.6 mg/dL Magnesium 2.2 Performed By: #### HEMOGC, C7C, IPB, MGO #### [facility] [address] [address] MRI SPINE CERVICAL Observed: 05/14/2017 Status: F Source: [facility] WITHOUT CONTRAST 12:36 PM [facility] REPOSITORY EXAM: MRI SPINE CERVICAL WITHOUT CONTRAST, 05/14/2017 09:47 AM COMPARISON: No prior studies available for comparison. CLINICAL INDICATIONS: 56 years Female Cervical disc disorders; RELEVANT CLINICAL HISTORY: M50.90:Cervical disc disorder, unspecified, unspecified cervical region TECHNIQUE: A series of sagittal and axial multisequence images of the cervical spine were obtained without intravenous contrast using standard protocol. FINDINGS: Straightening of the normal alignment. The vertebral body heights are maintained. Loss of T2 disc signal within the disc spaces likely degenerative in nature. No cord signal abnormalities identified. The craniocervical junction is intact. The paraspinal soft tissues are grossly unremarkable. C2-C3: No significant disc protrusion, neural foramina narrowing or central canal stenosis. C3-C4: Small central disc osteophyte complex. Facet degenerative changes. Moderate left and mild right neural foramina narrowing. Mild central canal stenosis. C4-C5: Central disc osteophyte complex effacing the ventral aspect of the thecal sac and causing moderate spinal stenosis. Severe left and moderate right neural foramina narrowing. C5-C6: Central disc osteophyte complex effacing the ventral aspect of the thecal sac and causing moderately severe spinal stenosis. Bilateral severe neural foramina narrowing secondary due to uncovertebral and facet hypertrophic changes. C6-C7: Small central disc osteophyte complex. Facet degenerative changes. No significant spinal stenosis or neural foramina narrowing. C7-T1: No significant disc protrusion, neural foramina narrowing or central canal stenosis. IMPRESSION: Degenerative changes in the cervical spine with moderate spinal stenosis at C4-C5 level, moderately severe spinal stenosis at C5-C6 level and neural foramina narrowing extending from C3-C4 level to C5-C6 levels. Observed: 05/09/2017 Status: F Source: [facility] TYPE AND CROSS - 4:33 PM [facility] REPOSITORY ABO/RH(D): A POSITIVE ANTIBODY SCREEN: NEGATIVE Performed By: #### XME #### [facility] [address] [address] [place] [address] NICOTINE(COTININE),URINE Collected: Status: F Source: [facility] 05/09/2017 4:24 PM [facility] REPOSITORY TYPE CODE TESTS RESULT OUT OF REFERENCE UNITS RANGE LAB NICOTU 500 ng/mL NONE DETECTED Nicotine(Co tinine),Uri ne Performed By: #### NICOTU #### [facility] [address] [place] [address] [place], [place] [address] MRI SPINE LUMBAR Observed: 05/09/2017 Status: F Source: [facility] WITHOUT CONTRAST 3:30 PM [facility] REPOSITORY EXAM: MRI SPINE LUMBAR WITHOUT CONTRAST, 05/09/2017 14:34 PM COMPARISON: No prior studies available for comparison. CLINICAL INDICATIONS: 56 years Female Presurgical evaluation, lumbar spine; Spondylolisthesis; Spinal stenosis, lumbar; lumbar spine - surgery is l4-5, l5-s1 lami w/fusion; RELEVANT CLINICAL HISTORY: Z01.818:Encounter for other preprocedural examination M48.062:Spinal stenosis, lumbar region with neurogenic claudication M43.16:Spondylolisthesis, lumbar region TECHNIQUE: A series of sagittal and axial multisequence images of the lumbar spine were obtained without intravenous contrast using standard protocol. FINDINGS: Degenerative grade 1 anterolisthesis of L4 and to a lesser degree L5 secondary to advanced facet hypertrophy. Borderline developmentally shortened pedicles in lower lumbar spine and associated narrowing of spinal canal. Conus medullaris terminates at T12-L1 interspace. Vertebral bodies are within normal limits in height. Some heterogeneity of marrow signal is likely within the range of normal . By levels: L1-L2: Mild disc bulge and facet hypertrophy without significant stenosis L2-L3: Mild disc bulge eccentric to the left and facet hypertrophy contribute to mild left foraminal stenosis L3-L4: Disc bulge and facet hypertrophy result in mild effacement of thecal sac and mild to moderate left greater than right neural foraminal stenosis. A synovial cyst arising from left facet joint protrudes into the paraspinal soft tissues L4-L5: Right eccentric disc bulge and advanced facet hypertrophy with degenerative grade 1 anterolisthesis all contribute to severe effacement of thecal sac and severe right moderate left foraminal stenosis L5-S1: Disc bulge and advanced facet hypertrophy with mild grade 1 anterolisthesis of L5 contribute to moderate effacement of thecal sac and severe bilateral foraminal stenosis. IMPRESSION: Borderline narrowing of spinal canal throughout lower lumbar spine. Superimposed degenerative changes- including degenerative anterolisthesis secondary to facet hypertrophy at L4 and L5 contribute to severe narrowing of thecal sac and severe right foraminal stenosis at L4-L5 as well as moderate narrowing of thecal sac and severe bilateral foraminal stenoses at L5-S1. Observed: 05/09/2017 Status: F Source: [facility] TYPE AND CROSS - 1:15 PM [facility] PRE-OP [facility] REPOSITORY ABO/RH(D): A POSITIVE ANTIBODY SCREEN: NEGATIVE UNIT NUMBER: [id number] BLOOD COMPONENT TYPE: Red Cells, Leukoreduced_[id number] STATUS OF UNIT: REL FROM ALLOC TRANSFUSION STATUS: OK TO TRANSFUSE CROSSMATCH RESULT: Electronically Compatible UNIT NUMBER: [id number] BLOOD COMPONENT TYPE: Red Cells, Leukoreduced_[id number] STATUS OF UNIT: REL FROM ALLOC TRANSFUSION STATUS: OK TO TRANSFUSE CROSSMATCH RESULT: Electronically Compatible Performed By: #### XMPO #### [facility] [address] [place] [address] [place] [address] CBC WITH DIFF Collected: 05/09/2017 Status: F Source: [facility] 12:43 PM [facility] REPOSITORY TYPE CODE TESTS RESULT OUT OF REFERENCE UNITS RANGE LAB WBC 3.98-10.04 K/uL WBC Count 12.04 High LAB RBC 3.93-5.22 M/uL RBC Count 5.37 High LAB HGB 11.2-15.7 g/dL Hemoglobin 15.6 LAB HCT 34.1-44.9 % Hematocrit 45.7 High LAB MCV 79.4-94.8 fL Mean Cell 85.1 Volume LAB MCH 25.6-32.2 pg Mean Cell 29.1 Hgb LAB MCHC 32.2-35.5 g/dL Mean Cell 34.1 Hgb Conc LAB RDW 11.7-14.4 % RBC 12.4 Distribution LAB PLT 182-369 K/uL Platelet 291 Count LAB MPV 9.4-12.3 fL Mean 9.6 Platelet Volume LAB NRBC 0.0-0.2 /100 WBC NUCLEATED 0.0 RBC LAB DTYPE Electronic DIFFERENTIAL TYPE Differential LAB IGRE % IMMATURE 0.2 GRANS % LAB SEGS % NEUTROPHIL 62.1 SEGMENTED LAB LYM % LYMPHOCYTE 23.5 % LAB MON % MONOCYTE % 8.4 LAB EOS % EOSINOPHIL 4.9 % LAB BASO % BASOPHIL % 0.9 LAB IGABS 0.00-0.03 K/uL IMMATURE 0.03 GRANS ABSOLUTE LAB SBANS 1.56-6.13 K/uL SEGS + 7.47 High Bands,Absolute LAB ALYM 1.18-3.74 K/uL Abs Lymph 2.83 LAB AMONO 0.24-0.86 K/uL Abs Zapata 1.01 High LAB AEOS 0.04-0.36 K/uL Abs Eos 0.59 High LAB ABASO 0.01-0.08 K/uL Abs Baso 0.11 High Performed By: #### CBCDFM, CAC, CHM7C, IPC, MGCC #### [facility] [address] [place] [address] #### PTPTT, A1CB #### [facility] [address] [place] [address] [address] - [address] Collected: 05/09/2017 Status: F Source: [facility] 12:43 PM [facility] REPOSITORY TYPE CODE TESTS RESULT OUT OF REFERENCE UNITS RANGE LAB CA 8.6-10.5 mg/dL Calcium 10.4 Performed By: #### CBCDFM, CAC, CHM7C, IPC, MGCC #### [facility] [address] [place] [address] #### PTPTT, A1CB #### [place] [address] CHEM [address] - [address] Collected: 05/09/2017 Status: F Source: [facility] LAB 12:43 PM [facility] REPOSITORY TYPE CODE TESTS RESULT OUT OF REFERENCE UNITS RANGE LAB NA 133-143 mmol/L Sodium 138 LAB K 3.5-5.0 mmol/L Potassium 4.9 LAB CL 98-108 mmol/L Chloride 101 LAB CO2 22-30 mmol/L Carbon Dioxide 30 LAB BUN 7-22 mg/dL BUN 22 LAB CREA 0.50-1.20 mg/dL Creatinine 0.78 LAB GLUC 70-99 mg/dL Glucose High 112 LAB GAP 7-17 mmol/L Anion Gap 12 LAB GFR >60 mL/min/1.73 sqM Est GFR,non >60 Malian LAB GFRA >60 mL/min/1.73 sqM Est GFR, >60 LAB OSMC 278-305 mOsm/kg Osmolality 295 (Calc) Performed By: #### CBCDFM, CAC, CHM7C, IPC, MGCC #### [facility] [place] [address] #### PTPTT, A1CB #### [facility] [address] [place] [address] [address] [place] [address] INORG PHOSPHATE - Collected: 05/09/2017 Status: F Source: [facility] LAB 12:43 PM [facility] REPOSITORY TYPE CODE TESTS RESULT OUT OF REFERENCE UNITS RANGE LAB IP 2.2-4.6 mg/dL Inorg Phosphate 4.1 Performed By: #### CBCDFM, CAC, CHM7C, IPC, MGCC #### [facility] [address] [place] [address] #### PTPTT, A1CB #### [facility] [address] [place] [address] [address] [place] [address] MAGNESIUM - [address] Collected: 05/09/2017 Status: F Source: [facility] 12:43 PM [facility] REPOSITORY TYPE CODE TESTS RESULT OUT OF REFERENCE UNITS RANGE LAB MG 1.6-2.6 mg/dL Magnesium 2.3 Performed By: #### CBCDFM, CAC, CHM7C, IPC, MGCC #### [facility] [address] [place] [address] #### PTPTT, A1CB #### [facility] [address] [place] [address] PT*PTT Collected: 05/09/2017 Status: F Source: [facility] 12:43 PM [facility] REPOSITORY TYPE CODE TESTS RESULT OUT OF RANGE REFERENCE UNITS LAB PT 11.9-14.2 sec PT 12.4 LAB INR 0.9-1.1 INR 0.9 LAB PTT 24.0-34.3 sec PTT 29.4 Performed By: #### CBCDFM, CAC, CHM7C, IPC, MGCC #### [facility] [address] [place] [address] #### PTPTT, A1CB #### [facility] [address] [place] [address] [place] [address] [place] [address] HEMOGLOBIN A1C Collected: 05/09/2017 Status: F Source: [facility] 12:43 PM [facility] REPOSITORY TYPE CODE TESTS RESULT OUT OF REFERENCE UNITS RANGE LAB A1C 4.7-5.6 % High Hemoglobin A1C 6.0 LAB EAG mg/dL Estimated 126 Average Glucose Performed By: #### CBCDFM, CAC, CHM7C, IPC, MGCC #### [facility] [address] [place] [address] #### PTPTT, A1CB #### [facility] [address] [place] [address] [place] [address] URINALYSIS W REFLEX Collected: 05/09/2017 Status: F Source: [facility] 12:43 PM [facility] REPOSITORY TYPE CODE TESTS RESULT OUT OF REFERENCE UNITS RANGE LAB [employer] Clear Appearance Urine Clear LAB SPGR 1.001-1.035 Specific [place] urine 1.010 LAB UGL Negative mg/dL Glucose Urine Negative LAB UKET Negative Ketones Urine Negative LAB UBLD Negative Blood Urine Negative LAB UPH 5.0-7.0 pH Urine 5.5 LAB UPR Negative mg/dL Protein Urine Negative LAB UNTR Negative Nitrites Urine Negative LAB ULEU Negative Leukocyte Esterase Negative LAB COLR YEL,DKYEL Color Yellow LAB UURO <2.0 EU/dL Urobilinogen urine 0.2 LAB UWBC 0-5 /HPF WBC Urine 0-5 LAB URBC 0-2 /HPF RBC Urine 0-2 LAB BACT Absent Bacteria Absent LAB EPIS /HPF Squamous Epithelial 1+ LAB UCOM COMMENT URINE None Performed By: #### URN1C #### [facility] [address] [place] [address] Observed: 05/09/2017 Status: F Source: [facility] SCREEN: RESP STAPH 12:43 PM [facility] (HIGH RISK SURGERY) [facility] REPOSITORY NARES: Negative Negative This test was performed using a real time PCR assay. Results should be interpreted in conjunction with other clinical and laboratory findings. A positive result does not necessarily indicate the pr esence of viable organism. This test should not be used as a test of cure. For E-swab specimens, this test was developed and its performance characteristics determined by the Clinical Microbiology Laboratory at [facility] [place]. It has not b een cleared or approved by the FDA.The laboratory is regulated under CLIA as qualified to perform high-complexity testing. This test is used for clinical purposes. It should not be regarded as investigational or for research. Performed By: #### SCRSB #### [place] [address] ALLERGIES ALLERGIES DATE TYPE / NAME / CODE REACTION SEVERITY SOURCE CODE 01/27/2018 Drug zinc/[id number](RXNO Rash Unknown [facility]/41 RM) [facility] 1785979(SN Repository OMED CT) 01/27/2018 Drug morphine/[id number]( Vomiting Unknown [facility] Allergy/41 RXNORM) Hospital 4042618(SN Repository OMED CT) 01/27/2018 Drug cephalexin/[id number] Swelling Unknown [facility] Allergy/41 6(RXNORM) Hospital 5559403(SN Repository OMED CT) 01/27/2018 Drug tramadol/[id number]( Rash Unknown [facility] Allergy/41 RXNORM) Hospital 7927484(SN Repository OMED CT) 01/27/2018 Drug gabapentin/[id number] Swelling Unknown [facility] Allergy/41 5(RXNORM) Hospital 2522542(SN Repository OMED CT) 01/27/2018 Drug nickel/[id number](RX Rash Unknown [facility] Allergy/41 NORM) Hospital 9961629(SN Repository OMED CT) 01/27/2018 Drug atorvastatin/R068542 Upset Stomach Unknown [facility] Allergy/41 321(RXNORM) Hospital 2517239(SN Repository OMED CT) 01/27/2018 Drug latex/[id number](RXN Rash Unknown [facility] Allergy/41 ORM) Hospital 7580300(SN Repository OMED CT) 01/27/2018 Drug pork derived Food Allergy Unknown [facility] Allergy/41 (porcine)/[id number] Hospital 6639579(SN (RXNORM) Repository OMED CT) 10/25/2017 DRUG NORTRIPTYLINE OTHER: SEE C [facility] INGREDI/41 Main [place] 3180644(SN Repository OMED CT) 10/15/2017 DRUG DULOXETINE OTHER: SEE C [facility] INGREDI/41 [place] 3632179(SN Repository OMED CT) 08/27/2017 [facility] System Rep[facility] 4501032(SN OMED CT) 08/22/2017 DRUG VARENICLINE RASH [facility] INGREDI41 [place] 3252262(SN Repository OMED CT) 08/22/2017 DRUG LATEX RASH [facility] [place] 8996539(SN Repository OMED CT) 08/22/2017 DRUG TRAMADOL HCL RASH [facility] [place] 5925583(SN Repository OMED CT) 08/22/[address] S[address]LLING [facility] INGREDI41 [place] 1275823(SN Repository OMED CT) 08/22/2017 DRUG/[address] [facility] 1003(SNOME 3350-ELECTROLYTES [facility] [place] D CT) Repository 08/22/2017 DRUG GABAPENTIN SWELLING [facility] [place] 2023006(SN Repository OMED CT) 08/22/2017 DRUG ATORVASTATIN CALCIUM OTHER: SEE C [facility] INGREDI/41 [place] 1470294(SN Repository OMED CT) 08/22/[address] [facility] [place] 6063832(SN Repository OMED CT) 01/10/2016 DRUG VARENICLINE RASH [facility]I/41 System Repository 0974470(SN OMED CT) 07/16/2014 DRUG/76423 PEG VOMITING [facility] 1003(SNOME 8281-TXP-ZQXSM-NACL- System Repository D CT) NASULF 02/15/2014 Drug CEPHALOSPORINS [facility] Class/4195 System Repository 23558(SNOM ED CT) 05/05/2013 DRUG/30339 LIPITOR [facility] 1003(SNOME System Repository D CT) 05/05/2013 DRUG TRAMADOL RASH [facility] [place] [facility] INGREDI/41 System Repository 1550173(SN OMED CT) 04/13/2013 DRUG MORPHINE VOMITING [facility] [place] [facility] INGREDI/41 System Repository 0801616(SN OMED CT) 02/05/2013 DRUG LATEX RASH [facility] [place] [facility] INGREDI/41 System Repository 8071450(SN OMED CT) 06/19/2000 Drug CEPHALOSPORINS SWELLING Low [facility] Class/4195 [place] [address]8527(SNOM Repository ED CT) 06/19/2000 DRUG ZINC OXIDE UNKNOWN [place] [address] [place] 2066464(SN Repository OMED CT) 06/19/2000 Drug CEPHALOSPORINS [facility]/4195 [place] [address]8464(SNOM Repository ED CT) 06/19/2000 DRUG ZINC OXIDE [place] [address] [place] 4565791(SN Repository OMED CT) 12/06/1999 DRUG CEPHALEXIN The [place] [address] MONOHYDRATE System Repository 5452254(SN OMED CT) 12/06/1999 DRUG ZINC OXIDE The [place] [address] System Repository 6717142(SN OMED CT) ENCOUNTERS ENCOUNTERS ADMIT/DISCHARGE ACCOUNT NUMBER ADMITTING ENCOUNTER LOCATION SOURCE CLASS 04/17/2018 [id number] Ambulatory [facility] ding:CT Repository 01/27/2018/01/28/20 [id number] Emergency [address] ding:ED Repository 01/17/2018/01/18/20 [id number] Ambulatory [address] ding:SDCRoom Repository : AC04 01/13/2018/01/14/20 [id number] Ambulatory [address] Repository 01/07/2018/01/08/20 [id number] Ambulatory [address] Repository 01/07/2018/01/09/20 [id number] Ambulatory [address] Repository 12/25/2017/12/27/19 [id number] Ambulatory [address] Repository 11/12/2017 [id number] Ambulatory [facility] ding:HPRAD Repository 11/12/2017/11/13/19 [id number] Ambulatory BMSBuilding: [address] Repository 11/05/2017 [id number] Ambulatory [facility] ding:PT Repository 10/15/2017/10/17/19 [id number] Ambulatory [address] Repository 09/12/2017 [id number] Ambulatory [facility] ding:LABSPEC Repository 09/12/2017 [id number] Ambulatory [facility] ding:HPRAD Repository 09/12/2017/09/13/19 [id number] Ambulatory BMSBuilding: [place] [facility] BMS[facility] Repository 08/27/2017/08/28/19 [id number] Unknown [facility] [address] [facility] Repository 08/22/2017/08/23/19 [id number] Ambulatory [address] Repository 08/22/2017/04/17/19 [id number] Ambulatory [address] Repository 08/21/2017/08/22/19 [id number] Ambulatory [address] ding:PT Repository 08/20/2017 [id number] Ambulatory [facility] ding:HPRAD Repository 08/20/2017/08/21/19 [id number] Ambulatory BMSBuilding: [place] 18 BMS.[facility] Repository 07/18/2017 [id number] Ambulatory BMSBuilding: [place] BMS.[facility] Repository 07/09/2017 [id number] Ambulatory [facility] ding:HPRAD Repository 07/09/2017/07/10/19 [id number] Ambulatory BMSBuilding: [place] 18 BMS.[facility] Repository 06/19/2017/06/21/19 [id number] Emergency [address] ding:ED Repository 06/11/2017/06/12/19 [id number] Ambulatory BMSBuilding: [place] 18 BMS.[facility] Repository 05/21/2017/05/25/19 [id number] BRISENO, Inpatient Building:[address] Encounter Room: [place] [address] 05/14/2017 [id number] Ambulatory Building:[facility] Repository 05/09/2017 [id number] Ambulatory Building:LBC [facility] Repository 05/09/2017 [id number] Ambulatory Building:[facility]ENN[facility] Repository 05/09/2017 [id number] Ambulatory Building:[facility] Repository 05/09/2017 [id number] Ambulatory Building:KRI [facility] Repository 05/09/2017 [id number] Ambulatory Building:OPA [facility] Repository PAYERS PAYERS ENCOUNTER GUARANTOR PAYER SUBSCRIBER SOURCE 04/17/2018 NATO L Primary DON [facility] [id number] Insurance:ANTHEMPolic RUPANOVICDOB: [facility], y Number: [id number] Repository [place] [address]Ebe: [id number] rodri Date:[id number] () [address], [place] [address]HH: 04/17/2018 Secondary NOT GIVENUNK [facility] Insurance:SELF PAY Hospital INSURANCEPolicy Repository Number: Effective Date:2018-04-15 01/27/2018 NATO L Primary DON [facility] [id number] E Insurance:ANTHEMPolic RUPANOVICDOB: [facility], y Number: [id number] [place]ository [place] [address]Xcw: [id number] rodri Date:2466-54-61HI () [address]HOZSAJ, [place] [address]CJ: 01/27/2018 Secondary NOT GIVENUNK [facility] Insurance:SELF PAY Hospital INSURANCEPolicy Repository Number: Effective Date:2018-01-27 01/17/2018 NATO L Primary DON [facility] [id number] E Insurance:ANTHEMPolic RUPANOVICDOB: [facility], y Number: [id number] [place]ository [place] [address]Njp: [id number] rodri Date:6287-82-82MS () [address] [place] [address] 40852VF: 01/17/2018 Secondary NOT GIVENUNK [facility] Insurance:SELF PAY Hospital INSURANCEPolicy Repository Number: Effective Date:2017-12-20 11/12/2017 NATO L Primary DON [facility] [id number] E Insurance:ANTHEMPolic RUPANOVICDOB: [facility], y Number: [id number] [place]ository [place] [address]Loa: [id number] rodri Date:3320-56-37ZL () [address] [place] [address] 31738TS: 11/12/2017 Secondary NOT GIVENUNK [facility] Insurance:SELF PAY Hospital INSURANCEPolicy Repository Number: Effective Date:2017-11-12 11/12/2017 NATO L Primary DON [facility] [id number] E Insurance:ANTHEMPolic RUPANOVICDOB: [facility], y Number: [id number] [place]ository [place] [address]Jjf: [id number] rodri Date:9910-19-42LG () [address] [place] [address] 72411WV: 11/12/2017 Secondary NOT GIVENUNK [facility] Insurance:SELF PAY Hospital INSURANCEPolicy Repository Number: Effective Date:2017-11-12 11/05/2017 NATO L Primary DON [facility] [id number] E Insurance:ANTHEMPolic RUPANOVICDOB: [facility], y Number: [id number] [place] [address]Mfs: [id number] rodri Date:7375-02-99FX () [address] [place] [address] 27630RG: 11/05/2017 Secondary NOT GIVENUNK [facility] Insurance:SELF PAY Hospital INSURANCEPolicy Repository Number: Effective Date:2017-10-28 09/12/2017 NATO L Primary DON [facility] [id number] E Insurance:ANTHEMPolic RUPANOVICDOB: [facility], y Number: [id number] [place]ository [place] [address]Pbq: [id number] rodri Date:6079-45-34ZX () [address] [place] [address] 23423WI: 09/12/2017 Secondary NOT GIVENUNK [facility] Insurance:SELF PAY Hospital INSURANCEPolicy Repository Number: Effective Date:2017-09-12 09/12/2017 [facility] L [facility] [id number] E Insurance:ANTHEMPolic RUPANOVICDOB: [facility], y Number: [id number] [place]ository [place] [address]Hdb: [id number] rodri Date:7842-42-89TM () [address] [place] [address] 38450CD: 09/12/2017 Secondary NOT GIVENUNK [facility] Insurance:SELF PAY Hospital INSURANCEPolicy Repository Number: Effective Date:2017-09-12 09/12/2017 [facility] L [facility] [id number] E Insurance:ANTHEMPolic RUPANOVICDOB: [facility], y Number: [id number] [place]ository [place] [address]Zky: [id number] rodri Date:1226-91-34FX () [address] [place] [address] 95241RP: 09/12/2017 Secondary NOT GIVENUNK [facility] Insurance:SELF PAY Hospital INSURANCEPolicy Repository Number: Effective Date:2017-09-12 08/27/2017 NATO [facility] Insurance:BLUE RUPANOVICDOB: System Repository E CROSS/HMO,PPO,POSPoli [id number], [place] Number: [address] [facility] [place] [address]Elk: [id number] [place]VE[place], [place] rodri Date:2015-04-01 [address]Ycq: (352) (HP) [phone] (HP) (WP) 08/27/2017 Secondary BENITO [facility] Insurance:BLUE RUPANOVICDOB: System Repository CROSS/HMO,PPO,POSPoli [id number] cy Number: Milagros EPPS [id number] [place] rodri Date:2015-04-01 [address]Ead: (HP) (WP) 08/21/2017 NATO L Primary DON [facility] [id number] E Insurance:ANTHEMPolic RUPANOVICDOB: [facility], y Number: [id number] [place]ository [place] [address]Fts: [id number] rodri Date:2122-35-36VF () [address], [place] [address]AM: 08/21/2017 Secondary NOT GIVENUNK [facility] Insurance:SELF PAY Hospital INSURANCEPolicy Repository Number: Effective Date:2017-07-09 08/20/2017 NATO L Primary DON [facility] [id number] E Insurance:ANTHEMPolic RUPANOVICDOB: [facility], y Number: [id number] [place]ository [place] [address]Eod: [id number] rodri Date:5613-37-49RB () [address]ITNRYCM, [place] [address]JS: 08/20/2017 Secondary NOT GIVENUNK [facility] Insurance:SELF PAY Hospital INSURANCEPolicy Repository Number: Effective Date:2017-08-20 08/20/2017 NATO L Primary DON [facility] [id number] E Insurance:ANTHEMPolic RUPANOVICDOB: [facility], y Number: [id number] Repository [place] [address]Hap: [id number] rodri Date:1694-97-69ND () [address]KZKTKJI, [place] [address]IQ: 08/20/2017 Secondary NOT GIVENUNK [facility] Insurance:SELF PAY Hospital INSURANCEPolicy Repository Number: Effective Date:2017-08-20 07/18/2017 NATO L Primary DON [facility] [id number] E Insurance:ANTHEMPolic RUPANOVICDOB: [facility], y Number: [id number] [place]ository [place] [address]Yhs: [id number] rodri Date:5381-36-42QW () [address]LDZQL, [place] [address]HM: 07/18/2017 Secondary NOT GIVENUNK [facility] Insurance:SELF PAY Hospital INSURANCEPolicy Repository Number: Effective Date:2017-07-17 07/09/2017 NATO L Primary DON [facility] [id number] E Insurance:ANTHEMPolic RUPANOVICDOB: [facility], y Number: [id number] [place]ository [place] [address]Xcx: [id number] rodri Date:3109-15-32ER () [address]NBSQFVH, [place] [address]KQ: 07/09/2017 Secondary NOT GIVENUNK [facility] Insurance:SELF PAY Hospital INSURANCEPolicy Repository Number: Effective Date:2017-07-08 07/09/2017 NATO L Primary DON [facility] [id number] E Insurance:ANTHEMPolic RUPANOVICDOB: [facility], y Number: [id number] [place]ository [place] [address]Sps: [id number] rodri Date:6640-68-45UD () [address]TSFFCT, [place] [address]SX: 07/09/2017 Secondary NOT GIVENUNK [facility] Insurance:SELF PAY Hospital INSURANCEPolicy Repository Number: Effective Date:2017-07-09 06/19/2017 NATO L Primary DON [facility] [id number] E Insurance:ANTHEMPolic RUPANOVICDOB: [facility], y Number: [id number] [place]ository [place] [address]Whh: [id number] rodri Date:2044-87-81FY () [address] [place] [address]UC: 06/19/2017 Secondary NOT GIVENUNK [facility] Insurance:SELF PAY Hospital INSURANCEPolicy Repository Number: Effective Date:2017-06-19 06/11/[address] [id number] Insurance:[facility] RUPANOVICDOB: [facility] Number: [id number] [facility] Center[facility], [id number] [place] [address]Xqk: rodri Date:5944-32-98NW [address] () [address]XO: 06/11/2017 Secondary NOT GIVENUNK [facility] Insurance:SELF PAY Hospital INSURANCEPolicy Repository Number: Effective Date:2017-05-23 05/21/2017 NATO Primary [facility] RUPANOVICDOB: Insurance:ANTHEM O RUPANOVICDOB: [facility] E PPO POSPolicy Number: [id number] [facility], [id number] [facility], Repository [place] [address]Ewb: [place] [address]Jgn: Date:8733-34-74Lhqd () Name:MANAGED CARE () 05/14/2017 NATO Primary NATO [facility] RUPANOVICDOB: Insurance:ANTHEM O RUPANOVICDOB: [facility] E PPO POSPolicy Number: [id number] [facility], [id number] [facility], Repository [place] [address]Spe: rod[place] [address]Lxp: Date:9830-96-01Fflv () Name:MANAGED CARE () 05/09/2017 NATO Primary [facility] RUPANOVICDOB: Insurance:ANTHEM O RUPANOVICDOB: [facility] E PPO POSPolicy Number: [id number] [facility] ASHANTIE, [id number] E [address], Repository [place] [address]Sdq: [place] [address]Dgv: Date:6275-00-62Mcsg () Name:MANAGED CARE () 05/09/2017 NATO Primary NATO [facility]: [facility] E PPO POSPolicy Number: [id number] [facility] CLAIR, [id number] [address], Repository [place] [address]Dwh: [place] [address]Jqy: Date:9625-13-10Ircy () Name:MANAGED CARE () 05/09/2017 NATO Primary NATO [facility]: Insurance:[facility] HOSPITALEDELB: [facility] E PPO POSPolicy Number: [id number] [facility] ASHANTIE, [id number] E [address], Repository [place] [address]Yga: [place] [address]Yip: Date:6640-74-23Matg () Name:MANAGED CARE () 05/09/2017 NATO Primary NATO [facility] HospitalVLADIMIRB: Insurance:[facility] HOSPITALPEACEB: [facility] E PPO POSPolicy Number: [id number] [facility] CLAIR, [id number] [address] [place] [address], Repository [place] [address]Lsp: [place] [address]Xpw: Date:4906-62-92Moek () Name:MANAGED CARE () 05/09/2017 NATO Primary NATO [facility] HospitalEDELB: Insurance:[facility] HOSPITALOVICDOB: [facility] [id number] E O POSPolicy Number: [id number] [facility], [id number] E [place], Repository [place] [address]Fxu: rod[place] [address]Drn: Date:4796-62-80Jrhj () Name:[facility] CARE ()
== END ==
PROVIDERS: Family Provider Family Medicine; PCP Family Medicine; Referring Provider Podiatrist; Visit Provider Podiatrist
DX: M84.374A Stress fracture, right foot, initial encounter for fracture (principal)
CPT/HCPCS: 73700

== ENCOUNTER → 2018-05-05 10:16 | Outpatient (CLI) | payer BC, SELFPAY ==
[2018-05-05 11:46] LABS: Vitamin D,25 Hydroxy 20.7 ng/mL (29.95-100.01)
== END ==
PROVIDERS: Family Provider Family Medicine; PCP Family Medicine; Referring Provider Podiatrist; Visit Provider Podiatrist
DX: E55.9 Vitamin D deficiency, unspecified (principal); S92.311G Displaced fracture of first metatarsal bone, right foot, subsequent encounter for fracture with delayed healing; X58.XXXD Exposure to other specified factors, subsequent encounter
CPT/HCPCS: 36415; 82306

== ENCOUNTER → 2018-05-13 14:41 | Outpatient (CLI) | payer BC, SELFPAY ==
--- NOTE | 2018-05-13 14:43 | RAD_ITS ---
STUDY: X-RAY - LUMBAR SPINE REASON FOR EXAM: Female, 57 years old. Low back pain TECHNIQUE: 4 view(s) of the lumbar spine were obtained. Including flexion and extension views COMPARISON: None FINDINGS: Normal lumbar lordosis. There is no substantial scoliosis. There is a normal alignment of the vertebrae. Posterior fusion noted at L4-S1. No evidence of hardware failure or loosening. No abnormal translation with flexion or extension. There is multilevel endplate spondylosis of the lumbar vertebrae. Moderate disc space height loss at L3-4 The soft tissue structures are unremarkable. RAD/L/S Spine Min 4 Views IMPRESSION: Degenerative and postsurgical changes as above. Electronically Signed: Mando Lynn DO at 8:28 EST Tel , Service support ,
== END ==
PROVIDERS: Family Provider Family Medicine; Referring Provider Orthopaedic Surgery; Visit Provider Orthopaedic Surgery
DX: M54.5 Low back pain (principal)
CPT/HCPCS: 72110

== ENCOUNTER → 2018-06-27 17:08 | Outpatient (CLI) | payer BC, SELFPAY ==
--- NOTE | 2018-06-27 17:12 | MRI_ITS ---
STUDY: MRI LEFT KNEE REASON FOR EXAM: Female, 57 years old. Left knee pain. TECHNIQUE: Standardized fat and water weighted pulse sequences were obtained in all 3 orthogonal planes. COMPARISON: None. FINDINGS: There is marked narrowing of the medial compartment. There is maceration of the posterior horn of the medial meniscus. The meniscal body is displaced medially, and extends into the medial gutter. The anterior meniscus is displaced anteriorly. There is diffuse, full thickness articular cartilage loss of the medial femorotibial compartment. Mild reactive marrow edema of the medial femoral condyle and medial tibial plateau is consistent with degenerative changes. There is extensive medial spurring. Normal medial collateral ligamentous complex (MCL). Normal distal semimembranosus, gracilis and semitendinosus tendons. Normal lateral meniscus. Normal hyaline cartilage of the lateral femorotibial compartment. Normal lateral femoral condyle and tibial plateau. There is moderate lateral spurring. Normal proximal tibiofibular articulation. Normal lateral collateral (fibular) ligament. Normal popliteus tendon. Normal biceps femoris tendon. Normal anterior cruciate ligament (ACL). Normal posterior cruciate ligament (PCL). The patella is mildly high riding. There is greater than 50% thickness articular cartilage loss of the patellofemoral compartment, greater medially. Normal medial and lateral patellar retinaculum. Normal quadriceps tendon. Normal patellar tendon. There is poorly defined inflammatory edema of Hoffa's fat pad consistent with Hoffitis. There is reactive marrow edema in the anterior tibia. There is a small joint effusion. There is an 8 x 2.9 x 3 cm popliteal cyst. MRI/Lower Ext Joint Only (Routine) IMPRESSION: 1. Severe osteoarthrosis of the medial compartment. 2. Osteoarthrosis of the patellofemoral compartment with severe osteomalacia. 3. Edematous stranding of Hoffa's fat pad with reactive marrow edema of the tibia. 4. Large popliteal cyst. Electronically Signed: Maria Guadalupe Westbrook MD at 19:52 EDT Tel , Service support ,
== END ==
PROVIDERS: Family Provider Family Medicine; PCP Family Medicine; Referring Provider Physician Assistant; Visit Provider Physician Assistant
DX: M25.562 Pain in left knee (principal)
CPT/HCPCS: 73721

== ENCOUNTER 2018-08-12 05:18 | Observation (INO) | payer BC, SELFPAY ==
[2018-07-28 12:37] VITALS: BMI 36.3
[2018-07-31 08:18] VITALS: BP 149/83; PULSE 75; RESP 16; TEMP 36.3; O2SAT 95; BMI 36.6
--- NOTE | 2018-07-31 08:25 | SDCEKG_ITS ---
Test Reason : Blood Pressure : / mmHG Vent. Rate : 069 BPM Atrial Rate : 069 BPM P-R Int : 204 ms QRS Dur : 090 ms QT Int : 430 ms P-R-T Axes : 002 -05 008 degrees QTc Int : 460 ms Normal sinus rhythm Normal ECG Confirmed by ZOHREH SABA ([id number]), magazine editor CARLOTA LUONG ([id number]) on 08/04/2018 2:12:54 PM Referred By: Lobo Fitzgerald Confirmed By:RUDY SABA
[2018-07-31 09:14] LABS: International Normalized Ratio 0.9; Prothrombin Time (Protime)PT. 12.4 SECONDS (11.7-14.9)
[2018-07-31 09:15] LABS: Hematocrit 47.7 % (37-47); Hemoglobin 16.8 g/dl (12.0-15.0); Mean Corp Hgb Conc 35.2 g/gl (32-36); Mean Corpuscular Hgb 30.3 pg (27.0-32.0); Mean Corpuscular Volume 85.9 fL (81-99); Mean Platelet Vol. 10.2 fl (6.2-12.0); Partial Thromboplast Time 29.3 Seconds (24.1-36.2); Platelet Count 262 K/mm3 (150-450); RBC Distribution Width CV 13.5 % (11.6-14.6); RBC Distribution Width SD 42.1 fl (35.1-43.9); Red Blood Count 5.55 M/mm3 (4.2-5.4); White Blood Count 12.6 K/mm3 (4.4-11.0)
[2018-07-31 09:22] LABS: Scan Indicated on CBC? Y/N NO
[2018-07-31 09:32] LABS: AST(SGOT) 17 U/L (15-37); Alanine Aminotransfer ALT/SGPT 31 U/L (13-56); Albumin, Serum 4.1 g/dL (3.2-5.0); Alkaline Phosphatase 102 U/L (45-117); Anion Gap 6 (5-15); BUN 8 mg/dL (7-18); BUN/Creat Ratio 11.3 RATIO (10-20); Bilirubin, Direct 0.09 mg/dL (0.00-0.30); Calcium,Total 9.3 mg/dL (8.5-10.1); Chloride 100 mmol/L (98-107); EST Glomerular Filtration Rate 91 mL/min (>60); Est Glom Filt Rate - Afr Amer 110 mL/min (>60); Estimated Creatinine Clearance 63.69 ml/min; Glucose 98 mg/dL (74-106); Potassium 3.9 mmol/L (3.5-5.1); Protein, Total 8.1 g/dL (6.4-8.2); Sodium Level 134 mmol/L (136-145)
--- NOTE | 2018-08-05 07:23 | PCM.HP.BLA ---
History and Physical Date of Admission: 08/05/18 Intake Vital Signs 07/28/18 Body Mass Index (BMI) 36.3 Intake Visit Reasons: L. KNEE Allergies atorvastatin [From Lipitor] Allergy (Verified 06/09/18 14:56) Upset Stomach cephalexin [From Keflex] Allergy (Verified 06/09/18 14:56) Swelling latex Allergy (Verified 06/09/18 14:56) Rash morphine Allergy (Verified 06/09/18 14:56) Vomiting nickel Allergy (Verified 06/09/18 14:56) Rash pork derived (porcine) Allergy (Verified 06/09/18 14:56) Food Allergy tramadol Allergy (Verified 06/09/18 14:56) Rash zinc Allergy (Verified 06/09/18 14:56) Rash gabapentin Adverse Reaction (Verified 06/09/18 14:56) Swelling Medications Diclofenac Potassium 50 mg PO DAILY 03/15/16 [History Confirmed 01/27/18] Propranolol HCl 60 mg PO BID 03/15/16 [History Confirmed 01/27/18] Betamethasone Sod Phosph-Water [Betamethasone 12 mg/2 ml-Water] 1 applic TOPICAL DAILY 06/19/17 [History Confirmed 01/27/18] Loteprednol Etabonate [Lotemax] 3.5 gm OP QHS 06/19/17 [History Confirmed 01/27/18] Omeprazole Magnesium [Prilosec Otc] 20 mg PO DAILY 06/19/17 [History Confirmed 01/27/18] Albuterol Sulfate [Proventil Hfa] 2 puff IH Q4H PRN PRN 01/14/18 [History Confirmed 01/27/18] Doxepin HCl [Sinequan] 10 mg PO QHS 01/14/18 [History Confirmed 01/27/18] Tizanidine HCl [Zanaflex] 2 mg PO Q8H PRN 01/14/18 [History Confirmed 01/27/18] hydrochlorothiazide 25 mg tablet 25 mg PO DAILY 06/09/18 [History Confirmed 06/09/18] PFSH Medical History Hypertension (Chronic) Surgical History H/O: (Acute) Social History Smoking Status: Former smoker HPI L. KNEE: Details: Parts of this documentation were recorded by a scribe, this documentation accurately reflects the service provided and the decisions made by Liu pollard PA 07/28/18 7327. 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 Patient is here today for consult on TKA. Has pain of the left knee, has difficulty ambulating. Has had x-rays and MRI completed. Has had PT and injections and bracing which have all failed. ROS Const Reports system reviewed and no additional complaints, except as docu Eyes Reports system reviewed and no additional complaints, except as docu ENT Reports system reviewed and no additional complaints, except as docu Card Reports system reviewed and no additional complaints, except as docu Resp Reports system reviewed and no additional complaints, except as docu GI Reports system reviewed and no additional complaints, except as docu Musc Reports system reviewed and no additional complaints, except as docu, Reports as per HPI Skin/Breast Reports system reviewed and no additional complaints, except as docu Neuro Yes system reviewed and no additional complaints, except as docu Psych Reports system reviewed and no additional complaints, except as docu Endo Reports system reviewed and no additional complaints, except as docu Alexey/Lymph Reports system reviewed and no additional complaints, except as docu Aller/Immun Reports system reviewed and no additional complaints, except as docu Ortho Exam Left Knee Skin/Wound: No ecchymosis, No erythema Knee ROM: Yes ROM-Extension -20 to 0, No ROM-Flexion 0-140 (120) Examination: Yes med jt line tenderness KNEE: Assessment & Plan Problems 1. Chronic pain of left knee M25.562; G89.29 2. Primary osteoarthritis of left knee M17.12 Plan At this time patient presents to the office for follow-up and to sign consent to proceed with surgery on the left knee. Patient has followed up with her design maintenance engineer who has given her approval to proceed with left knee arthroplasty. She states that there was healing of the right foot bone and therefore is able to wear normal shoes as well she has orthotic devices in place. Therefore she will be able to bear weight postop of the left knee. Patient continues to have increased pain in the left side and is very eager to proceed with left knee total arthroplasty. Risks and benefits of the procedure were discussed at her last visit with the surgeon at the same time we did go over those risks and benefits again today. We did discuss the actual procedure itself including the time. We also discussed recovery and postop procedures. Patient did have a few questions regarding the procedure which we did answer to her satisfaction today. Patient was given surgical scrub to use the night before and morning of the surgery. Patient also was given information regarding ice machine for postop inflammation and pain. We did discuss arthrofibrosis as something of concern and therefore stressed the importance of physical therapy and gaining movement as fast as possible. Patient will be notified from surgical department for preanesthesia testing. She has no other questions at this time. If she does think anything she can always feel free to call the office at any time. This note was generated with Mobile[employer] dictation software. It may contain incorrect words, spelling, and punctuation that were not noted in checking the note before signing. Insert H&P changes noted due to the fact the patient has a nickel and zinc allergy we will be using [employer] nickel free implants for her replacement
--- NOTE | 2018-08-05 07:31 | HP.PCM_ITS ---
History and Physical Date of Admission: 08/05/18 Intake Vital Signs 07/28/18 Body Mass Index (BMI) 36.3 Intake Visit Reasons: L. KNEE Allergies atorvastatin [From Lipitor] Allergy (Verified 06/09/18 14:56) Upset Stomach cephalexin [From Keflex] Allergy (Verified 06/09/18 14:56) Swelling latex Allergy (Verified 06/09/18 14:56) Rash morphine Allergy (Verified 06/09/18 14:56) Vomiting nickel Allergy (Verified 06/09/18 14:56) Rash pork derived (porcine) Allergy (Verified 06/09/18 14:56) Food Allergy tramadol Allergy (Verified 06/09/18 14:56) Rash zinc Allergy (Verified 06/09/18 14:56) Rash gabapentin Adverse Reaction (Verified 06/09/18 14:56) Swelling Medications Diclofenac Potassium 50 mg PO DAILY 03/15/16 [History Confirmed 01/27/18] Propranolol HCl 60 mg PO BID 03/15/16 [History Confirmed 01/27/18] Betamethasone Sod Phosph-Water [Betamethasone 12 mg/2 ml-Water] 1 applic TOPICAL DAILY 06/19/17 [History Confirmed 01/27/18] Loteprednol Etabonate [Lotemax] 3.5 gm OP QHS 06/19/17 [History Confirmed 01/27] Omeprazole Magnesium [Prilosec Otc] 20 mg PO DAILY 06/19/17 [History Confirmed 01/27/18] Albuterol Sulfate [Proventil Hfa] 2 puff IH Q4H PRN PRN 01/14/18 [History Confirmed 01/27/18] Doxepin HCl [Sinequan] 10 mg PO QHS 01/14/18 [History Confirmed 01/27/18] Tizanidine HCl [Zanaflex] 2 mg PO Q8H PRN 01/14/18 [History Confirmed 01/27/18] hydrochlorothiazide 25 mg tablet 25 mg PO DAILY 06/09/18 [History Confirmed 06/09/18] PFSH Medical History Hypertension (Chronic) Surgical History H/O: (Acute) Social History Smoking Status: Former smoker HPI L. KNEE: Details: Parts of this documentation were recorded by a scribe, this documentation accurately reflects the service provided and the decisions made by Liu pollard PA 07/28/18 5489. 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 Patient is here today for consult on TKA. Has pain of the left knee, has difficulty ambulating. Has had x-rays and MRI completed. Has had PT and injections and bracing which have all failed. ROS Const Reports system reviewed and no additional complaints, except as docu Eyes Reports system reviewed and no additional complaints, except as docu ENT Reports system reviewed and no additional complaints, except as docu Card Reports system reviewed and no additional complaints, except as docu Resp Reports system reviewed and no additional complaints, except as docu GI Reports system reviewed and no additional complaints, except as docu Musc Reports system reviewed and no additional complaints, except as docu, Reports as per HPI Skin/Breast Reports system reviewed and no additional complaints, except as docu Neuro Yes system reviewed and no additional complaints, except as docu Psych Reports system reviewed and no additional complaints, except as docu Endo Reports system reviewed and no additional complaints, except as docu Alexey/Lymph Reports system reviewed and no additional complaints, except as docu Aller/Immun Reports system reviewed and no additional complaints, except as docu Ortho Exam Left Knee Skin/Wound: No ecchymosis, No erythema Knee ROM: Yes ROM-Extension -20 to 0, No ROM-Flexion 0-140 (120) Examination: Yes med jt line tenderness KNEE: Assessment & Plan Problems 1. Chronic pain of left knee M25.562; G89.29 2. Primary osteoarthritis of left knee M17.12 Plan At this time patient presents to the office for follow-up and to sign consent to proceed with surgery on the left knee. Patient has followed up with her rubber goods inspector who has given her approval to proceed with left knee arthroplasty. She states that there was healing of the right foot bone and therefore is able to wear normal shoes as well she has orthotic devices in place. Therefore she will be able to bear weight postop of the left knee. Patient continues to have increased pain in the left side and is very eager to proceed with left knee total arthroplasty. Risks and benefits of the procedure were discussed at her last visit with the surgeon at the same time we did go over those risks and benefits again today. We did discuss the actual procedure itself including the time. We also discussed recovery and postop procedures. Patient did have a few questions regarding the procedure which we did answer to her satisfaction today. Patient was given surgical scrub to use the night before and morning of the surgery. Patient also was given information regarding ice machine for postop inflammation and pain. We did discuss arthrofibrosis as something of concern and therefore stressed the importance of physical therapy and gaining movement as fast as possible. Patient will be notified from surgical department for preanesthesia testing. She has no other questions at this time. If she does think anything she can always feel free to call the office at any time. This note was generated with apomio dictation software. It may contain incorrect words, spelling, and punctuation that were not noted in checking the note before signing. Insert H&P changes noted due to the fact the patient has a nickel and zinc allergy we will be using [employer] nickel free implants for her replacement
[2018-08-05 09:32] VITALS: BP 128/75; PULSE 78; RESP 18; TEMP 36.6; O2SAT 98; BMI 36.6
[2018-08-05] MEDS: Vancomycin IV 1,000 MG/200 ML BAG 200 MG IV (09:55)
[2018-08-12] VITALS (14 sets, daily range): BP systolic 112–152; BP diastolic 60–92; PULSE 63–114; RESP 14–18; TEMP 36.3–37.7; O2SAT 85–97; BMI 36.6
[2018-08-12] MEDS: Vancomycin IV 1,000 MG/200 ML BAG 200 MG IV (06:56)
[2018-08-12] MEDS: Bupivacaine 0.5% PF 10 ML VIAL (09:00)
--- NOTE | 2018-08-12 10:16 | OP.PCM_ITS ---
Report of Operation Date of Procedure: 08/12/18 Description of Surgical Findings:: Preoperative diagnosis: Left knee DJD Postoperative diagnosis: Same Procedure: Left total knee arthroplasty Metal allergy: denise and zinc Implant: [employer] oxinium left femoral component size[ 4 cemented tibial baseplate size 3, cemented asymmetric patella size 32, polyethylene X3 size 13 deep dish Anesthesia: Spinal with adductor canal block Tourniquet time: 83 minutes at 300 mmHg Complications: None Condition: Stable to PACU Estimated blood loss: 25 cc Indication for procedure: This is a 57-year-old female with long standing degenerative joint disease of the knee who has failed conservative treatment and wished to proceed with elective total knee arthroplasty. Risk benefits and alternatives were reviewed including; risk of bleeding, infection, nerve artery and tissue damage, continued pain, postoperative stiffness, venous thromboembolism, need for postoperative rehabilitation, mechanical feel to the knee, and expected postoperative course. Procedure: The patient was met in the preoperative holding area. The operative extremity was identified by both patient and physician and was marked. Patient was met by anesthesia. An adductor canal block was placed by anesthesia postoperatively the patient was brought back to the operating room on a wheeled cart and transferred to the operating table in the supine position. Anesthesia was started. A well-padded tourniquet was placed on the operative extremity. The patient was prepped and draped in the usual sterile fashion. A timeout was called to ensure the proper patient procedure and extremity were being contemplated. An Esmarch was used to exsanguinate the extremity. The tourniquet was inflated. A 10 blade scalpel was used to make a midline incision down through the skin and subcutaneous tissue. Skin retractors placed. Bovie was used to perform meticulous hemostasis. full-thickness flaps were elevated medial and lateral along the joint capsule. A deep blade scalpel was used to perform a medial parapatellar arthrotomy. The knee was brought to full extension. A Bovie was used to release the soft tissues off the most proximal aspect of the medial tibial plateau a three-quarter inch curved osteotome was also used for this process. The infrapatellar fat pad was excised. The fat pad was excised partially anterior lateral portion the anterior medial was elevated from the femur. the patella was everted. The knee was brought into flexion. An intramedullary drill was used followed by flexible intramedullary guide roger. The distal femoral cutting block was placed and set to remove 9.5 mm of bone and 5 degrees of valgus. The block was secured with pins and an oscillating saw was used to complete the distal femoral cut. During this, and all bony cuts retractors were used to protect the collateral ligaments. At this point a femoral sizer was used to measure the AP dimension of the femur. The sizer block was pinned in 3 degrees of external rotation. The sizing block was removed and the appropriately sized 4-in-1 cutting block was placed over the previously made pinholes. It was checked with an tashi wing and the block was secured with pins. An oscillating saw was used to complete the anterior cut followed by the posterior cut followed by the posterior chamfer cut followed by the anterior chamfer cut. The block was removed as well as the fragments. A ronguer was used to remove excess osteophytes. The medial and lateral meniscus were excised as well as the ACL. At this point a PCL retractor was placed and an intramedullary drill was passed down the tibial canal followed by a solid intramedullary guide roger. The tibial cutting block was attached and set to remove 9 mm of bone from the high side. This was checked with an external alignment drop roger for slope and tilt. It was pinned into place. An oscillating saw was used to complete the tibial plateau cut and the block was removed. A large osteotome was used to elevate the fragment and a Jean-Paul and a Bovie were used to free the fragment from the surrounding soft tissue. A rongeur was once again used to remove osteophytes a lamina antenna machine operator was used to evaluate the posterior capsular structures. A three-quarter inch curved osteotome was used to remove posterior osteophytes. A spacer block was inserted in both extension and flexion to ensure adequate spacing. Trials were inserted full extension and flexion were achieved in varus and valgus stability throughout range of motion were seen, balancing techniques were performed. At this point the attention was turned towards the patella. A caliper was used to ensure sufficient bone stock to remove 10 mm of bone. A reamer was used to perform this task. Lug holes were made for the appropriate-sized patella. The patella trial was inserted and there was good patellar tracking with knee range of motion. The tibial baseplate was allowed to float into rotation and was marked on the tibial plateau with a Bovie. Lug holes were made in the femur and trials were removed. The tibial baseplate was then sized and its preparation was completed with a fin punch. The knee was thoroughly irrigated. A posterior capsular injection was performed with our standard cocktail. The knee was brought into flexion and irrigated again. The tibial baseplate was cemented. Excess cement was removed with curettes. The polyethylene component was inserted. The femoral component was cemented. The knee was brought into full extension and placed on a bump. The patellar component was cemented. At this point a Betadine rinse was placed and thoroughly irrigated after a few minutes. This was followed by an Iricept rinse which was allowed to sit for 1 minute and then thoroughly irrigated.At this point all gloves were changed. The knee was thoroughly irrigated the joint capsule was closed with #1 Ethibond. Tourniquet was let down followed by 0 Vicryl and 2-0 Vicryl in the subcutaneous tissues. followed by lakisha in the skin. Dressing was applied in the form of Xeroform 4 x 4 ABD web roll and an Alek wrap from the foot to the groin. The patient tolerated the procedure well, all counts were correct patient was brought back to the PACU in stable condition.
--- NOTE | 2018-08-12 10:35 | RAD_ITS ---
STUDY: X-RAY - LEFT KNEE REASON FOR EXAM: Female, 57 years old. Total knee replacement. TECHNIQUE: AP and lateral view(s) of the knee. COMPARISON: Comparison is made with prior study dated September 12, 2017. FINDINGS: The patient is status post total knee replacement. There is good alignment. Postoperative soft tissue changes. RAD/Knee 1 or 2 Views IMPRESSION: Status post total knee replacement. There is good alignment. Postoperative soft tissue changes. Electronically Signed: Rohan John, at 12:32 EDT , Service support ,
[2018-08-12] MEDS: 0.9% Normal Saline 1,000 ML 100 ML IV (10:57)
[2018-08-12] MEDS: Ketorolac 15 MG/ML Vial IV (14:25)
[2018-08-12] MEDS: Lactated Ringers 1,000 ML 100 ML IV (14:25)
[2018-08-12] MEDS: 0.9% NaCl Peripheral Flush Adult/Peds IV (14:26)
[2018-08-12] MEDS: Glucerna Shake 120 ML LIQUID PO (17:18)
[2018-08-12] MEDS: tiZANidine HCl 2 MG Tablet PO (21:18)
[2018-08-12] MEDS: Propranolol 40 MG Tablet 60 MG PO (21:18)
[2018-08-12] MEDS: Doxepin Hydrochloride 10 MG Capsule PO (21:18)
[2018-08-12] MEDS: APIXABAN 2.5 MG TABLET PO (21:18)
[2018-08-13] MEDS: Ketorolac 15 MG/ML Vial IV (02:11)
[2018-08-13 02:48] VITALS: BP 124/62; PULSE 91; RESP 16; TEMP 37.1; O2SAT 93
[2018-08-13] MEDS: Pantoprazole Sodium 20 MG Tablet PO (06:03)
[2018-08-13] MEDS: Propranolol 40 MG Tablet 60 MG PO (06:04)
[2018-08-13 06:11] LABS: Hematocrit 38.5 % (37-47); Hemoglobin 13.5 g/dl (12.0-15.0); Mean Corp Hgb Conc 35.1 g/gl (32-36); Mean Corpuscular Hgb 30.1 pg (27.0-32.0); Mean Corpuscular Volume 85.7 fL (81-99); Mean Platelet Vol. 9.8 fl (6.2-12.0); Platelet Count 242 K/mm3 (150-450); RBC Distribution Width SD 41.1 fl (35.1-43.9); Red Blood Count 4.49 M/mm3 (4.2-5.4); White Blood Count 17.5 K/mm3 (4.4-11.0)
[2018-08-13 06:12] LABS: Scan Indicated on CBC? Y/N NO
[2018-08-13 06:36] LABS: Anion Gap 4 (5-15); BUN 7 mg/dL (7-18); BUN/Creat Ratio 12.4 RATIO (10-20); Calcium,Total 8.3 mg/dL (8.5-10.1); Chloride 108 mmol/L (98-107); Creatinine, Serum 0.57 mg/dL (0.55-1.02); EST Glomerular Filtration Rate 117 mL/min (>60); Est Glom Filt Rate - Afr Amer 141 mL/min (>60); Estimated Creatinine Clearance 78.22 ml/min; Glucose 123 mg/dL (74-106); Potassium 3.7 mmol/L (3.5-5.1); Sodium Level 137 mmol/L (136-145)
--- NOTE | 2018-08-13 07:24 | PCM.DC.ORTHO ---
Discharge Diet: No Restrictions Discharge Activity: Use Walker Weight Bearing Status: Weight bearing as tolerated Keep extremity elevated above heart level: Operative Extremity, Left Leg Additional Activity Instructions:: Ice and elevate next week while not ambulating. Encourage ambulation weightbearing as tolerated. Encourage FULL knee extension and flexion 1 time EVERY time you get up and down and MULTIPLE times per day. Begin showering postop day #3. Remove the dressing prior to shower gently wash with warm water and antibacterial soap then pat dry place ABD pad and MARINA hose over top. This is to be done daily. If not showering daily must clean incision and change dressing daily. Do not allow animals near incision keep clean. Follow anticoagulation recommendations. Call Dr. Fitzgerald with any concerns. Call your doctor if you observe: Shortness of breath, Chest pain Allergies/Adverse Reactions: Allergies atorvastatin [From Lipitor] Allergy (Verified 07/31/18 08:08) Upset Stomach cephalexin [From Keflex] Allergy (Verified 07/31/18 08:08) Swelling latex Allergy (Verified 07/31/18 08:08) Rash morphine Allergy (Verified 07/31/18 08:08) Vomiting nickel Allergy (Verified 07/31/18 08:08) Rash pork derived (porcine) Allergy (Verified 07/31/18 08:08) Food Allergy tramadol Allergy (Verified 07/31/18 08:08) Rash zinc Allergy (Verified 07/31/18 08:08) Rash gabapentin Adverse Reaction (Verified 07/31/18 08:08) Swelling Medications to take at Discharge Propranolol HCl 60 mg PO BID 03/15/16 Betamethasone Sod Phosph-Water [Betamethasone 12 mg/2 ml-Water] 1 applic TOPICAL DAILY 06/19/17 Omeprazole Magnesium [Prilosec Otc] 20 mg PO DAILY 06/19/17 Albuterol Sulfate [Proventil Hfa] 2 puff IH Q4H PRN PRN 01/14/18 Doxepin HCl [Sinequan] 10 mg PO QHS 01/14/18 Tizanidine HCl [Zanaflex] 2 mg PO QHS 01/14/18 hydrochlorothiazide 25 mg tablet 25 mg PO DAILY 06/09/18 Acetaminophen [Tylenol] 1,000 mg PO Q6H PRN 30 Days #60 tablet 08/13/18 Apixaban [Eliquis] 2.5 mg PO BID 14 Days #28 tablet 08/13/18 Oxycodone [Oxyir] 2.5 - 5 mg PO Q4H PRN PRN 7 Days #50 tablet 08/13/18 The following prescriptions were given: Oxycodone [Oxyir] 2.5 - 5 mg PO Q4H PRN PRN 7 Days #50 tablet PRN Reason: Pain Acetaminophen [Tylenol] 1,000 mg PO Q6H PRN 30 Days #60 tablet Apixaban [Eliquis] 2.5 mg PO BID 14 Days #28 tablet Primary Care Physician: Deny Sauer MD [Primary Care Provider] - Test Results: Test results from this visit will be discussed in further detail at your follow-up appointment, if applicable. Please Follow Up With: Lobo Fitzgerald DO - 2 weeks Proposed Discharge Date: 08/13/18 - patient to have 2 rounds of physical therapy with ability to do a step
--- NOTE | 2018-08-13 07:27 | DCINST_ITS ---
Discharge Diet: No Restrictions Discharge Activity: Use Walker Weight Bearing Status: Weight bearing as tolerated Keep extremity elevated above heart level: Operative Extremity, Left Leg Additional Activity Instructions:: Ice and elevate next week while not ambu lating. Encourage ambulation weightbearing as tolerated. Encourage FULL knee extension and flexion 1 time EVERY time you get up and down and MULTIPLE times per day. Begin showering postop day #3. Remove the dressing prior to shower gently wash with warm water and antibacterial soap then pat dry place ABD pad and MARINA hose over top. This is to be done daily. If not showering daily must clean incision and change dressing daily. Do not allow animals near incision keep clean. Follow anticoagulation recommendations. Call Dr. Fitzgerald with any concerns. Call your doctor if you observe: Shortness of breath, Chest pain Allergies/Adverse Reactions: Allergies atorvastatin [From Lipitor] Allergy (Verified 07/31/18 08:08) Upset Stomach cephalexin [From Keflex] Allergy (Verified 07/31/18 08:08) Swelling latex Allergy (Verified 07/31/18 08:08) Rash morphine Allergy (Verified 07/31/18 08:08) Vomiting nickel Allergy (Verified 07/31/18 08:08) Rash pork derived (porcine) Allergy (Verified 07/31/18 08:08) Food Allergy tramadol Allergy (Verified 07/31/18 08:08) Rash zinc Allergy (Verified 07/31/18 08:08) Rash gabapentin Adverse Reaction (Verified 07/31/18 08:08) Swelling Medications to take at Discharge Propranolol HCl 60 mg PO BID 03/15/16 Betamethasone Sod Phosph-Water [Betamethasone 12 mg/2 ml-Water] 1 applic TOPICAL DAILY 06/19/17 Omeprazole Magnesium [Prilosec Otc] 20 mg PO DAILY 06/19/17 Albuterol Sulfate [Proventil Hfa] 2 puff IH Q4H PRN PRN 01/14/18 Doxepin HCl [Sinequan] 10 mg PO QHS 01/14/18 Tizanidine HCl [Zanaflex] 2 mg PO QHS 01/14/18 hydrochlorothiazide 25 mg tablet 25 mg PO DAILY 06/09/18 Acetaminophen [Tylenol] 1,000 mg PO Q6H PRN 30 Days #60 tablet 08/13/18 Apixaban [Eliquis] 2.5 mg PO BID 14 Days #28 tablet 08/13/18 Oxycodone [Oxyir] 2.5 - 5 mg PO Q4H PRN PRN 7 Days #50 tablet 08/13/18 The following prescriptions were given: Oxycodone [Oxyir] 2.5 - 5 mg PO Q4H PRN PRN 7 Days #50 tablet PRN Reason: Pain Acetaminophen [Tylenol] 1,000 mg PO Q6H PRN 30 Days #60 tablet Apixaban [Eliquis] 2.5 mg PO BID 14 Days #28 tablet Primary Care Physician: Deny Sauer MD [Primary Care Provider] - Test Results: Test results from this visit will be discussed in further detail at your follow- up appointment, if applicable. Please Follow Up With: Lobo Fitzgerald DO - 2 weeks Proposed Discharge Date: 08/13/18 - patient to have 2 rounds of physical therapy with ability to do a step
--- NOTE | 2018-08-13 07:30 | DS.PCM_ITS ---
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 Patient underwent the A4 mentioned procedure on the admission date without any intraoperative complications. She did have a metal allergy and we used a nickel and zinc free implants from [employer] .she did receive pre-and postoperative antibiotics which were discontinued within 23 hours postoperatively. She did receive general anesthesia as well as an adductor canal block postoperatively her pain was controlled with IV and transition to p.o. pain medication she did not want to take narcotics and her pain was controlled with minimal amount she will be discharged home with oxycodone and will continue Tylenol as well. She had minimal intraoperative blood loss and tranexamic acid was administered there was no need for postope rative blood transfusion her vital signs remained stable. She was started on both mechanical and chemical DVT per prophylaxis postoperatively in the form of SCDs MARINA hose and Eliquis 2.5 mg twice daily for which she will continue for 2 additional weeks post hospital discharge. she will begin showering on postop day #3 and will change her dressing daily at this point. She will follow-up in the office in 2 weeks. No intrahospital complications. Patient wishes to be discharged home postop day #1 - Physical Exam Vital Signs Temp Pulse Resp BP Pulse Ox 98.8 F 91 16 124/62 H 93 08/13/18 02:48 08/13/18 02:48 08/13/18 02:48 08/13/18 02:48 08/13/18 02:48 Oxygen Flow Rate (L/min) 2 Oxygen Delivery Method Room Air Weight: 187 lb 9.814 oz Body Mass Index (BMI) 36.6 Intake and Output for Last 24 Hours 08/11/18 08/12/18 08/13/18 23:59 23:59 23:59 Intake Total 2585 / 2585 Balance 2585 / 2585 Laboratory Tests Past 24 Hrs 08/13/18 08/13/18 05:39 05:39 WBC 17.5 H RBC 4.49 Hgb 13.5 Hct 38.5 MCV 85.7 MCH 30.1 MCHC 35.1 RDW 13.0 RDW Differential 41.1 Plt Count 242 MPV 9.8 Sodium 137 Potassium 3.7 Chloride 108 H Carbon Dioxide 25.0 Anion Gap 4 L BUN 7 Creatinine 0.57 Estim Creat Clear Calc 78.22 Est GFR (MDRD) Af Amer 141 Est GFR (MDRD) Non-Af 117 BUN/Creatinine Ratio 12.4 Glucose 123 H Calcium 8.3 L Discharge Diet: No Restrictions Discharge Activity: Use Walker Weight Bearing Status: Weight bearing as tolerated Keep extremity elevated above heart level: Operative Extremity, Left Leg Additional Activity Instructions:: Ice and elevate next week while not ambulating. Encourage ambulation weightbearing as tolerated. Encourage FULL knee extension and flexion 1 time EVERY time you get up and down and MULTIPLE times per day. Begin showering postop day #3. Remove the dressing prior to shower gently wash with warm water and antibacterial soap then pat dry place ABD pad and MARINA hose over top. This is to be done daily. If not showering daily must clean incision and change dressing daily. Do not allow animals near in cision keep clean. Follow anticoagulation recommendations. Call Dr. Fitzgerald with any concerns. Call your doctor if you observe: Shortness of breath, Chest pain Home Medications: Medications to take at Discharge Propranolol HCl 60 mg PO BID 03/15/16 Betamethasone Sod Phosph-Water [Betamethasone 12 mg/2 ml-Water] 1 applic TOPICAL DAILY 06/19/17 Omeprazole Magnesium [Prilosec Otc] 20 mg PO DAILY 06/19/17 Albuterol Sulfate [Proventil Hfa] 2 puff IH Q4H PRN PRN 01/14/18 Doxepin HCl [Sinequan] 10 mg PO QHS 01/14/18 Tizanidine HCl [Zanaflex] 2 mg PO QHS 01/14/18 hydrochlorothiazide 25 mg tablet 25 mg PO DAILY 06/09/18 Acetaminophen [Tylenol] 1,000 mg PO Q6H PRN 30 Days #60 tablet 08/13/18 Apixaban [Eliquis] 2.5 mg PO BID 14 Days #28 tablet 08/13/18 Oxycodone [Oxyir] 2.5 - 5 mg PO Q4H PRN PRN 7 Days #50 tablet 08/13/18 Following Prescrptions Were Given to Patient: Oxycodone [Oxyir] 2.5 - 5 mg PO Q4H PRN PRN 7 Days #50 tablet PRN Reason: Pain Acetaminophen [Tylenol] 1,000 mg PO Q6H PRN 30 Days #60 tablet Apixaban [Eliquis] 2.5 mg PO BID 14 Days #28 tablet Primary Care Physician: Deny Sauer MD [Primary Care Provider] - Please Follow Up With: Lobo Fitzgerald DO - 2 weeks Medical Necessity - Tobacco Use Smoking Status: Former smoker Tobacco Use: Non-smoker Meaningful Use Info Meaningful Use Diagnoses (Choose all that apply): None applicable
[2018-08-13 08:45] VITALS: BP 125/66; PULSE 80; RESP 16; TEMP 37; O2SAT 93
[2018-08-13] MEDS: hydroCHLOROthiazide 25 MG Tablet PO (10:21)
[2018-08-13] MEDS: oxyCODONE 5 MG Tablet PO (10:24)
[2018-08-13] MEDS: APIXABAN 2.5 MG TABLET PO (10:28)
--- NOTE | 2018-08-13 11:34 | CASEMGMT ---
WALTER GRADY Face to Face with patient for initial transition planning/care coordination assessment. WALTER GRADY introduced self and role at [facility]. Patient lying in bed, alert and oriented. Patient willing to participate in assessment and is able to answer all questions appropriately. Care providers, pharmacy, and demographics verified. Patient wishes to discharge home with outpatient therapy at [facility]. Patient stated she did not want HHC. Patient states she has no further needs or concerns at this time. CM to follow for discharge planning needs that may arise. 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 Patient was independent at home prior to surgery Transportation: , who is off work till September 08 to help DME/HHC: [facility]. WALTER GRADY called to make appt with [facility] for outpatient therapy. Per Radha, no appts available for or Saturday. Radha stated she would talk director Flako to see if they can arrange schedule to get patient seen. Dr. Fitzgerald's office updated with request for outpatient therapy and requested order be sent to [facility] for outpatient therapy with request to have patient seen or Saturday. WALTER GRADY updated patient regarding [facility] working on outpatient therapy appointment. WALTER GRADY will inform patient of any updates prior to discharge. Disposition Plan: Patient to discharge home with outpatient therapy, family support, and follow-up plans in place. Kika BARRIOS, RN, CM
--- NOTE | 2018-08-13 14:28 | NURSING ---
Alek wrapped and dressing removed, cleaned with betadine, applied ABD and covered with MARINA hose (Per order). Pt refused most pt care and medications.
== END 2018-08-13 13:52 | disposition home or self-care (01) ==
LOC: MS3 10:48 → ACINP 10:48
PROVIDERS: Anesthesiology; Admitting Provider Orthopaedic Surgery; Family Provider Family Medicine; PCP Family Medicine; Referring Provider Orthopaedic Surgery; Visit Provider Orthopaedic Surgery
PROC: (CPT 27447; principal; 2018-08-12 07:05)
DX: M17.12 Unilateral primary osteoarthritis, left knee (principal); Z79.899 Other long term (current) drug therapy; I10 Essential (primary) hypertension; J44.9 Chronic obstructive pulmonary disease, unspecified; Z87.891 Personal history of nicotine dependence; K21.9 Gastro-esophageal reflux disease without esophagitis; K44.9 Diaphragmatic hernia without obstruction or gangrene; E78.00 Pure hypercholesterolemia, unspecified; G89.29 Other chronic pain
CPT/HCPCS: 27447; 64447; 36415; 73560; 80048; 80076; 85027; 85610; 85730; 87081; 93005; 96361; 96365; 96366; 96375; 96376; 97110; 97116; 97163; 97166; 97530; 97535; 99218; C1776; J7030; J7050; J7120; A4216; G0378; G0379; J2405

== ENCOUNTER 2018-09-01 16:30 | Outpatient (RCR) | payer BC, SELFPAY ==
[2018-08-12 11:34] VITALS: BMI 36.6
--- NOTE | 2018-08-14 17:39 | HP.PTEVAL ---
Patient's Visit Information NATO GUERRIER is a 57 year old F referred to Physical Therapy by Lobo Fitzgerald DO with a diagnosis of L TKA. Date of Evaluation: 08/14/18 Physical Therapist: Flako Mcrae, AHMETT, OCS, CSCS - Visit Plan Frequency: 3x /Week Duration: 4-6 Weeks Plan: 3x/week for 4-6 weeks for. patellar mobs, L knee ROM, HS and quad STM and stretch, strength L LE, gait training and progression. Ice as needed. - Subjective Findings: Saturday had L TKA. Had no cartilage in L knee adn been in pain for years. Could not walk well. R one needs done too. One night in hospital. Mnaged one step and went home with walker. Sidestep going down. No walker prior to surgery. Pain today is 0/10 at rest but 7/10 walking. Using ice at home. On oxycodone regularly. Exercises at home inlcude trying SLR, QS, and bending knee painfully. AP. Sleep last night was not too bad. H/o back surgery. Dress self except shoes and scoks. Hard to get off toilet but can do it slowly. 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 Enjoys gardening. Not currently. - Pain L anterior Knee pain Pain Intensity (Out of 10): 0 Pain Intensity Range: 0, 7 - Objective Walks with wh walker slow PWB L and stiff knee until cued properly then will bend knee properly with heel strike adn toe off, still very slow, 250 feet today. [place] better at end. Trasnfer to adn fro sit I but wanted to sit on higher seat. Toa nd fro supine I but L leg needed other leg or UE assist today. Pt does not want to sit in low chair today and prefers standing. R knee 0-130 aROM, L knee -2 to 75 today. Patella tight on L. Incision dressed wella nd appears dry. No signs of excessive redness heat or swelling today. SLR is one inch on L and painful. Hard to hold up when assisted with lift. HS mod tight adn tender along mid quad area. AP Ok and 4+/5 ankle strength B. Stadn withotu walker but did not attempt to walk without it. - Goals Goal 1:: Pain 0-1/10 at all times and sleep normal. Goal Time Frame: 4-6 Weeks Goal 2:: Walk withotu AD I 500 feet without antalgia Goal Time Frame: 4-6 Weeks Goal 3:: Steps reciprocal with one rail Goal Time Frame: 4-6 Weeks Goal 4:: I approp HEp tominimize future problems and get ready for R TKA Goal Time Frame: 4-6 Weeks - Rehabilitation Potential Physical Therapy Diagnosis: s/p L tka Rehabilitation Potential: Good - Anticipated Interventions Patient/Client Instruction: Educate patient on: Condition, Plan of Care For the Purpose of:: To decrease pain, To increase ROM, To increase tolerance to activity/condition/position, To improve ability of physical actions for home/community/work/leisure Therapeutic Exercise to Include: Strength training, Flexibilty training, Gait and locomotor training, Passive ROM, Active ROM For the Purpose of:: To decrease pain, To increase ROM, To improve muscle performance and motor function, To improve ability of physical actions for home/community/work/leisure, To improve gait and locomotor functions Manual Therapy Techniques to Include: Mobilization, Soft tissue mobilization For the Purpose of:: To increase ROM Cryotherapy (ice pack, ice massage): Yes For the Purpose of:: To decrease swelling/inflammation Thank you for the opportunity to evaluate your patient. For Medicare and Medicare HMO plans, please review the plan of care and approve it. It will need to be FAXED BACK to us at [phone] for Medicare purposes. For Medicare only, by signing this I certify the plan of care. Please let me know if there are questions or concerns regarding this plan of care. Physician Signature: Date:
--- NOTE | 2018-12-18 12:04 | HP.PT.NRP ---
HP - Discharge Summary (1) - Patient Information NATO GUERRIER was seen in my office for initial evaluation on 08/14/18. The following Plan of Care was established for this patient: Initial Frequency: 3x /Week Initial Duration: 4-6 Weeks - Anticipated Interventions Patient/Client Instruction: Educate patient on: Condition, Plan of Care For the Purpose of:: To decrease pain, To increase ROM, To increase tolerance to activity/condition/position, To improve ability of physical actions for home/community/work/leisure Therapeutic Exercise to Include: Strength training, Flexibilty training, Gait and locomotor training, Passive ROM, Active ROM For the Purpose of:: To decrease pain, To increase ROM, To improve muscle performance and motor function, To improve ability of physical actions for home/community/work/leisure, To improve gait and locomotor functions Manual Therapy Techniques to Include: Mobilization, Soft tissue mobilization For the Purpose of:: To increase ROM Cryotherapy (ice pack, ice massage): Yes For the Purpose of:: To decrease swelling/inflammation This patient was last seen in our office 09/01/18. Pertinent comments regarding their Physical therapy will appear below: Pt seen for 5 visits of POC. She has not attended in over 4 months adn I will discontinue due to nonattendance. At this point I will be discontinuing this patient from physical therapy. I would be happy to see this patient again in the future if found appropriate by the physician. Thank you! Flako Mcrae, DPT, OCS, CSCS
== END 2018-09-01 19:00 | disposition home or self-care (01) ==
LOC: PT 16:30
PROVIDERS: Family Provider Family Medicine; PCP Family Medicine; Visit Provider Orthopaedic Surgery
DX: Z96.652 Presence of left artificial knee joint (principal)
CPT/HCPCS: 97110; 97161

== ENCOUNTER → 2018-10-22 16:01 | Outpatient (CLI) | payer BC, SELFPAY ==
[2018-10-01 15:54] VITALS: BMI 36.6
--- NOTE | 2018-10-22 16:03 | RAD_ITS ---
STUDY: X-RAY - LEFT KNEE REASON FOR EXAM: Female, 58 years old. Fall. Pain. TECHNIQUE: 4 view(s) of the knee. COMPARISON: August 12, 2018. FINDINGS: There is a total knee arthroplasty in place that is stable. No acute fracture nor dislocation is visualized. In alignment. RAD/Knee 4 or More Views IMPRESSION: Stable knee arthroplasty. Electronically Signed: Ramandeep Doyle MD at 16:21 EDT Tel , Service support ,
== END ==
PROVIDERS: Family Provider Family Medicine; PCP Family Medicine; Referring Provider Orthopaedic Surgery; Visit Provider Orthopaedic Surgery
DX: M25.562 Pain in left knee (principal)
CPT/HCPCS: 73564

== ENCOUNTER → 2019-04-20 15:20 | Outpatient (CLI) | payer BC, SELFPAY ==
[2018-10-22 16:19] VITALS: BMI 36.6
--- NOTE | 2019-04-20 15:23 | MRI_ITS ---
STUDY: MRI RIGHT FOREFOOT WITHOUT CONTRAST REASON FOR EXAM: Female, 58 years old. RT MID AND FOREFOOT OSTEOARTHRITIS -- pain across all MT''s x 2 years ago, rt foot surgery 1 year ago TECHNIQUE: Standardized fat and water weighted pulse sequences were obtained in all 3 orthogonal planes. COMPARISON: X-ray 01/27/2018 FINDINGS: Healed bunionectomy osteotomy and screw fixation the first metatarsal bone. Normal tibial and fibular sesamoids, with normal sesamoids-first metatarsal articulations. Normal interphalangeal joint of the hallux. Normal proximal and distal phalanges of the great toe. Normal medial and lateral heads of the flexor hallucis brevis tendons. Normal flexor and extensor hallucis longus tendons. Normal second through fifth metatarsophalangeal (MTP) joints. Normal interphalangeal joints of the second through fifth toes. Normal proximal, middle and distal phalanges of the second through fifth toes. Normal first through fourth intermetatarsal spaces. Normal flexor and extensor tendons of the second through fifth toes. Normal visualized metatarsi. Normal intrinsic muscles of the forefoot. There is no demonstrated soft tissue abnormality. MRI/Lower Ext/No Jt/w/o IMPRESSION: Healed bunionectomy, osteotomy, and screw fixation of the first metatarsal bone. Moderate second through fifth tarsometatarsal joint arthrosis Electronically Signed: Tyson Joseph MD at 8:06 EST Tel , Service support ,
== END ==
PROVIDERS: PCP Family Medicine; Referring Provider Podiatrist; Visit Provider Podiatrist
DX: M19.071 Primary osteoarthritis, right ankle and foot (principal)
CPT/HCPCS: 73718

== ENCOUNTER → 2019-10-27 10:43 | Outpatient (CLI) | payer BC, SELFPAY ==
[2018-10-22 16:19] VITALS: BMI 36.6
--- NOTE | 2019-10-27 10:43 | RAD_ITS ---
STUDY: X-RAY - LUMBAR SPINE REASON FOR EXAM: Female, 59 years old. Pain radiating down legs TECHNIQUE: 4 view(s) of the lumbar spine were obtained. COMPARISON: Prior study of 05/13/2018 FINDINGS: Normal lumbar lordosis. There is no substantial scoliosis. There is a normal alignment of the vertebrae. There is posterior spinal fusion with rods and interpeduncular screws from L4 to S1. There is mild narrowing of the L1-2, L2-3, and L3-4 disc spaces. The soft tissue structures are unremarkable. RAD/L/S Spine Min 4 Views IMPRESSION: Posterior spinal fusion with rods and interpedicular screws from L4 to S1. There is no evidence of spondylolisthesis. There is mild narrowing of the L1-2, L2-3, and L3-4 disc spaces. Electronically Signed: Sin Jansen MD at 17:07 EDT , Service support ,
== END ==
LOC: HPRAD 10:43
PROVIDERS: PCP Family Medicine; Referring Provider Orthopaedic Surgery; Visit Provider Orthopaedic Surgery
DX: Z98.1 Arthrodesis status (principal)
CPT/HCPCS: 72110

== ENCOUNTER 2019-12-02 15:30 | Outpatient (RCR) | payer BC, SELFPAY ==
[2019-10-27 10:53] VITALS: BMI 36.6
--- NOTE | 2019-11-03 13:56 | HP.PTEVAL_ITS ---
Patient's Visit Information NATO GUERRIER is a 59 year old F referred to Physical Therapy by Dr. Terese Briseno MD with a diagnosis of LOW BACK PAIN/NECK PAIN. Date of Evaluation: 11/02/19 Physical Therapist: Kevin Fisher, PT, Cert MDT, OCS - Visit Plan Frequency: 2x /Week Duration: 8WEEKS Plan: PT INTEREVTIONS MANUAL THERAPY WITH STM ,CERVICAL TRACTION ,MODALITIES,CERVICAL ,POSTURAL EX'S,DLS - Subjective This 59 y/o female presents to physical therapy with low back pain and neck pain.Patient H/O L4-S1 lumbar fusion 2017. Patient also had Left TKR 2019. Pateint has developed cervical pain 1month . Cervical is worse than lumbar .Patient also has right DJD. Patient cervical pain is symmtrical and radicular symptoms with parathesia/tingling and burning to fingers . Aggravating factors not specific but lifting,walking on hard concrete. Allevaiting factors MEDS. Patient seen MD recommended PT. Patient denies AVILA/tiinitus /nausea. Pateint sleeping okay 3hrs a night. Patient has symmtrical Lumbar symptoms. Nothing specific aggravates lumbar. Patient has h/o no trauma. Patient symptoms affects QOL and function . Patient symptoms affects QOL. SOCIAL: . VOCATION: retired - Pain Bilateral Neck Pain Intensity (Out of 10): 8 Pain Intensity Range: 10 Bilateral Back Pain Intensity (Out of 10): 0 Pain Intensity Range: 10 - Objective POSTURE: mild foward posture. PALAPTION: tender UT/levator ,paraspinals. GAIT: recipocal pattern. NEURO: parathesia/tingling fingers hands ,C5-6-7 1/3 ,L4-5,L5-S1 2/3. AROM: BUE WFL. MMT: BUE grossly 4/5 except shoulders 4-/5. CERVICAL ROM: flexion min loss,retraction ,WFL,rotation/lateral flexion WFL,extension min loss. LUMBAR ROM: flexion WNL loss ,extension min loss,side glides min loss,. MMT: quads/hams 4/5,hip flexion 4-/5,abd 4-/5. FLEXABLITY: hams min tight,piriformis min tight - Special Tests C/S Radiculapathy - Left Upper limb tension test: Negative C/S Radiculapathy - Right Upper limb tension test: Negative C/S Radiculapathy - Left Spurlings: Positive C/S Radiculapathy - Right Spurlings: Positive C/S Radiculapathy - Left Cervical distraction: Negative C/S Radiculapathy - Right Cervical distraction: Negative C/S Radiculapathy - Left Relief test: Negative C/S Radiculapathy - Right Relief test: Negative Sharp Kurt: Negative Vertebral Artery Test: Negative Alar Ligament Test: Negative L/S Slump test left side: Negative L/S Slump test right side: Negative L/S Left Straight Leg Raise: Negative L/S Right Straight Leg Raise: Negative - Goals Goal 1:: Independant with HEP. Goal Time Frame: 4-6 Weeks Goal 2:: Patient to improve posture for ADL'S Goal Time Frame: 4-6 Weeks Goal 3:: Patient to decrease cervical pain and radicular symptoms by 50 % or > to improve function. Goal Time Frame: 4-6 Weeks Goal 4:: Patient to improve cervical ROM for function of rcoverty Goal Time Frame: 4-6 Weeks Goal 5:: Patient to decrease neck owestry score by 5 points or > to improve QOL. Goal Time Frame: 4-6 Weeks - Rehabilitation Potential Physical Therapy Diagnosis: This 59 y/o female presents to physical therapy with cervical pain with radicular symptoms. and symmtrical lumbar pain which is mild with h/o lumbar surgery fusion 2018. Patient has cervical pain with not specific factors but impairs ADL'S Rehabilitation Potential: Good - Anticipated Interventions Patient/Client Instruction: Educate patient on: Condition, Plan of Care For the Purpose of:: To decrease pain, To increase ROM, To improve muscle performance and motor function, To improve ability to perform ADL's, To increase tolerance to activity/condition/position, To improve ability of physical actions for home/community/work/leisure, To improve health of tissue, To decrease soft tissue restriction, To increase flexibility/ROM, To improve endurance, To reduce risk of recurrence, To improve ability to perform tasks related to life management Therapeutic Exercise to Include: Strength training, Body mechanics, Postural training, Flexibilty training, Dynamic Lumbar Stabilization For the Purpose of:: To decrease pain, To increase ROM, To improve muscle performance and motor function, To improve ability to perform ADL's, To increase tolerance to activity/condition/position, To improve ability of physical actions for home/community/work/leisure, To decrease soft tissue restriction, To increase flexibility/ROM, To improve ability to perform tasks related to life management Manual Therapy Techniques to Include: Mobilization, Soft tissue mobilization Comment: CERVICAL TRACTION For the Purpose of:: To decrease pain, To increase ROM, To improve nutrient delivery to tissue, To increase oxygenation perfusion, To improve health of tissue, To decrease soft tissue restriction TENS: Yes IF ES: Yes Cryotherapy (ice pack, ice massage): Yes Thermo therapy (hot pack): Yes Ultrasound (thermal/non thermal): Yes For the Purpose of:: To decrease pain, To increase ROM, To improve nutrient delivery to tissue, To increase oxygenation perfusion, To improve health of tissue, To decrease soft tissue restriction Thank you for the opportunity to evaluate your patient. For Medicare and Medicare HMO plans, please review the plan of care and approve it. It will need to be FAXED BACK to us at [phone] for Medicare purposes. For Medicare only, by signing this I certify the plan of care. Please let me know if there are questions or concerns regarding this plan of care. Physician Signature: Date:
--- NOTE | 2020-04-20 09:46 | HP.PTDCSUM_ITS ---
It has been my pleasure to treat NATO GUERRIER referred by Dr. Terese Briseno MD, with the diagnosis of LOW BACK PAIN/NECK PAIN for a total of 9 visit(s). Discharge Date: Please see the following information for a summary of their discharge status. Subjective: PT has helped alot less neck and back pain Bilateral Neck Pain Intensity (Out of 10): 0 Bilateral Back Pain Intensity (Out of 10): 0 % Improvement: 70 Objective/Function: POSTURE: mild foward posture rounded shoulders head foward. GAIT: reciprocal pattern. NEURO: intact. MMT: BUE 4/5 ,QUADS/HAMS/HIP 4/5,ANKLE 5/6. CERVICAL ROM: flexion WFL,lateral flexion/rotation min ,lo ss,extension mod loss. LUMBAR ROM: flexion /ext WFL Goal 1:: Independant with HEP. Goal Progress: Goal Met Goal 2:: Patient to improve posture for ADL'S Goal Progress: Goal Met Goal 3:: Patient to decrease cervical pain and radicular symptoms by 50 % or > to improve function. Goal Progress: Goal Met Goal 4:: Patient to improve cervical ROM for function of rcoverty Goal Progress: Progressing Goal 5:: Patient to decrease neck owestry score by 5 points or > to improve QOL. Goal Progress: Goal Met Plan: RTD If there are questions or concerns regarding this patient's physical therapy, please feel free to call me at [phone]. Thank you for the referral of this patient. Sincerely, Kevin Fisher, PT, Cert MDT, OCS
== END 2019-12-02 19:00 | disposition home or self-care (01) ==
LOC: PT 15:30
PROVIDERS: PCP Family Medicine; Referring Provider Orthopaedic Surgery; Visit Provider Orthopaedic Surgery
DX: M54.5 Low back pain (principal); M54.2 Cervicalgia; Z98.1 Arthrodesis status
CPT/HCPCS: 97035; 97110; 97140; 97162

== ENCOUNTER 2020-12-06 10:04 | Observation (INO) | payer BC, SELFPAY ==
[2020-11-25 12:21] LABS: Absolute Lymphocyte Count 3.93 X10^3/uL (0.83-4.51); Absolute Neutrophil Count 6.3 X10^3/uL (2.0-7.7); Basophil% 0.9 % (0-1); Eosinophil# 0.49 X10^3/uL; Eosinophils% 4.2 % (0-5); Hematocrit 46.8 % (37-47); Hemoglobin 16.3 g/dL (12.0-15.0); Lymphocyte # 3.93 X10^3/ul (0.83-4.51); Lymphocyte % 33.7 % (19-41); Mean Corp Hgb Conc 34.8 g/dL (32-36); Mean Corpuscular Hgb 30.8 pg (27.0-32.0); Mean Corpuscular Volume 88.5 fL (81-99); Mean Platelet Vol. 9.7 fl (6.2-12.0); Monocyte# 0.84 X10^3/uL; Monocyte% 7.2 % (0-10); NRBC Flagged by Analyzer 0 % (0-5); Neutrophil # 6.26 X10^3/uL (2.7-7.7); Neutrophil % 53.7 % (47-70); Platelet Count 283 K/mm3 (150-450); RBC Distribution Width CV 12.5 % (11.6-14.6); RBC Distribution Width SD 40.9 fl (35.1-43.9); Red Blood Count 5.29 M/mm3 (4.2-5.4); White Blood Count 11.7 K/mm3 (4.4-11.0)
[2020-11-25 12:28] LABS: Prothrombin Time (Protime)PT. 12.2 SECONDS (11.7-14.9)
[2020-11-25 12:29] LABS: Partial Thromboplast Time 29.4 Seconds (24.1-36.2)
[2020-11-25 13:31] LABS: Anion Gap 6 (5-15); BUN 12 mg/dL (7-18); BUN/Creat Ratio 16.8 RATIO (10-20); Calcium,Total 9.4 mg/dL (8.5-10.1); Chloride 105 mmol/L (98-107); Creatinine, Serum 0.71 mg/dL (0.55-1.02); EST Glomerular Filtration Rate 89 mL/min (>60); Est Glom Filt Rate - Afr Amer 107 mL/min (>60); Glucose 108 mg/dL (74-106); Magnesium 2.3 mg/dL (1.6-2.6); Potassium 4.3 mmol/L (3.5-5.1); Sodium Level 136 mmol/L (136-145)
[2020-11-26 10:24] LABS: Fructosamine 214 umol/L (0-285)
[2020-12-06] VITALS (13 sets, daily range): BP systolic 106–138; BP diastolic 62–87; PULSE 67–96; RESP 14–20; TEMP 36.2–36.6; O2SAT 93–99; BMI 38.8
--- NOTE | 2020-12-06 | KNEE_PTH ---
PATIENT: NATO GUERRIER LOC: [facility] U#:[id number] AGE/SX: 60/F ROOM: LA315 RE12/06/[address]: Dr. Lobo Fitzgerald DO : 1960 BED: 1 DIS: 12/07/2020 SPEC #: [id number] RECD: 12/06/20 11:28 STATUS: YULIYA TRINIDAD #: [id number] DESTIN: 12/06/20 00:[address]: Lobo Fitzgerald DEPT: SURGICAL PATHOLOGY RECD BY: Pablo Birmingham ENTERED: 12/06/20 11:28 SP TYPE: TOTAL KNEE OTHR DR: Dr. Deny Sauer MD Tissues: Knee, NOS Procedures: Decalcification bone/plaque Surgery Specimen Level IV HEADER OPERATION: ERAS Total knee Replacement PRE-OP DIAGNOSIS: Primary osteoarthritis of right knee TISSUE SUBMITTED: Bone and tissue of right knee MICROSCOPIC DIAGNOSIS Bone and tissue of right knee, total knee resection: Severe degenerative joint disease. Mild synovial hyperplasia. AM:jerod 12/09/20 MICROSCOPIC DESCRIPTION Slides are reviewed. GROSS DESCRIPTION Received is one container designated bone and soft tissue right knee. The specimen consists of multiple fragments of dalton-yellow bone measuring in aggregate 15 x 13 x 2cm. Also in the specimen container are multiple fragments of yellow-white soft tissue measuring in aggregate2 x 1 x 0.5cm. A number of bony fragments contain articular surfaces consistent with tibial plateau and femoral condyle and displaying prominent osteophyte formation, eburnation, and bone erosion. Corsage Maker sections are submitted in two cassettes as follows: 1 - soft tissue, 2 - bone after decalcification. /AM:jerod 12/06/20 TC:5 CPT: 11719, 42494
[2020-12-06] MEDS: Acetaminophen 500 MG Tablet 1000 MG PO ×3 (06:14→22:18)
[2020-12-06] MEDS: Scopolamine 1mg/72hr Patch 1 PATCH TD (06:14)
[2020-12-06] MEDS: Celecoxib 200 MG Capsule 400 MG PO (06:14)
[2020-12-06] MEDS: Lactated Ringers 1,000 ML 100 ML IV (06:26)
--- NOTE | 2020-12-06 07:27 | HP.PCM_ITS ---
History and Physical Date of Admission: 12/06/20 Date of Service: 08/15/20 MR#:[id number]:[id number]: NATO GUERRIER [facility] #:[id number]:[id number] Provider:Dr. Lobo Fitzgerald DOAge/Sex: 59/F [facility] Int[facility] Visit Reasons: RIGHT KNEE Allergies atorvastatin [From Lipitor] Allergy (Verified 07/31/18 08:08) Upset Stomach cephalexin [From Keflex] Allergy (Verified 07/31/18 08:08) Swelling latex Allergy (Verified 07/31/18 08:08) Rash morphine Allergy (Verified 07/31/18 08:08) Vomiting nickel Allergy (Verified 07/31/18 08:08) Rash pork derived (porcine) Allergy (Verified 07/31/18 08:08) Food Allergy tramadol Allergy (Verified 07/31/18 08:08) Rash zinc Allergy (Verified 07/31/18 08:08) Rash gabapentin Adverse Reaction (Verified 07/31/18 08:08) Swelling PFSH Medical History (Updated 08/15/20 @ 11:14 by ROSALIO Diallo) Hypertension Surgical History (Updated 08/12/18 @ 10:[address] Lobo Fitzgerald DO) H/O: Social History (Updated 07/20/20 @ 15:[address] Lobo Fitzgerald DO) Smoking Status: Former smoker HPI RIGHT KNEE Details: Parts of this documentation were recorded by a scribe, this documentation accurately reflects the service provided and the decisions made by me, Dr. Lobo Fitzgerald DO 08/15/20 0752. NATO GUERRIER is a 59 year old F here today for fluid build up in her right knee/knee pain. Most of her pain today is localized on the medial side of the knee. The pain in the office today is a 7/10. The pain is sharp on the medial side. The pain does not radiate. Denies injury to lower right extremity. She a history of right foot surgery for hammer toe and bunions in 2018. She ice and elevate it. Takes 800mg ibuprofen 3 times per day and she takes 1 Tylenol per day. She has been taking that for approximately 1 week.She has tried a brace and this does not help. Last aspiration/injection was 07/20/20 this helped her for about 2 weeks. She does not think we have tried viscosupplementation. She wears MARINA hose 22/10. No new injuries since we saw her last. In regards to the left knee she is happy she had it done in hopes the right knee to be equivalent. she does have some pain in the posterolateal left knee with terminal flexion. . ROS Const Denies chills and Denies fever(s) ENT Denies neck pain Card Denies dyspnea Resp Denies dyspnea GI Denies nausea and Denies vomiting Musc Reports abnormal gait, Reports arthralgias, Reports back pain (intermitent), Reports joint swelling, Reports limited range of motion, Denies muscle cramps, Reports muscle weakness, Reports myalgias, Denies neck pain, Denies numbness, Denies radiating pain into limb and Denies tingling Skin/Breast Denies rash Neuro Yes abnormal gait, No numbness and No tingling Ortho Exam General General: Yes no acute distress Neurologic: Yes alert and Yes oriented x3 Psychologic: Yes reasonable and appropriate Right Knee Skin/Wound: No erythema, No ecchymosis and No swelling Knee ROM: Yes ROM-Extension -20 to 0 and Yes ROM-Flexion 0-140 (90 degrees) Examination: No Med jt line tenderness, No Lat jt line tenderness, Yes Crepitus and Yes Pain with flexion Stability: NML: Anterior Drawer and NML: Posterior Drawer Patella Translation: 1 Patella Grind: Yes Left Knee Skin/Wound: No ecchymosis, No erythema and No swelling Knee ROM: Yes ROM-Extension -20 to 0 and Yes ROM-Flexion 0-140 (90 degrees limited by pain) Stability: NML: Anterior Drawer, NML: Posterior Drawer, NML: Valgus 0, NML: Valgus 30, NML: Varus 0 and NML: Varus 30 Patella Translation: 1 Patella Grind: No Supplemental Info 07/20/2020 x-ray right knee advanced patellofemoral arthrosis with significant spurring joint space narrowing [id number] medial compartment arthrosis 07/20/2020 x-ray lumbar spine: Status post posterior lateral instrumented fusion L4-S1 without hardware failure Coding Level of Care Code Off vis,est,level 3 Diagnoses Primary osteoarthritis of right knee M17.11 Assessment and Plan Assessment and Plan (1) Primary osteoarthritis of right knee: Status: Acute Plan - Dr. Lobo Fitzgerald, DO: The patient has tried conservative measures for her right knee osteoarthritis and she would like to proceed with a TKA of the right knee. Her last steroid injection/aspiration was 07/20/20. She would like to have surgery towards the end of September because this works best for her schedule. Surgery is tentatively scheduled for 10/18/20. She has an allergy to nickel, left TKA implant was [employer], plan to do this for the right as well. Risks, benefits and alternatives of surgery reviewed including but not limited to bleeding, infection, nerve, artery and/or tissue damage, fracture, VTE, mechanical feel of the knee, continued pain, stiffness and expected post-operative course. Discussed she cannot take NSAIDs 7 days before surgery. Discussed the optional IOVERA treatment with the patient and she wishes to have this as long as it is covered by insurance. She will follow up with us in early September to sign consent and do IOVERA treatment if insurance covers it. The patient's questions were answered she is in agreement with the plan. 08/15/201613<Electronically signed by Lobo Fitzgerald DO>Date Lobo Fitzgerald DO 08/15/208<Electronically signed by Sandra SANTAMARIA>Cosigner Signature:Date (if applicable)Sandra Petit I have re-examined the patient. There are no clinical changes since date of exam
[2020-12-06 07:36] LABS: Bedside Glucose 118 mg/dL (70-110)
[2020-12-06] MEDS: dexAMETHasone 10 MG/ML Vial IV (07:43)
[2020-12-06] MEDS: Bupivacaine Mpf 0.5% 30 ML VIAL (09:20)
[2020-12-06] MEDS: Epinephrine (1 mg/ml) 1 MG/ML VIAL (09:20)
[2020-12-06] MEDS: Betamethasone/Betamethasone 30 MG/5 ML Vial (09:20)
--- NOTE | 2020-12-06 09:53 | RAD_ITS ---
STUDY: X-RAY - RIGHT KNEE REASON FOR EXAM: Female, 60 years old. Post op -- AP and Lateral xray of operative knee in PACU TECHNIQUE: 2 view(s) of the knee. COMPARISON: Comparison is made with prior study dated 07/20/2020. FINDINGS: Normal visualized distal femur. Normal visualized proximal tibia and fibula. Normal proximal tibiofibular articulation. The patient is status post total knee replacement. There is good alignment. Postoperative soft tissue changes. RAD/Knee 1 or 2 Views IMPRESSION: Status post total knee replacement. There is good alignment. Postoperative soft tissue changes. Electronically Signed: Rohan John MD at 11:13 EDT , Service support ,
--- NOTE | 2020-12-06 09:57 | PCM.OPRPT ---
Report of Operation Date of Procedure: 12/06/20 Description of Surgical Findings:: Preoperative diagnosis: Right knee DJD Postoperative diagnosis: Same Procedure: Right total knee arthroplasty Implant: [employer]hew, Tiffany II cemented femoral component size 4, cemented tibial baseplate size 3, cemented asymmetric patella size 29, polyethylene 9 deep dish Anesthesia: General with adductor canal block Tourniquet time: 73 minutes at 300 mmHg Complications: None Condition: Stable to PACU Estimated blood loss: 100 cc Indication for procedure: This is a 60-year-old female with long standing degenerative joint disease of the knee who has failed conservative treatment and wished to proceed with elective total knee arthroplasty. Previously had her left total knee done with a nickel free Kent [employer] Nephew knee by me and she wishes to have a right done she says of it feels like her left she will be happy. risk benefits and alternatives were reviewed including; risk of bleeding, infection, nerve artery and tissue damage, continued pain, postoperative stiffness, venous thromboembolism, need for postoperative rehabilitation, mechanical feel to the knee, and expected postoperative course. Procedure: The patient was met in the preoperative holding area. The operative extremity was identified by both patient and physician and was marked. Patient was met by anesthesia. An adductor canal block was placed by anesthesia preoperatively the patient was brought back to the operating room on a wheeled cart and transferred to the operating table in the supine position. Anesthesia was started. A well-padded tourniquet was placed on the operative extremity. The patient was prepped and draped in the usual sterile fashion. A timeout was called to ensure the proper patient procedure and extremity were being contemplated. An Esmarch was used to exsanguinate the extremity. The tourniquet was inflated. A 10 blade scalpel was used to make a midline incision down through the skin and subcutaneous tissue. Skin retractors placed. Bovie was used to perform meticulous hemostasis. full-thickness flaps were elevated medial and lateral along the joint capsule. A deep blade scalpel was used to perform a medial parapatellar arthrotomy. The knee was brought to full extension. A Bovie was used to release the soft tissues off the most proximal aspect of the medial tibial plateau a three-quarter inch curved osteotome was also used for this process. The infrapatellar fat pad was excised. The fat pad was excised partially anterior lateral portion the anterior medial was elevated from the femur. the patella was everted. The knee was brought into flexion. An intramedullary drill was used followed by flexible intramedullary guide roger. The distal femoral cutting block was placed and set to remove 10 mm of bone and 5 degrees of valgus. The block was secured with pins and an oscillating saw was used to complete the distal femoral cut. During this, and all bony cuts retractors were used to protect the collateral ligaments. At this point a femoral sizer was used to measure the AP dimension of the femur. The sizer block was pinned parallel to the epicondylar access for external rotation. The sizing block was removed and the appropriately sized 4-in-1 cutting block was placed over the previously made pinholes. It was checked with an tashi wing and the block was secured with pins. An oscillating saw was used to complete the anterior cut followed by the posterior cut followed by the posterior chamfer cut followed by the anterior chamfer cut. The block was removed as well as the fragments. A ronguer was used to remove excess osteophytes. The medial and lateral meniscus were excised as well as the ACL. At this point a PCL retractor was placed and an intramedullary drill was passed down the tibial canal followed by a solid intramedullary guide roger. The tibial cutting block was attached and set to remove 9 mm of bone from the high side. This was checked with an external alignment drop roger for slope and tilt. It was pinned into place. An oscillating saw was used to complete the tibial plateau cut and the block was removed. A large osteotome was used to elevate the fragment and a Jean-Paul and a Bovie were used to free the fragment from the surrounding soft tissue. A rongeur was once again used to remove osteophytes a lamina gwot ia/ilo intelligence support was used to evaluate the posterior capsular structures. A three-quarter inch curved osteotome was used to remove posterior osteophytes. A spacer block was inserted in both extension and flexion to ensure adequate spacing. Trials were inserted full extension and flexion were achieved in varus and valgus stability throughout range of motion were seen, balancing techniques were performed. At this point the attention was turned towards the patella. A caliper was used to ensure sufficient bone stock to remove 10 mm of bone. A reamer was used to perform this task. Lug holes were made for the appropriate-sized patella. The patella trial was inserted and there was good patellar tracking with knee range of motion. The tibial baseplate was allowed to float into rotation and was marked on the tibial plateau with a Bovie. Lug holes were made in the femur and trials were removed. The tibial baseplate was then sized and its preparation was completed with a fin punch. The knee was thoroughly irrigated. A posterior capsular injection was performed with our standard cocktail. The knee was brought into flexion and irrigated again. The tibial baseplate was cemented. Excess cement was removed with curettes. The polyethylene component was inserted. The femoral component was cemented. The knee was brought into full extension and placed on a bump. The patellar component was cemented. At this point a Betadine rinse was placed and thoroughly irrigated after a few minutes. This was followed by an Iricept rinse which was allowed to sit for 1 minute and then thoroughly irrigated.At this point all gloves were changed. The knee was thoroughly irrigated the joint capsule was closed with #1 Ethibond. Tourniquet was let down followed by 0 Vicryl and 2-0 Vicryl in the subcutaneous tissues. followed by lakisha in the skin. Dressing was applied in the form of Mepilex silver dressing web roll and an Alek wrap from the foot to the groin. The patient tolerated the procedure well, all counts were correct patient was brought back to the PACU in stable condition.
[2020-12-06] MEDS: Ipratropium/Albuterol Sulfate 3 ML AMPUL.NEB INHALATION (10:15)
[2020-12-06] MEDS: Albuterol 2.5 MG/3 ML VIAL.NEB. INHALATION (13:02)
[2020-12-06] MEDS: Lactated Ringers 1,000 ML 125 ML IV ×2 (14:35→21:51)
[2020-12-06] MEDS: Senna/Docusate Sodium 1 Tablet 2 TABLET PO ×2 (14:48→22:18)
[2020-12-06] MEDS: oxyCODONE 5 MG Tablet PO (22:26)
[2020-12-07 00:15] VITALS: BP 126/77; PULSE 84; RESP 16; TEMP 36.6; O2SAT 94
[2020-12-07 04:07] VITALS: BP 128/79; PULSE 85; RESP 16; TEMP 36.4; O2SAT 94
[2020-12-07] MEDS: 0.9% Saline Lock 10 ML Syringe IV (06:00)
[2020-12-07] MEDS: APIXABAN 2.5 MG TABLET PO (06:01)
[2020-12-07] MEDS: Acetaminophen 500 MG Tablet 1000 MG PO (06:01)
[2020-12-07] MEDS: oxyCODONE 5 MG Tablet PO ×2 (06:09→12:21)
--- NOTE | 2020-12-07 07:12 | PCM.PN.ORT ---
Subjective Subjective Seen and examined. Complain of pain in right knee. Denies fever chills nausea vomiting shortness of breath chest pain Objective Data Objective Data Vital Signs: Vital Signs Temp Pulse Resp BP Pulse Ox 97.6 F L 85 16 128/79 H 94 12/07/20 04:07 12/07/20 04:07 12/07/20 04:07 12/07/20 04:07 12/07/20 04:07 Oxygen Flow Rate (L/min) 2 Oxygen Delivery Method Nasal Cannula Weight: 198 lb 13.711 oz Body Mass Index (BMI) 38.8 Intake & Output: Intake and Output for Last 24 Hours 12/05/20 12/06/20 12/07/20 23:59 23:59 23:59 Intake Total 2894.24 / 3194.24 1308.33 / 1308.33 Balance 2894.24 / 3194.24 1308.33 / 1308.33 Lab / Micro Data Result Diagrams: 11/25/20 12:00 11/25/20 12:00 Labs: Laboratory Results - last 24 hr 12/06/20 06:05: POC Glucose 118 H Micro: Microbiology 12/02/20 13:00 Interface Orders SARS-CoV-2 Antigen (Rapid) - Final 11/25/20 12:00 Swab (Method) Nasal Screen MRSA/MSSA - Final Radiography Diagnostic Testing: Radiology Impression Knee X-Ray 12/06/20 09:53 IMPRESSION: Status post total knee replacement. There is good alignment. Postoperative soft tissue changes. Electronically Signed: Rohan John MD at 11:13 EDT , Service support , Physical Exam Const alert and oriented x3 General Appearance: cooperative Extremity Extremity Narrative: Dressing clean dry intact compartments soft neurovascular intact Assessment & Plan Assessment/Plan (1) S/P total knee arthroplasty: QUALIFIERS: Laterality: right Qualified Code(s): Z96.651 - Presence of right artificial knee joint PLAN: Postop day #1 status post right total knee arthroplasty. Patient has had some issues with pain control in the past we will allow her to postoperative prescription 1-3 tabs of oxycodone DC home today start outpatient physical therapy as already set up Follow-up in the office 2 weeks
--- NOTE | 2020-12-07 07:14 | EX.PCM.DISCH ---
Discharge Instructions Diet Discharge Diet: No restrictions Activity Weight Bearing Status: Weight bearing as tolerated Dressing / Incision Call your doctor if you observe: Shortness of breath and Chest pain Additional Dressing/Incision Instructions:: Ice and elevate one week while not ambulating. Ambulation is encouraged. Weightbearing as tolerated. Use assistive devise for stability. Encourage FULL knee extension and flexion 1 time EVERY time you get up and down and MULTIPLE times per day. No showering 72 hours after surgery. Begin showering postop day #3. Remove the dressing prior to shower and gently wash with warm water and antibacterial soap then pat dry and place abdominal pad (or plain gauze) and MARINA hose over top. This is to be done daily. Do not submerge for 3 weeks. If not showering daily after the initial 72 hours then you must clean incision and change dressing daily. Do not allow animals near the incision area. Keep clean. Follow anticoagulation recommendations as prescribed. Do not take any NSAIDs while on blood thinner. Do not take any additional narcotic pain medication other than what was prescribed on your surgery day without discussing with physician. Narcotic medication can be addictive. Do not drink alcohol while taking narcotics. Start physical therapy. If you are not currently scheduled for physical therapy or you are unsure of appointment time please call office [facility] to arrange. Call Dr. Fitzgerald with any concerns. Follow Up Care Please Follow Up With: Lobo Fitzgerald DO When: 2 weeks Test Results: Test results from this visit will be discussed in further detail at your follow-up appointment, if applicable. Discharge Plan Admission Attending Provider: Lobo Fitzgerald Primary Care Provider: Deny Sauer Discharge Orders/Prescriptions Prescriptions: New acetaminophen 500 mg Tablet 1,000 mg PO Q6H Qty: 100 RF: 0 oxycodone 5 mg Tablet 5 - 15 mg PO Q4H PRN PRN (Reason: Pain Score 4-10) 5 Days Qty: 60 RF: 0 Eliquis 2.5 mg Tablet 2.5 mg PO BID Qty: 30 RF: 0 Continued hydrochlorothiazide 25 mg tablet 25 mg PO DAILY RF: 0 propranolol 60 MG tablet 60 mg PO DAILY RF: 0 betamethasone sod phosph-water 12 MG/2 ML solution 1 applic TOPICAL DAILY PRN PRN (Reason: eczema) RF: 0 omeprazole magnesium 20 MG tablet,delayed release (DR/EC) 20 mg PO DAILY RF: 0 albuterol sulfate 6.7 GM HFA aerosol inhaler 2 puff IH Q4H PRN PRN (Reason: Wheezing) RF: 0 lidocaine HCl 3 % cream 1 applic TOPICAL TID PRN (Reason: pain) Qty: 85 RF: 0 Referrals / Follow Up: Deny Sauer MD [Primary Care Provider] - Disposition Disposition (needs filled in before D/C Order can be placed): Home, Self Care
[2020-12-07 07:18] LABS: Hematocrit 39.3 % (37-47); Hemoglobin 13.5 g/dL (12.0-15.0); Mean Corp Hgb Conc 34.4 g/dL (32-36); Mean Corpuscular Hgb 30.3 pg (27.0-32.0); Mean Corpuscular Volume 88.3 fL (81-99); Mean Platelet Vol. 9.6 fl (6.2-12.0); Platelet Count 254 K/mm3 (150-450); RBC Distribution Width CV 12.3 % (11.6-14.6); RBC Distribution Width SD 39.9 fl (35.1-43.9); Red Blood Count 4.45 M/mm3 (4.2-5.4); White Blood Count 17.2 K/mm3 (4.4-11.0)
[2020-12-07 07:48] LABS: Anion Gap 7 (5-15); BUN 8 mg/dL (7-18); BUN/Creat Ratio 13.2 RATIO (10-20); Calcium,Total 8.3 mg/dL (8.5-10.1); Chloride 103 mmol/L (98-107); Creatinine, Serum 0.61 mg/dL (0.55-1.02); EST Glomerular Filtration Rate 107 mL/min (>60); Est Glom Filt Rate - Afr Amer 129 mL/min (>60); Estimated Creatinine Clearance 70.45 ml/min; Glucose 142 mg/dL (74-106); Potassium 3.6 mmol/L (3.5-5.1); Sodium Level 136 mmol/L (136-145)
[2020-12-07 08:17] VITALS: O2SAT 94
[2020-12-07 10:04] VITALS: BP 129/79; PULSE 86; RESP 18; TEMP 36.9; O2SAT 96
[2020-12-07] MEDS: Pantoprazole Sodium 20 MG Tablet PO (10:06)
[2020-12-07] MEDS: Propranolol 40 MG Tablet 60 MG PO (10:06)
[2020-12-07] MEDS: Senna/Docusate Sodium 1 Tablet 2 TABLET PO (10:06)
[2020-12-07] MEDS: hydroCHLOROthiazide 25 MG Tablet PO (10:06)
--- NOTE | 2020-12-07 10:50 | CASEMGMT ---
RN YSABEL Face to Face with patient for initial transition planning/care coordination assessment. RN CM introduced self and role at [facility]. Patient lying in bed, alert and oriented. Patient willing to participate in assessment and is able to answer all questions appropriately. Care providers, pharmacy, and demographics verified. Patient wishes to discharge home and is setup with outpatient therapy at [facility]. Patient states she has no further needs or concerns at this time. CM to follow for discharge planning needs that may arise. PCP: Camacho Specialists: tomás Fitzgerald; L[place] supreme court judge Preferred Pharmacy:[facility] Insurance: [email or web address] Prescription Benefit: yes Living Will/HPOA: yes, Sherwin Kelsey LNOK: Living Arrangements: Patient lives with in a single story home with 2 steps to enter the home. Patient states she was independent at home prior to surgery. Transportation: , [facility] van DME/HHC: patient states she has walker at home. Patient is setup with [facility] for outpatient therapy starting tomorrow. Disposition Plan: Patient to discharge home with outpatient therapy, family support, and follow-up plans in place. Kika BARRIOS, RN, CM
--- NOTE | 2020-12-07 11:34 | NURSING ---
Pt called out and states she feels she is allergic to the stool softeners she has been taking. face and chest red and states she feels warm. no SOB noted. patient states she did not have this issue yesterday when taking it. will let WALTER Salomon know. patient has not had any other new medications.
[2020-12-07 12:32] VITALS: BP 131/84; PULSE 75; RESP 18; TEMP 36.7; O2SAT 95
--- NOTE | 2020-12-07 13:46 | CASEMGMT ---
TC to [facility] to obtain cost of lovenox. Pt has no cost. Notified [facility] nurse.
--- NOTE | 2020-12-07 14:35 | NURSING ---
Patient states she is sure she was having an allergic reaction to Elequis and does not want to take that medication ever again and will not take that medication ever again. Patient states she felt flushed and hot and her face was red. Dr. Fitzgerald was paged and notified of same. He states patient can take Lovenox 30 mg bid x10 days subq and elequis should be dc'd. [facility] was called and notified of rx change. Pt made aware as well.
== END 2020-12-07 14:30 | disposition home or self-care (01) ==
LOC: MS3 12-07 07:15 → SDC 12-07 10:51 → MS3 12-07 10:51
PROVIDERS: Anesthesiology; Admitting Provider Orthopaedic Surgery; PCP Family Medicine; Referring Provider Orthopaedic Surgery; Visit Provider Orthopaedic Surgery
PROC: (CPT 27447; principal; 2020-12-06 07:20)
DX: M17.11 Unilateral primary osteoarthritis, right knee (principal); Z87.891 Personal history of nicotine dependence; J43.9 Emphysema, unspecified; K21.9 Gastro-esophageal reflux disease without esophagitis; I10 Essential (primary) hypertension; Z79.899 Other long term (current) drug therapy; G43.909 Migraine, unspecified, not intractable, without status migrainosus
CPT/HCPCS: 01402; 27447; 64447; 36415; 73560; 80048; 82962; 82985; 83735; 85025; 85027; 85610; 85730; 86850; 86900; 86901; 87081; 87426; 88305; 88311; 94640; 96361; 96365; 96366; 97110; 97116; 97162; 97166; 97530; 97535; 99218; 99251; 99406; C1776; C9803; J7050; J7120; A4216; G0378; G0463; J0702; J2405

== ENCOUNTER 2021-01-09 17:00 | Outpatient (RCR) | payer BC, SELFPAY ==
--- NOTE | 2020-12-08 14:27 | HP.PTEVAL_ITS ---
Patient's Visit Information NATO GUERRIER is a 60 year old F referred to Physical Therapy by Dr. Lobo Fitzgerald DO with a diagnosis of R TKA. Date of Evaluation: 12/08/20 Physical Therapist: Richard Hernandez DPT - Visit Plan Frequency: 3x /Week Duration: 4-6 Weeks Plan: Start with ROM, progressing strength then functional strengthening. Progress gait as tolerated. Work on L knee flexion, HS strengthening as tolerated. - Subjective Pt. is here today for her initial evaluation S/P R TKA. DOS: 12/06/20. Pt. reports overall doing well. She is having some R knee and quad pain, rated as 4/10 currently. She denies calf pain, no blurred vision, no AVILA no difficulty breathing. She did have her L knee replaced ~2 years ago. Pt. arrives using her FWW, but reports she really does not want to use or need. She reports icing and elevating as prescribed. Pt. is sleeping well. Pt. is retried. Lives in a split level home with garage underneath. She does a lot of gardening and work outside as well as walking in her [place]. Pt. would like to get back to this without limitations. She is also having some difficulty with bending her LLE more actively than passively. Pt. reports physician believes this is due to IT band and HS tightness/weakness. Pt. would also like this to be addressed while she is here. - Pain R knee Pain Intensity (Out of 10): 4 Pain Intensity Range: 0, 7 L knee Pain Intensity (Out of 10): 1 Pain Intensity Range: 0, 2 - Objective POSTURE: Pt. has normal posture in stance. Pt. has normal wt. shift. Pt. does lack slight knee extension on RLE in stance. PALPATION: Pt. has negative homans, no signs of infection. Pt. dose have aqua cell bandage in place (to take off tomorrow). Pt. does have some tenderness at L IT band and L lateral HS. Marked edema in RLE. NEURO: normal sensation and normal Achilles DTR bilaterally. ROM: R knee 0-5-86deg. L knee ROM: 0-0-120deg. (pt. reports increased pain with B knee ROM into flexion, and increased symptoms with R TKE). MMT: LLE: ankle 5/5 throughout; knee ex 5/5, flexion 4/5; hip- flexion 4+/5, abd 4/5, ext 4+/5. RLE: ankle 5/5 throughout; knee ext 13.1#, flexion 12.4#; hip- flexion 4-/5, abd 4/5, ext 4-/5. GAIT: Pt. ambulates well with AD with slight lack of TKE and lacking knee flexion during swing phase. STAIRS: step to pattern loading LLE only. Use of BHR. - Balance/Special Test Scores Lower Extremity Functional Score: 15 TUG Test Time Seconds: 23.7 WOMAC Total Score: 53 WOMAC Percentatge: 44.8000 - Goals Goal 1:: LTG: Pt. to be able to ambulate with out AD with normal gait pattern for 1000'+. Goal Time Frame: 4-6 Weeks Goal 2:: LTG: Pt. to have increased BLE strength to 5/5 throughout. Goal Time Frame: 4-6 Weeks Goal 3:: STG: pt. to have 0-0-120deg of B knee ROM without increase in symptoms. Goal Time Frame: 2-4 Weeks Goal 4:: LTG: Pt. to negotiate 1 flight of stairs with reciprocal pattern with 1 HR without increase in symptoms. Goal Time Frame: 4-6 Weeks Goal 5:: STG: Pt. to sleep throughout the night with out increase in B knee pain Goal Time Frame: 4-6 Weeks Goal 6:: LTG: pt. to be able to walk with out AD throughout uneven ground including wooded areas on her property. Goal Time Frame: 4-6 Weeks - Rehabilitation Potential Physical Therapy Diagnosis: Pt. has signs and symptoms consistent with R TKA. Pt. has subsequent hypomobility, weakness, difficulty walking, and increased pain. Pt. would benefit from PT to address the above limitations progress back to all functional activities without limitations. Rehabilitation Potential: Excellent - Anticipated Interventions Thank you for the opportunity to evaluate your patient. For Medicare and Medicare HMO plans, please review the plan of care and approve it. It will need to be FAXED BACK to us at [phone] for Medicare purposes. For Medicare only, by signing this I certify the plan of care. Please let me know if there are questions or concerns regarding this plan of ca re. Physician Signature: Date:
--- NOTE | 2021-02-28 13:18 | HP.PT.NRP ---
NATO GUERRIER was seen in my office for initial evaluation on 12/08/20. The following Plan of Care was established for this patient: Initial Frequency: 3x /Week Initial Duration: 4-6 Weeks This patient was last seen in our office 01/09/21. Pertinent comments regarding their Physical therapy will appear below: PT. was seen in PT for total knee replacement. She has not been seen in ~6 weeks and will be DC from PT at this point in time. At this point I will be discontinuing this patient from physical therapy. I would be happy to see this patient again in the future if found appropriate by the physician. Thank you! Richard Hernandez, DPT Balance/Gait/Functional tests - Balance/Special Test Scores Lower Extremity Functional Score: 15 TUG Test Time Seconds: 23.7 Tug Test: 20-30sec.=variable mobility WOMAC Total Score: 53 WOMAC Percentage: 44.8000
== END 2021-01-09 19:00 | disposition home or self-care (01) ==
LOC: PT 17:00
PROVIDERS: PCP Family Medicine; Referring Provider Orthopaedic Surgery; Visit Provider Orthopaedic Surgery
DX: Z96.651 Presence of right artificial knee joint (principal)
CPT/HCPCS: 97110; 97140; 97161